=== PATIENT | female | born 1950 | race Caucasian/White ===

== ENCOUNTER 2016-11-29 15:56 | Inpatient (IN) | payer OTHER, MEDICARE ==
--- NOTE | 2016-11-29 16:08 | PDOC ---
History of Present Illness - General History Source: Patient Exam Limitations: No Limitations - History of Present Illness Initial Comments: 11/29/16 17:23 The patient is a 66 year old female, with a significant past medical history of Waldenstrom's macroglobulinemia, asthma, COPD, non hodgkin's lymphoma, AFib(on coumadin), irritable bowel syndrome, diabetes, hypertension,hyperlipidemia, hypothyroidism,arthritis, fibromyalgia, who presents to the emergency department complaining of shortness of breath for 1 day. The patient reports associated chest pain with her shortness of breath. She reports a cough productive of yellow sputum, fever, chills, and headache, but denies dizziness. The patient describes her headache as sharp and constant. The patient reports her friend is ill, but she has not seen her for 4 days. The patient denies any nausea, vomiting, diarrhea, constipation, or changes in urination patterns. She states she started not feeling well 1 day ago, so she called her PCP to make an appointment for today. However, today she was unable to go to her PCP because she could not get up. The patient denies any recent travel. Allergies: Midazolam HCl, [fresh fruit] Past Surgical History: Spinal fusion of L5/S1, Myxoma resection Social History: Current everyday smoker(20 cigarettes a day). Denies alcohol or drug use. PCP: Dr. Andrade <Serena Maya - Last Filed: 11/29/16 17:26> - General History Source: Patient Exam Limitations: No Limitations <Belle Araiza - Last Filed: 12/01/16 08:01> - General Chief Complaint: Shortness of Breath Stated Complaint: SOB Time Seen by Provider: 11/29/16 15:57 Past History <Serena Maya - Last Filed: 11/29/16 17:26> - Past Medical History Anemia: No Asthma: Yes Cancer: (NON HODGKINS LYMP) Cardiac Disorders: Yes CVA: No COPD: Yes CHF: No Dementia: No Diabetes: No GI Disorders: Yes (IBS) Disorders: No HTN: No Hypercholesterolemia: Yes Liver Disease: No Seizures: No Thyroid Disease: Yes (HYPO) - Surgical History Abdominal Surgery: No Appendectomy: No Cardiac Surgery: Yes (MYXOMA RESECTION) Cholecystectomy: No Lung Surgery: No Neurologic Surgery: No Orthopedic Surgery: Yes (SPINAL FUSION OF L5, S1) - Psycho/Social/Smoking Cessation Hx Anxiety: No Suicidal Ideation: No Smoking Status: Yes Smoking History: Current some day smoker Years of Tobacco Use: 12 Have you smoked in the past 12 months: Yes Number of Cigarettes Smoked Daily: 20 Hx Alcohol Use: No Drug/Substance Use Hx: No Substance Use Type: None Hx Substance Use Treatment: No <Belle Araiza - Last Filed: 12/01/16 08:01> - Past Medical History Allergies/Adverse Reactions: Allergies Allergy/AdvReac Type Severity Reaction Status Date / Time midazolam HCl [From Versed] Allergy Verified 11/28/13 14:45 fresh fruit Allergy Severe anaphlaxis Uncoded 11/28/13 14:45 Home Medications: Ambulatory Orders Atorvastatin Ca [Lipitor] 20 mg PO HS 11/29/16 Azelastine HCl 137 mcg NS DAILY 11/29/16 Biotin/Calcium Carbonate [Biotin 800 Mcg Tablet] 1 each PO DAILY 11/29/16 Cholecalciferol (Vitamin D3) [Vitamin D3 -] 2,000 unit PO DAILY 11/29/16 Cyanocobalamin [Vitamin B12 -] 1,000 mcg PO DAILY 11/29/16 Cyclobenzaprine HCl [Flexeril 10 mg] 5 mg PO DAILY 11/29/16 Digoxin [Lanoxin -] 0.25 mg PO DAILY 11/29/16 Diltiazem HCl [Cartia Xt] 180 mg PO DAILY 11/29/16 Fluticasone Prop 0.05% Nasal [Flonase -] 1 - 2 spray NS DAILY 11/29/16 Furosemide [Lasix] 80 mg PO BID 11/29/16 Gabapentin 200 mg PO BID 11/29/16 Guaifenesin [Mucinex] 1,200 mg PO DAILY 11/29/16 Levothyroxine [Synthroid -] 25 mcg PO DAILY 11/29/16 Metformin HCl [Metformin HCl ER] 1,000 mg PO BID 11/29/16 Multivitamin [Poly-Vitamin] 1 each PO DAILY 11/29/16 Potassium 200 mg PO ASDIR 11/29/16 Quetiapine Fumarate [Seroquel -] 50 mg PO HS 11/29/16 Venlafaxine HCl ER [Effexor Xr -] 225 mg PO DAILY 11/29/16 Warfarin Sodium [Coumadin] 5 mg PO ASDIR 11/29/16 Review of Systems - Review of Systems Able to Perform ROS?: Yes Comments:: 11/29/16 17:23 GENERAL/CONSTITUTIONAL: Yes: +fever, +chills, +weakness. No: loss of appetite. HEAD, EYES, EARS, NOSE AND THROAT: No: change in vision, ear pain, discharge, sore throat, throat swelling. CARDIOVASCULAR: Yes: +Chest pain. No: lightheadedness, palpitations, syncope RESPIRATORY: Yes: +shortness of breath, +cough. No: wheezing, hemoptysis, stridor. GASTROINTESTINAL: No: nausea, vomiting, abdominal cramping, diarrhea, rectal bleeding, constipation. GENITOURINARY: No: dysuria, hematuria, frequency, urgency, flank pain. MUSCULOSKELETAL: No: back pain, neck pain, muscle swelling or pain SKIN AND BREASTS: No: lesions, pallor, rash or easy bruising. NEUROLOGIC: Yes: +headache. No: vertigo, paresthesias ENDOCRINE: No: unexplained weight gain or loss HEMATOLOGIC/LYMPHATIC: No: anemia, easy bleeding, swelling nodes <Maya,Giomilsy - Last Filed: 11/29/16 17:26> *Physical Exam - Vital Signs Last Vital Signs Temp Pulse Resp BP Pulse Ox 98.7 F 73 20 149/76 97 11/29/16 15:56 11/29/16 15:56 11/29/16 15:56 11/29/16 15:56 11/29/16 15:56 - Physical Exam Comments: 11/29/16 17:23 GENERAL: The patient is in no acute distress. HEAD: Normal with no signs of trauma. EYES: PERRLA, EOMI, sclera anicteric, conjunctiva clear. ENT: Ears normal, nares patent, oropharynx clear without exudates. Moist mucous membranes. NECK: Normal range of motion, supple without lymphadenopathy, JVD, or masses. LUNGS: Breath sounds equal, clear to auscultation bilaterally. No wheezes, and no crackles. HEART: Irregularly irregular. No murmurs, rubs or gallops. ABDOMEN: Soft, nontender, normoactive bowel sounds. No guarding, no rebound. EXTREMITIES: Normal range of motion, no edema. No clubbing or cyanosis. No erythema, or tenderness. NEUROLOGICAL: Cranial nerves II through XII grossly intact. Normal speech. No focal neurological deficits. MUSCULOSKELETAL: Back non-tender to palpation, no CVA tenderness SKIN: Warm, Dry, normal turgor, no rashes or lesions noted. <Serena Maya - Last Filed: 11/29/16 17:26> Heart Score/ECG Review #1 ECG reviewed & interpreted by me at: 16:56 11/29/16 16:56 Afib rate of 91 bpm, right axis deviation no ST elevations or depression Diffuse T wave inversions noted <Belle Araiza - Last Filed: 12/01/16 08:01> ED Treatment Course - RADIOLOGY Radiograph Interpretation: 11/29/16 17:26 EXAM: CXR INTERPRETED BY: Dr. Carter REVIEWED BY: Dr. Nettles IMPRESSION: No evidence of acute lung disease. <Serena Maya - Last Filed: 11/29/16 17:26> - LABORATORY CBC & Chemistry Diagram: 12/01/16 05:35 11/30/16 06:00 <Belle Araiza - Last Filed: 12/01/16 08:01> Medical Decision Making - Medical Decision Making 11/29/16 16:07 A portion of this note was documented by scribe services under my direction. I have reviewed the details of the note, within reason, and agree with the documentation with the following case summary and management plan written by me. Nursing documentation reviewed and incorporated into medical decision making 11/29/16 17:46 This is a 66 yo F h/o Waldenstrom's macroglobulinemia, asthma, COPD, non hodgkin 's lymphoma, AFib(on coumadin), irritable bowel syndrome, diabetes, hypertension ,hyperlipidemia, hypothyroidism,arthritis, fibromyalgia, who presents w/ shortness of breath and cough since yesterday She called to make an appointment with her PMD which she had for today She was too weak to make it to that appointment Pt presents to the ER The patient reports associated chest pain with her shortness of breath. She reports a cough productive of yellow sputum, fever, chills, and headache, but denies dizziness. The patient describes her headache as sharp and constant. The patient reports her friend is ill, but she has not seen her for 4 days. Will do labs Will do CXR Will do EKG Will re assess 11/29/16 17:49 CXR: no acute lung disease 11/29/16 17:49 11/29/16 18:32 Laboratory Tests 11/29/16 11/29/16 17:35 17:35 WBC 10.9 H Hgb 15.8 H D Hct 47.1 H D Plt Count 257 D Sodium 134 L Potassium 3.5 D Chloride 96 L Carbon Dioxide 31 H BUN 10 D Creatinine 0.5 L Random Glucose 116 H 11/29/16 18:32 ? retaining (CO2 = 31) Will review VBG when resulted Case reviewed with Hospitalist Will obs for COPD exacerbation Selected Entries 11/29/16 11/29/16 16:20 18:07 Temperature 100.1 F H Pulse Rate [ 76 Left] Respiratory 20 Rate Blood Pressure 122/64 [Right Arm] O2 Sat by Pulse 96 Oximetry (%) <Belle Araiza - Last Filed: 12/01/16 08:01> *DC/Admit/Observation/Transfer - Attestations Scribe Attestion: 11/29/16 17:24 Documentation prepared by Serena Maya, acting as medical technologist prn for Belle Araiza MD. <Serena Maya - Last Filed: 11/29/16 17:26> - Discharge Dispostion Admit: Yes <Belle Araiza - Last Filed: 12/01/16 08:01> Diagnosis at time of Disposition: COPD exacerbation - Discharge Dispostion Condition at time of disposition: Stable
[2016-11-29] MEDS ORDERED: ALBUTEROL SO4 2.5/IPRATROPIUM 0.5 INH SOL 3 ML VIAL.NEB. NEB ONE ×4 (17:09→20:15)
[2016-11-29 17:45] LABS: BASOPHIL 1.5 % (0-2.0); EOSINOPHIL 0.6 % (0-4.5); MCH 30.5 pg (25.7-33.7); MCHC 33.5 g/dl (32.0-36.0); MEAN CELL VOLUME 91.1 fl (80-96); MEAN PLT VOLUME 8.9 fl (7.5-11.1); NEUTROPHILS 79.2 % (42.8-82.8); PLATELET COUNT 257 K/MM3 (134-434); RDW 14.5 % (11.6-15.6); WHITE BLOOD COUNT 10.9 K/mm3 (4.0-10.0)
[2016-11-29 17:54] LABS: INR 1.95 (0.82-1.09); PROTHROMBIN TIME (PATIENT) 21.5 SEC (10.2-13.0)
[2016-11-29 18:01] LABS: ALBUMIN 3.9 g/dl (3.5-5.0); ALK PHOS 119 U/L (32-92); ANION GAP 7 (8-16); BILIRUBIN,TOTAL 0.6 mg/dl (0.2-1.0); CALCIUM 8.6 mg/dl (8.4-10.2); CO2 31 mmol/L (22-28); CREATININE 0.5 mg/dl (0.6-1.3); GLUCOSE,RANDOM 116 mg/dl (74-106); SGOT/AST 21 U/L (10-42); SGPT/ALT 19 U/L (10-40); TOT PROT 6.7 g/dl (6.4-8.3)
[2016-11-29] MEDS ORDERED: methylPREDNISolone NA SUCC 125 MG/2 ML VIAL IVPB ONE (18:04)
[2016-11-29 18:27] LABS: CPK(DFH) 28 IU/L (26-140)
[2016-11-29] MEDS ORDERED: ALBUTEROL SO4 0.083% IH SOL 2.5 MG/3 ML VIAL.NEB. NEB PRN (18:30)
[2016-11-29 18:33] LABS: TROPONIN I (DFP) < 0.03 ng/ml (0.03-0.50)
[2016-11-29] MEDS ORDERED: methylPREDNISolone NA SUCC 125 MG/2 ML VIAL ONE (18:38)
[2016-11-29 19:48] LABS: VENOUS BLOOD GAS HCO3 30.7 meq/L (22-26); VENOUS PH 7.38 (7.35-7.45)
--- NOTE | 2016-11-29 21:44 | PDOC ---
ED Treatment Course - LABORATORY CBC & Chemistry Diagram: 11/29/16 17:35 11/29/16 17:35 - ADDITIONAL ORDERS Additional order review: Laboratory Results 11/29/16 11/29/16 11/29/16 17:37 17:37 17:35 INR PTT (Actin FS) VBG pH 7.38 POC VBG pCO2 53.5 H POC VBG pO2 29.6 L* Mixed VBG HCO3 30.7 H Sodium Potassium Chloride Carbon Dioxide Anion Gap BUN Creatinine Creat Clearance w eGFR Random Glucose Lactic Acid Calcium Total Bilirubin AST ALT Alkaline Phosphatase Creatine Kinase 28 Troponin I < 0.03 L Total Protein Albumin Digoxin Blood Type O POSITIVE Antibody Screen Negative 11/29/16 11/29/16 11/29/16 17:35 17:35 17:35 INR 1.95 H D PTT (Actin FS) 41.0 H VBG pH POC VBG pCO2 POC VBG pO2 Mixed VBG HCO3 Sodium 134 L Potassium 3.5 D Chloride 96 L Carbon Dioxide 31 H Anion Gap 7 L BUN 10 D Creatinine 0.5 L Creat Clearance w eGFR > 60 Random Glucose 116 H Lactic Acid 1.083 Calcium 8.6 Total Bilirubin 0.6 D AST 21 ALT 19 D Alkaline Phosphatase 119 H D Creatine Kinase Cancelled Troponin I Cancelled Total Protein 6.7 Albumin 3.9 D Digoxin 1.0986 Blood Type Antibody Screen 11/29/16 17:20 INR PTT (Actin FS) VBG pH POC VBG pCO2 POC VBG pO2 Mixed VBG HCO3 Sodium Potassium Chloride Carbon Dioxide Anion Gap BUN Creatinine Creat Clearance w eGFR Random Glucose Lactic Acid Calcium Total Bilirubin AST ALT Alkaline Phosphatase Creatine Kinase Troponin I Total Protein Albumin Digoxin Blood Type O POSITIVE Antibody Screen 11/29/16 17:35 RBC 5.17 MCV 91.1 MCHC 33.5 RDW 14.5 MPV 8.9 Neutrophils % 79.2 D Lymphocytes % 15.0 D Monocytes % 3.7 L Eosinophils % 0.6 Basophils % 1.5 - Medications Given in the ED: ED Medications Discontinued Medications Generic Name Dose Route Start Last Admin Trade Name Freq PRN Reason Stop Dose Admin Albuterol/Ipratropium 1 amp 11/29/16 18:04 11/29/16 17:10 Duoneb - NEB 11/29/16 18:05 1 amp NOW ONE Administration Albuterol/Ipratropium 1 amp 11/29/16 20:10 11/29/16 20:14 Duoneb - NEB 11/29/16 20:11 1 amp ONCE ONE Administration Methylprednisolone Sodium Succinate 125 mg 11/29/16 18:04 11/29/16 18:37 Solu-Medrol - IVPB 11/29/16 18:05 125 mg ONCE ONE Administration Medical Decision Making - Medical Decision Making 11/29/16 21:55 patient noted to have O2 sat in low 80's prior to transport upstairs. On exam, patient states that she is not short of breath and in fact feels better than when she arrived. However, the patient has bilateral rhonchi on auscultatory exam. DuoNeb treatment given. Oxygenation continues to be marginal with saturations between 8284 percent Patient started on BiPAP and arterial blood gas sent Patient complained of chest pain after initiation of BiPAP assistance. Previous EKG and first set of cardiac enzymes showed no evidence of myocardial ischemia/infarct. Repeat electrocardiogram performed. Repeat cardiac enzymes sent. Although patient may have mucus plugging, occult pneumonia, pulmonary emboli cannot be ruled out. Patient will have CT angiogram to evaluate for her apparent sudden hypoxia. CT angiogram shows no evidence of pulmonary embolus in the main pulmonary artery , segmental or subsegmental bifurcations, bilaterally. There are atelectatic changes with probable infiltrates in the dependent portion of the left lower lobe. Thereare also minimal infiltrates versus atelectatic changes in the left upper and right middle lobe Patient seen and evaluated by Shira Villafana,,[facility] . Intravenous antibiotic therapy will be initiated. Patient will be transferred to [facility] by [facility] ambulance as per MAYTE Villafana *DC/Admit/Observation/Transfer Diagnosis at time of Disposition: COPD exacerbation - Discharge Dispostion Condition at time of disposition: Stable
[2016-11-29 21:56] LABS: CPK(DFH) 26 IU/L (26-140)
[2016-11-29 22:00] LABS: ARTERIAL BLD GAS O2 SATURATION 88.5 % (90-98.9); ARTERIAL BLOOD GAS PO2 54.3 mmHg (80-100)
[2016-11-29 22:01] LABS: ARTERIAL BLOOD GAS BASE EXCESS 4.2 meq/l (-2-2); ARTERIAL BLOOD GAS HCO3 29.6 meq/L (22-26); LPM/O2% 45%; MECH. VENT. BIPAP; PT. ON O2? YES; TYPE OF O2 OT; VENT RATE 12
[2016-11-29 22:09] LABS: TROPONIN I (DFP) < 0.03 ng/ml (0.03-0.50)
[2016-11-29] MEDS ORDERED: AZITHROMYCIN IVPB 250 ML IVPB ONE (23:43)
[2016-11-29] MEDS ORDERED: cefTRIAXone SODIUM 1 GM VIAL ONE (23:48)
[2016-11-29] MEDS ORDERED: AZITHROMYCIN 500 MG VIAL IVPB ONE (23:48)
--- NOTE | 2016-11-30 00:23 | HP ---
CHIEF COMPLAINT: SOB, cough PCP: Raymond HISTORY OF PRESENT ILLNESS: This is a 66 year old female with a past medical history of Waldenstrom's macroglobulinemia, asthma, COPD, nonHodkin's lymphoma, atrial fibrillation on coumadin, IBS, DM, HTN, HLD, hypothyroid, arthritis, fibromyalgia who presented to the ED with SOB, chest pain, cough with yellow sputum, subjective fever and chills since 11/28. Initially on presentation to the ED pt vitals were stable and oxygen sat >90, but pt with desat into 70s between 8 and 9 pm. pt states that at the time she didn't feel any increase in SOB. Despite duoneb and supplemental oxygen, her sats remained low 80s and she was placed on BiPAP. Shortly after being placed on BiPAP, pt c/o increased chest pain. Repeat ECG was done and repeat cardiac enzymes sent. Upon exam, pt appears comfortable, no tachypnea or accessory muscle use noted. However, pt states that the biPAP is making it harder for breathe and causing her chest to hurt more. Pt taken off BiPAP briefly for a drink of water and sats again dropped back into low 80s; immediately placed back on BiPAP. Pt denies any abdominal discomfort. 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, sober x 20 years Drugs: pt denies Family History: mother age 79, MD, PMH CVA, CHF, enlarged heart father age 54, lung CA brother age 54, interstitial lung disease Allergies midazolam HCl [From Versed] Allergy (Verified 11/28/13 14:45) fresh fruit Allergy (Severe, Uncoded 11/28/13 14:45) anaphlaxis HOME MEDICATIONS: 3 Medication Instructions Recorded Atorvastatin Ca [Lipitor] 20 mg PO HS 11/29/16 Azelastine HCl 137 mcg NS DAILY 11/29/16 Biotin/Calcium Carbonate [Biotin 1 each PO DAILY 11/29/16 800 Mcg Tablet] Cholecalciferol (Vitamin D3) 2,000 unit PO DAILY 11/29/16 [Vitamin D3 -] Cyanocobalamin [Vitamin B12 -] 1,000 mcg PO DAILY 11/29/16 Cyclobenzaprine HCl [Flexeril 10 5 mg PO DAILY 11/29/16 mg] Digoxin [Lanoxin -] 0.25 mg PO DAILY 11/29/16 Diltiazem HCl [Cartia Xt] 180 mg PO DAILY 11/29/16 Fluticasone Prop 0.05% Nasal 1 - 2 spray NS DAILY 11/29/16 [Flonase -] Furosemide [Lasix] 80 mg PO BID 11/29/16 Gabapentin 200 mg PO BID 11/29/16 Guaifenesin [Mucinex] 1,200 mg PO DAILY 11/29/16 Levothyroxine [Synthroid -] 25 mcg PO DAILY 11/29/16 Metformin HCl [Metformin HCl ER] 1,000 mg PO BID 11/29/16 Multivitamin [Poly-Vitamin] 1 each PO DAILY 11/29/16 Potassium 200 mg PO ASDIR 11/29/16 Quetiapine Fumarate [Seroquel -] 50 mg PO HS 11/29/16 Venlafaxine HCl ER [Effexor Xr -] 225 mg PO DAILY 11/29/16 Warfarin Sodium [Coumadin] 5 mg PO ASDIR 11/29/16 REVIEW OF SYSTEMS CONSTITUTIONAL: Present: fever, chills, generalized weakness, malaise Absent: diaphoresis, loss of appetite, weight change HEENT: Absent: rhinorrhea, nasal congestion, throat pain, throat swelling, difficulty swallowing, mouth swelling, ear pain, eye pain, visual changes CARDIOVASCULAR: Present: chest pain Absent: syncope, palpitations, irregular heart rate, lightheadedness, peripheral edema RESPIRATORY: Present: cough, shortness of breath, dyspnea with exertion Absent: orthopnea, wheezing, stridor, hemoptysis GASTROINTESTINAL: Absent: abdominal pain, abdominal distension, nausea, vomiting, diarrhea, constipation, melena, hematochezia GENITOURINARY: Absent: dysuria, frequency, urgency, hesitancy, hematuria, flank pain, genital pain MUSCULOSKELETAL: Absent: myalgia, arthralgia, joint swelling, back pain, neck pain SKIN: Absent: rash, itching, pallor HEMATOLOGIC/IMMUNOLOGIC: Absent: easy bleeding, easy bruising, lymphadenopathy, frequent infections ENDOCRINE: Absent: unexplained weight gain, unexplained weight loss, heat intolerance, cold intolerance NEUROLOGIC: Absent: headache, focal weakness or paresthesias, dizziness, unsteady gait, seizure, mental status changes, bladder or bowel incontinence PSYCHIATRIC: Absent: anxiety, depression, suicidal or homicidal ideation, hallucinations. PHYSICAL EXAMINATION Vital Signs - 24 hr 3 11/29/16 11/29/16 11/29/16 11/29/16 11/29/16 11/29/16 11/29/16 15:56 16:20 18:07 18:48 19:51 20:55 22:15 Temperature 98.7 F 100.1 F H Pulse Rate 73 Pulse Rate [ 76 85 86 Left] Respiratory 20 20 19 15 Rate Blood Pressure 149/76 Blood Pressure 122/64 127/60 131/80 [Right Arm] O2 Sat by Pulse 97 96 96 89 L 89 L Oximetry (%) GENERAL: Awake, alert, and fully oriented, in no acute distress. HEAD: Normal with no signs of trauma. EYES: Pupils equal, round and reactive to light, extraocular movements intact, sclera anicteric, conjunctiva clear. No lid lag. EARS, NOSE, THROAT: Ears normal, nares patent, oropharynx clear without exudates. Moist mucous membranes. NECK: Normal range of motion, supple without lymphadenopathy, JVD, or masses. LUNGS: rhonchi all lung loyd HEART: Regular rate and rhythm, normal S1 and S2 without murmur, rub or gallop. ABDOMEN: Soft, nontender, not distended, normoactive bowel sounds, no guarding, no rebound, no masses. No hepatomegaly or splenomegaly. MUSCULOSKELETAL: Normal range of motion at all joints. No bony deformities or tenderness. No CVA tenderness. UPPER EXTREMITIES: 2+ pulses, warm, well-perfused. No cyanosis. No clubbing. No peripheral edema. LOWER EXTREMITIES: 2+ pulses, warm, well-perfused. No calf tenderness. No peripheral edema. NEUROLOGICAL: Cranial nerves II-XII intact. Normal speech. Normal gait. PSYCHIATRIC: Cooperative. Good eye contact. Appropriate mood and affect. SKIN: Warm, dry, normal turgor, no rashes or lesions noted, normal capillary refill. Laboratory Results - last 24 hr 3 11/29/16 11/29/16 11/29/16 17:20 17:35 17:35 WBC 10.9 H RBC 5.17 Hgb 15.8 H D Hct 47.1 H D MCV 91.1 MCHC 33.5 RDW 14.5 Plt Count 257 D MPV 8.9 Neutrophils % 79.2 D Lymphocytes % 15.0 D Monocytes % 3.7 L Eosinophils % 0.6 Basophils % 1.5 INR 1.95 H D PTT (Actin FS) 41.0 H Anticoagulation Therapy Puncture Site ABG pH ABG pCO2 at Pt Temp ABG pO2 at Pt Temp ABG HCO3 ABG O2 Sat (Measured) ABG O2 Content ABG Base Excess Gian Test VBG pH POC VBG pCO2 POC VBG pO2 Mixed VBG HCO3 O2 Delivery Device Oxygen Flow Rate Vent Mode Vent Rate Mechanical Rate PEEP Pressure Support Vent Sodium Potassium Chloride Carbon Dioxide Anion Gap BUN Creatinine Creat Clearance w eGFR Random Glucose Lactic Acid Calcium Total Bilirubin AST ALT Alkaline Phosphatase Creatine Kinase Troponin I Total Protein Albumin Digoxin Blood Type O POSITIVE Antibody Screen 3 11/29/16 11/29/16 11/29/16 11/29/16 11/29/16 17:35 17:35 17:35 17:37 21:30 WBC RBC Hgb Hct MCV MCHC RDW Plt Count MPV Neutrophils % Lymphocytes % Monocytes % Eosinophils % Basophils % INR PTT (Actin FS) Anticoagulation Therapy Puncture Site ABG pH ABG pCO2 at Pt Temp ABG pO2 at Pt Temp ABG HCO3 ABG O2 Sat (Measured) ABG O2 Content ABG Base Excess Gian Test VBG pH 7.38 POC VBG pCO2 53.5 H POC VBG pO2 29.6 L* Mixed VBG HCO3 30.7 H O2 Delivery Device Oxygen Flow Rate Vent Mode Vent Rate Mechanical Rate PEEP Pressure Support Vent Sodium 134 L Potassium 3.5 D Chloride 96 L Carbon Dioxide 31 H Anion Gap 7 L BUN 10 D Creatinine 0.5 L Creat Clearance w eGFR > 60 Random Glucose 116 H Lactic Acid 1.083 Calcium 8.6 Total Bilirubin 0.6 D AST 21 ALT 19 D Alkaline Phosphatase 119 H D Creatine Kinase Cancelled 28 26 Troponin I Cancelled < 0.03 L < 0.03 L Total Protein 6.7 Albumin 3.9 D Digoxin 1.0986 Blood Type O POSITIVE Antibody Screen Negative 3 11/29/16 21:55 WBC RBC Hgb Hct MCV MCHC RDW Plt Count MPV Neutrophils % Lymphocytes % Monocytes % Eosinophils % Basophils % INR PTT (Actin FS) Anticoagulation Therapy Y Puncture Site Md puncture ABG pH 7.40 ABG pCO2 at Pt Temp 48.6 H ABG pO2 at Pt Temp 54.3 L ABG HCO3 29.6 H ABG O2 Sat (Measured) 88.5 L ABG O2 Content 18.5 ABG Base Excess 4.2 H Gian Test Not applicable VBG pH POC VBG pCO2 POC VBG pO2 Mixed VBG HCO3 O2 Delivery Device Ot Oxygen Flow Rate 45% Vent Mode St Vent Rate 12 Mechanical Rate Bipap PEEP 0.0 Pressure Support Vent 12/5 Sodium Potassium Chloride Carbon Dioxide Anion Gap BUN Creatinine Creat Clearance w eGFR Random Glucose Lactic Acid Calcium Total Bilirubin AST ALT Alkaline Phosphatase Creatine Kinase Troponin I Total Protein Albumin Digoxin Blood Type Antibody Screen ECG: atrial fibrillation, rate 91, QTC 405, T wave inversion, 2,3,aVF, V2-V6 CTA: Impression There is no evidence of a pulmonary embolus in the main pulmonary artery, segmental and subsegmental bifurcations, bilaterally. Atelectatic changes with probable infiltrates in the dependent portion of the left lower lobe as well as minimal infiltrates versus atelectatic changes in the left upper lobe and right middle lobe. CXR: Impression: No acute lung disease is present. ASSESSMENT/PLAN: 66yF with PMH Waldenstrom's macroglobulinemia, asthma, COPD, nonHodkin's lymphoma, atrial fibrillation on coumadin, IBS, DM, HTN, HLD, hypothyroid, arthritis, fibromyalgia presented to ED for SOB, cough. She is being admitted for COPD exac and pneumonia. Pneumonia, community acquired - pt denies any hospitalizaiton or ER visit or health care associated facility contact in the past 3 months. - ceftriaxone 1g, azithromycin 500mg IVPB given, cont daily - trend WBC - if not improving, obtain pulm and ID consults - transfer to [facility] for closer monitoring. COPD exacerbation - duoneb QID standing - solumedrol 40mg Q6H, taper as tolerated - BiPAP overnight, trial off if improved in am. - cont home singulair chest pain - likely related to pulmonary disease - trend troponin - consider cardiolgoy consult, jose a if no improvement with improvement in resp status DM - hold metformin, pt received IV contrast - novolog sliding scale, BGM TIDAC and HS Atrial fibrillation / ?CHF - rate controlled on current regimen, dig level therapeutic, cont home regimen - cont coumadin 5mg daily, INR 1.95 - on lasix 80mg BID, but does not report any CHF history. will order echo Hyperlipidemia - cont home lipitor hypothyroid - cont home synthroid Waldenstrom's macroblobulinemia/NHL - pt states she is in remission, f/u as outpatient. arthritis/fibromyalgia - cont home meds: flexeril/gabapentin Depression - cont effexor, seroquel DVT PPX - on coumadin, therapeutic, cont same. FEN - pt appears euvolemic, defer IVF at this time - repeat labs in am - Diabetic/low sodium diet Dispo: Pt currently requires inpatient management for management of her emergent condition. Visit type - Emergency Visit Emergency Visit: Yes ED Registration Date: 11/29/16 Care time: The patient presented to the Emergency Department on the above date and was hospitalized for further evaluation of their emergent condition. - New Patient This patient is new to me today: Yes Date on this admission: 11/29/16 - Critical Care Critical Care patient: No
[2016-11-30] MEDS: methylPREDNISolone NA SUCC 40 MG/1 ML VIAL IVPB SCH ×4 (03:38→21:25)
[2016-11-30 04:02] VITALS: BMI 30.2
[2016-11-30] MEDS ORDERED: HEPARIN NA (PORCINE) 5,000 UNITS/ML 1ML VIAL SQ SCH (06:00)
[2016-11-30] MEDS: ALBUTEROL SO4 2.5/IPRATROPIUM 0.5 INH SOL 3 ML VIAL.NEB. NEB SCH ×4 (06:20→23:05)
[2016-11-30] MEDS: LEVOTHYROXINE NA 25 MCG TABLET (FP) PO SCH (06:20)
[2016-11-30] MEDS: FUROSEMIDE 40 MG TABLET (FP) PO SCH ×2 (06:20→14:31)
[2016-11-30] MEDS: INSULIN SLIDING SCALE (NOVOLOG) 1 VIAL SQ SCH ×4 (06:21→21:28)
[2016-11-30 07:08] LABS: BASOPHIL 0.1 % (0-2.0); MCH 30.6 pg (25.7-33.7); MCHC 33.3 g/dl (32.0-36.0); MEAN CELL VOLUME 91.8 fl (80-96); PLATELET COUNT 217 K/MM3 (134-434); WHITE BLOOD COUNT 7.7 K/mm3 (4.0-10.0)
[2016-11-30 07:23] LABS: ALBUMIN 3.2 g/dl (3.4-5.0); ANION GAP 10 (8-16); BILIRUBIN,TOTAL 0.4 mg/dL (0.2-1.0); CALCIUM 8.2 mg/dL (8.5-10.1); CO2 31 mmol/L (21-32); CREATININE 0.5 mg/dL (0.55-1.02); GLUCOSE,RANDOM 147 mg/dL (74-106); SGOT/AST 12 U/L (15-37); SGPT/ALT 20 U/L (12-78)
[2016-11-30 07:26] LABS: ALK PHOS 139 U/L (45-117); TOT PROT 6.1 g/dl (6.4-8.2)
[2016-11-30 07:31] LABS: INR 1.97 (0.82-1.09); TROPONIN I < 0.02 ng/ml (0.00-0.05)
[2016-11-30] MEDS ORDERED: VANCOMYCIN 1,000 MG in DEXTROSE 5%-WATER - 250 ML IVPB ONE (07:50)
--- NOTE | 2016-11-30 09:53 | PN ---
Progress Note (short form) - Note Progress Note: ID Full note dictated 66 yearold female multiple history of comorbities includes atrial fibrillation and COPD smoker brought with worsening SOB couph and low grade fevers. Selected Entries 11/30/16 06:00 Temperature 97.8 F Pulse Rate 88 Respiratory 18 Rate Blood Pressure 106/75 Laboratory Tests 11/29/16 11/29/16 11/30/16 17:35 21:55 06:00 WBC 10.9 H Hct 47.1 H D Plt Count 257 D INR 1.97 H ABG pH 7.40 ABG pCO2 at Pt Temp 48.6 H ABG pO2 at Pt Temp 54.3 L ABG HCO3 29.6 H Oxygen Flow Rate 45% Mechanical Rate Bipap Total Bilirubin ALT 11/30/16 06:00 WBC Hct Plt Count INR ABG pH ABG pCO2 at Pt Temp ABG pO2 at Pt Temp ABG HCO3 Oxygen Flow Rate Mechanical Rate Total Bilirubin 0.4 ALT 20 D Lung Rhonchi bilaterally Cor S1 S2 Irrg Abd Soft nontender Ext tr edema Plan Pneumonia COPD exacerbation Cultures LGA Sputum c/s HIV Ceftriaxone kenzie Ruiz MD Problem List - Problems (1) COPD exacerbation Code(s): J44.1 - CHRONIC OBSTRUCTIVE PULMONARY DISEASE W (ACUTE) EXACERBATION (2) Pneumonia Code(s): J18.9 - PNEUMONIA, UNSPECIFIED ORGANISM
[2016-11-30] MEDS: guaiFENesin 600 MG TABLET.ER (FP) PO SCH ×2 (09:55→21:27)
[2016-11-30] MEDS: DIGOXIN 0.25 MG TABLET (FP) PO SCH (09:55)
[2016-11-30] MEDS: GABAPENTIN 100 MG CAPSULE (FP) PO SCH ×2 (09:56→21:27)
[2016-11-30] MEDS: MULTIVITAMINS (DAILY MVI) TABLET (FP) PO SCH (09:57)
[2016-11-30] MEDS: CHOLECALCIFEROL (VITAMIN D3) 1,000 UNIT TABLET (FP) PO SCH (09:57)
[2016-11-30] MEDS: CYANOCOBALAMIN 1,000 MCG TABLET (FP) PO SCH (09:57)
[2016-11-30] MEDS ORDERED: CALCIUM CARBONATE PO SCH (10:00)
[2016-11-30] MEDS ORDERED: [UNRECOGNIZED DRUG - OTHER] PO SCH (10:00)
[2016-11-30] MEDS ORDERED: CEFTRIAXONE 50 ML IVPB SCH (10:00)
[2016-11-30] MEDS ORDERED: BIOTIN PO SCH (10:00)
[2016-11-30] MEDS ORDERED: POTASSIUM CHLORIDE TABS 10 MEQ TABLET.ER (FP) PO SCH (10:00)
[2016-11-30] MEDS ORDERED: AZELASTINE HCL NS SCH (10:00)
[2016-11-30] MEDS: VENLAFAXINE HCL 75 MG E.R. CAPSULES (FP) PO SCH (10:05)
[2016-11-30] MEDS: CYCLOBENZAPRINE HCL 10 MG TABLET (FP) PO SCH ×3 (10:07→21:28)
--- NOTE | 2016-11-30 10:13 | CON.CARD ---
Cardiology Consult (text) - Consultation Consultation Note: cc: sob, cough hpi: 66 f hx copd, NHL, afib, dm, htn, hld, hypothyroid, fibromyalgia, cardiac myxoma s/p resection, venous insuff/le edema here with sob, cough, cp. Pt had been feeling well until yesterday when she began to have sob, cough with yellow sputum, and pleuritic sharp left chest pain. No palps, dizzy, loc, pnd, orthopnea. LE edema stable on lasix. Came to ER and found to have copd/pna, put on bipap, feeling better today. Sees private cardio in [place], saw last a few months ago. pmh: per hpi psh: per hpi, spine surgery social: +tob fam: no premature cad, scd ros: per hpi; no n/v/d, +fever, no WILHELM, vision changes, rash, wt loss, gib, hematuria, muscle pain meds: Ambulatory Orders Atorvastatin Ca [Lipitor] 20 mg PO HS 11/29/16 Azelastine HCl 137 mcg NS DAILY 11/29/16 Biotin/Calcium Carbonate [Biotin 800 Mcg Tablet] 1 each PO DAILY 11/29/16 Cholecalciferol (Vitamin D3) [Vitamin D3 -] 2,000 unit PO DAILY 11/29/16 Cyanocobalamin [Vitamin B12 -] 1,000 mcg PO DAILY 11/29/16 Cyclobenzaprine HCl [Flexeril 10 mg] 5 mg PO DAILY 11/29/16 Digoxin [Lanoxin -] 0.25 mg PO DAILY 11/29/16 Diltiazem HCl [Cartia Xt] 180 mg PO DAILY 11/29/16 Fluticasone Prop 0.05% Nasal [Flonase -] 1 - 2 spray NS DAILY 11/29/16 Furosemide [Lasix] 80 mg PO BID 11/29/16 Gabapentin 200 mg PO BID 11/29/16 Guaifenesin [Mucinex] 1,200 mg PO DAILY 11/29/16 Levothyroxine [Synthroid -] 25 mcg PO DAILY 11/29/16 Metformin HCl [Metformin HCl ER] 1,000 mg PO BID 11/29/16 Multivitamin [Poly-Vitamin] 1 each PO DAILY 11/29/16 Potassium 200 mg PO ASDIR 11/29/16 Quetiapine Fumarate [Seroquel -] 50 mg PO HS 11/29/16 Venlafaxine HCl ER [Effexor Xr -] 225 mg PO DAILY 11/29/16 Warfarin Sodium [Coumadin] 5 mg PO ASDIR 11/29/16 pe: Vital Signs Period Temp Pulse Resp BP Sys/Card Pulse Ox Last 24 Hr 97.8 F-100.1 F 73-99 14-20 106-149/60-80 89-97 nad no jvd irreg, s1s2 no mrg b/l exp wheeze, nl eff no le e/c/c abd nt nd pos bs aaox3 +dp pt, no carotid bruits no jaundice diaphoresis Laboratory Last Values WBC 7.7 K/mm3 (4.0-10.0) 11/30/16 06:00 Corrected WBC (auto) Cancelled 11/30/16 06:00 RBC 4.94 M/mm3 (3.60-5.2) 11/30/16 06:00 Hgb 15.1 GM/dL (10.7-15.3) 11/30/16 06:00 Hct 45.4 % (32.4-45.2) H 11/30/16 06:00 MCV 91.8 fl (80-96) 11/30/16 06:00 MCHC 33.3 g/dl (32.0-36.0) 11/30/16 06:00 RDW 15.0 % (11.6-15.6) 11/30/16 06:00 Plt Count 217 K/MM3 (134-434) 11/30/16 06:00 MPV 9.0 fl (7.5-11.1) 11/30/16 06:00 Add Manual Diff Cancelled 11/30/16 06:00 Neutrophils % 93.0 % (42.8-82.8) H 11/30/16 06:00 Lymphocytes % 6.2 % (8-40) L 11/30/16 06:00 Monocytes % 0.7 % (3.8-10.2) L 11/30/16 06:00 Eosinophils % 0.0 % (0-4.5) 11/30/16 06:00 Basophils % 0.1 % (0-2.0) 11/30/16 06:00 Differential Comment Cancelled 11/30/16 06:00 Platelet Estimate Cancelled 11/30/16 06:00 Platelet Comment Cancelled 11/30/16 06:00 Platelet Comment Cancelled 11/30/16 06:00 Normal RBC Morphology Cancelled 11/30/16 06:00 RBC Morphology Cancelled 11/30/16 06:00 INR 1.97 (0.82-1.09) H 11/30/16 06:00 PTT (Actin FS) 41.0 SECONDS (24.0-38.9) H 11/29/16 17:35 Anticoagulation Therapy Y 11/29/16 21:55 Puncture Site Md puncture 11/29/16 21:55 ABG pH 7.40 (7.35-7.45) 11/29/16 21:55 ABG pCO2 at Pt Temp 48.6 mmHg (35-45) H 11/29/16 21:55 ABG pO2 at Pt Temp 54.3 mmHg (80-100) L 11/29/16 21:55 ABG HCO3 29.6 meq/L (22-26) H 11/29/16 21:55 ABG O2 Sat (Measured) 88.5 % (90-98.9) L 11/29/16 21:55 ABG O2 Content 18.5 % vol (15-22) 11/29/16 21:55 ABG Base Excess 4.2 meq/l (-2-2) H 11/29/16 21:55 Gian Test Not applicable 11/29/16 21:55 VBG pH 7.38 (7.35-7.45) 11/29/16 17:35 POC VBG pCO2 53.5 mmHg (35-45) H 11/29/16 17:35 POC VBG pO2 29.6 mmHg (80-100) L* 11/29/16 17:35 Mixed VBG HCO3 30.7 meq/L (22-26) H 11/29/16 17:35 O2 Delivery Device Ot 11/29/16 21:55 Oxygen Flow Rate 45% 11/29/16 21:[address] 11/29/16 21:55 Vent Rate 12 11/29/16 21:55 Mechanical Rate Bipap 11/29/16 21:55 PEEP 0.0 cmH2O 11/29/16 21:55 Pressure Support Vent 12/5 11/29/16 21:55 Sodium 142 mmol/L (136-145) 11/30/16 06:00 Potassium 3.7 mmol/L (3.5-5.1) D 11/30/16 06:00 Chloride 101 mmol/L (98-107) 11/30/16 06:00 Carbon Dioxide 31 mmol/L (21-32) 11/30/16 06:00 Anion Gap 10 (8-16) 11/30/16 06:00 BUN 11 mg/dL (7-18) D 11/30/16 06:00 Creatinine 0.5 mg/dL (0.55-1.02) L 11/30/16 06:00 Creat Clearance w eGFR > 60 (>60) 11/30/16 06:00 POC Glucometer 151 UNITS (()) 11/30/16 05:50 Random Glucose 147 mg/dL (74-106) H D 11/30/16 06:00 Lactic Acid 1.083 mmol/L (0.4-2.0) 11/29/16 17:35 Calcium 8.2 mg/dL (8.5-10.1) L 11/30/16 06:00 Total Bilirubin 0.4 mg/dL (0.2-1.0) 11/30/16 06:00 AST 12 U/L (15-37) L D 11/30/16 06:00 ALT 20 U/L (12-78) D 11/30/16 06:00 Alkaline Phosphatase 139 U/L (45-117) H 11/30/16 06:00 Creatine Kinase 28 IU/L (26-192) 11/30/16 06:00 Troponin I < 0.02 ng/ml (0.00-0.05) 11/30/16 06:00 Total Protein 6.1 g/dl (6.4-8.2) L 11/30/16 06:00 Albumin 3.2 g/dl (3.4-5.0) L 11/30/16 06:00 Digoxin 1.0986 ng/ml (0.8-2.0) 11/29/16 17:35 Blood Type O POSITIVE 11/29/16 17:37 Antibody Screen Negative 11/29/16 17:37 ecgs 11/29/16: afib, rate in 90s, rad, twi v2-v6, inf twis, no st changes, no sig change from 2011 and 2013 ecgs echo 09/2011: tds, grossly nl lvef, mild tr cta chest: no pe, no chf, +infiltrates a/p: 66 f hx copd, NHL, afib, dm, htn, hld, hypothyroid, fibromyalgia, cardiac myxoma s/p resection, venous insuff/le edema here with sob, cough, cp. cp: -no signs acs, ce's neg x3 -ecg with twi's that have been present in prior ecgs from 2011 and 2013 as well -pleuritic cp likely from copd/pna, monitor as resp issues improve copd, pna, sob: -no signs pulm edema -sxs likely from copd/pna -cont abx/steroids/o2 per pmd -check echo afib: -rate controlled on dilt, dig (level nl here) -cont coumadin per inr htn: -cont home dilt hld: -cont statin cardiac myxoma s/p resection: -check echo venous insuff/le edema: -stable, cont home lasix dose
[2016-11-30] MEDS ORDERED: CEFTRIAXONE 1 GM in DEXTROSE 5%-WATER - 50 ML IVPB SCH (10:30)
[2016-11-30] MEDS: AZITHROMYCIN IVPB 250 ML IVPB SCH (11:33)
[2016-11-30] MEDS ORDERED: INSULIN (NOVOLOG) ASPART 100 UNITS/ML 10ML VIAL ONE ×2 (12:44→21:21)
[2016-11-30] MEDS: FLUTICASONE PROP 0.05% 16 GM NASAL SPRAY NS SCH (12:48)
--- NOTE | 2016-11-30 13:04 | CONS ---
DATE OF CONSULTATION: DATE OF DICTATION: 11/30/2016 This is a 66-year-old female with a history of multiple co-morbidities, brought with a chief complaint of worsening shortness of breath, fever, chills, and productive cough over the last 24 to 48 hours. The patient is a daily smoker. Her history includes COPD, Waldenstrom's macroglobulinemia, non-Hodgkin's lymphoma, atrial fibrillation, on Coumadin, diabetes, hypertension, hypothyroidism, hyperlipidemia. She has no history of travel, notes that she got a flu shot this year, has not been exposed to anybody with known illness, lives alone, and says she was HIV tested in the past negative. There was no travel history or unusual hobbies. She is currently on a BiPAP mask. PAST MEDICAL HISTORY: As noted above. HOME MEDICATIONS: Atorvastatin, diltiazem, fluticasone, Lasix, gabapentin, levothyroxine, Coumadin, metformin, Seroquel, Effexor. ALLERGIES: VERSED. SOCIAL HISTORY: A smoker, 1 pack per day. Lives alone. No substance abuse history. HIV tested negative in the past. FAMILY HISTORY: Positive for CVA, congestive heart failure, lung cancer. REVIEW OF SYSTEMS: Respiratory: Productive cough with yellow sputum and shortness of breath. Cardiac: History of atrial fibrillation. No palpitations, chest pain, syncope. Gastrointestinal: No nausea, vomiting, diarrhea, abdominal pain. Genitourinary: No dysuria, hematuria, urinary frequency. Neuromuscular: No history of seizures, headaches, visual complaints. PHYSICAL EXAMINATION: General: She was an alert woman in obvious respiratory distress. Vital Signs: Her temperature on admission 98.7, T-max 100.1. Pulse 73. Blood pressure 150/76. Respirations 20. O2 saturation 97%. Neck: Supple without adenopathy. Lungs: Coarse rhonchi bilaterally. Heart: S1, S2. Irregularly irregular rhythm without audible murmur. Abdomen: Soft, positive bowel sounds, nontender, without organomegaly. Extremities: Without clubbing, cyanosis or edema. Skin: Revealed a small depression in the lower sacral area, representing nonhealing wound, according to the patient from prior spinal surgery. The white count is 10.9, hemoglobin 15.8, platelets of 257, INR 1.95. BUN 11, creatinine 0.5, AST 12, ALT 20, alkaline phosphatase 139. Blood cultures pending, thus far no growth. Chest x-ray was reviewed, shows no acute lung disease. A CT with PE protocol with possible infiltrate noted in the left lower lobe. ASSESSMENT: A 66-year-old female with multiple co-morbidities including chronic obstructive pulmonary disease, history of lymphoma and Waldenstrom's macroglobulinemia and prior spinal surgery, diabetes, atrial fibrillation, admitted with shortness of breath, cough, low-grade fever. CT findings suggest early pneumonia. She is a 1-pack per day smoker. PLAN: Blood cultures, sputum culture, Legionella urinary antigen, HIV testing, empiric therapy with ceftriaxone and azithromycin, influenza screening. ALEXANDRA FIGUEROA M.D. REGINE/[id number]
[2016-11-30 13:33] LABS: HIV 1 & 2 AB NEGATIVE; HIV 1 AGp24 NEGATIVE
--- NOTE | 2016-11-30 14:04 | CON.PULM ---
Consult Consult Specialty:: PULMONARY Referred by:: Dr. Grover Reason for Consultation:: shortness of breath - History of Present Illness Chief Complaint: shortness of breath History of Present Illness: 66yo female with h/o HTN, DM, COPD, chronic hypoxic respiratory failure on home O2, atrial fibrillation, hyperlipidemia, Waldenstrom's macroglobulinemia, hypothyroidism, smoker who presents with worsening shortness of breath, cough and chest pain. She reports subjective fevers and chills. +cough productive of dark sputum and significant wheezing. Found to be hypoxic in the ER, placed on O2 but remained hypoxic so was subsequently placed on BiPAP which she did not tolerate. CTA done which did not show any evidence of PE but with Left basilar infiltrate. She is a long time smoker, started at age 14, smoked on average 1 PPD. Does not use maintenance inhalers because she states they give her palpitations. - History Source History Provided By: Patient, Medical Record Limitations to Obtaining History: No Limitations - Past Medical History Cardio/Vascular: Yes: AFIB, HTN Pulmonary: Yes: COPD, Pneumonia, Other (emphysema) ...: No - Alcohol/Substance Use Hx Alcohol Use: No - Smoking History Smoking history: Current some day smoker Have you smoked in the past 12 months: Yes Aproximately how many cigarettes per day: 20 Home Medications - Allergies Allergies/Adverse Reactions: Allergies Allergy/AdvReac Type Severity Reaction Status Date / Time midazolam HCl [From Versed] Allergy Verified 11/28/13 14:45 fresh fruit Allergy Severe anaphlaxis Uncoded 11/28/13 14:45 - Home Medications Home Medications: Ambulatory Orders Atorvastatin Ca [Lipitor] 20 mg PO HS 11/29/16 Azelastine HCl 137 mcg NS DAILY 11/29/16 Biotin/Calcium Carbonate [Biotin 800 Mcg Tablet] 1 each PO DAILY 11/29/16 Cholecalciferol (Vitamin D3) [Vitamin D3 -] 2,000 unit PO DAILY 11/29/16 Cyanocobalamin [Vitamin B12 -] 1,000 mcg PO DAILY 11/29/16 Cyclobenzaprine HCl [Flexeril 10 mg] 5 mg PO DAILY 11/29/16 Digoxin [Lanoxin -] 0.25 mg PO DAILY 11/29/16 Diltiazem HCl [Cartia Xt] 180 mg PO DAILY 11/29/16 Fluticasone Prop 0.05% Nasal [Flonase -] 1 - 2 spray NS DAILY 11/29/16 Furosemide [Lasix] 80 mg PO BID 11/29/16 Gabapentin 200 mg PO BID 11/29/16 Guaifenesin [Mucinex] 1,200 mg PO DAILY 11/29/16 Levothyroxine [Synthroid -] 25 mcg PO DAILY 11/29/16 Metformin HCl [Metformin HCl ER] 1,000 mg PO BID 11/29/16 Multivitamin [Poly-Vitamin] 1 each PO DAILY 11/29/16 Potassium 200 mg PO ASDIR 11/29/16 Quetiapine Fumarate [Seroquel -] 50 mg PO HS 11/29/16 Venlafaxine HCl ER [Effexor Xr -] 225 mg PO DAILY 11/29/16 Warfarin Sodium [Coumadin] 5 mg PO ASDIR 11/29/16 Review of Systems - Review of Systems Constitutional: reports: Chills, Fever Eyes: denies: Recent Change in Vision HENT: denies: Nasal Congestion, Throat Pain Neck: denies: Stiffness, Tenderness Cardiovascular: reports: Chest Pain, Shortness of Breath. denies: Edema, Palpitations Respiratory: reports: Cough, SOB, SOB on Exertion, Wheezing. denies: Hemoptysis Gastrointestinal: denies: Abdominal Pain, Nausea, Vomiting Genitourinary: denies: Dysuria, Hematuria Neurological: denies: Dizziness, Headache Physical Exam Vital Sings: Vital Signs Temperature 99.1 F 11/30/16 10:00 Pulse Rate 90 11/30/16 10:00 Respiratory Rate 18 11/30/16 10:00 Blood Pressure 119/57 11/30/16 10:00 O2 Sat by Pulse Oximetry (%) 93 L 11/30/16 09:45 Constitutional: Yes: Mild Distress Eyes: Yes: Conjunctiva Clear, EOM Intact HENT: Yes: Atraumatic, Normocephalic Neck: Yes: Supple, Trachea Midline Cardiovascular: Yes: Regular Rate and Rhythm Respiratory: Yes: Rhonchi, Wheezes ...Clubbing: No Gastrointestinal: Yes: Normal Bowel Sounds, Soft. No: Tenderness Edema: No Neurological: Yes: Alert, Oriented Labs: CBC, BMP 11/30/16 06:00 11/30/16 06:00 ABG Results ABG pH 7.40 (7.35-7.45) 11/29/16 21:55 ABG pCO2 at Pt Temp 48.6 mmHg (35-45) H 11/29/16 21:55 ABG pO2 at Pt Temp 54.3 mmHg (80-100) L 11/29/16 21:55 ABG HCO3 29.6 meq/L (22-26) H 11/29/16 21:55 ABG O2 Sat (Measured) 88.5 % (90-98.9) L 11/29/16 21:55 ABG O2 Content 18.5 % vol (15-22) 11/29/16 21:55 ABG Base Excess 4.2 meq/l (-2-2) H 11/29/16 21:55 Imaging - Results Cat Scan: Report Reviewed, Image Reviewed (LLL infiltrate) Problem List - Problems (1) Acute and chronic respiratory failure with hypoxia Code(s): J96.21 - ACUTE AND CHRONIC RESPIRATORY FAILURE WITH HYPOXIA (2) COPD exacerbation Code(s): J44.1 - CHRONIC OBSTRUCTIVE PULMONARY DISEASE W (ACUTE) EXACERBATION (3) Pneumonia Code(s): J18.9 - PNEUMONIA, UNSPECIFIED ORGANISM (4) Atrial fibrillation Code(s): I48.91 - UNSPECIFIED ATRIAL FIBRILLATION Assessment/Plan Acute on Chronic Hypoxic Respiratory Failure Pneumonia Acute COPD Exacerbation Atrial Fibrillation HTN Smoker - antibiotics to cover community acquired organisms - f/u cultures - medrol - inhaled bronchodilators - O2 to keep SpO2 >88% - BiPAP as needed to assist in work of breathing - rate control - continue anticoagulation Thank you for this consult Simone Gar MD
--- NOTE | 2016-11-30 16:01 | PN ---
Physical Exam: SUBJECTIVE: Patient seen and examined Resting in bed, NAD. afebrile and hemodynamically stable. On BIPAP 93% O2. was briefly on ventimask earlier desatting to low 80's. States she feels ok on bipap. Coughing up yellow sputum. Denies chest pain, palpitations, f/c, abd pain , n/v, diarrhea or dysuria. OBJECTIVE: Vital Signs Period Temp Pulse Resp BP Sys/Card Pulse Ox Last 24 Hr 97.8 F-99.1 F 80-99 14-18 106-131/57-80 89-93 GENERAL: The patient is awake, alert, and fully oriented, in no acute distress. HEAD: Normal with no signs of trauma. EYES: PERRL, extraocular movements intact, sclera anicteric, conjunctiva clear. No ptosis. ENT: moist mucous membranes. NECK: supple. LUNGS: diffuse wheezes and ronchi HEART: irregular, rate controlled, S1, S2 ABDOMEN: Soft, nontender, nondistended, normoactive bowel sounds EXTREMITIES: 2+ pulses, warm, well-perfused, no edema. NEUROLOGICAL: Cranial nerves II through XII grossly intact. Normal speech, gait not observed. PSYCH: Normal mood, normal affect. SKIN: Warm, dry Laboratory Results - last 24 hr 11/29/16 11/29/16 11/30/16 21:30 21:55 05:50 WBC Corrected WBC (auto) RBC Hgb Hct MCV MCHC RDW Plt Count MPV Add Manual Diff Neutrophils % Lymphocytes % Monocytes % Eosinophils % Basophils % Differential Comment Platelet Estimate Platelet Comment Normal RBC Morphology RBC Morphology INR Anticoagulation Therapy Y Puncture Site Md puncture ABG pH 7.40 ABG pCO2 at Pt Temp 48.6 H ABG pO2 at Pt Temp 54.3 L ABG HCO3 29.6 H ABG O2 Sat (Measured) 88.5 L ABG O2 Content 18.5 ABG Base Excess 4.2 H Gian Test Not applicable O2 Delivery Device Ot Oxygen Flow Rate 45% Vent Mode St Vent Rate 12 Mechanical Rate Bipap PEEP 0.0 Pressure Support Vent 12/5 Sodium Potassium Chloride Carbon Dioxide Anion Gap BUN Creatinine Creat Clearance w eGFR POC Glucometer 151 Random Glucose Calcium Total Bilirubin AST ALT Alkaline Phosphatase Creatine Kinase 26 Troponin I < 0.03 L Total Protein Albumin HIV 1&2 Antibody Screen HIV P24 Antigen 11/30/16 11/30/1617 06:00 06:00 06:00 WBC 7.7 Corrected WBC (auto) RBC 4.94 Hgb 15.1 Hct 45.4 H MCV 91.8 MCHC 33.3 RDW 15.0 Plt Count 217 MPV 9.0 Add Manual Diff Neutrophils % 93.0 H Lymphocytes % 6.2 L Monocytes % 0.7 L Eosinophils % 0.0 Basophils % 0.1 Differential Comment Platelet Estimate Platelet Comment Normal RBC Morphology RBC Morphology INR 1.97 H Anticoagulation Therapy Puncture Site ABG pH ABG pCO2 at Pt Temp ABG pO2 at Pt Temp ABG HCO3 ABG O2 Sat (Measured) ABG O2 Content ABG Base Excess Gian Test O2 Delivery Device Oxygen Flow Rate Vent Mode Vent Rate Mechanical Rate PEEP Pressure Support Vent Sodium 142 Potassium 3.7 D Chloride 101 Carbon Dioxide 31 Anion Gap 10 BUN 11 D Creatinine 0.5 L Creat Clearance w eGFR > 60 POC Glucometer Random Glucose 147 H D Calcium 8.2 L Total Bilirubin 0.4 AST 12 L D ALT 20 D Alkaline Phosphatase 139 H Creatine Kinase Troponin I Total Protein 6.1 L Albumin 3.2 L HIV 1&2 Antibody Screen HIV P24 Antigen 11/30/16 11/30/16 11/30/16 06:00 06:00 10:55 WBC Cancelled Corrected WBC (auto) Cancelled RBC Cancelled Hgb Cancelled Hct Cancelled MCV Cancelled MCHC Cancelled RDW Cancelled Plt Count Cancelled MPV Cancelled Add Manual Diff Cancelled Neutrophils % Lymphocytes % Monocytes % Eosinophils % Basophils % Differential Comment Cancelled Platelet Estimate Cancelled Platelet Comment Cancelled Normal RBC Morphology Cancelled RBC Morphology Cancelled INR Anticoagulation Therapy Puncture Site ABG pH ABG pCO2 at Pt Temp ABG pO2 at Pt Temp ABG HCO3 ABG O2 Sat (Measured) ABG O2 Content ABG Base Excess Gian Test O2 Delivery Device Oxygen Flow Rate Vent Mode Vent Rate Mechanical Rate PEEP Pressure Support Vent Sodium Potassium Chloride Carbon Dioxide Anion Gap BUN Creatinine Creat Clearance w eGFR POC Glucometer Random Glucose Calcium Total Bilirubin AST ALT Alkaline Phosphatase Creatine Kinase 28 Troponin I < 0.02 Total Protein Albumin HIV 1&2 Antibody Screen Negative HIV P24 Antigen Negative 11/30/16 12:25 WBC Corrected WBC (auto) RBC Hgb Hct MCV MCHC RDW Plt Count MPV Add Manual Diff Neutrophils % Lymphocytes % Monocytes % Eosinophils % Basophils % Differential Comment Platelet Estimate Platelet Comment Normal RBC Morphology RBC Morphology INR Anticoagulation Therapy Puncture Site ABG pH ABG pCO2 at Pt Temp ABG pO2 at Pt Temp ABG HCO3 ABG O2 Sat (Measured) ABG O2 Content ABG Base Excess Gian Test O2 Delivery Device Oxygen Flow Rate Vent Mode Vent Rate Mechanical Rate PEEP Pressure Support Vent Sodium Potassium Chloride Carbon Dioxide Anion Gap BUN Creatinine Creat Clearance w eGFR POC Glucometer 201 Random Glucose Calcium Total Bilirubin AST ALT Alkaline Phosphatase Creatine Kinase Troponin I Total Protein Albumin HIV 1&2 Antibody Screen HIV P24 Antigen Active Medications Generic Name Dose Route Start Last Admin Trade Name Freq PRN Reason Stop Dose Admin Albuterol Sulfate 1 amp 11/29/16 18:30 11/30/16 09:50 Ventolin 0.083% Nebulizer Soln - NEB 1 amp Q4H PRN Administration SHORT OF BREATH/WHEEZING Albuterol/Ipratropium 1 amp 11/30/16 00:00 11/30/16 12:16 Duoneb - NEB 1 amp Q6HPO [facility] Administration Atorvastatin Calcium 20 mg 11/30/16 22:00 Lipitor - PO HS [facility] Cholecalciferol 2,000 unit 11/30/16 10:00 11/30/16 09:57 Vitamin D3 - PO 2,000 unit DAILY [facility] Administration Cyanocobalamin 1,000 mcg 11/30/16 10:00 11/30/16 09:57 Vitamin B12 - PO 1,000 mcg DAILY [facility] Administration Cyclobenzaprine HCl 5 mg 11/30/16 10:00 11/30/16 10:15 Flexeril - PO Not Given DAILY [facility] Digoxin 0.25 mg 11/30/16 10:00 11/30/16 09:55 Lanoxin - PO 0.25 mg DAILY [facility] Administration Diltiazem HCl 180 mg 11/30/16 10:00 11/30/16 09:54 Cardizem Cd - PO 180 mg DAILY [facility] Administration Fluticasone Propionate 2 spray 11/30/16 10:00 11/30/16 12:48 Flonase - NS 2 spray DAILY [facility] Administration Furosemide 80 mg 11/30/16 06:00 11/30/16 14:31 Lasix - PO 80 mg BIDLASIX [facility] Administration Gabapentin 200 mg 11/30/16 10:00 11/30/16 09:56 Neurontin - PO 200 mg BID [facility] Administration Guaifenesin 1,200 mg 11/30/16 10:00 11/30/16 09:55 Mucinex - PO 1,200 mg BID [facility] Administration Azithromycin 250 mls @ 250 mls/hr 11/30/16 10:30 11/30/16 11:33 Zithromax 500mg Ivpb (Pre-Docked) IVPB 250 mls/hr DAILY [facility] Administration Ceftriaxone Sodium 50 mls @ 100 mls/hr 11/30/16 10:34 Rocephin 1gm Ivpb (Pre-Docked) IVPB DAILY [facility] Insulin Aspart 1 vial 11/30/16 07:00 11/30/16 12:47 Novolog Vial Sliding Scale - SQ 2 unit ACHS [facility] Administration Protocol Levothyroxine Sodium 25 mcg 11/30/16 07:00 11/30/16 06:20 Synthroid - PO 25 mcg AM [facility] Administration Methylprednisolone Sodium Succinate 40 mg 11/30/16 03:00 11/30/16 14:36 Solu-Medrol - IVPB 40 mg Q6H-IV [facility] Administration Montelukast Sodium 10 mg 11/30/16 22:00 Singulair - PO [facility] Multivitamins/Minerals/Vitamin C 1 tab 11/30/16 10:00 11/30/16 09:57 Tab-A-Vit - PO 1 tab DAILY [facility] Administration Non-Formulary Medication 2 spray 11/30/16 10:00 Azelastine Hcl [Azelastine Hcl] NS DAILY [facility] Quetiapine Fumarate 50 mg 11/30/16 22:00 Seroquel - PO HS [facility] Venlafaxine HCl 225 mg 11/30/16 10:00 11/30/16 10:05 Effexor Xr - PO 225 mg DAILY [facility] Administration Warfarin Sodium 5 mg 11/30/16 18:00 Coumadin - PO DAILY@1800 [facility] ASSESSMENT/PLAN: ECG: atrial fibrillation, rate 91, QTC 405, T wave inversion, 2,3,aVF, V2-V6 CTA: Impression There is no evidence of a pulmonary embolus in the main pulmonary artery, segmental and subsegmental bifurcations, bilaterally. Atelectatic changes with probable infiltrates in the dependent portion of the left lower lobe as well as minimal infiltrates versus atelectatic changes in the left upper lobe and right middle lobe. CXR: Impression: No acute lung disease is present. ASSESSMENT/PLAN: This is a 66 yo F with PMH of asthma, COPD, Waldenstrom's macroglobulinemia, nonHodkin's lymphoma, atrial fibrillation (coumadin), IBS, DM, HTN, HLD, hypothyroid, arthritis, fibromyalgia presented to ED for SOB, cough. She is being admitted for COPD exac and pneumonia. Acute on Chronic COPD exacerbation due to CAP -ceftriaxone, azithromycin -pulm consult -ID consult -duoneb Q6H standing -albuterol Q4H PRN -cont home singulair -solumedrol 40mg Q6H -BiPAP PRN atypical chest pain -pleuritic -troponin was 0.03 now resolved, likely demand due to hypoxia -EKD nonspecific diffuse st inversions, similar to prior EKGs -cardiology consult appreciated, unlikley ACS Atrial fibrillation -rate controlled -coumadin 5mg daily -INR 1.95 -lasix 80mg BID -TTE Hyperlipidemia -lipitor DM -hold metformin -novolog sliding scale -BGM TIDAC hypothyroidism -synthroid Waldenstrom's macroblobulinemia/NHL -stable per patient -f/u outpatient arthritis/fibromyalgia -flexeril/gabapentin Depression -effexor, seroquel FEN No IVF stable lytes Diabetic/low sodium diet PPX: COUM Dispo:4S Visit type - Emergency Visit Emergency Visit: Yes ED Registration Date: 11/29/16 Care time: The patient presented to the Emergency Department on the above date and was hospitalized for further evaluation of their emergent condition. - New Patient This patient is new to me today: Yes Date on this admission: 11/30/16 - Critical Care Critical Care patient: No - Discharge Referral Referred to [facility] No
--- NOTE | 2016-11-30 16:34 | EKG ---
Test Reason : Blood Pressure : / mmHG Vent. Rate : 092 BPM Atrial Rate : 098 BPM P-R Int : 000 ms QRS Dur : 106 ms QT Int : 360 ms P-R-T Axes : 000 118 -37 degrees QTc Int : 445 ms Poor baseline ATRIAL FIBRILLATION RIGHT AXIS DEVIATION WHEN COMPARED WITH ECG OF 29-NOV-2016 16:40, NONSPECIFIC T WAVE ABNORMALITY, IMPROVED IN LATERAL LEADS Confirmed by MD BARKSDALE MARJORY ([id number] on 11/30/2016 4:34:13 PM Referred By: Confirmed By:DM BARKSDALE MD
--- NOTE | 2016-11-30 16:35 | EKG ---
Test Reason : Blood Pressure : / mmHG Vent. Rate : 091 BPM Atrial Rate : 093 BPM P-R Int : 000 ms QRS Dur : 106 ms QT Int : 330 ms P-R-T Axes : 000 122 -79 degrees QTc Int : 405 ms ATRIAL FIBRILLATION RIGHT AXIS DEVIATION WHEN COMPARED WITH ECG OF 12-JUL-1998 19:57, ATRIAL FIBRILLATION HAS REPLACED SINUS RHYTHM QUESTIONABLE CHANGE IN QRS DURATION Confirmed by MD APOLONIA, DM ([id number] on 11/30/2016 4:35:00 PM Referred By: DR RODRIGUEZ Confirmed By:DM BARKSDALE MD
--- NOTE | 2016-11-30 16:56 | PN ---
Teaching Attending Note Name of Resident: Savannah Cuellar ATTENDING PHYSICIAN STATEMENT I saw and evaluated the patient. I reviewed the resident's note and discussed the case with the resident. I agree with the resident's findings and plan as documented. Patient is short of breath on Bipap, desating off Bipap. Vital Signs Temperature 97.4 F L 11/30/16 14:00 Pulse Rate 80 11/30/16 14:00 Respiratory Rate 18 11/30/16 14:00 Blood Pressure 112/60 11/30/16 14:00 O2 Sat by Pulse Oximetry (%) 90 L 11/30/16 14:53 CBCD WBC 7.7 K/mm3 (4.0-10.0) 11/30/16 06:00 RBC 4.94 M/mm3 (3.60-5.2) 11/30/16 06:00 Hgb 15.1 GM/dL (10.7-15.3) 11/30/16 06:00 Hct 45.4 % (32.4-45.2) H 11/30/16 06:00 MCV 91.8 fl (80-96) 11/30/16 06:00 MCHC 33.3 g/dl (32.0-36.0) 11/30/16 06:00 RDW 15.0 % (11.6-15.6) 11/30/16 06:00 Plt Count 217 K/MM3 (134-434) 11/30/16 06:00 MPV 9.0 fl (7.5-11.1) 11/30/16 06:00 CMP Sodium 142 mmol/L (136-145) 11/30/16 06:00 Potassium 3.7 mmol/L (3.5-5.1) D 11/30/16 06:00 Chloride 101 mmol/L (98-107) 11/30/16 06:00 Carbon Dioxide 31 mmol/L (21-32) 11/30/16 06:00 Anion Gap 10 (8-16) 11/30/16 06:00 BUN 11 mg/dL (7-18) D 11/30/16 06:00 Creatinine 0.5 mg/dL (0.55-1.02) L 11/30/16 06:00 Creat Clearance w eGFR > 60 (>60) 11/30/16 06:00 Random Glucose 147 mg/dL (74-106) H D 11/30/16 06:00 Calcium 8.2 mg/dL (8.5-10.1) L 11/30/16 06:00 Total Bilirubin 0.4 mg/dL (0.2-1.0) 11/30/16 06:00 AST 12 U/L (15-37) L D 11/30/16 06:00 ALT 20 U/L (12-78) D 11/30/16 06:00 Alkaline Phosphatase 139 U/L (45-117) H 11/30/16 06:00 Total Protein 6.1 g/dl (6.4-8.2) L 11/30/16 06:00 Albumin 3.2 g/dl (3.4-5.0) L 11/30/16 06:00 CARDIAC ENZYMES Creatine Kinase 28 IU/L (26-192) 11/30/16 06:00 Troponin I < 0.02 ng/ml (0.00-0.05) 11/30/16 06:00 Current Medications Generic Name Dose Route Start Last Admin Trade Name Freq PRN Reason Stop Dose Admin Albuterol Sulfate 1 amp 11/29/16 18:30 11/30/16 09:50 Ventolin 0.083% Nebulizer Soln - NEB 1 amp Q4H PRN Administration SHORT OF BREATH/WHEEZING Albuterol/Ipratropium 1 amp 11/30/16 00:00 11/30/16 12:16 Duoneb - NEB 1 amp Q6HPO [facility] Administration Atorvastatin Calcium 20 mg 11/30/16 22:00 Lipitor - PO HS [facility] Cholecalciferol 2,000 unit 11/30/16 10:00 11/30/16 09:57 Vitamin D3 - PO 2,000 unit DAILY [facility] Administration Cyanocobalamin 1,000 mcg 11/30/16 10:00 11/30/16 09:57 Vitamin B12 - PO 1,000 mcg DAILY [facility] Administration Cyclobenzaprine HCl 5 mg 11/30/16 10:00 11/30/16 10:15 Flexeril - PO Not Given DAILY [facility] Digoxin 0.25 mg 11/30/16 10:00 11/30/16 09:55 Lanoxin - PO 0.25 mg DAILY [facility] Administration Diltiazem HCl 180 mg 11/30/16 10:00 11/30/16 09:54 Cardizem Cd - PO 180 mg DAILY [facility] Administration Fluticasone Propionate 2 spray 11/30/16 10:00 11/30/16 12:48 Flonase - NS 2 spray DAILY [facility] Administration Furosemide 80 mg 11/30/16 06:00 11/30/16 14:31 Lasix - PO 80 mg BIDLASIX [facility] Administration Gabapentin 200 mg 11/30/16 10:00 11/30/16 09:56 Neurontin - PO 200 mg BID [facility] Administration Guaifenesin 1,200 mg 11/30/16 10:00 11/30/16 09:55 Mucinex - PO 1,200 mg BID [facility] Administration Azithromycin 250 mls @ 250 mls/hr 11/30/16 10:30 11/30/16 11:33 Zithromax 500mg Ivpb (Pre-Docked) IVPB 250 mls/hr DAILY [facility] Administration Ceftriaxone Sodium 50 mls @ 100 mls/hr 11/30/16 10:34 Rocephin 1gm Ivpb (Pre-Docked) IVPB DAILY [facility] Insulin Aspart 1 vial 11/30/16 07:00 11/30/16 16:45 Novolog Vial Sliding Scale - SQ Not Given ACHS [facility] Protocol Levothyroxine Sodium 25 mcg 11/30/16 07:00 11/30/16 06:20 Synthroid - PO 25 mcg AM [facility] Administration Methylprednisolone Sodium Succinate 40 mg 11/30/16 03:00 11/30/16 14:36 Solu-Medrol - IVPB 40 mg Q6H-IV [facility] Administration Montelukast Sodium 10 mg 11/30/16 22:00 Singulair - PO [facility] Multivitamins/Minerals/Vitamin C 1 tab 11/30/16 10:00 11/30/16 09:57 Tab-A-Vit - PO 1 tab DAILY [facility] Administration Non-Formulary Medication 2 spray 11/30/16 10:00 Azelastine Hcl [Azelastine Hcl] NS DAILY [facility] Quetiapine Fumarate 50 mg 11/30/16 22:00 Seroquel - PO HS [facility] Venlafaxine HCl 225 mg 11/30/16 10:00 11/30/16 10:05 Effexor Xr - PO 225 mg DAILY [facility] Administration Warfarin Sodium 5 mg 11/30/16 18:00 Coumadin - PO DAILY@1800 [facility] Home Medications Medication Instructions Recorded Atorvastatin Ca [Lipitor] 20 mg PO HS 11/29/16 Azelastine HCl 137 mcg NS DAILY 11/29/16 Biotin/Calcium Carbonate [Biotin 1 each PO DAILY 11/29/16 800 Mcg Tablet] Cholecalciferol (Vitamin D3) 2,000 unit PO DAILY 11/29/16 [Vitamin D3 -] Cyanocobalamin [Vitamin B12 -] 1,000 mcg PO DAILY 11/29/16 Cyclobenzaprine HCl [Flexeril 10 5 mg PO DAILY 11/29/16 mg] Digoxin [Lanoxin -] 0.25 mg PO DAILY 11/29/16 Diltiazem HCl [Cartia Xt] 180 mg PO DAILY 11/29/16 Fluticasone Prop 0.05% Nasal 1 - 2 spray NS DAILY 11/29/16 [Flonase -] Furosemide [Lasix] 80 mg PO BID 11/29/16 Gabapentin 200 mg PO BID 11/29/16 Guaifenesin [Mucinex] 1,200 mg PO DAILY 11/29/16 Levothyroxine [Synthroid -] 25 mcg PO DAILY 11/29/16 Metformin HCl [Metformin HCl ER] 1,000 mg PO BID 11/29/16 Multivitamin [Poly-Vitamin] 1 each PO DAILY 11/29/16 Potassium 200 mg PO ASDIR 11/29/16 Quetiapine Fumarate [Seroquel -] 50 mg PO HS 11/29/16 Venlafaxine HCl ER [Effexor Xr -] 225 mg PO DAILY 11/29/16 Warfarin Sodium [Coumadin] 5 mg PO ASDIR 11/29/16 CHEST: Decreased Air Entery BL, Heart: S1S2 positive, irregularly irregular ECG: atrial fibrillation, rate 91, QTC 405, T wave inversion, 2,3,aVF, V2-V6 CTA: Impression There is no evidence of a pulmonary embolus in the main pulmonary artery, segmental and subsegmental bifurcations, bilaterally. Atelectatic changes with probable infiltrates in the dependent portion of the left lower lobe as well as minimal infiltrates versus atelectatic changes in the left upper lobe and right middle lobe. CXR: Impression: No acute lung disease is present. ASSESSMENT AND PLAN: This is a 66 yo F with PMHx of asthma, COPD, Waldenstrom's macroglobulinemia, nonHodkin's lymphoma, atrial fibrillation (coumadin), IBS, DM, HTN, HLD, hypothyroid, arthritis, fibromyalgia presented to ED for SOB, cough. She is being admitted for COPD exac and pneumonia. # Acute hypoxemic , hypercapneic COPD exacerbation due to Pneumonia: On ceftriaxone, azithromycin continue, pulm consult ID consult discussed with ; nebulizer txs continue ,continue singulair, On IV solumedrol 40mg Q6H, ,BiPAP PRN # Acute Pneumonia on IV antibiotic ; Rocephin/Zithromax # atypical pleuritic chest pain due to he Pneumonia continue IV antibiotic #EKG nonspecific diffuse ST inversions , will get cardiology to evaluate the patient ;TTE #Atrial fibrillation rate controlled , on Digoxin and Cardizem continue for rate control, on coumadin 5mg daily, INR 1.95, will repeat level in am #HTN On lasix 80mg BID continue #Hyperlipidemia on lipitor continue # DM hold metformin, SS with coverage continue # hypothyroidism on synthroid continue # Waldenstrom's macroblobulinemia/NHL ;stable per patient ;f/u outpatient # arthritis/fibromyalgia on flexeril/gabapentin continue # Depression on effexor, seroquel continue DVT Px: Coumadin
[2016-11-30 17:08] LABS: MAGNESIUM 2.1 mg/dL (1.8-2.4)
[2016-11-30 17:10] LABS: PHOSPHOROUS 3.6 mg/dL (2.5-4.9)
[2016-11-30] MEDS: WARFARIN NA 5 MG TABLET (UD) PO SCH (18:14)
[2016-11-30] MEDS ORDERED: ACETAMINOPHEN 325 MG TABLET (FP) PO ONE (20:32)
[2016-11-30] MEDS ORDERED: QUEtiapine FUMARATE 25 MG TABLET (FP) ONE (21:21)
[2016-11-30] MEDS ORDERED: PT OWN MED DRAWER 7, Y5N ONE (21:21)
[2016-11-30] MEDS: ATORVASTATIN CA 20 MG TABLET (FP) PO SCH (21:26)
[2016-11-30] MEDS: QUEtiapine FUMARATE 50 MG TABLET PO SCH (21:27)
[2016-11-30] MEDS: MONTELUKAST NA 5 MG TAB.CHEW PO SCH (21:27)
[2016-12-01] MEDS: methylPREDNISolone NA SUCC 40 MG/1 ML VIAL IVPB SCH ×3 (02:10→17:35)
[2016-12-01] MEDS: INSULIN SLIDING SCALE (NOVOLOG) 1 VIAL SQ SCH ×4 (06:09→22:22)
[2016-12-01] MEDS: LEVOTHYROXINE NA 25 MCG TABLET (FP) PO SCH (06:13)
[2016-12-01] MEDS: FUROSEMIDE 40 MG TABLET (FP) PO SCH ×2 (06:13→14:19)
[2016-12-01] MEDS: ALBUTEROL SO4 2.5/IPRATROPIUM 0.5 INH SOL 3 ML VIAL.NEB. NEB SCH ×4 (06:45→23:05)
[2016-12-01 06:56] LABS: MCH 30.4 pg (25.7-33.7); MCHC 33.2 g/dl (32.0-36.0); MEAN CELL VOLUME 91.6 fl (80-96); MEAN PLT VOLUME 8.9 fl (7.5-11.1); PLATELET COUNT 213 K/MM3 (134-434); RDW 14.6 % (11.6-15.6); WHITE BLOOD COUNT 18.6 K/mm3 (4.0-10.0)
[2016-12-01 07:06] LABS: INR 1.94 (0.82-1.09); PROTHROMBIN TIME (PATIENT) 21.6 SEC (9.98-11.88)
[2016-12-01 07:28] LABS: CALCIUM 8.3 mg/dL (8.5-10.1); CREATININE 0.6 mg/dL (0.55-1.02); MAGNESIUM 2.3 mg/dL (1.8-2.4); PHOSPHOROUS 4.1 mg/dL (2.5-4.9)
[2016-12-01 07:36] LABS: FREE T4 1.12 ng/dl (0.76-1.46); THYROID STIMULATING HORMONE 0.09 uIU/ml (0.358-3.74)
--- NOTE | 2016-12-01 08:14 | PN ---
Progress Note, Physician Chief Complaint: ID Day 2 in the hospital Looked markedly better Steroids Ceftriaxone Azithromycin - Current Medication List Current Medications: Active Medications Albuterol Sulfate (Ventolin 0.083% Nebulizer Soln -) 1 amp NEB Q4H PRN PRN Reason: SHORT OF BREATH/WHEEZING Last Admin: 11/30/16 09:50 Dose: 1 amp Albuterol/Ipratropium (Duoneb -) 1 amp NEB Q6HPO [facility] Last Admin: 12/01/16 06:45 Dose: 1 amp Atorvastatin Calcium (Lipitor -) 20 mg PO HS [facility] Last Admin: 11/30/16 21:26 Dose: 20 mg Cholecalciferol (Vitamin D3 -) 2,000 unit PO DAILY [facility] Last Admin: 11/30/16 09:57 Dose: 2,000 unit Cyanocobalamin (Vitamin B12 -) 1,000 mcg PO DAILY [facility] Last Admin: 11/30/16 09:57 Dose: 1,000 mcg Cyclobenzaprine HCl (Flexeril -) 5 mg PO HS [facility] Last Admin: 11/30/16 21:28 Dose: 5 mg Digoxin (Lanoxin -) 0.25 mg PO DAILY [facility] Last Admin: 11/30/16 09:55 Dose: 0.25 mg Diltiazem HCl (Cardizem Cd -) 180 mg PO DAILY [facility] Last Admin: 11/30/16 09:54 Dose: 180 mg Fluticasone Propionate (Flonase -) 2 spray NS DAILY [facility] Last Admin: 11/30/16 12:48 Dose: 2 spray Furosemide (Lasix -) 80 mg PO BIDLASIX [facility] Last Admin: 12/01/16 06:13 Dose: 80 mg Gabapentin (Neurontin -) 200 mg PO BID [facility] Last Admin: 11/30/16 21:27 Dose: 200 mg Guaifenesin (Mucinex -) 1,200 mg PO BID [facility] Last Admin: 11/30/16 21:27 Dose: 1,200 mg Azithromycin (Zithromax 500mg Ivpb (Pre-Docked)) 250 mls @ 250 mls/hr IVPB DAILY [facility] Last Admin: 11/30/16 11:33 Dose: 250 mls/hr Ceftriaxone Sodium (Rocephin 1gm Ivpb (Pre-Docked)) 50 mls @ 100 mls/hr IVPB DAILY [facility] Insulin Aspart (Novolog Vial Sliding Scale -) 1 vial SQ ACHS [facility] PRN Reason: Protocol Last Admin: 12/01/16 06:09 Dose: Not Given Levothyroxine Sodium (Synthroid -) 25 mcg PO AM [facility] Last Admin: 12/01/16 06:13 Dose: 25 mcg Methylprednisolone Sodium Succinate (Solu-Medrol -) 40 mg IVPB Q6H-IV [facility] Last Admin: 12/01/16 02:10 Dose: 40 mg Montelukast Sodium (Singulair -) 10 mg PO HS [facility] Last Admin: 11/30/16 21:27 Dose: 10 mg Multivitamins/Minerals/Vitamin C (Tab-A-Vit -) 1 tab PO DAILY [facility] Last Admin: 11/30/16 09:57 Dose: 1 tab Non-Formulary Medication (Azelastine Hcl [Azelastine Hcl]) 2 spray NS DAILY [facility] Quetiapine Fumarate (Seroquel -) 50 mg PO HS [facility] Last Admin: 11/30/16 21:27 Dose: 50 mg Venlafaxine HCl (Effexor Xr -) 225 mg PO DAILY [facility] Last Admin: 11/30/16 10:05 Dose: 225 mg Warfarin Sodium (Coumadin -) 5 mg PO DAILY@1800 [facility] Last Admin: 11/30/16 18:14 Dose: 5 mg - Objective Vital Signs: Vital Signs Temperature 97.9 F 12/01/16 06:00 Pulse Rate 74 12/01/16 06:00 Respiratory Rate 20 12/01/16 06:00 Blood Pressure 107/72 12/01/16 06:00 O2 Sat by Pulse Oximetry (%) 95 11/30/16 21:00 Constitutional: Yes: Well Nourished, No Distress HENT: Yes: WNL, Atraumatic Neck: Yes: WNL, Supple Cardiovascular: Yes: Regular Rate and Rhythm, S1, S2. No: Murmur Respiratory: Yes: WNL, Regular, CTA Bilaterally, Other (Fw rales) Gastrointestinal: Yes: WNL, Normal Bowel Sounds, Soft. No: Tenderness, Tenderness, Rebound Edema: No Integumentary: Yes: Other (Small area of irritation lower surgical old wound) Labs: CBC, BMP 12/01/16 05:35 12/01/16 05:35 INR, PTT INR 1.94 (0.82-1.09) H 12/01/16 05:35 Problem List - Problems (1) COPD exacerbation Code(s): J44.1 - CHRONIC OBSTRUCTIVE PULMONARY DISEASE W (ACUTE) EXACERBATION (2) Pneumonia Code(s): J18.9 - PNEUMONIA, UNSPECIFIED ORGANISM Assessment/Plan Microbiology 11/30/16 12:30 Urine For Antigen Detection Legionella Antigen - Final 11/30/16 12:30 Urine For Antigen Detection Streptococcus pneumoniae Antigen (M - Final 11/29/16 17:35 Blood - Peripheral Venous Blood Culture - Preliminary NO GROWTH OBTAINED AFTER 24 HOURS, INCUBATION TO CONTINUE FOR 4 DAYS. 11/29/16 17:35 Blood - Peripheral Venous Blood Culture - Preliminary NO GROWTH OBTAINED AFTER 24 HOURS, INCUBATION TO CONTINUE FOR 4 DAYS. Laboratory Tests 11/30/16 12/01/16 10:55 05:35 WBC 18.6 H D Hgb 13.9 Plt Count 213 HIV 1&2 Antibody Screen Negative HIV P24 Antigen Negative Assessment Pneumonia unspecified from the community IMproving Plan Same IV antibiotic today Tomorrow consider switch oral quinolone 750 levofloxacin Topical Lotrisone back
[2016-12-01] MEDS ORDERED: PT OWN MED DRAWER 7, Y5N ONE ×2 (09:21→23:03)
[2016-12-01] MEDS: VENLAFAXINE HCL 75 MG E.R. CAPSULES (FP) PO SCH (09:46)
[2016-12-01] MEDS: DIGOXIN 0.25 MG TABLET (FP) PO SCH (09:47)
[2016-12-01] MEDS: FLUTICASONE PROP 0.05% 16 GM NASAL SPRAY NS SCH (09:47)
[2016-12-01] MEDS: guaiFENesin 600 MG TABLET.ER (FP) PO SCH ×2 (09:49→22:22)
[2016-12-01] MEDS: GABAPENTIN 100 MG CAPSULE (FP) PO SCH ×2 (09:49→22:22)
[2016-12-01] MEDS: AZITHROMYCIN IVPB 250 ML IVPB SCH (09:50)
[2016-12-01] MEDS: CHOLECALCIFEROL (VITAMIN D3) 1,000 UNIT TABLET (FP) PO SCH (09:50)
[2016-12-01] MEDS: MULTIVITAMINS (DAILY MVI) TABLET (FP) PO SCH (09:50)
[2016-12-01] MEDS: CYANOCOBALAMIN 1,000 MCG TABLET (FP) PO SCH (09:51)
[2016-12-01] MEDS: CEFTRIAXONE 50 ML IVPB SCH (09:51)
--- NOTE | 2016-12-01 10:37 | PN ---
Progress Note (short form) - Note Progress Note: s: less sob, not needing bipap; no palps dizzy cp o: Vital Signs Period Temp Pulse Resp BP Sys/Card Pulse Ox Last 24 Hr 97.4 F-98.3 F 74-92 18-20 107-112/60-82 89-95 nad no jvd irreg, s1s2 no mrg b/l mild exp wheeze, nl eff no le e/c/c aaox3 no jaundice diaphoresis Current Medications Generic Name Dose Route Start Last Admin Trade Name Freq PRN Reason Stop Dose Admin Albuterol Sulfate 1 amp 11/29/16 18:30 11/30/16 09:50 Ventolin 0.083% Nebulizer Soln - NEB 1 amp Q4H PRN Administration SHORT OF BREATH/WHEEZING Albuterol/Ipratropium 1 amp 11/30/16 00:00 12/01/16 06:45 Duoneb - NEB 1 amp Q6HPO [facility] Administration Atorvastatin Calcium 20 mg 11/30/16 22:00 11/30/16 21:26 Lipitor - PO 20 mg HS [facility] Administration Cholecalciferol 2,000 unit 11/30/16 10:00 12/01/16 09:50 Vitamin D3 - PO 2,000 unit DAILY [facility] Administration Clotrimazole 1 applic 12/01/16 10:00 Lotrisone Cream (Small Tube) TP BID [facility] Cyanocobalamin 1,000 mcg 11/30/16 10:00 12/01/16 09:51 Vitamin B12 - PO 1,000 mcg DAILY [facility] Administration Cyclobenzaprine HCl 5 mg 11/30/16 22:00 11/30/16 21:28 Flexeril - PO 5 mg HS [facility] Administration Digoxin 0.25 mg 11/30/16 10:00 12/01/16 09:47 Lanoxin - PO 0.25 mg DAILY [facility] Administration Diltiazem HCl 180 mg 11/30/16 10:00 12/01/16 09:46 Cardizem Cd - PO 180 mg DAILY [facility] Administration Fluticasone Propionate 2 spray 11/30/16 10:00 12/01/16 09:47 Flonase - NS 2 spray DAILY [facility] Administration Furosemide 80 mg 11/30/16 06:00 12/01/16 06:13 Lasix - PO 80 mg BIDLASIX [facility] Administration Gabapentin 200 mg 11/30/16 10:00 12/01/16 09:49 Neurontin - PO 200 mg BID [facility] Administration Guaifenesin 1,200 mg 11/30/16 10:00 12/01/16 09:49 Mucinex - PO 1,200 mg BID [facility] Administration Azithromycin 250 mls @ 250 mls/hr 11/30/16 10:30 12/01/16 09:50 Zithromax 500mg Ivpb (Pre-Docked) IVPB 250 mls/hr DAILY [facility] Administration Ceftriaxone Sodium 50 mls @ 100 mls/hr 11/30/16 10:34 12/01/16 09:51 Rocephin 1gm Ivpb (Pre-Docked) IVPB 100 mls/hr DAILY [facility] Administration Insulin Aspart 1 vial 11/30/16 07:00 12/01/16 06:09 Novolog Vial Sliding Scale - SQ Not Given ACHS [facility] Protocol Levothyroxine Sodium 25 mcg 11/30/16 07:00 12/01/16 06:13 Synthroid - PO 25 mcg AM [facility] Administration Methylprednisolone Sodium Succinate 40 mg 12/01/16 18:00 Solu-Medrol - IVPB Q8H-IV [facility] Montelukast Sodium 10 mg 11/30/16 22:00 11/30/16 21:27 Singulair - PO 10 mg HS [facility] Administration Multivitamins/Minerals/Vitamin C 1 tab 11/30/16 10:00 12/01/16 09:50 Tab-A-Vit - PO 1 tab DAILY [facility] Administration Non-Formulary Medication 2 spray 11/30/16 10:00 Azelastine Hcl [Azelastine Hcl] NS DAILY [facility] Quetiapine Fumarate 50 mg 11/30/16 22:00 11/30/16 21:27 Seroquel - PO 50 mg HS [facility] Administration Venlafaxine HCl 225 mg 11/30/16 10:00 12/01/16 09:46 Effexor Xr - PO 225 mg DAILY [facility] Administration Warfarin Sodium 5 mg 11/30/16 18:00 11/30/16 18:14 Coumadin - PO 5 mg DAILY@1800 [facility] Administration CBC, BMP 12/01/16 05:35 12/01/16 05:35 ecgs 11/29/16: afib, rate in 90s, rad, twi v2-v6, inf twis, no st changes, no sig change from 2011 and 2013 ecgs echo 09/2011: tds, grossly nl lvef, mild tr echo 11/2016: nl lv/rv, nl rvsp, mild lae, mild mr, mild-mod tr cta chest: no pe, no chf, +infiltrates a/p: 66 f hx copd, NHL, afib, dm, htn, hld, hypothyroid, fibromyalgia, cardiac myxoma s/p resection, venous insuff/le edema here with sob, cough, cp. cp: -no signs acs, ce's neg x3 -ecg with twi's that have been present in prior ecgs from 2011 and 2013 as well -pleuritic cp likely from copd/pna, monitor as resp issues improve, cp has improved so far copd, pna, sob: -no signs pulm edema -echo unremarkable here -sxs likely from copd/pna, improving with tx so far -cont abx/steroids/o2 per pmd afib: -rate controlled on dilt, dig (level nl here) -cont coumadin per inr htn: -cont home dilt hld: -cont statin cardiac myxoma s/p resection: -echo unremarkable here venous insuff/le edema: -stable, cont home lasix dose
--- NOTE | 2016-12-01 12:22 | PN ---
Teaching Attending Note Name of Resident: Savannah Cuellar ATTENDING PHYSICIAN STATEMENT I saw and evaluated the patient. I reviewed the resident's note and discussed the case with the resident. I agree with the resident's findings and plan as documented. Patient is feeling better, no fever or chills, no headache. Breathing better, less short of breath. On oxygen. Vital Signs Temperature 97.9 F 12/01/16 06:00 Pulse Rate 92 H 12/01/16 11:47 Respiratory Rate 20 12/01/16 06:00 Blood Pressure 107/72 12/01/16 06:00 O2 Sat by Pulse Oximetry (%) 95 12/01/16 11:47 CBCD WBC 18.6 K/mm3 (4.0-10.0) H D 12/01/16 05:35 RBC 4.58 M/mm3 (3.60-5.2) 12/01/16 05:35 Hgb 13.9 GM/dL (10.7-15.3) 12/01/16 05:35 Hct 42.0 % (32.4-45.2) 12/01/16 05:35 MCV 91.6 fl (80-96) 12/01/16 05:35 MCHC 33.2 g/dl (32.0-36.0) 12/01/16 05:35 RDW 14.6 % (11.6-15.6) 12/01/16 05:35 Plt Count 213 K/MM3 (134-434) 12/01/16 05:35 MPV 8.9 fl (7.5-11.1) 12/01/16 05:35 CMP Sodium 141 mmol/L (136-145) 12/01/16 05:35 Potassium 3.8 mmol/L (3.5-5.1) 12/01/16 05:35 Chloride 101 mmol/L (98-107) 12/01/16 05:35 Carbon Dioxide 31 mmol/L (21-32) 12/01/16 05:35 Anion Gap 9 (8-16) 12/01/16 05:35 BUN 18 mg/dL (7-18) D 12/01/16 05:35 Creatinine 0.6 mg/dL (0.55-1.02) 12/01/16 05:35 Creat Clearance w eGFR > 60 (>60) 11/30/16 06:00 Random Glucose 171 mg/dL (74-106) H 12/01/16 05:35 Calcium 8.3 mg/dL (8.5-10.1) L 12/01/16 05:35 Total Bilirubin 0.4 mg/dL (0.2-1.0) 11/30/16 06:00 AST 12 U/L (15-37) L D 11/30/16 06:00 ALT 20 U/L (12-78) D 11/30/16 06:00 Alkaline Phosphatase 139 U/L (45-117) H 11/30/16 06:00 Total Protein 6.1 g/dl (6.4-8.2) L 11/30/16 06:00 Albumin 3.2 g/dl (3.4-5.0) L 11/30/16 06:00 CARDIAC ENZYMES Creatine Kinase 28 IU/L (26-192) 11/30/16 06:00 Troponin I < 0.02 ng/ml (0.00-0.05) 11/30/16 06:00 Current Medications Generic Name Dose Route Start Last Admin Trade Name Freq PRN Reason Stop Dose Admin Albuterol Sulfate 1 amp 11/29/16 18:30 11/30/16 09:50 Ventolin 0.083% Nebulizer Soln - NEB 1 amp Q4H PRN Administration SHORT OF BREATH/WHEEZING Albuterol/Ipratropium 1 amp 11/30/16 00:00 12/01/16 11:15 Duoneb - NEB 1 amp Q6HPO [facility] Administration Atorvastatin Calcium 20 mg 11/30/16 22:00 11/30/16 21:26 Lipitor - PO 20 mg HS [facility] Administration Cholecalciferol 2,000 unit 11/30/16 10:00 12/01/16 09:50 Vitamin D3 - PO 2,000 unit DAILY [facility] Administration Clotrimazole 1 applic 12/01/16 10:00 Lotrisone Cream (Small Tube) TP BID [facility] Cyanocobalamin 1,000 mcg 11/30/16 10:00 12/01/16 09:51 Vitamin B12 - PO 1,000 mcg DAILY [facility] Administration Cyclobenzaprine HCl 5 mg 11/30/16 22:00 11/30/16 21:28 Flexeril - PO 5 mg HS [facility] Administration Digoxin 0.25 mg 11/30/16 10:00 12/01/16 09:47 Lanoxin - PO 0.25 mg DAILY [facility] Administration Diltiazem HCl 180 mg 11/30/16 10:00 12/01/16 09:46 Cardizem Cd - PO 180 mg DAILY [facility] Administration Fluticasone Propionate 2 spray 11/30/16 10:00 12/01/16 09:47 Flonase - NS 2 spray DAILY [facility] Administration Furosemide 80 mg 11/30/16 06:00 12/01/16 06:13 Lasix - PO 80 mg BIDLASIX [facility] Administration Gabapentin 200 mg 11/30/16 10:00 12/01/16 09:49 Neurontin - PO 200 mg BID [facility] Administration Guaifenesin 1,200 mg 11/30/16 10:00 12/01/16 09:49 Mucinex - PO 1,200 mg BID [facility] Administration Azithromycin 250 mls @ 250 mls/hr 11/30/16 10:30 12/01/16 09:50 Zithromax 500mg Ivpb (Pre-Docked) IVPB 250 mls/hr DAILY [facility] Administration Ceftriaxone Sodium 50 mls @ 100 mls/hr 11/30/16 10:34 12/01/16 09:51 Rocephin 1gm Ivpb (Pre-Docked) IVPB 100 mls/hr DAILY [facility] Administration Insulin Aspart 1 vial 11/30/16 07:00 12/01/16 06:09 Novolog Vial Sliding Scale - SQ Not Given ACHS [facility] Protocol Levothyroxine Sodium 25 mcg 11/30/16 07:00 12/01/16 06:13 Synthroid - PO 25 mcg AM [facility] Administration Methylprednisolone Sodium Succinate 40 mg 12/01/16 18:00 Solu-Medrol - IVPB Q8H-IV [facility] Montelukast Sodium 10 mg 11/30/16 22:00 11/30/16 21:27 Singulair - PO 10 mg HS [facility] Administration Multivitamins/Minerals/Vitamin C 1 tab 11/30/16 10:00 12/01/16 09:50 Tab-A-Vit - PO 1 tab DAILY [facility] Administration Non-Formulary Medication 2 spray 11/30/16 10:00 Azelastine Hcl [Azelastine Hcl] NS DAILY [facility] Quetiapine Fumarate 50 mg 11/30/16 22:00 11/30/16 21:27 Seroquel - PO 50 mg HS [facility] Administration Venlafaxine HCl 225 mg 11/30/16 10:00 12/01/16 09:46 Effexor Xr - PO 225 mg DAILY [facility] Administration Warfarin Sodium 5 mg 11/30/16 18:00 11/30/16 18:14 Coumadin - PO 5 mg DAILY@1800 [facility] Administration Home Medications Medication Instructions Recorded Atorvastatin Ca [Lipitor] 20 mg PO HS 11/29/16 Azelastine HCl 137 mcg NS DAILY 11/29/16 Biotin/Calcium Carbonate [Biotin 1 each PO DAILY 11/29/16 800 Mcg Tablet] Cholecalciferol (Vitamin D3) 2,000 unit PO DAILY 11/29/16 [Vitamin D3 -] Cyanocobalamin [Vitamin B12 -] 1,000 mcg PO DAILY 11/29/16 Cyclobenzaprine HCl [Flexeril 10 5 mg PO DAILY 11/29/16 mg] Digoxin [Lanoxin -] 0.25 mg PO DAILY 11/29/16 Diltiazem HCl [Cartia Xt] 180 mg PO DAILY 11/29/16 Fluticasone Prop 0.05% Nasal 1 - 2 spray NS DAILY 11/29/16 [Flonase -] Furosemide [Lasix] 80 mg PO BID 11/29/16 Gabapentin 200 mg PO BID 11/29/16 Guaifenesin [Mucinex] 1,200 mg PO DAILY 11/29/16 Levothyroxine [Synthroid -] 25 mcg PO DAILY 11/29/16 Metformin HCl [Metformin HCl ER] 1,000 mg PO BID 11/29/16 Multivitamin [Poly-Vitamin] 1 each PO DAILY 11/29/16 Potassium 200 mg PO ASDIR 11/29/16 Quetiapine Fumarate [Seroquel -] 50 mg PO HS 11/29/16 Venlafaxine HCl ER [Effexor Xr -] 225 mg PO DAILY 11/29/16 Warfarin Sodium [Coumadin] 5 mg PO ASDIR 11/29/16 CHEST: Better air entry today BL Heart: S1S2 positive, irregularly irregular ECG: atrial fibrillation, rate 91, QTC 405, T wave inversion, 2,3,aVF, V2-V6 CTA: Impression There is no evidence of a pulmonary embolus in the main pulmonary artery, segmental and subsegmental bifurcations, bilaterally. Atelectatic changes with probable infiltrates in the dependent portion of the left lower lobe as well as minimal infiltrates versus atelectatic changes in the left upper lobe and right middle lobe. CXR: Impression: No acute lung disease is present. ASSESSMENT AND PLAN: This is a 66 yo F with PMHx of asthma, COPD, Waldenstrom's macroglobulinemia, nonHodkin's lymphoma, atrial fibrillation (coumadin), IBS, DM, HTN, HLD, hypothyroid, arthritis, fibromyalgia presented to ED for SOB, cough. She is being admitted for COPD exac and pneumonia. # Acute hypoxemic hypercapneic COPD exacerbation improving ,patient is better today, continue ceftriaxone, azithromycin continue, pulm consult . ID consult discussed with appreciated will continue the same antibiotic for now ; nebulizer txs, singulair continue , IV solumedrol 40mg Q8H, reduced the dose from q6 to q8 ,on BiPAP PRN. # Acute Pneumonia on IV antibiotic Rocephin/Zithromax continue #EKG nonspecific diffuse ST inversions , patient is being seen by . #Atrial fibrillation rate controlled , on Digoxin and Cardizem continue for rate control, on coumadin 5mg daily, INR 1.94 today will continue the same dose. #HTN On lasix 80mg BID continue #Hyperlipidemia on lipitor continue # DM hold metformin, SS with coverage continue # hypothyroidism on synthroid continue # Waldenstrom's macroblobulinemia/NHL ;stable per patient ;f/u outpatient # arthritis/fibromyalgia on flexeril/gabapentin continue # Depression on effexor, seroquel continue DVT Px: Coumadin
[2016-12-01] MEDS ORDERED: INSULIN (NOVOLOG) ASPART 100 UNITS/ML 10ML VIAL ONE (14:16)
--- NOTE | 2016-12-01 14:53 | PN ---
Physical Exam: SUBJECTIVE: Patient seen and examined Resting in bed, NAD. afebrile and hemodynamically stable. Comfortable on 5L NC. States she feels better, breathing improved, cough decreased and dry. Denies chest pain, palpitations, f/c, abd pain, n/v, diarrhea or dysuria. OBJECTIVE: Vital Signs Period Temp Pulse Resp BP Sys/Card Pulse Ox Last 24 Hr 97.9 F-98.3 F 74-92 18-20 104-112/62-82 89-95 GENERAL: The patient is awake, alert, and fully oriented, in no acute distress. HEAD: Normal with no signs of trauma. EYES: PERRL, extraocular movements intact, sclera anicteric, conjunctiva clear. No ptosis. ENT: moist mucous membranes. NECK: supple. LUNGS: no wheezes, better air movement HEART: irregular, rate controlled, S1, S2 ABDOMEN: Soft, nontender, nondistended, normoactive bowel sounds EXTREMITIES: 2+ pulses, warm, well-perfused, no edema. NEUROLOGICAL: Cranial nerves II through XII grossly intact. Normal speech, gait not observed. PSYCH: Normal mood, normal affect. SKIN: Warm, dry Laboratory Results - last 24 hr 11/30/16 11/30/16 11/30/16 06:00 08:00 16:43 WBC RBC Hgb Hct MCV MCHC RDW Plt Count MPV INR Sodium Potassium Chloride Carbon Dioxide Anion Gap BUN Creatinine POC Glucometer 178 Random Glucose Calcium Phosphorus Cancelled 3.6 Magnesium Cancelled 2.1 Triglycerides Cholesterol Total LDL Cholesterol HDL Cholesterol TSH Free T4 11/30/16 12/01/16 12/01/16 20:37 05:35 05:35 WBC 18.6 H D RBC 4.58 Hgb 13.9 Hct 42.0 MCV 91.6 MCHC 33.2 RDW 14.6 Plt Count 213 MPV 8.9 INR Sodium 141 Potassium 3.8 Chloride 101 Carbon Dioxide 31 Anion Gap 9 BUN 18 D Creatinine 0.6 POC Glucometer 224 Random Glucose 171 H Calcium 8.3 L Phosphorus 4.1 Magnesium 2.3 Triglycerides 65 Cholesterol 138 Total LDL Cholesterol 69 HDL Cholesterol 56 TSH 0.09 L Free T4 1.12 12/01/16 12/01/16 12/01/16 05:35 05:39 12:13 WBC RBC Hgb Hct MCV MCHC RDW Plt Count MPV INR 1.94 H Sodium Potassium Chloride Carbon Dioxide Anion Gap BUN Creatinine POC Glucometer 181 203 Random Glucose Calcium Phosphorus Magnesium Triglycerides Cholesterol Total LDL Cholesterol HDL Cholesterol TSH Free T4 Active Medications Generic Name Dose Route Start Last Admin Trade Name Lashanda PRN Reason Stop Dose Admin Albuterol Sulfate 1 amp 11/29/16 18:30 11/30/16 09:50 Ventolin 0.083% Nebulizer Soln - NEB 1 amp Q4H PRN Administration SHORT OF BREATH/WHEEZING Albuterol/Ipratropium 1 amp 11/30/16 00:00 12/01/16 11:15 Duoneb - NEB 1 amp Q6HPO [facility] Administration Atorvastatin Calcium 20 mg 11/30/16 22:00 11/30/16 21:26 Lipitor - PO 20 mg HS [facility] Administration Cholecalciferol 2,000 unit 11/30/16 10:00 12/01/16 09:50 Vitamin D3 - PO 2,000 unit DAILY [facility] Administration Clotrimazole 1 applic 12/01/16 10:00 Lotrisone Cream (Small Tube) TP BID [facility] Cyanocobalamin 1,000 mcg 11/30/16 10:00 12/01/16 09:51 Vitamin B12 - PO 1,000 mcg DAILY [facility] Administration Cyclobenzaprine HCl 5 mg 11/30/16 22:00 11/30/16 21:28 Flexeril - PO 5 mg HS [facility]IO Administration Digoxin 0.25 mg 11/30/16 10:00 12/01/16 09:47 Lanoxin - PO 0.25 mg DAILY [facility] Administration Diltiazem HCl 180 mg 11/30/16 10:00 12/01/16 09:46 Cardizem Cd - PO 180 mg DAILY [facility] Administration Fluticasone Propionate 2 spray 11/30/16 10:00 12/01/16 09:47 Flonase - NS 2 spray DAILY [facility] Administration Furosemide 80 mg 11/30/16 06:00 12/01/16 14:19 Lasix - PO 80 mg BIDLASIX [facility] Administration Gabapentin 200 mg 11/30/16 10:00 12/01/16 09:49 Neurontin - PO 200 mg BID [facility] Administration Guaifenesin 1,200 mg 11/30/16 10:00 12/01/16 09:49 Mucinex - PO 1,200 mg BID [facility] Administration Azithromycin 250 mls @ 250 mls/hr 11/30/16 10:30 12/01/16 09:50 Zithromax 500mg Ivpb (Pre-Docked) IVPB 250 mls/hr DAILY [facility] Administration Ceftriaxone Sodium 50 mls @ 100 mls/hr 11/30/16 10:34 12/01/16 09:51 Rocephin 1gm Ivpb (Pre-Docked) IVPB 100 mls/hr DAILY [facility] Administration Insulin Aspart 1 vial 11/30/16 07:00 12/01/16 14:17 Novolog Vial Sliding Scale - SQ 2 units ACHS [facility] Administration Protocol Levothyroxine Sodium 25 mcg 11/30/16 07:00 12/01/16 06:13 Synthroid - PO 25 mcg AM [facility] Administration Methylprednisolone Sodium Succinate 40 mg 12/01/16 18:00 Solu-Medrol - IVPB Q8H-IV [facility] Montelukast Sodium 10 mg 11/30/16 22:00 11/30/16 21:27 Singulair - PO 10 mg HS [facility] Administration Multivitamins/Minerals/Vitamin C 1 tab 11/30/16 10:00 12/01/16 09:50 Tab-A-Vit - PO 1 tab DAILY [facility] Administration Non-Formulary Medication 2 spray 11/30/16 10:00 Azelastine Hcl [Azelastine Hcl] NS DAILY [facility] Quetiapine Fumarate 50 mg 11/30/16 22:00 11/30/16 21:27 Seroquel - PO 50 mg HS [facility] Administration Venlafaxine HCl 225 mg 11/30/16 10:00 12/01/16 09:46 Effexor Xr - PO 225 mg DAILY [facility] Administration Warfarin Sodium 5 mg 11/30/16 18:00 11/30/16 18:14 Coumadin - PO 5 mg DAILY@1800 [facility] Administration ASSESSMENT/PLAN: ECG: atrial fibrillation, rate 91, QTC 405, T wave inversion, 2,3,aVF, V2-V6 CTA: Impression There is no evidence of a pulmonary embolus in the main pulmonary artery, segmental and subsegmental bifurcations, bilaterally. Atelectatic changes with probable infiltrates in the dependent portion of the left lower lobe as well as minimal infiltrates versus atelectatic changes in the left upper lobe and right middle lobe. CXR: Impression: No acute lung disease is present. ASSESSMENT/PLAN: This is a 66 yo F with PMH of asthma, COPD, Waldenstrom's macroglobulinemia, nonHodkin's lymphoma, atrial fibrillation (coumadin), IBS, DM, HTN, HLD, hypothyroid, arthritis, fibromyalgia presented to ED for SOB, cough. She is being admitted for COPD exac and pneumonia. Acute on Chronic COPD exacerbation due to CAP -ceftriaxone, azithromycin day 2 -pulm consult -ID consult will switch to PO levaquin 750 tomorrow -duoneb Q6H standing -albuterol Q4H PRN -cont home singulair -solumedrol 40mg Q8H day 1 -BiPAP PRN -flu, legionella negative -blood culture negative -sputum culture p/d atypical chest pain -pleuritic -troponin was 0.03 now resolved, likely demand due to hypoxia -EKD nonspecific diffuse st inversions, similar to prior EKGs -cardiology consult appreciated, unlikley ACS Atrial fibrillation -rate controlled -coumadin 5mg daily -INR 1.95 -lasix 80mg BID -TTE unremarkable Hyperlipidemia -lipitor DM -hold metformin -novolog sliding scale -BGM TIDAC hypothyroidism -synthroid Waldenstrom's macroblobulinemia/NHL -stable per patient -f/u outpatient arthritis/fibromyalgia -flexeril/gabapentin Depression -effexor, seroquel FEN No IVF stable lytes Diabetic/low sodium diet PPX: COUM Dispo:4S Problem List - Problems (1) Acute and chronic respiratory failure with hypoxia Code(s): J96.21 - ACUTE AND CHRONIC RESPIRATORY FAILURE WITH HYPOXIA (2) Atrial fibrillation Code(s): I48.91 - UNSPECIFIED ATRIAL FIBRILLATION (3) COPD exacerbation Code(s): J44.1 - CHRONIC OBSTRUCTIVE PULMONARY DISEASE W (ACUTE) EXACERBATION (4) Pneumonia Code(s): J18.9 - PNEUMONIA, UNSPECIFIED ORGANISM (5) Cough Code(s): R05 - COUGH (6) Hypoxia Code(s): R09.02 - HYPOXEMIA (7) Non Hodgkin's lymphoma Code(s): C85.90 - NON-HODGKIN LYMPHOMA, UNSPECIFIED, UNSPECIFIED SITE Visit type - Emergency Visit Emergency Visit: Yes ED Registration Date: 11/29/16 Care time: The patient presented to the Emergency Department on the above date and was hospitalized for further evaluation of their emergent condition. - New Patient This patient is new to me today: No - Critical Care Critical Care patient: No - Discharge Referral Referred to [facility] No
--- NOTE | 2016-12-01 15:52 | PN ---
Progress Note, Physician History of Present Illness: PULMONARY ALERT,OOB-CHAIR,LESS DYSPNEIC - Current Medication List Current Medications: Active Medications Albuterol Sulfate (Ventolin 0.083% Nebulizer Soln -) 1 amp NEB Q4H PRN PRN Reason: SHORT OF BREATH/WHEEZING Last Admin: 11/30/16 09:50 Dose: 1 amp Albuterol/Ipratropium (Duoneb -) 1 amp NEB Q6HPO [facility] Last Admin: 12/01/16 11:15 Dose: 1 amp Atorvastatin Calcium (Lipitor -) 20 mg PO HS [facility] Last Admin: 11/30/16 21:26 Dose: 20 mg Cholecalciferol (Vitamin D3 -) 2,000 unit PO DAILY [facility] Last Admin: 12/01/16 09:50 Dose: 2,000 unit Clotrimazole (Lotrisone Cream (Small Tube)) 1 applic TP BID [facility] Cyanocobalamin (Vitamin B12 -) 1,000 mcg PO DAILY [facility] Last Admin: 12/01/16 09:51 Dose: 1,000 mcg Cyclobenzaprine HCl (Flexeril -) 5 mg PO HS [facility] Last Admin: 11/30/16 21:28 Dose: 5 mg Digoxin (Lanoxin -) 0.25 mg PO DAILY [facility] Last Admin: 12/01/16 09:47 Dose: 0.25 mg Diltiazem HCl (Cardizem Cd -) 180 mg PO DAILY [facility] Last Admin: 12/01/16 09:46 Dose: 180 mg Fluticasone Propionate (Flonase -) 2 spray NS DAILY [facility] Last Admin: 12/01/16 09:47 Dose: 2 spray Furosemide (Lasix -) 80 mg PO BIDLASIX [facility] Last Admin: 12/01/16 14:19 Dose: 80 mg Gabapentin (Neurontin -) 200 mg PO BID [facility] Last Admin: 12/01/16 09:49 Dose: 200 mg Guaifenesin (Mucinex -) 1,200 mg PO BID [facility] Last Admin: 12/01/16 09:49 Dose: 1,200 mg Azithromycin (Zithromax 500mg Ivpb (Pre-Docked)) 250 mls @ 250 mls/hr IVPB DAILY [facility] Last Admin: 12/01/16 09:50 Dose: 250 mls/hr Ceftriaxone Sodium (Rocephin 1gm Ivpb (Pre-Docked)) 50 mls @ 100 mls/hr IVPB DAILY [facility] Last Admin: 12/01/16 09:51 Dose: 100 mls/hr Insulin Aspart (Novolog Vial Sliding Scale -) 1 vial SQ ACHS [facility] PRN Reason: Protocol Last Admin: 12/01/16 14:17 Dose: 2 units Levothyroxine Sodium (Synthroid -) 25 mcg PO AM [facility] Last Admin: 12/01/16 06:13 Dose: 25 mcg Methylprednisolone Sodium Succinate (Solu-Medrol -) 40 mg IVPB Q8H-IV [facility] Montelukast Sodium (Singulair -) 10 mg PO HS [facility] Last Admin: 11/30/16 21:27 Dose: 10 mg Multivitamins/Minerals/Vitamin C (Tab-A-Vit -) 1 tab PO DAILY [facility] Last Admin: 12/01/16 09:50 Dose: 1 tab Non-Formulary Medication (Azelastine Hcl [Azelastine Hcl]) 2 spray NS DAILY [facility] Quetiapine Fumarate (Seroquel -) 50 mg PO HS [facility] Last Admin: 11/30/16 21:27 Dose: 50 mg Venlafaxine HCl (Effexor Xr -) 225 mg PO DAILY [facility] Last Admin: 12/01/16 09:46 Dose: 225 mg Warfarin Sodium (Coumadin -) 5 mg PO DAILY@1800 [facility] Last Admin: 11/30/16 18:14 Dose: 5 mg - Objective Vital Signs: Vital Signs Temperature 98.4 F 12/01/16 14:01 Pulse Rate 94 H 12/01/16 14:01 Respiratory Rate 20 12/01/16 14:01 Blood Pressure 118/74 12/01/16 14:01 O2 Sat by Pulse Oximetry (%) 95 12/01/16 11:47 Constitutional: Yes: Well Nourished, Calm Eyes: Yes: WNL HENT: Yes: WNL Neck: Yes: WNL Cardiovascular: Yes: Pulse Irregular, S1, S2 Respiratory: Yes: Diminished, Wheezes (SCATTERED LILY WHEEZES) Gastrointestinal: Yes: Normal Bowel Sounds, Soft Extremities: Yes: WNL Edema: Yes Labs: CBC, BMP 12/01/16 05:35 12/01/16 05:35 INR, PTT INR 1.94 (0.82-1.09) H 12/01/16 05:35 - ....Imaging Cat Scan: Report Reviewed, Image Reviewed Assessment/Plan Problem List - Problems (1) Acute and chronic respiratory failure with hypoxia Code(s): J96.21 - ACUTE AND CHRONIC RESPIRATORY FAILURE WITH HYPOXIA (2) COPD exacerbation Code(s): J44.1 - CHRONIC OBSTRUCTIVE PULMONARY DISEASE W (ACUTE) EXACERBATION (3) Pneumonia Code(s): J18.9 - PNEUMONIA, UNSPECIFIED ORGANISM (4) Atrial fibrillation Code(s): I48.91 - UNSPECIFIED ATRIAL FIBRILLATION Assessment/Plan Acute on Chronic Hypoxic Respiratory Failure Pneumonia Acute COPD Exacerbation Atrial Fibrillation HTN Smoker - continue current antibiotics - medrol - inhaled bronchodilators - O2 to keep SpO2 >88% - BiPAP as needed to assist in work of breathing - rate control - anticoagulation DR MENDOZA
[2016-12-01] MEDS: CLOTRIMAZOLE/BETAMET DIPROP 15 GM TUBE TP SCH ×2 (15:59→22:24)
[2016-12-01] MEDS: WARFARIN NA 5 MG TABLET (UD) PO SCH (17:35)
[2016-12-01] MEDS: ATORVASTATIN CA 20 MG TABLET (FP) PO SCH (22:22)
[2016-12-01] MEDS: MONTELUKAST NA 5 MG TAB.CHEW PO SCH (22:22)
[2016-12-01] MEDS: QUEtiapine FUMARATE 50 MG TABLET PO SCH (22:22)
[2016-12-01] MEDS: CYCLOBENZAPRINE HCL 10 MG TABLET (FP) PO SCH (22:23)
[2016-12-02] MEDS: methylPREDNISolone NA SUCC 40 MG/1 ML VIAL IVPB SCH ×3 (01:19→17:56)
[2016-12-02] MEDS: INSULIN SLIDING SCALE (NOVOLOG) 1 VIAL SQ SCH ×4 (05:59→22:26)
[2016-12-02] MEDS: FUROSEMIDE 40 MG TABLET (FP) PO SCH ×2 (06:14→13:48)
[2016-12-02] MEDS: LEVOTHYROXINE NA 25 MCG TABLET (FP) PO SCH (06:14)
[2016-12-02] MEDS: ALBUTEROL SO4 2.5/IPRATROPIUM 0.5 INH SOL 3 ML VIAL.NEB. NEB SCH ×4 (06:16→23:26)
[2016-12-02 07:35] LABS: MCH 30.2 pg (25.7-33.7); MCHC 32.6 g/dl (32.0-36.0); MEAN CELL VOLUME 92.9 fl (80-96); MEAN PLT VOLUME 9.3 fl (7.5-11.1); PLATELET COUNT 208 K/MM3 (134-434); RDW 15.1 % (11.6-15.6); WHITE BLOOD COUNT 18.1 K/mm3 (4.0-10.0)
[2016-12-02 08:01] LABS: CALCIUM 8.8 mg/dL (8.5-10.1)
[2016-12-02 08:04] LABS: CREATININE 0.6 mg/dL (0.55-1.02); MAGNESIUM 2.5 mg/dL (1.8-2.4); PHOSPHOROUS 3.6 mg/dL (2.5-4.9)
[2016-12-02] MEDS ORDERED: PT OWN MED DRAWER 7, Y5N ONE ×3 (09:55→22:34)
[2016-12-02] MEDS: FLUTICASONE PROP 0.05% 16 GM NASAL SPRAY NS SCH (10:00)
[2016-12-02] MEDS: VENLAFAXINE HCL 75 MG E.R. CAPSULES (FP) PO SCH (10:00)
--- NOTE | 2016-12-02 10:00 | PN ---
Progress Note (short form) - Note Progress Note: s: less sob; no palps dizzy cp o: Vital Signs Period Temp Pulse Resp BP Sys/Card Pulse Ox Last 24 Hr 98.0 F-98.5 F 76-94 18-20 104-120/59-74 95-98 nad no jvd irreg, s1s2 no mrg b/l mild exp wheeze, nl eff no le e/c/c aaox3 no jaundice diaphoresis Current Medications Generic Name Dose Route Start Last Admin Trade Name Freq PRN Reason Stop Dose Admin Albuterol Sulfate 1 amp 11/29/16 18:30 11/30/16 09:50 Ventolin 0.083% Nebulizer Soln - NEB 1 amp Q4H PRN Administration SHORT OF BREATH/WHEEZING Albuterol/Ipratropium 1 amp 11/30/16 00:00 12/02/16 06:16 Duoneb - NEB 1 amp Q6HPO [facility] Administration Atorvastatin Calcium 20 mg 11/30/16 22:00 12/01/16 22:22 Lipitor - PO 20 mg HS [facility] Administration Cholecalciferol 2,000 unit 11/30/16 10:00 12/01/16 09:50 Vitamin D3 - PO 2,000 unit DAILY [facility] Administration Clotrimazole 1 applic 12/01/16 10:00 12/01/16 22:24 Lotrisone Cream (Small Tube) TP 1 applic BID [facility] Administration Cyanocobalamin 1,000 mcg 11/30/16 10:00 12/01/16 09:51 Vitamin B12 - PO 1,000 mcg DAILY [facility] Administration Cyclobenzaprine HCl 5 mg 11/30/16 22:00 12/01/16 22:23 Flexeril - PO 5 mg HS [facility] Administration Digoxin 0.25 mg 11/30/16 10:00 12/01/16 09:47 Lanoxin - PO 0.25 mg DAILY [facility] Administration Diltiazem HCl 180 mg 11/30/16 10:00 12/01/16 09:46 Cardizem Cd - PO 180 mg DAILY [facility] Administration Fluticasone Propionate 2 spray 11/30/16 10:00 12/01/16 09:47 Flonase - NS 2 spray DAILY [facility] Administration Furosemide 80 mg 11/30/16 06:00 12/02/16 06:14 Lasix - PO 80 mg BIDLASIX [facility] Administration Gabapentin 200 mg 11/30/16 10:00 12/01/16 22:22 Neurontin - PO 200 mg BID [facility] Administration Guaifenesin 1,200 mg 11/30/16 10:00 12/01/16 22:22 Mucinex - PO 1,200 mg BID [facility] Administration Azithromycin 250 mls @ 250 mls/hr 11/30/16 10:30 12/01/16 09:50 Zithromax 500mg Ivpb (Pre-Docked) IVPB 250 mls/hr DAILY [facility] Administration Ceftriaxone Sodium 50 mls @ 100 mls/hr 11/30/16 10:34 12/01/16 09:51 Rocephin 1gm Ivpb (Pre-Docked) IVPB 100 mls/hr DAILY [facility] Administration Insulin Aspart 1 vial 11/30/16 07:00 12/02/16 05:59 Novolog Vial Sliding Scale - SQ Not Given ACHS [facility] Protocol Levothyroxine Sodium 25 mcg 11/30/16 07:00 12/02/16 06:14 Synthroid - PO 25 mcg AM [facility] Administration Methylprednisolone Sodium Succinate 40 mg 12/01/16 18:00 12/02/16 01:19 Solu-Medrol - IVPB 40 mg Q8H-IV [facility] Administration Montelukast Sodium 10 mg 11/30/16 22:00 12/01/16 22:22 Singulair - PO 10 mg HS [facility] Administration Multivitamins/Minerals/Vitamin C 1 tab 11/30/16 10:00 12/01/16 09:50 Tab-A-Vit - PO 1 tab DAILY [facility] Administration Non-Formulary Medication 2 spray 11/30/16 10:00 Azelastine Hcl [Azelastine Hcl] NS DAILY [facility] Quetiapine Fumarate 50 mg 11/30/16 22:00 12/01/16 22:22 Seroquel - PO 50 mg HS [facility] Administration Venlafaxine HCl 225 mg 11/30/16 10:00 12/01/16 09:46 Effexor Xr - PO 225 mg DAILY [facility] Administration Warfarin Sodium 5 mg 11/30/16 18:00 12/01/16 17:35 Coumadin - PO 5 mg DAILY@1800 [facility] Administration CBC, BMP 12/02/16 06:20 12/02/16 06:20 ecgs 11/29/16: afib, rate in 90s, rad, twi v2-v6, inf twis, no st changes, no sig change from 2011 and 2013 ecgs echo 09/2011: tds, grossly nl lvef, mild tr echo 11/2016: nl lv/rv, nl rvsp, mild lae, mild mr, mild-mod tr cta chest: no pe, no chf, +infiltrates a/p: 66 f hx copd, NHL, afib, dm, htn, hld, hypothyroid, fibromyalgia, cardiac myxoma s/p resection, venous insuff/le edema here with sob, cough, cp. cp: -no signs acs, ce's neg x3 -ecg with twi's that have been present in prior ecgs from 2011 and 2013 as well -pleuritic cp likely from copd/pna, has resolved with resp treatment copd, pna, sob: -no signs pulm edema -echo unremarkable here -sxs likely from copd/pna, improving with tx so far -cont abx/steroids/o2 per pmd afib: -rate controlled on dilt, dig (level nl here) -cont coumadin per inr htn: -cont home dilt hld: -cont statin cardiac myxoma s/p resection: -echo unremarkable here venous insuff/le edema: -stable, cont home lasix dose cardiac garrett remains stable
[2016-12-02] MEDS: CLOTRIMAZOLE/BETAMET DIPROP 15 GM TUBE TP SCH ×2 (10:01→22:27)
[2016-12-02] MEDS: DIGOXIN 0.25 MG TABLET (FP) PO SCH (10:01)
[2016-12-02] MEDS: GABAPENTIN 100 MG CAPSULE (FP) PO SCH ×2 (10:02→22:25)
[2016-12-02] MEDS: guaiFENesin 600 MG TABLET.ER (FP) PO SCH ×2 (10:02→22:26)
[2016-12-02] MEDS: CEFTRIAXONE 50 ML IVPB SCH (10:02)
[2016-12-02] MEDS: CHOLECALCIFEROL (VITAMIN D3) 1,000 UNIT TABLET (FP) PO SCH (10:03)
[2016-12-02] MEDS: AZITHROMYCIN IVPB 250 ML IVPB SCH (10:03)
[2016-12-02] MEDS: MULTIVITAMINS (DAILY MVI) TABLET (FP) PO SCH (10:03)
[2016-12-02] MEDS: CYANOCOBALAMIN 1,000 MCG TABLET (FP) PO SCH (10:03)
--- NOTE | 2016-12-02 10:59 | PN ---
Progress Note (short form) - Note Progress Note: Feeling better, continues to wheeze, no cough Temperature 98.5 F 12/02/16 06:00 Pulse Rate 96 H 12/02/16 10:01 Respiratory Rate 18 12/02/16 06:00 Blood Pressure 117/59 12/02/16 06:00 O2 Sat by Pulse Oximetry (%) 98 12/01/16 20:45 GENERAL: The patient is awake, alert, and fully oriented, in no acute distress. HEAD: Normal with no signs of trauma. EYES: PERRL, EOMI, sclera anicteric, conjunctiva clear. . ENT: moist mucous membranes. NECK: supple. No JVD LUNGS: positive for wheezes, GAE BL HEART: irregular irregular rate controlled, S1, S2 positive ABDOMEN: Soft, nontender, nondistended, normoactive bowel sounds EXTREMITIES: 2+ pulses, warm, well-perfused, no edema. NEUROLOGICAL: Cranial nerves II through XII grossly intact. PSYCH: Normal mood, normal affect. SKIN: Warm, dry, good turgor CBCD WBC 18.1 K/mm3 (4.0-10.0) H 12/02/16 06:20 RBC 4.57 M/mm3 (3.60-5.2) 12/02/16 06:20 Hgb 13.8 GM/dL (10.7-15.3) 12/02/16 06:20 Hct 42.4 % (32.4-45.2) 12/02/16 06:20 MCV 92.9 fl (80-96) 12/02/16 06:20 MCHC 32.6 g/dl (32.0-36.0) 12/02/16 06:20 RDW 15.1 % (11.6-15.6) 12/02/16 06:20 Plt Count 208 K/MM3 (134-434) 12/02/16 06:20 MPV 9.3 fl (7.5-11.1) 12/02/16 06:20 CMP Sodium 140 mmol/L (136-145) 12/02/16 06:20 Potassium 3.8 mmol/L (3.5-5.1) 12/02/16 06:20 Chloride 99 mmol/L (98-107) 12/02/16 06:20 Carbon Dioxide 33 mmol/L (21-32) H 12/02/16 06:20 Anion Gap 8 (8-16) 12/02/16 06:20 BUN 20 mg/dL (7-18) H 12/02/16 06:20 Creatinine 0.6 mg/dL (0.55-1.02) 12/02/16 06:20 Creat Clearance w eGFR > 60 (>60) 11/30/16 06:00 Random Glucose 185 mg/dL (74-106) H 12/02/16 06:20 Calcium 8.8 mg/dL (8.5-10.1) 12/02/16 06:20 Total Bilirubin 0.4 mg/dL (0.2-1.0) 11/30/16 06:00 AST 12 U/L (15-37) L D 11/30/16 06:00 ALT 20 U/L (12-78) D 11/30/16 06:00 Alkaline Phosphatase 139 U/L (45-117) H 11/30/16 06:00 Total Protein 6.1 g/dl (6.4-8.2) L 11/30/16 06:00 Albumin 3.2 g/dl (3.4-5.0) L 11/30/16 06:00 CARDIAC ENZYMES Creatine Kinase 28 IU/L (26-192) 11/30/16 06:00 Troponin I < 0.02 ng/ml (0.00-0.05) 11/30/16 06:00 Current Medications Generic Name Dose Route Start Last Admin Trade Name Freq PRN Reason Stop Dose Admin Albuterol Sulfate 1 amp 11/29/16 18:30 11/30/16 09:50 Ventolin 0.083% Nebulizer Soln - NEB 1 amp Q4H PRN Administration SHORT OF BREATH/WHEEZING Albuterol/Ipratropium 1 amp 11/30/16 00:00 12/02/16 06:16 Duoneb - NEB 1 amp Q6HPO [facility]ARIO Administration Atorvastatin Calcium 20 mg 11/30/16 22:00 12/01/16 22:22 Lipitor - PO 20 mg HS [facility]ARIO Administration Cholecalciferol 2,000 unit 11/30/16 10:00 12/02/16 10:03 Vitamin D3 - PO 2,000 unit DAILY [facility] Administration Clotrimazole 1 applic 12/01/16 10:00 12/02/16 10:01 Lotrisone Cream (Small Tube) TP 1 applic BID [facility]IO Administration Cyanocobalamin 1,000 mcg 11/30/16 10:00 12/02/16 10:03 Vitamin B12 - PO 1,000 mcg DAILY [facility] Administration Cyclobenzaprine HCl 5 mg 11/30/16 22:00 12/01/16 22:23 Flexeril - PO 5 mg HS ROSARIO Administration Digoxin 0.25 mg 11/30/16 10:00 12/02/16 10:01 Lanoxin - PO 0.25 mg DAILY [facility] Administration Diltiazem HCl 180 mg 11/30/16 10:00 12/02/16 10:00 Cardizem Cd - PO 180 mg DAILY [facility] Administration Fluticasone Propionate 2 spray 11/30/16 10:00 12/02/16 10:00 Flonase - NS 2 spray DAILY [facility] Administration Furosemide 80 mg 11/30/16 06:00 12/02/16 06:14 Lasix - PO 80 mg BIDLASIX [facility]ARIO Administration Gabapentin 200 mg 11/30/16 10:00 12/02/16 10:02 Neurontin - PO 200 mg BID [facility]IO Administration Guaifenesin 1,200 mg 11/30/16 10:00 12/02/16 10:02 Mucinex - PO 1,200 mg BID [facility]IO Administration Azithromycin 250 mls @ 250 mls/hr 11/30/16 10:30 12/02/16 10:03 Zithromax 500mg Ivpb (Pre-Docked) IVPB 250 mls/hr DAILY [facility] Administration Ceftriaxone Sodium 50 mls @ 100 mls/hr 11/30/16 10:34 12/02/16 10:02 Rocephin 1gm Ivpb (Pre-Docked) IVPB 100 mls/hr DAILY [facility] Administration Insulin Aspart 1 vial 11/30/16 07:00 12/02/16 05:59 Novolog Vial Sliding Scale - SQ Not Given ACHS [facility] Protocol Levothyroxine Sodium 25 mcg 11/30/16 07:00 12/02/16 06:14 Synthroid - PO 25 mcg AM [facility]IO Administration Methylprednisolone Sodium Succinate 40 mg 12/01/16 18:00 12/02/16 10:02 Solu-Medrol - IVPB 40 mg Q8H-IV [facility] Administration Montelukast Sodium 10 mg 11/30/16 22:00 12/01/16 22:22 Singulair - PO 10 mg HS [facility] Administration Multivitamins/Minerals/Vitamin C 1 tab 11/30/16 10:00 12/02/16 10:03 Tab-A-Vit - PO 1 tab DAILY [facility] Administration Non-Formulary Medication 2 spray 11/30/16 10:00 Azelastine Hcl [Azelastine Hcl] NS DAILY [facility] Quetiapine Fumarate 50 mg 11/30/16 22:00 12/01/16 22:22 Seroquel - PO 50 mg HS [facility] Administration Venlafaxine HCl 225 mg 11/30/16 10:00 12/02/16 10:00 Effexor Xr - PO 225 mg DAILY [facility] Administration Warfarin Sodium 5 mg 11/30/16 18:00 12/01/16 17:35 Coumadin - PO 5 mg DAILY@1800 [facility] Administration Home Medications Medication Instructions Recorded Atorvastatin Ca [Lipitor] 20 mg PO HS 11/29/16 Azelastine HCl 137 mcg NS DAILY 11/29/16 Biotin/Calcium Carbonate [Biotin 1 each PO DAILY 11/29/16 800 Mcg Tablet] Cholecalciferol (Vitamin D3) 2,000 unit PO DAILY 11/29/16 [Vitamin D3 -] Cyanocobalamin [Vitamin B12 -] 1,000 mcg PO DAILY 11/29/16 Cyclobenzaprine HCl [Flexeril 10 5 mg PO DAILY 11/29/16 mg] Digoxin [Lanoxin -] 0.25 mg PO DAILY 11/29/16 Diltiazem HCl [Cartia Xt] 180 mg PO DAILY 11/29/16 Fluticasone Prop 0.05% Nasal 1 - 2 spray NS DAILY 11/29/16 [Flonase -] Furosemide [Lasix] 80 mg PO BID 11/29/16 Gabapentin 200 mg PO BID 11/29/16 Guaifenesin [Mucinex] 1,200 mg PO DAILY 11/29/16 Levothyroxine [Synthroid -] 25 mcg PO DAILY 11/29/16 Metformin HCl [Metformin HCl ER] 1,000 mg PO BID 11/29/16 Multivitamin [Poly-Vitamin] 1 each PO DAILY 11/29/16 Potassium 200 mg PO ASDIR 11/29/16 Quetiapine Fumarate [Seroquel -] 50 mg PO HS 11/29/16 Venlafaxine HCl ER [Effexor Xr -] 225 mg PO DAILY 11/29/16 Warfarin Sodium [Coumadin] 5 mg PO ASDIR 11/29/16 INR, PTT INR 1.94 (0.82-1.09) H 12/01/16 05:35 ECG: atrial fibrillation, rate 91, QTC 405, T wave inversion, 2,3,aVF, V2-V6 CTA: Impression There is no evidence of a pulmonary embolus in the main pulmonary artery, segmental and subsegmental bifurcations, bilaterally. Atelectatic changes with probable infiltrates in the dependent portion of the left lower lobe as well as minimal infiltrates versus atelectatic changes in the left upper lobe and right middle lobe. CXR: Impression: No acute lung disease is present. ASSESSMENT AND PLAN: This is a 66 yo F with PMHx of asthma, COPD, Waldenstrom's macroglobulinemia, nonHodkin's lymphoma, atrial fibrillation (coumadin), IBS, DM, HTN, HLD, hypothyroid, arthritis, fibromyalgia presented to ED for SOB, cough. She is being admitted for COPD exac and pneumonia. # Acute hypoxemic hypercapneic COPD exacerbation , patient is better today , still wheezing, patient is better today, continue ceftriaxone, azithromycin continue, pulm consult appreciated. Discussed with will continue the same antibiotic for now ; nebulizer txs, singulair continue, IV solumedrol 40mg Q8H, reduced the dose from q6 to q8, on BiPAP PRN. Upon discharge will discharge the patient on Levaquin. # Acute Pneumonia on IV antibiotic Rocephin/Zithromax continue #EKG nonspecific diffuse ST inversions ,patient is being seen by . #Atrial fibrillation rate controlled , on Digoxin and Cardizem continue for rate control, will give on coumadin 6mg today, INR 1.91 today will continue with 5mg #HTN On lasix 80mg BID continue #Hyperlipidemia on lipitor continue # DM hold metformin, SS with coverage continue # hypothyroidism on synthroid continue # Waldenstrom's macroblobulinemia/NHL ;stable per patient ;f/u outpatient # arthritis/fibromyalgia on flexeril/gabapentin continue # Depression on effexor, seroquel continue DVT Px: Coumadin possible discharge in am Visit type - Emergency Visit Emergency Visit: Yes ED Registration Date: 11/29/16 Care time: The patient presented to the Emergency Department on the above date and was hospitalized for further evaluation of their emergent condition. - New Patient This patient is new to me today: No - Critical Care Critical Care patient: No
[2016-12-02] MEDS ORDERED: ACETAMINOPHEN 325 MG TABLET (FP) PO PRN (14:49)
--- NOTE | 2016-12-02 15:13 | PN ---
Progress Note (short form) - Note Progress Note: Breathing feels better. WILHELM today. Has not used NIPPV since admission. Intake & Output 11/29/16 11/30/16 12/01/16 12/02/16 23:59 23:59 23:59 23:59 Intake Total 960 400 Balance 960 400 Weight 180 lb 186 lb 0.8 oz 188 lb 2 oz Last Vital Signs Temp Pulse Resp BP Pulse Ox 98.0 F 96 H 20 125/74 96 12/02/16 14:00 12/02/16 14:00 12/02/16 14:00 12/02/16 14:00 12/02/16 09:00 Active Medications Acetaminophen (Tylenol -) 650 mg PO ONCE ONE Stop: 12/02/16 14:51 Albuterol Sulfate (Ventolin 0.083% Nebulizer Soln -) 1 amp NEB Q4H PRN PRN Reason: SHORT OF BREATH/WHEEZING Last Admin: 11/30/16 09:50 Dose: 1 amp Albuterol/Ipratropium (Duoneb -) 1 amp NEB Q6HPO [facility] Last Admin: 12/02/16 11:31 Dose: 1 amp Atorvastatin Calcium (Lipitor -) 20 mg PO HS [facility] Last Admin: 12/01/16 22:22 Dose: 20 mg Cholecalciferol (Vitamin D3 -) 2,000 unit PO DAILY [facility] Last Admin: 12/02/16 10:03 Dose: 2,000 unit Clotrimazole (Lotrisone Cream (Small Tube)) 1 applic TP BID [facility] Last Admin: 12/02/16 10:01 Dose: 1 applic Cyanocobalamin (Vitamin B12 -) 1,000 mcg PO DAILY [facility] Last Admin: 12/02/16 10:03 Dose: 1,000 mcg Cyclobenzaprine HCl (Flexeril -) 5 mg PO HS [facility] Last Admin: 12/01/16 22:23 Dose: 5 mg Digoxin (Lanoxin -) 0.25 mg PO DAILY [facility] Last Admin: 12/02/16 10:01 Dose: 0.25 mg Diltiazem HCl (Cardizem Cd -) 180 mg PO DAILY [facility] Last Admin: 12/02/16 10:00 Dose: 180 mg Fluticasone Propionate (Flonase -) 2 spray NS DAILY [facility] Last Admin: 12/02/16 10:00 Dose: 2 spray Furosemide (Lasix -) 80 mg PO BIDLASIX [facility] Last Admin: 12/02/16 13:48 Dose: 80 mg Gabapentin (Neurontin -) 200 mg PO BID [facility] Last Admin: 12/02/16 10:02 Dose: 200 mg Guaifenesin (Mucinex -) 1,200 mg PO BID [facility] Last Admin: 12/02/16 10:02 Dose: 1,200 mg Azithromycin (Zithromax 500mg Ivpb (Pre-Docked)) 250 mls @ 250 mls/hr IVPB DAILY [facility] Last Admin: 12/02/16 10:03 Dose: 250 mls/hr Ceftriaxone Sodium (Rocephin 1gm Ivpb (Pre-Docked)) 50 mls @ 100 mls/hr IVPB DAILY [facility] Last Admin: 12/02/16 10:02 Dose: 100 mls/hr Insulin Aspart (Novolog Vial Sliding Scale -) 1 vial SQ ACHS [facility] PRN Reason: Protocol Last Admin: 12/02/16 13:48 Dose: 2 units Levothyroxine Sodium (Synthroid -) 25 mcg PO AM [facility] Last Admin: 12/02/16 06:14 Dose: 25 mcg Methylprednisolone Sodium Succinate (Solu-Medrol -) 40 mg IVPB Q8H-IV [facility] Last Admin: 12/02/16 10:02 Dose: 40 mg Montelukast Sodium (Singulair -) 10 mg PO HS [facility] Last Admin: 12/01/16 22:22 Dose: 10 mg Multivitamins/Minerals/Vitamin C (Tab-A-Vit -) 1 tab PO DAILY [facility] Last Admin: 12/02/16 10:03 Dose: 1 tab Non-Formulary Medication (Azelastine Hcl [Azelastine Hcl]) 2 spray NS DAILY [facility] Quetiapine Fumarate (Seroquel -) 50 mg PO HS [facility] Last Admin: 12/01/16 22:22 Dose: 50 mg Venlafaxine HCl (Effexor Xr -) 225 mg PO DAILY [facility] Last Admin: 12/02/16 10:00 Dose: 225 mg Warfarin Sodium (Coumadin -) 5 mg PO DAILY@1800 [facility] Last Admin: 12/01/16 17:35 Dose: 5 mg Warfarin Sodium (Coumadin -) 1 mg PO ONCE@1800 ONE Stop: 12/02/16 18:01 Constitutional: Yes: NAD Eyes: Yes: WNL HENT: Yes: WNL Neck: Yes: WNL Cardiovascular: Yes: Pulse Irregular, S1, S2 Respiratory: Yes: Bilateral expiratory wheezing Gastrointestinal: Yes: Normal Bowel Sounds, Soft Extremities: Yes: WNL Edema: Yes Labs: Laboratory Results - last 24 hr 12/01/16 12/01/16 12/02/16 17:38 21:24 05:20 WBC RBC Hgb Hct MCV MCHC RDW Plt Count MPV Sodium Potassium Chloride Carbon Dioxide Anion Gap BUN Creatinine POC Glucometer 132 243 187 Random Glucose Calcium Phosphorus Magnesium 12/02/16 12/02/16 12/02/16 06:20 06:20 12:16 WBC 18.1 H RBC 4.57 Hgb 13.8 Hct 42.4 MCV 92.9 MCHC 32.6 RDW 15.1 Plt Count 208 MPV 9.3 Sodium 140 Potassium 3.8 Chloride 99 Carbon Dioxide 33 H Anion Gap 8 BUN 20 H Creatinine 0.6 POC Glucometer 240 Random Glucose 185 H Calcium 8.8 Phosphorus 3.6 Magnesium 2.5 H Assessment/Plan Problem List - Problems (1) Acute and chronic respiratory failure with hypoxia Code(s): J96.21 - ACUTE AND CHRONIC RESPIRATORY FAILURE WITH HYPOXIA (2) COPD exacerbation Code(s): J44.1 - CHRONIC OBSTRUCTIVE PULMONARY DISEASE W (ACUTE) EXACERBATION (3) Pneumonia Code(s): J18.9 - PNEUMONIA, UNSPECIFIED ORGANISM (4) Atrial fibrillation Code(s): I48.91 - UNSPECIFIED ATRIAL FIBRILLATION Assessment/Plan Acute on Chronic Hypoxic Respiratory Failure Pneumonia Acute COPD Exacerbation Atrial Fibrillation HTN Smoker - ABX - medrol at current dose - inhaled bronchodilators - O2 to keep SpO2 >88% - D/C BiPAP - rate control - anticoagulation DR SARABIA
[2016-12-02] MEDS ORDERED: ACETAMINOPHEN 325 MG TABLET (FP) PO ONE (15:15)
[2016-12-02] MEDS: WARFARIN NA 5 MG TABLET (UD) PO SCH (17:56)
[2016-12-02] MEDS ORDERED: WARFARIN NA 1 MG TABLET (FP) PO ONE (18:00)
[2016-12-02] MEDS ORDERED: QUEtiapine FUMARATE 25 MG TABLET (FP) ONE (22:16)
[2016-12-02] MEDS: ATORVASTATIN CA 20 MG TABLET (FP) PO SCH (22:25)
[2016-12-02] MEDS: CYCLOBENZAPRINE HCL 10 MG TABLET (FP) PO SCH (22:25)
[2016-12-02] MEDS: QUEtiapine FUMARATE 50 MG TABLET PO SCH (22:26)
[2016-12-02] MEDS: MONTELUKAST NA 5 MG TAB.CHEW PO SCH (22:34)
[2016-12-03] MEDS: methylPREDNISolone NA SUCC 40 MG/1 ML VIAL IVPB SCH ×2 (01:22→09:31)
[2016-12-03 05:58] VITALS: TEMP 98.2
[2016-12-03] MEDS: FUROSEMIDE 40 MG TABLET (FP) PO SCH (06:04)
[2016-12-03] MEDS: LEVOTHYROXINE NA 25 MCG TABLET (FP) PO SCH (06:04)
[2016-12-03] MEDS: INSULIN SLIDING SCALE (NOVOLOG) 1 VIAL SQ SCH ×2 (06:05→11:47)
[2016-12-03] MEDS: ALBUTEROL SO4 2.5/IPRATROPIUM 0.5 INH SOL 3 ML VIAL.NEB. NEB SCH ×2 (06:20→11:42)
[2016-12-03] MEDS ORDERED: INSULIN (NOVOLOG) ASPART 100 UNITS/ML 10ML VIAL ONE ×2 (06:46→11:27)
[2016-12-03 07:33] LABS: MCH 30.4 pg (25.7-33.7); MCHC 32.5 g/dl (32.0-36.0); MEAN CELL VOLUME 93.4 fl (80-96); MEAN PLT VOLUME 8.6 fl (7.5-11.1); PLATELET COUNT 210 K/MM3 (134-434); RDW 15.4 % (11.6-15.6); WHITE BLOOD COUNT 13.5 K/mm3 (4.0-10.0)
[2016-12-03 07:39] LABS: INR 1.99 (0.82-1.09); PROTHROMBIN TIME (PATIENT) 22.2 SEC (9.98-11.88)
[2016-12-03 08:05] LABS: ALBUMIN 3.6 g/dl (3.4-5.0); ALK PHOS 150 U/L (45-117); ANION GAP 9 (8-16); BILIRUBIN,TOTAL 0.4 mg/dL (0.2-1.0); CALCIUM 8.6 mg/dL (8.5-10.1); CO2 34 mmol/L (21-32); CREATININE 0.7 mg/dL (0.55-1.02); GLUCOSE,RANDOM 202 mg/dL (74-106); SGOT/AST 49 U/L (15-37); SGPT/ALT 111 U/L (12-78); TOT PROT 6.8 g/dl (6.4-8.2)
[2016-12-03] MEDS ORDERED: PT OWN MED DRAWER 7, Y5N ONE (09:15)
[2016-12-03] MEDS: VENLAFAXINE HCL 75 MG E.R. CAPSULES (FP) PO SCH (09:28)
[2016-12-03] MEDS: FLUTICASONE PROP 0.05% 16 GM NASAL SPRAY NS SCH (09:29)
[2016-12-03] MEDS: DIGOXIN 0.25 MG TABLET (FP) PO SCH (09:29)
[2016-12-03] MEDS: CEFTRIAXONE 50 ML IVPB SCH (09:30)
[2016-12-03] MEDS: GABAPENTIN 100 MG CAPSULE (FP) PO SCH (09:30)
[2016-12-03] MEDS: guaiFENesin 600 MG TABLET.ER (FP) PO SCH (09:30)
[2016-12-03] MEDS: CLOTRIMAZOLE/BETAMET DIPROP 15 GM TUBE TP SCH (09:30)
[2016-12-03] MEDS: AZITHROMYCIN IVPB 250 ML IVPB SCH (09:31)
[2016-12-03] MEDS: MULTIVITAMINS (DAILY MVI) TABLET (FP) PO SCH (09:31)
[2016-12-03] MEDS: CHOLECALCIFEROL (VITAMIN D3) 1,000 UNIT TABLET (FP) PO SCH (09:31)
[2016-12-03] MEDS: CYANOCOBALAMIN 1,000 MCG TABLET (FP) PO SCH (09:31)
--- NOTE | 2016-12-03 10:57 | PN ---
Teaching Attending Note Name of Resident: Savannah Cuellar ATTENDING PHYSICIAN STATEMENT I saw and evaluated the patient. I reviewed the resident's note and discussed the case with the resident. I agree with the resident's findings and plan as documented. Patient feels better today, wants to go home. CBCD WBC 13.5 K/mm3 (4.0-10.0) H 12/03/16 06:30 RBC 4.75 M/mm3 (3.60-5.2) 12/03/16 06:30 Hgb 14.4 GM/dL (10.7-15.3) 12/03/16 06:30 Hct 44.4 % (32.4-45.2) 12/03/16 06:30 MCV 93.4 fl (80-96) 12/03/16 06:30 MCHC 32.5 g/dl (32.0-36.0) 12/03/16 06:30 RDW 15.4 % (11.6-15.6) 12/03/16 06:30 Plt Count 210 K/MM3 (134-434) 12/03/16 06:30 MPV 8.6 fl (7.5-11.1) 12/03/16 06:30 CMP Sodium 140 mmol/L (136-145) 12/03/16 06:30 Potassium 4.0 mmol/L (3.5-5.1) 12/03/16 06:30 Chloride 97 mmol/L (98-107) L 12/03/16 06:30 Carbon Dioxide 34 mmol/L (21-32) H 12/03/16 06:30 Anion Gap 9 (8-16) 12/03/16 06:30 BUN 18 mg/dL (7-18) 12/03/16 06:30 Creatinine 0.7 mg/dL (0.55-1.02) 12/03/16 06:30 Creat Clearance w eGFR > 60 (>60) 12/03/16 06:30 Random Glucose 202 mg/dL (74-106) H 12/03/16 06:30 Calcium 8.6 mg/dL (8.5-10.1) 12/03/16 06:30 Total Bilirubin 0.4 mg/dL (0.2-1.0) 12/03/16 06:30 AST 49 U/L (15-37) H D 12/03/16 06:30 ALT 111 U/L (12-78) H D 12/03/16 06:30 Alkaline Phosphatase 150 U/L (45-117) H 12/03/16 06:30 Total Protein 6.8 g/dl (6.4-8.2) 12/03/16 06:30 Albumin 3.6 g/dl (3.4-5.0) 12/03/16 06:30 CARDIAC ENZYMES Creatine Kinase 28 IU/L (26-192) 11/30/16 06:00 Troponin I < 0.02 ng/ml (0.00-0.05) 11/30/16 06:00 Laboratory Tests 11/29/16 11/30/16 12/01/16 17:35 06:00 05:35 INR 1.95 H D 1.97 H 1.94 H 12/03/16 06:30 INR 1.99 H Current Medications Generic Name Dose Route Start Last Admin Trade Name Freq PRN Reason Stop Dose Admin Albuterol Sulfate 1 amp 11/29/16 18:30 11/30/16 09:50 Ventolin 0.083% Nebulizer Soln - NEB 1 amp Q4H PRN Administration SHORT OF BREATH/WHEEZING Albuterol/Ipratropium 1 amp 11/30/16 00:00 12/03/16 06:20 Duoneb - NEB 1 amp Q6HPO [facility]IO Administration Atorvastatin Calcium 20 mg 11/30/16 22:00 12/02/16 22:25 Lipitor - PO 20 mg HS ROSARIO Administration Cholecalciferol 2,000 unit 11/30/16 10:00 12/03/16 09:31 Vitamin D3 - PO 2,000 unit DAILY [facility] Administration Clotrimazole 1 applic 12/01/16 10:00 12/03/16 09:30 Lotrisone Cream (Small Tube) TP 1 applic BID [facility] Administration Cyanocobalamin 1,000 mcg 11/30/16 10:00 12/03/16 09:31 Vitamin B12 - PO 1,000 mcg DAILY [facility] Administration Cyclobenzaprine HCl 5 mg 11/30/16 22:00 12/02/16 22:25 Flexeril - PO 5 mg HS [facility]ARIO Administration Digoxin 0.25 mg 11/30/16 10:00 12/03/16 09:29 Lanoxin - PO 0.25 mg DAILY [facility] Administration Diltiazem HCl 180 mg 11/30/16 10:00 12/03/16 09:28 Cardizem Cd - PO 180 mg DAILY [facility] Administration Fluticasone Propionate 2 spray 11/30/16 10:00 12/03/16 09:29 Flonase - NS 2 sprays DAILY [facility] Administration Furosemide 80 mg 11/30/16 06:00 12/03/16 06:04 Lasix - PO 80 mg BIDLASIX [facility]IO Administration Gabapentin 200 mg 11/30/16 10:00 12/03/16 09:30 Neurontin - PO 200 mg BID [facility] Administration Guaifenesin 1,200 mg 11/30/16 10:00 12/03/16 09:30 Mucinex - PO 1,200 mg BID [facility] Administration Insulin Aspart 1 vial 11/30/16 07:00 12/03/16 06:05 Novolog Vial Sliding Scale - SQ 2 units ACHS [facility]ARIO Administration Protocol Levofloxacin 500 mg 12/03/16 11:30 Levaquin - PO DAILY@0600 REPLACED BY [facility] Levothyroxine Sodium 25 mcg 11/30/16 07:00 12/03/16 06:04 Synthroid - PO 25 mcg AM [facility] Administration Montelukast Sodium 10 mg 11/30/16 22:00 12/02/16 22:34 Singulair - PO 10 mg HS REPLACED BY [facility] Administration Multivitamins/Minerals/Vitamin C 1 tab 11/30/16 10:00 12/03/16 09:31 Tab-A-Vit - PO 1 tab DAILY [facility]ARIO Administration Non-Formulary Medication 2 spray 11/30/16 10:00 Azelastine Hcl [Azelastine Hcl] NS DAILY REPLACED BY [facility] Prednisone 10 mg 12/04/16 10:00 Deltasone - PO DAILY REPLACED BY [facility] Quetiapine Fumarate 50 mg 11/30/16 22:00 12/02/16 22:26 Seroquel - PO 50 mg HS REPLACED BY [facility] Administration Venlafaxine HCl 225 mg 11/30/16 10:00 12/03/16 09:28 Effexor Xr - PO 225 mg DAILY [facility] Administration Warfarin Sodium 5 mg 11/30/16 18:00 12/02/16 17:56 Coumadin - PO 5 mg DAILY@1800 [facility] Administration Home Medications Medication Instructions Recorded Azelastine HCl 137 mcg NS DAILY 11/29/16 Biotin/Calcium Carbonate [Biotin 1 each PO DAILY 11/29/16 800 Mcg Tablet] Cholecalciferol (Vitamin D3) 2,000 unit PO DAILY 11/29/16 [Vitamin D -] Cyanocobalamin [Vitamin B12 -] 1,000 mcg PO DAILY 11/29/16 Cyclobenzaprine HCl [Flexeril 10 5 mg PO DAILY 11/29/16 mg] Digoxin [Lanoxin -] 0.25 mg PO DAILY 11/29/16 Diltiazem HCl [Cartia Xt] 180 mg PO DAILY 11/29/16 Fluticasone Prop 0.05% Nasal 1 - 2 spray NS DAILY 11/29/16 [Flonase -] Furosemide [Lasix] 80 mg PO BID 11/29/16 Gabapentin 200 mg PO BID 11/29/16 Guaifenesin [Mucinex] 1,200 mg PO DAILY 11/29/16 Levothyroxine [Synthroid -] 25 mcg PO DAILY 11/29/16 Metformin HCl [Metformin HCl ER] 1,000 mg PO BID 11/29/16 Multivitamin [Poly-Vitamin] 1 each PO DAILY 11/29/16 Potassium 200 mg PO ASDIR 11/29/16 Quetiapine Fumarate [Seroquel -] 50 mg PO HS 11/29/16 Venlafaxine HCl ER [Effexor Xr -] 225 mg PO DAILY 11/29/16 Warfarin Sodium [Coumadin] 5 mg PO ASDIR 11/29/16 Levofloxacin [Levaquin -] 500 mg PO DAILY@0600 #5 tablet 12/03/16 Prednisone [Deltasone -] 10 mg PO DAILY #34 tablet 12/03/16 ECG: atrial fibrillation, rate 91, QTC 405, T wave inversion, 2,3,aVF, V2-V6 CTA: Impression There is no evidence of a pulmonary embolus in the main pulmonary artery, segmental and subsegmental bifurcations, bilaterally. Atelectatic changes with probable infiltrates in the dependent portion of the left lower lobe as well as minimal infiltrates versus atelectatic changes in the left upper lobe and right middle lobe. CXR: Impression: No acute lung disease is present. ASSESSMENT AND PLAN: This is a 66 yo F with PMHx of asthma, COPD, Waldenstrom's macroglobulinemia, nonHodkin's lymphoma, atrial fibrillation (coumadin), IBS, DM, HTN, HLD, hypothyroid, arthritis, fibromyalgia presented to ED for SOB, cough. She is being admitted for COPD exac and pneumonia. # Acute hypoxemic hypercapneic COPD exacerbation patient is ready to go home today , will do Pre and post O2 sat. Patient has oxygen at home, uses it only if she needs it. still wheezing, will continue 5 more day of oral antibiotic at home as per ID recommendation Levaquin 500mg x 5 days .Also will continue on Prednisone 40mg with 12 day tapered dose. # Acute Pneumonia on IV antibiotic Rocephin/Zithromax will give todays IV dose and will send her home on po antibiotic. #EKG nonspecific diffuse ST inversions ,seen by camera control operator inpatient. Patient can follow up with her own camera control operator for further work up. #Atrial fibrillation rate controlled , on Digoxin and Cardizem continue for rate control, can continue with coumadin 5mg daily . INR 1.99 today #HTN On lasix 80mg BID continue #Hyperlipidemia on lipitor will hold Lipitor for now since LFTs are elevated , can follow up with her pMD as an outpatient to recheck her LFTs in 2 weeks # DM continue metformin as prescribed by PMD # hypothyroidism on synthroid continue # Waldenstrom's macroblobulinemia/NHL ;stable per patient ;f/u outpatient # arthritis/fibromyalgia on flexeril/gabapentin continue # Depression on effexor, seroquel continue DVT Px: Coumadin discharge patient home after Pre, post O2 sats.
[2016-12-03] MEDS ORDERED: LEVOFLOXACIN 500 MG TABLET (FP) PO SCH (11:30)
--- NOTE | 2016-12-03 11:57 | PN ---
Progress Note (short form) - Note Progress Note: cc: sob s: New lft abnormalities. no palps dizzy cp o: Current Medications Albuterol Sulfate (Ventolin 0.083% Nebulizer Soln -) 1 amp NEB Q4H PRN PRN Reason: SHORT OF BREATH/WHEEZING Last Admin: 11/30/16 09:50 Dose: 1 amp Albuterol/Ipratropium (Duoneb -) 1 amp NEB Q6HPO [facility] Last Admin: 12/03/16 11:42 Dose: 1 amp Atorvastatin Calcium (Lipitor -) 20 mg PO HS [facility] Last Admin: 12/02/16 22:25 Dose: 20 mg Cholecalciferol (Vitamin D3 -) 2,000 unit PO DAILY [facility] Last Admin: 12/03/16 09:31 Dose: 2,000 unit Clotrimazole (Lotrisone Cream (Small Tube)) 1 applic TP BID [facility] Last Admin: 12/03/16 09:30 Dose: 1 applic Cyanocobalamin (Vitamin B12 -) 1,000 mcg PO DAILY [facility] Last Admin: 12/03/16 09:31 Dose: 1,000 mcg Cyclobenzaprine HCl (Flexeril -) 5 mg PO HS [facility] Last Admin: 12/02/16 22:25 Dose: 5 mg Digoxin (Lanoxin -) 0.25 mg PO DAILY [facility] Last Admin: 12/03/16 09:29 Dose: 0.25 mg Diltiazem HCl (Cardizem Cd -) 180 mg PO DAILY [facility] Last Admin: 12/03/16 09:28 Dose: 180 mg Fluticasone Propionate (Flonase -) 2 spray NS DAILY [facility] Last Admin: 12/03/16 09:29 Dose: 2 sprays Furosemide (Lasix -) 80 mg PO BIDLASIX [facility] Last Admin: 12/03/16 06:04 Dose: 80 mg Gabapentin (Neurontin -) 200 mg PO BID [facility] Last Admin: 12/03/16 09:30 Dose: 200 mg Guaifenesin (Mucinex -) 1,200 mg PO BID [facility] Last Admin: 12/03/16 09:30 Dose: 1,200 mg Insulin Aspart (Novolog Vial Sliding Scale -) 1 vial SQ ACHS [facility] PRN Reason: Protocol Last Admin: 12/03/16 11:47 Dose: 4 units Levofloxacin (Levaquin -) 500 mg PO DAILY@0600 [facility] Last Admin: 12/03/16 11:52 Dose: 500 mg Levothyroxine Sodium (Synthroid -) 25 mcg PO AM [facility] Last Admin: 12/03/16 06:04 Dose: 25 mcg Montelukast Sodium (Singulair -) 10 mg PO HS [facility] Last Admin: 12/02/16 22:34 Dose: 10 mg Multivitamins/Minerals/Vitamin C (Tab-A-Vit -) 1 tab PO DAILY [facility] Last Admin: 12/03/16 09:31 Dose: 1 tab Non-Formulary Medication (Azelastine Hcl [Azelastine Hcl]) 2 spray NS DAILY [facility] Prednisone (Deltasone -) 10 mg PO DAILY [facility] Quetiapine Fumarate (Seroquel -) 50 mg PO [facility] Last Admin: 12/02/16 22:26 Dose: 50 mg Venlafaxine HCl (Effexor Xr -) 225 mg PO DAILY [facility] Last Admin: 12/03/16 09:28 Dose: 225 mg Warfarin Sodium (Coumadin -) 5 mg PO DAILY@1800 [facility] Last Admin: 12/02/16 17:56 Dose: 5 mg Vital Signs - 24 hr 12/02/16 12/02/16 12/02/16 14:00 16:43 18:02 Temperature 98.0 F 99 F Pulse Rate 96 H 79 Respiratory 20 18 Rate Blood Pressure 125/74 109/66 O2 Sat by Pulse 96 Oximetry (%) 12/02/16 12/02/16 12/03/16 21:00 22:00 02:00 Temperature 98.8 F 98.1 F Pulse Rate 79 68 Respiratory 16 16 16 Rate Blood Pressure 119/77 120/71 O2 Sat by Pulse 96 Oximetry (%) 12/03/16 12/03/16 05:57 09:29 Temperature 98.2 F Pulse Rate 70 82 Respiratory 16 Rate Blood Pressure 116/70 O2 Sat by Pulse Oximetry (%) Intake & Output 12/01/16 12/02/16 12/03/16 12/04/16 07:59 07:59 07:59 07:59 Intake Total 760 400 450 Balance 760 400 450 Weight 188 lb 2 oz 188 lb 3.2 oz nad no jvd irreg, s1s2 no mrg b/l mild exp wheeze, nl eff no le e/c/c aaox3 no jaundice diaphoresis CBC, BMP 04/02/17 06:30 12/03/16 06:30 Laboratory Tests 12/03/16 06:30 Total Bilirubin 0.4 AST 49 H D ALT 111 H D Alkaline Phosphatase 150 H Albumin 3.6 ecgs 11/29/16: afib, rate in 90s, rad, twi v2-v6, inf twis, no st changes, no sig change from 2011 and 2013 ecgs echo 09/2011: tds, grossly nl lvef, mild tr echo 11/2016: nl lv/rv, nl rvsp, mild lae, mild mr, mild-mod tr cta chest: no pe, no chf, +infiltrates a/p: 66 f hx copd, NHL, afib, dm, htn, hld, hypothyroid, fibromyalgia, cardiac myxoma s/p resection, venous insuff/le edema here with sob, cough, cp. cp: -no signs acs, ce's neg x3 -ecg with twi's that have been present in prior ecgs from 2011 and 2013 as well -pleuritic cp likely from copd/pna, has resolved with resp treatment copd, pna, sob: -no signs pulm edema -echo unremarkable here -sxs likely from copd/pna, improving with tx so far -cont abx/steroids/o2 per pmd afib: -rate controlled on dilt, dig (level nl here) -cont coumadin per inr htn: -cont home dilt hld: -cont statin cardiac myxoma s/p resection: -echo unremarkable here venous insuff/le edema: -stable, cont home lasix dose - pt with new lft abnormalities. Weight stable does not appear to be 2/2 volume. PMD aware. cardiac garrett remains stable
[2016-12-03 12:13] VITALS: PULSE 112
[2016-12-03 12:36] VITALS: BP 112/70
--- NOTE | 2016-12-03 12:39 | PN ---
Progress Note (short form) - Note Progress Note: Breathing feels overall better. Close to baseline. No WILHELM Intake & Output 11/30/16 12/01/16 12/02/16 12/03/16 23:59 23:59 23:59 23:59 Intake Total 960 400 250 200 Balance 960 400 250 200 Weight 186 lb 0.8 oz 188 lb 2 oz 188 lb 3.2 oz Last Vital Signs Temp Pulse Resp BP Pulse Ox 98.2 F 112 H 18 112/70 93 L 12/03/16 10:00 12/03/16 12:06 12/03/16 10:00 12/03/16 10:00 12/03/16 12:06 Active Medications Albuterol Sulfate (Ventolin 0.083% Nebulizer Soln -) 1 amp NEB Q4H PRN PRN Reason: SHORT OF BREATH/WHEEZING Last Admin: 11/30/16 09:50 Dose: 1 amp Albuterol/Ipratropium (Duoneb -) 1 amp NEB Q6HPO [facility] Last Admin: 12/03/16 11:42 Dose: 1 amp Atorvastatin Calcium (Lipitor -) 20 mg PO HS [facility] Last Admin: 12/02/16 22:25 Dose: 20 mg Cholecalciferol (Vitamin D3 -) 2,000 unit PO DAILY [facility] Last Admin: 12/03/16 09:31 Dose: 2,000 unit Clotrimazole (Lotrisone Cream (Small Tube)) 1 applic TP BID [facility] Last Admin: 12/03/16 09:30 Dose: 1 applic Cyanocobalamin (Vitamin B12 -) 1,000 mcg PO DAILY [facility] Last Admin: 12/03/16 09:31 Dose: 1,000 mcg Cyclobenzaprine HCl (Flexeril -) 5 mg PO HS [facility] Last Admin: 12/02/16 22:25 Dose: 5 mg Digoxin (Lanoxin -) 0.25 mg PO DAILY [facility] Last Admin: 12/03/16 09:29 Dose: 0.25 mg Diltiazem HCl (Cardizem Cd -) 180 mg PO DAILY [facility] Last Admin: 12/03/16 09:28 Dose: 180 mg Fluticasone Propionate (Flonase -) 2 spray NS DAILY [facility] Last Admin: 12/03/16 09:29 Dose: 2 sprays Furosemide (Lasix -) 80 mg PO BIDLASIX [facility] Last Admin: 12/03/16 06:04 Dose: 80 mg Gabapentin (Neurontin -) 200 mg PO BID [facility] Last Admin: 12/03/16 09:30 Dose: 200 mg Guaifenesin (Mucinex -) 1,200 mg PO BID [facility] Last Admin: 12/03/16 09:30 Dose: 1,200 mg Insulin Aspart (Novolog Vial Sliding Scale -) 1 vial SQ ACHS [facility] PRN Reason: Protocol Last Admin: 12/03/16 11:47 Dose: 4 units Levofloxacin (Levaquin -) 500 mg PO DAILY@0600 [facility] Last Admin: 12/03/16 11:52 Dose: 500 mg Levothyroxine Sodium (Synthroid -) 25 mcg PO AM [facility] Last Admin: 12/03/16 06:04 Dose: 25 mcg Montelukast Sodium (Singulair -) 10 mg PO HS [facility] Last Admin: 12/02/16 22:34 Dose: 10 mg Multivitamins/Minerals/Vitamin C (Tab-A-Vit -) 1 tab PO DAILY [facility] Last Admin: 12/03/16 09:31 Dose: 1 tab Non-Formulary Medication (Azelastine Hcl [Azelastine Hcl]) 2 spray NS DAILY [facility] Prednisone (Deltasone -) 10 mg PO DAILY [facility] Quetiapine Fumarate (Seroquel -) 50 mg PO HS [facility] Last Admin: 12/02/16 22:26 Dose: 50 mg Venlafaxine HCl (Effexor Xr -) 225 mg PO DAILY [facility] Last Admin: 12/03/16 09:28 Dose: 225 mg Warfarin Sodium (Coumadin -) 5 mg PO DAILY@1800 [facility] Last Admin: 12/02/16 17:56 Dose: 5 mg Constitutional: Yes: NAD Eyes: Yes: WNL HENT: Yes: WNL Neck: Yes: WNL Cardiovascular: Yes: Pulse Irregular, S1, S2 Respiratory: Yes: No wheezing, few rhonchi Gastrointestinal: Yes: Normal Bowel Sounds, Soft Extremities: Yes: WNL Edema: Yes Labs: Laboratory Results - last 24 hr 12/02/16 12/02/16 12/02/16 12:16 18:01 22:09 WBC RBC Hgb Hct MCV MCHC RDW Plt Count MPV INR Sodium Potassium Chloride Carbon Dioxide Anion Gap BUN Creatinine Creat Clearance w eGFR POC Glucometer 240 146 229 Random Glucose Calcium Total Bilirubin AST ALT Alkaline Phosphatase Total Protein Albumin 12/03/16 12/03/16 12/03/16 05:46 06:30 06:30 WBC 13.5 H RBC 4.75 Hgb 14.4 Hct 44.4 MCV 93.4 MCHC 32.5 RDW 15.4 Plt Count 210 MPV 8.6 INR 1.99 H Sodium Potassium Chloride Carbon Dioxide Anion Gap BUN Creatinine Creat Clearance w eGFR POC Glucometer 201 Random Glucose Calcium Total Bilirubin AST ALT Alkaline Phosphatase Total Protein Albumin 12/03/16 12/03/16 06:30 11:46 WBC RBC Hgb Hct MCV MCHC RDW Plt Count MPV INR Sodium 140 Potassium 4.0 Chloride 97 L Carbon Dioxide 34 H Anion Gap 9 BUN 18 Creatinine 0.7 Creat Clearance w eGFR > 60 POC Glucometer 290 Random Glucose 202 H Calcium 8.6 Total Bilirubin 0.4 AST 49 H D ALT 111 H D Alkaline Phosphatase 150 H Total Protein 6.8 Albumin 3.6 Assessment/Plan Problem List - Problems (1) Acute and chronic respiratory failure with hypoxia Code(s): J96.21 - ACUTE AND CHRONIC RESPIRATORY FAILURE WITH HYPOXIA (2) COPD exacerbation Code(s): J44.1 - CHRONIC OBSTRUCTIVE PULMONARY DISEASE W (ACUTE) EXACERBATION (3) Pneumonia Code(s): J18.9 - PNEUMONIA, UNSPECIFIED ORGANISM (4) Atrial fibrillation Code(s): I48.91 - UNSPECIFIED ATRIAL FIBRILLATION Assessment/Plan Acute on Chronic Hypoxic Respiratory Failure Pneumonia Acute COPD Exacerbation Atrial Fibrillation HTN Smoker Increased LFTs - Prednisone taper - inhaled bronchodilators - O2 to keep SpO2 >88% - Patient has home O2 - anticoagulation - Advised to follow on mildly increased LFTs - For D/C DR SARABIA
--- NOTE | 2016-12-03 12:44 | DS ---
Physical Exam: SUBJECTIVE: Patient seen and examined Resting in bed, NAD. afebrile and hemodynamically stable. Comfortable on 5L NC. States she feels better, breathing improved, cough decreased and dry. Denies chest pain, palpitations, f/c, abd pain, n/v, diarrhea or dysuria. OBJECTIVE: Vital Signs Period Temp Pulse Resp BP Sys/Card Pulse Ox Last 24 Hr 98.0 F-99 F 68-112 16-20 109-125/66-77 93-96 PHYSICAL EXAM GENERAL: The patient is awake, alert, and fully oriented, in no acute distress. HEAD: Normal with no signs of trauma. EYES: PERRL, extraocular movements intact, sclera anicteric, conjunctiva clear. No ptosis. ENT: moist mucous membranes. NECK: supple. LUNGS: no wheezes, better air movement HEART: irregular, rate controlled, S1, S2 ABDOMEN: Soft, nontender, nondistended, normoactive bowel sounds EXTREMITIES: 2+ pulses, warm, well-perfused, no edema. NEUROLOGICAL: Cranial nerves II through XII grossly intact. Normal speech, gait not observed. PSYCH: Normal mood, normal affect. SKIN: Warm, dry LABS Laboratory Results - last 24 hr 12/02/16 12/02/16 12/03/16 18:01 22:09 05:46 WBC RBC Hgb Hct MCV MCHC RDW Plt Count MPV INR Sodium Potassium Chloride Carbon Dioxide Anion Gap BUN Creatinine Creat Clearance w eGFR POC Glucometer 146 229 201 Random Glucose Calcium Total Bilirubin AST ALT Alkaline Phosphatase Total Protein Albumin 12/03/16 12/03/16 12/03/16 06:30 06:30 06:30 WBC 13.5 H RBC 4.75 Hgb 14.4 Hct 44.4 MCV 93.4 MCHC 32.5 RDW 15.4 Plt Count 210 MPV 8.6 INR 1.99 H Sodium 140 Potassium 4.0 Chloride 97 L Carbon Dioxide 34 H Anion Gap 9 BUN 18 Creatinine 0.7 Creat Clearance w eGFR > 60 POC Glucometer Random Glucose 202 H Calcium 8.6 Total Bilirubin 0.4 AST 49 H D ALT 111 H D Alkaline Phosphatase 150 H Total Protein 6.8 Albumin 3.6 12/03/16 11:46 WBC RBC Hgb Hct MCV MCHC RDW Plt Count MPV INR Sodium Potassium Chloride Carbon Dioxide Anion Gap BUN Creatinine Creat Clearance w eGFR POC Glucometer 290 Random Glucose Calcium Total Bilirubin AST ALT Alkaline Phosphatase Total Protein Albumin HOSPITAL COURSE: Date of Admission:11/29/16 This is a 66 year old female with a past medical history of Waldenstrom's macroglobulinemia, asthma, COPD, nonHodkin's lymphoma, atrial fibrillation on coumadin, IBS, DM, HTN, HLD, hypothyroid, arthritis, fibromyalgia who presented to the ED with SOB, chest pain, cough with yellow sputum, subjective fever and chills since 11/28. She was admitted for COPD exacerbation likely due to CAP. Studies: ECG: atrial fibrillation, rate 91, QTC 405, T wave inversion, 2,3,aVF, V2-V6 CXR: Impression: No acute lung disease is present. CTA: Impression There is no evidence of a pulmonary embolus in the main pulmonary artery, segmental and subsegmental bifurcations, bilaterally. Atelectatic changes with probable infiltrates in the dependent portion of the left lower lobe as well as minimal infiltrates versus atelectatic changes in the left upper lobe and right middle lobe. She was assessed by Cardiology, Pulmonology and ID. She was treated with IV abx , steroids and breathing treatments. She was initially on bipap but was downgraded to 3 L NC. She requires this O2 therapy during rest and exercise continuously. On dc her liver enzymes were elevated, probably due to steroids and she was told not to take lipitor until she checks blood with her PCP. She was discharged home on steroid taper (40 mg x4d, 30 mg x 3d, 20 mg x 3d, 10 mg x 3d) and on PO Levaquin x 4 d Date of Discharge: 12/03/16 Minutes to complete discharge: 48 (na) Discharge Summary Reason For Visit: COPD EXACERBATION/ CHF Current Active Problems Acute and chronic respiratory failure with hypoxia (Acute) Atrial fibrillation (Acute) COPD exacerbation (Acute) Pneumonia (Acute) Condition: Good - Instructions Diet, Activity, Other Instructions: You were in the hospital with COPD exacerbation due to pneumonia. You were treated with IV antibiotics, steroids and respiratory treatments, as well as Oxygen therapy. You were seen by the following specialists: Infections disease, Pulmonology, cardiology. At home you will need to take oral antibiotic levaquin for 5 days (one pill daily) You will need to take prednisone 40 mg for 4 days (4 pills per day), 30 mg for 3 days (3 pills per day), 20 mg for 3 days (2 pills per day). 10 mg for 3 days ( 1 pill per day). We determined that you need to use oxygen continuously (3L), at rest and especially when you walk. Follow up with pulmonology and cardiology within 2 weeks. Do not take lipitor at home because your liver enzymes were a little high ( probably due to steroids). Please see your primary doctor to check liver blood work before restarting lipitor Return to the hospital if symptoms worsen. Referrals: Dusty Andrade [Non Staff, Medical] - 1 Week Arturo Mary MD [Staff Physician] - 2 Weeks Disposition: HOME - Home Medications Comprehensive Discharge Medication List: Ambulatory Orders Azelastine HCl 137 mcg NS DAILY 11/29/16 Biotin/Calcium Carbonate [Biotin 800 Mcg Tablet] 1 each PO DAILY 11/29/16 Cholecalciferol (Vitamin D3) [Vitamin D -] 2,000 unit PO DAILY 11/29/16 Cyanocobalamin [Vitamin B12 -] 1,000 mcg PO DAILY 11/29/16 Cyclobenzaprine HCl [Flexeril 10 mg] 5 mg PO DAILY 11/29/16 Digoxin [Lanoxin -] 0.25 mg PO DAILY 11/29/16 Diltiazem HCl [Cartia Xt] 180 mg PO DAILY 11/29/16 Fluticasone Prop 0.05% Nasal [Flonase -] 1 - 2 spray NS DAILY 11/29/16 Furosemide [Lasix] 80 mg PO BID 11/29/16 Gabapentin 200 mg PO BID 11/29/16 Guaifenesin [Mucinex] 1,200 mg PO DAILY 11/29/16 Levothyroxine [Synthroid -] 25 mcg PO DAILY 11/29/16 Metformin HCl [Metformin HCl ER] 1,000 mg PO BID 11/29/16 Multivitamin [Poly-Vitamin] 1 each PO DAILY 11/29/16 Potassium 200 mg PO ASDIR 11/29/16 Quetiapine Fumarate [Seroquel -] 50 mg PO HS 11/29/16 Venlafaxine HCl ER [Effexor Xr -] 225 mg PO DAILY 11/29/16 Warfarin Sodium [Coumadin] 5 mg PO ASDIR 11/29/16 Levofloxacin [Levaquin -] 500 mg PO DAILY@0600 #5 tablet 12/03/16 Prednisone [Deltasone -] 10 mg PO DAILY #34 tablet 12/03/16 Problem List - Problems (1) Acute and chronic respiratory failure with hypoxia Code(s): J96.21 - ACUTE AND CHRONIC RESPIRATORY FAILURE WITH HYPOXIA (2) Atrial fibrillation Code(s): I48.91 - UNSPECIFIED ATRIAL FIBRILLATION (3) COPD exacerbation Code(s): J44.1 - CHRONIC OBSTRUCTIVE PULMONARY DISEASE W (ACUTE) EXACERBATION (4) Pneumonia Code(s): J18.9 - PNEUMONIA, UNSPECIFIED ORGANISM (5) Cough Code(s): R05 - COUGH (6) Hypoxia Code(s): R09.02 - HYPOXEMIA (7) Non Hodgkin's lymphoma Code(s): C85.90 - NON-HODGKIN LYMPHOMA, UNSPECIFIED, UNSPECIFIED SITE This patient is new to me today: No Emergency Visit: Yes ED Registration Date: 11/29/16 Care time: The patient presented to the Emergency Department on the above date and was hospitalized for further evaluation of their emergent condition. Critical Care patient: No - Discharge Referral Referred to [facility] Med P.C.: No
[2016-12-03] MEDS ORDERED: ALBUTEROL SO4 0.083% IH SOL 2.5 MG/3 ML VIAL.NEB. NEB PRN (13:53)
[2016-12-04] MEDS ORDERED: predniSONE 20 MG TABLET (UD) PO SCH ×2 (10:00)
== END 2016-12-03 14:48 | disposition home or self-care (01) | DRG 189 ==
LOC: FER 15:56 → FM/S 20:23 → OBSVTOIN 20:23 → INTOOBSV 20:23 → J4S 11-30 02:55
PROVIDERS: ADMIT Internal Medicine; ATTEND Internal Medicine
PROC: 5A09457 Assistance with Respiratory Ventilation, 24-96 Consecutive Hours, Continuous Positive Airway Pressure (ICD-10-PCS; principal; 2016-11-29)
PROC: 3E0F7GC Introduction of Other Therapeutic Substance into Respiratory Tract, Via Natural or Artificial Opening (ICD-10-PCS; 2016-11-29)
DX: J96.21 Acute and chronic respiratory failure with hypoxia (principal); J16.8 Pneumonia due to other specified infectious organisms; J44.0 Chronic obstructive pulmonary disease with (acute) lower respiratory infection; J44.1 Chronic obstructive pulmonary disease with (acute) exacerbation; J96.22 Acute and chronic respiratory failure with hypercapnia; K58.8 Other irritable bowel syndrome; F17.210 Nicotine dependence, cigarettes, uncomplicated; E11.9 Type 2 diabetes mellitus without complications; R07.89 Other chest pain; E03.9 Hypothyroidism, unspecified; M79.7 Fibromyalgia; F32.9 Major depressive disorder, single episode, unspecified; I87.2 Venous insufficiency (chronic) (peripheral); M13.88 Other specified arthritis, other site; Z85.79 Personal history of other malignant neoplasms of lymphoid, hematopoietic and related tissues; Z85.72 Personal history of non-Hodgkin lymphomas; Z99.81 Dependence on supplemental oxygen
CPT/HCPCS: 36415; 36600; 71010-TC; 71275-TC; 80048; 80053; 80061; 80162; 82550; 82803; 83605; 83735; 84100; 84439; 84443; 84484; 85025; 85027; 85610; 85730; 86850; 86900; 86901; 87040; 87070; 87086; 87205; 87254; 87389; 87804; 87899; 93005; 93306-TC; 94640; 94660; 94761; 99285-25

== ENCOUNTER 2017-01-11 18:12 | Inpatient (IN) | payer OTHER, MEDICARE ==
--- NOTE | 2017-01-11 18:35 | PDOC ---
History of Present Illness - History of Present Illness Initial Comments: 01/11/17 18:42 The patient is a 66 year old female, with a significant past medical history of Waldenstroms macroglobulinemia, asthma, COPD, non-hodgkin's lymphoma, AFib (on coumadin) IBS, diabetes, hypertension, hyperlipidemia, hypothyroidism, arthritis , and fibromyalgia, who presents to the emergency department with shortness of breath, diaphoresis, and productive cough for 2 hours today. She reports using her O2 concentrator last night and "falling asleep with it on." She states her allergies have been bothering her and making her sinuses congested. She reports a cough productive of sputum. She reports her O2 saturation is usually around 95, however, reports her O2 was 75% saturation on room air upon arrival. The patient reports being seen in the ED about 6 weeks for similar complaints. She denies chest pain, headache and dizziness. She denies fever, chills, nausea , vomit, diarrhea and constipation. She denies dysuria, frequency, urgency and hematuria. Allergies: midazolam HCl Past surgical history: spinal fusion PCP - Dr. Andrade <Yesenia Rosales - Last Filed: 01/11/17 18:42> <Shira Billings - Last Filed: 01/25/17 12:30> - General Chief Complaint: Shortness of Breath Stated Complaint: SHORTNESS OF BREATH Time Seen by Provider: 01/11/17 18:23 Past History <Yesenia Rosales - Last Filed: 01/11/17 18:42> - Past Medical History Anemia: No Asthma: Yes Cancer: (NON HODGKINS LYMP) Cardiac Disorders: Yes CVA: No COPD: Yes CHF: No Dementia: No Diabetes: No GI Disorders: Yes (IBS) Disorders: No HTN: No Hypercholesterolemia: Yes Liver Disease: No Seizures: No Thyroid Disease: Yes (HYPO) - Surgical History Abdominal Surgery: No Appendectomy: No Cardiac Surgery: Yes (MYXOMA RESECTION) Cholecystectomy: No Lung Surgery: No Neurologic Surgery: No Orthopedic Surgery: Yes (SPINAL FUSION OF L5, S1) - Psycho/Social/Smoking Cessation Hx Anxiety: No Suicidal Ideation: No Smoking Status: Yes Smoking History: Current some day smoker Years of Tobacco Use: 12 Have you smoked in the past 12 months: Yes Number of Cigarettes Smoked Daily: 20 Information on smoking cessation initiated: No 'Breaking Loose' booklet given: 11/30/16 Hx Alcohol Use: No Drug/Substance Use Hx: No Substance Use Type: None Hx Substance Use Treatment: No <Shira Billings - Last Filed: 01/25/17 12:30> - Past Medical History Allergies/Adverse Reactions: Allergies Allergy/AdvReac Type Severity Reaction Status Date / Time midazolam HCl [From Versed] Allergy Verified 01/11/17 18:19 fresh fruit Allergy Severe anaphlaxis Uncoded 01/11/17 18:19 Home Medications: Ambulatory Orders Biotin/Calcium Carbonate [Biotin 800 Mcg Tablet] 1 each PO DAILY 11/29/16 Cholecalciferol (Vitamin D3) [Vitamin D -] 2,000 unit PO DAILY 11/29/16 Cyanocobalamin [Vitamin B12 -] 1,000 mcg PO DAILY 11/29/16 Cyclobenzaprine HCl [Flexeril 10 mg] 5 mg PO DAILY 11/29/16 Digoxin [Lanoxin -] 0.25 mg PO DAILY 11/29/16 Diltiazem HCl [Cartia Xt] 180 mg PO BID 11/29/16 Furosemide [Lasix] 80 mg PO BID 11/29/16 Gabapentin 200 mg PO BID 11/29/16 Guaifenesin [Mucinex] 1,200 mg PO DAILY 11/29/16 Levothyroxine [Synthroid -] 25 mcg PO DAILY 11/29/16 Metformin HCl [Metformin HCl ER] 1,000 mg PO BID 11/29/16 Multivitamin [Poly-Vitamin] 1 each PO DAILY 11/29/16 Potassium 20 mg PO ASDIR 11/29/16 Quetiapine Fumarate [Seroquel -] 50 mg PO HS 11/29/16 Venlafaxine HCl ER [Effexor Xr -] 225 mg PO DAILY 11/29/16 Warfarin Sodium [Coumadin] 5 mg PO ASDIR 11/29/16 Atorvastatin Calcium 20 mg PO HS 01/11/17 Fluticasone Prop 0.05% Nasal [Flonase -] 1 - 2 spray NS DAILY 01/11/17 Montelukast Na [Singulair -] 10 mg PO HS 01/11/17 Salmeterol/Fluticasone [Advair 500Mcg/50Mcg -] 1 inh PO DAILY 01/11/17 Aclidinium Jerome [Tudorza -] 1 puff PO BID #1 inhaler 01/14/17 Albuterol Sulfate Inhaler - [Ventolin HFA Inhaler -] 1 - 2 inh PO Q4H PRN #1 inhaler 01/14/17 Azithromycin 250 mg PO DAILY #1 tablet 01/14/17 Prednisone 10 mg PO ASDIR #32 tablet 01/14/17 Review of Systems - Review of Systems Able to Perform ROS?: Yes Comments:: 01/11/17 18:43 GENERAL/CONSTITUTIONAL: No fever or chills. No weakness. HEAD, EYES, EARS, NOSE AND THROAT: No change in vision. No ear pain or discharge. No sore throat. CARDIOVASCULAR: No chest pain or shortness of breath. RESPIRATORY: (+) SOB at rest with productive cough, No wheezing, or hemoptysis. GASTROINTESTINAL: No nausea, vomiting, diarrhea or constipation. GENITOURINARY: No dysuria, frequency, or change in urination. MUSCULOSKELETAL: No joint or muscle swelling or pain. No neck or back pain. SKIN: (+) diaphoresis. No rash NEUROLOGIC: No headache, vertigo, loss of consciousness, or change in strength/ sensation. ENDOCRINE: No increased thirst. No abnormal weight change. HEMATOLOGIC/LYMPHATIC: No anemia, easy bleeding, or history of blood clots. ALLERGIC/IMMUNOLOGIC: No hives or skin allergy. <Yesenia Rosales - Last Filed: 01/11/17 18:42> *Physical Exam - Vital Signs Last Vital Signs Temp Pulse Resp BP Pulse Ox 98.4 F 106 H 18 134/78 75 L 01/11/17 18:15 01/11/17 18:15 01/11/17 18:15 01/11/17 18:15 01/11/17 18:15 - Physical Exam Comments: 01/11/17 18:45 GENERAL: (+) mild respiratory distress. Awake, alert, and fully oriented, HEAD: No signs of trauma EYES: PERRLA, EOMI, sclera anicteric, conjunctiva clear ENT: Auricles normal inspection, hearing grossly normal, nares patent, oropharynx clear without exudates. Moist mucosa NECK: Normal ROM, supple, no lymphadenopathy, JVD, or masses LUNGS: (+) decreased airway sounds bilaterally with intermittent loose hacking cough. Breath sounds equal, No wheezes, HEART: Regular rate and rhythm, normal S1 and S2, no murmurs, rubs or gallops ABDOMEN: Soft, nontender, normoactive bowel sounds. No guarding, no rebound. No masses EXTREMITIES: Normal range of motion, no edema. No clubbing or cyanosis. No cords, erythema, or tenderness NEUROLOGICAL: Cranial nerves II through XII grossly intact. Normal speech, normal gait SKIN: (+) diaphoretic. Warm, normal turgor, no rashes or lesions noted. <Yesenia Rosales - Last Filed: 01/11/17 18:42> - Vital Signs Last Vital Signs Temp Pulse Resp BP Pulse Ox 98.4 F 106 H 18 134/78 75 L 01/11/17 18:15 01/11/17 18:15 01/11/17 18:15 01/11/17 18:15 01/11/17 18:15 <Shira Billings - Last Filed: 01/25/17 12:30> ED Treatment Course - LABORATORY CBC & Chemistry Diagram: 01/14/17 07:15 01/14/17 07:15 <Shira Billings - Last Filed: 01/25/17 12:30> *DC/Admit/Observation/Transfer - Attestations Scribe Attestion: 01/11/17 18:45 Documentation prepared by Yesenia Rosales, acting as biomedical instrument technician for Shira Billings MD, <Yesenia Rosales - Last Filed: 01/11/17 18:42> <Shira Billings - Last Filed: 01/25/17 12:30> Diagnosis at time of Disposition: COPD exacerbation - Discharge Dispostion Disposition: HOME Condition at time of disposition: Stable - Prescriptions
[2017-01-11] MEDS ORDERED: methylPREDNISolone NA SUCC 125 MG/2 ML VIAL IVPB ONE (18:36)
[2017-01-11] MEDS ORDERED: AZITHROMYCIN IVPB 500 MG in DEXTROSE 5%-WATER - 250 ML IVPB ONE (18:36)
[2017-01-11] MEDS: ALBUTEROL SO4 2.5/IPRATROPIUM 0.5 INH SOL 3 ML VIAL.NEB. NEB SCH ×5 (19:00→23:29)
[2017-01-11] MEDS ORDERED: ALBUTEROL SO4 2.5/IPRATROPIUM 0.5 INH SOL 3 ML VIAL.NEB. NEB ONE (19:12)
[2017-01-11] MEDS ORDERED: AZITHROMYCIN IVPB 250 ML IVPB ONE (19:13)
[2017-01-11] MEDS ORDERED: methylPREDNISolone NA SUCC 125 MG/2 ML VIAL ONE (19:13)
[2017-01-11 19:18] LABS: EOSINOPHIL 0.1 % (0-4.5)
[2017-01-11 19:23] LABS: BASOPHIL 0.5 % (0-2.0); MCHC 32.9 g/dl (32.0-36.0); MEAN CELL VOLUME 91.1 fl (80-96); MEAN PLT VOLUME 8.6 fl (7.5-11.1); NEUTROPHILS 73.1 % (42.8-82.8); PLATELET COUNT 208 K/MM3 (134-434); RDW 15.7 % (11.6-15.6); WHITE BLOOD COUNT 8.8 K/mm3 (4.0-10.0)
[2017-01-11 19:32] LABS: INR 2.44 (0.82-1.09); PROTHROMBIN TIME (PATIENT) 27.3 SEC (9.98-11.88)
[2017-01-11] MEDS ORDERED: MAGNESIUM SULF 50% (8.12 MEQ/2 ML-1 GM VIAL) IVPB ONE (20:02)
--- NOTE | 2017-01-11 20:02 | PDOC ---
*Physical Exam - Vital Signs Last Vital Signs Temp Pulse Resp BP Pulse Ox 98.1 F 95 H 20 129/76 95 01/11/17 19:38 01/11/17 19:29 01/11/17 19:29 01/11/17 19:29 01/11/17 19:29 ED Treatment Course - LABORATORY CBC & Chemistry Diagram: 01/11/17 19:00 01/11/17 19:00 - ADDITIONAL ORDERS Additional order review: Laboratory Results 01/11/17 01/11/17 19:00 19:00 INR 2.44 H Sodium Cancelled Potassium Cancelled Chloride Cancelled Carbon Dioxide Cancelled Anion Gap Cancelled BUN Cancelled Creatinine Cancelled Creat Clearance w eGFR Cancelled Random Glucose Cancelled Calcium Cancelled Total Bilirubin Cancelled AST Cancelled ALT Cancelled Alkaline Phosphatase Cancelled Total Protein Cancelled Albumin Cancelled 01/11/17 19:00 RBC 5.47 H MCV 91.1 MCHC 32.9 RDW 15.7 H MPV 8.6 Neutrophils % 73.1 D Lymphocytes % 16.1 D Monocytes % 10.2 D Eosinophils % 0.1 D Basophils % 0.5 D - Medications Given in the ED: ED Medications Discontinued Medications Generic Name Dose Route Start Last Admin Trade Name Freq PRN Reason Stop Dose Admin Albuterol/Ipratropium 1 amp 01/11/17 18:45 01/11/17 19:35 Duoneb - NEB 01/11/17 19:31 1 amp Q15M ROSARIO Administration Azithromycin 500 mg/ Dextrose 250 mls @ 250 mls/hr 01/11/17 18:36 01/11/17 19: 30 IVPB 01/11/17 19:35 250 mls/hr ONCE ONE Administration Methylprednisolone Sodium Succinate 125 mg 01/11/17 18:36 01/11/17 19:28 Solu-Medrol - IVPB 01/11/17 18:37 125 mg ONCE ONE Administration Medical Decision Making - Medical Decision Making 01/11/17 20:04 Pt still doesn't feel well despite several nebs in the department. Will give Magnesium. Admit to Medsurg on hospitalist service *DC/Admit/Observation/Transfer Diagnosis at time of Disposition: COPD exacerbation - Discharge Dispostion Admit: Yes - Referrals Referrals: Kory Prado MD [Primary Care Provider] - - Patient Instructions - Post Discharge Activity
[2017-01-11] MEDS ORDERED: MAGNESIUM SULF 50% (8.12 MEQ/2 ML-1 GM VIAL) ONE (20:06)
[2017-01-11 20:31] LABS: METHEMOGLOBIN 0.7 % (0.4-1.5)
[2017-01-11 20:32] LABS: ARTERIAL BLOOD GAS pH 7.39 (7.35-7.45)
[2017-01-11 20:33] LABS: ALLENS TEST POSITIVE; ART PUNCT SITE RIGHT RADIAL; ARTERIAL BLOOD GAS BASE EXCESS 5.6 meq/l (-2-2); ARTERIAL BLOOD GAS HCO3 31.9 meq/L (22-26); LPM/O2% 4L; PT. ON O2? YES
[2017-01-11 20:34] LABS: TYPE OF O2 NASAL
[2017-01-11 20:58] LABS: ALBUMIN 3.4 g/dl (3.4-5.0); ALK PHOS 128 U/L (45-117); ANION GAP 8 (8-16); BILIRUBIN,TOTAL 0.6 mg/dL (0.2-1.0); CALCIUM 8.6 mg/dL (8.5-10.1); CO2 35 mmol/L (21-32); CREATININE 0.8 mg/dL (0.55-1.02); GLUCOSE,RANDOM 195 mg/dL (74-106); SGOT/AST 25 U/L (15-37); SGPT/ALT 25 U/L (12-78); TOT PROT 6.5 g/dl (6.4-8.2)
--- NOTE | 2017-01-11 22:14 | HP ---
CHIEF COMPLAINT: SOB, cough PCP: Raymond HISTORY OF PRESENT ILLNESS: This is a 66 year old female with a past medical history of Waldenstrom's macroglobulinemia, asthma, COPD, nonHodkin's lymphoma, atrial fibrillation on coumadin, IBS, DM, HTN, HLD, hypothyroid, arthritis, fibromyalgia who presented to the ED with SOB, LEMON, cough with increased sputum production that started yesterday and progressively worsened. She found that she required oxygen at home which is unusual for her and still wasn't feeling better. Her oxygen saturation upon arrival to the ED was 75% on RA. Upon exam, pt mildly dyspneic but able to speak in full sentences. 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, sober x 20 years Drugs: pt denies Family History: mother age 79, MD, PMH CVA, CHF, enlarged heart father age 54, lung CA brother age 54, interstitial lung disease Allergies midazolam HCl [From Versed] Allergy (Verified 01/11/17 18:19) fresh fruit Allergy (Severe, Uncoded 01/11/17 18:19) anaphlaxis HOME MEDICATIONS: 3 Medication Instructions Recorded Biotin/Calcium Carbonate [Biotin 1 each PO DAILY 11/29/16 800 Mcg Tablet] Cholecalciferol (Vitamin D3) 2,000 unit PO DAILY 11/29/16 [Vitamin D -] Cyanocobalamin [Vitamin B12 -] 1,000 mcg PO DAILY 11/29/16 Cyclobenzaprine HCl [Flexeril 10 5 mg PO DAILY 11/29/16 mg] Digoxin [Lanoxin -] 0.25 mg PO DAILY 11/29/16 Diltiazem HCl [Cartia Xt] 180 mg PO BID 11/29/16 Furosemide [Lasix] 80 mg PO BID 11/29/16 Gabapentin 200 mg PO BID 11/29/16 Guaifenesin [Mucinex] 1,200 mg PO DAILY 11/29/16 Levothyroxine [Synthroid -] 25 mcg PO DAILY 11/29/16 Metformin HCl [Metformin HCl ER] 1,000 mg PO BID 11/29/16 Multivitamin [Poly-Vitamin] 1 each PO DAILY 11/29/16 Potassium 20mEq PO DAILY 11/29/16 Quetiapine Fumarate [Seroquel -] 50 mg PO HS 11/29/16 Venlafaxine HCl ER [Effexor Xr -] 225 mg PO DAILY 11/29/16 Warfarin Sodium [Coumadin] 5 mg PO ASDIR 11/29/16 Atorvastatin Calcium 20 mg PO HS 01/11/17 Fluticasone Prop 0.05% Nasal 1 - 2 spray NS DAILY 01/11/17 [Flonase -] Ipratropium Cr[place]all [Atrovent Hfa] 12.9 gm IH DAILY 01/11/17 Montelukast Na [Singulair -] 10 mg PO HS 01/11/17 Salmeterol/Fluticasone [Advair 1 inh PO DAILY 01/11/17 500Mcg/50Mcg] REVIEW OF SYSTEMS CONSTITUTIONAL: Absent: fever, chills, diaphoresis, generalized weakness, malaise, loss of appetite, weight change HEENT: Absent: rhinorrhea, nasal congestion, throat pain, throat swelling, difficulty swallowing, mouth swelling, ear pain, eye pain, visual changes CARDIOVASCULAR: Absent: chest pain, syncope, palpitations, irregular heart rate, lightheadedness , peripheral edema RESPIRATORY: Present: cough, shortness of breath, dyspnea with exertion Absent: orthopnea, wheezing, stridor, hemoptysis GASTROINTESTINAL: Absent: abdominal pain, abdominal distension, nausea, vomiting, diarrhea, constipation, melena, hematochezia GENITOURINARY: Absent: dysuria, frequency, urgency, hesitancy, hematuria, flank pain, genital pain MUSCULOSKELETAL: Absent: myalgia, arthralgia, joint swelling, back pain, neck pain SKIN: Absent: rash, itching, pallor HEMATOLOGIC/IMMUNOLOGIC: Absent: easy bleeding, easy bruising, lymphadenopathy, frequent infections ENDOCRINE: Absent: unexplained weight gain, unexplained weight loss, heat intolerance, cold intolerance NEUROLOGIC: Absent: headache, focal weakness or paresthesias, dizziness, unsteady gait, seizure, mental status changes, bladder or bowel incontinence PSYCHIATRIC: Absent: anxiety, depression, suicidal or homicidal ideation, hallucinations. PHYSICAL EXAMINATION Vital Signs - 24 hr 3 01/11/17 01/11/17 01/11/17 01/11/17 18:15 19:29 19:38 22:08 Temperature 98.4 F 98.1 F Pulse Rate 106 H Pulse Rate [ 95 H 99 Radial] Respiratory 18 20 Rate Blood Pressure 134/78 Blood Pressure 129/76 [Right Arm] O2 Sat by Pulse 75 L 95 93L Oximetry (%) GENERAL: Awake, alert, and fully oriented, in no acute distress. HEAD: Normal with no signs of trauma. EYES: Pupils equal, round and reactive to light, extraocular movements intact, sclera anicteric, conjunctiva clear. No lid lag. EARS, NOSE, THROAT: Ears normal, nares patent, oropharynx clear without exudates. Moist mucous membranes. NECK: Normal range of motion, supple without lymphadenopathy, JVD, or masses. LUNGS: Breath sounds equal, clear to auscultation bilaterally, diminished. No wheezes, and no crackles. No accessory muscle use. HEART: Regular rate and rhythm, normal S1 and S2 without murmur, rub or gallop. ABDOMEN: Soft, nontender, not distended, normoactive bowel sounds, no guarding, no rebound, no masses. No hepatomegaly or splenomegaly. MUSCULOSKELETAL: Normal range of motion at all joints. No bony deformities or tenderness. No CVA tenderness. UPPER EXTREMITIES: 2+ pulses, warm, well-perfused. No cyanosis. No clubbing. No peripheral edema. LOWER EXTREMITIES: 2+ pulses, warm, well-perfused. No calf tenderness. No peripheral edema. NEUROLOGICAL: Cranial nerves II-XII intact. Normal speech. Normal gait. PSYCHIATRIC: Cooperative. Good eye contact. Appropriate mood and affect. SKIN: Warm, dry, normal turgor, no rashes or lesions noted, normal capillary refill. Laboratory Results - last 24 hr 3 01/11/17 01/11/17 01/11/17 19:00 19:00 19:00 WBC 8.8 D RBC 5.47 H Hgb 16.4 H D Hct 49.8 H MCV 91.1 MCHC 32.9 RDW 15.7 H Plt Count 208 MPV 8.6 Neutrophils % 73.1 D Lymphocytes % 16.1 D Monocytes % 10.2 D Eosinophils % 0.1 D Basophils % 0.5 D INR Anticoagulation Therapy Puncture Site ABG pH ABG pCO2 at Pt Temp ABG pO2 at Pt Temp ABG HCO3 ABG O2 Sat (Measured) ABG O2 Content ABG Base Excess Gian Test Carboxyhemoglobin Methemoglobin O2 Delivery Device Oxygen Flow Rate Vent Mode Vent Rate Mechanical Rate Pressure Support Vent Sodium Cancelled Potassium Cancelled Chloride Cancelled Carbon Dioxide Cancelled Anion Gap Cancelled BUN Cancelled Creatinine Cancelled Creat Clearance w eGFR Cancelled Random Glucose Cancelled Calcium Cancelled Total Bilirubin Cancelled AST Cancelled ALT Cancelled Alkaline Phosphatase Cancelled Total Protein Cancelled Albumin Cancelled Digoxin 0.8881 3 01/11/17 01/11/17 01/11/17 19:00 19:50 20:25 WBC RBC Hgb Hct MCV MCHC RDW Plt Count MPV Neutrophils % Lymphocytes % Monocytes % Eosinophils % Basophils % INR 2.44 H Anticoagulation Therapy Y Puncture Site Right radial ABG pH 7.39 ABG pCO2 at Pt Temp 53.8 H ABG pO2 at Pt Temp 60.0 L ABG HCO3 31.9 H ABG O2 Sat (Measured) 90.0 ABG O2 Content 19.4 ABG Base Excess 5.6 H Gian Test Positive Carboxyhemoglobin 3.3 H Methemoglobin 0.7 O2 Delivery Device Nasal Oxygen Flow Rate 4l Vent Mode Y Vent Rate Y Mechanical Rate Y Pressure Support Vent Y Sodium 136 Potassium 4.1 Chloride 93 L Carbon Dioxide 35 H Anion Gap 8 BUN 12 D Creatinine 0.8 Creat Clearance w eGFR > 60 Random Glucose 195 H Calcium 8.6 Total Bilirubin 0.6 D AST 25 D ALT 25 D Alkaline Phosphatase 128 H Total Protein 6.5 Albumin 3.4 Digoxin CHEST X-RAY PORTABLE* Rule out pneumonia Portable chest x-ray AP sitting Since , the cardiac silhouette remains within normal limits in size. Bilateral increased interstitial lung markings are again seen. The mediastinum and visualized osseous structures appear intact Impression: No significant interval change or focal infiltrates are identified. ECG: Atrial fibrillation, rate 87, QTC 421, septal infarct age undetermined, ST and T wave abnormalities, poor baseline ASSESSMENT/PLAN: 66yF with PMH Waldenstrom's macroglobulinemia, asthma, COPD, nonHodkin's lymphoma, atrial fibrillation on coumadin, IBS, DM, HTN, HLD, hypothyroid, arthritis, fibromyalgia who presented to the ED with SOB, LEMON, cough with increased sputum production. She has been admitted for COPD exacerbation. COPD exacerbation with hypoxia and hypercapnea - Given solumedrol and magnesium in ED, feeling a little better - cont solumedrol 40mg Q8H - azithromycin 500mg IVPB daily - duoneb QID - start BiPAP, 08/07 60% FIO2, titrate to sat 90-96% - cont home singulair, home advair changed to formulary symbicort, cont same. - cont mucinex, po fluid intake encouraged Atrial fibrillation - rate controlled, cont home digoxin and cardizem - monitor dig levels while on azithromycin - INR 2.44, cont coumadin, INR daily while on azithromycin HTN/CHF - BP stable, cont home cardizem - no s/s acute fluid overload, cont home lasix and potassium HLD - cont home lipitor DM - hold metformin, novolog SS hypothyroid - TSH 0.09 on last admission 11/2016, will repeat. Cont home dose synthroid for now. arthritis/fibromyalgia - cont home gabapentin, flexeril depression - cont home venlafaxine and seroquel DVT PPX - heparin 5000u Q8H SC FEN - tolerating po fluids, IVF deferred - repeat BMP in am with mag and phos - diabetic/low sodium diet as tolerated Dispo: Pt currently requires inpatient managment of her emergent condition and is expected to require same >2 MN. Visit type - Emergency Visit Emergency Visit: Yes ED Registration Date: 01/11/17 Care time: The patient presented to the Emergency Department on the above date and was hospitalized for further evaluation of their emergent condition. - New Patient This patient is new to me today: Yes Date on this admission: 01/11/17 - Critical Care Critical Care patient: No
[2017-01-11] MEDS ORDERED: AZITHROMYCIN IVPB 250 ML IVPB SCH (22:30)
[2017-01-11] MEDS ORDERED: WARFARIN NA 5 MG TABLET (UD) PO SCH (22:30)
[2017-01-11] MEDS ORDERED: QUEtiapine FUMARATE 50 MG TABLET PO ONE (23:50)
[2017-01-12 00:38] VITALS: BMI 28.8
[2017-01-12] MEDS: methylPREDNISolone NA SUCC 40 MG/1 ML VIAL IVPB SCH ×3 (02:27→17:19)
[2017-01-12] MEDS: HEPARIN NA (PORCINE) 5,000 UNITS/ML 1ML VIAL SQ SCH ×2 (06:18→15:07)
[2017-01-12] MEDS: LEVOTHYROXINE NA 25 MCG TABLET (FP) PO SCH (06:18)
[2017-01-12] MEDS: INSULIN SLIDING SCALE (NOVOLOG) 1 VIAL SQ SCH ×4 (06:18→22:58)
[2017-01-12] MEDS: FUROSEMIDE 40 MG TABLET (FP) PO SCH ×2 (06:18→15:06)
[2017-01-12] MEDS: ALBUTEROL SO4 2.5/IPRATROPIUM 0.5 INH SOL 3 ML VIAL.NEB. NEB SCH ×2 (06:58→11:57)
[2017-01-12 08:51] LABS: BASOPHIL 0.2 % (0-2.0); MCH 30.3 pg (25.7-33.7); MCHC 33.4 g/dl (32.0-36.0); MEAN CELL VOLUME 90.9 fl (80-96); MEAN PLT VOLUME 8.5 fl (7.5-11.1); NEUTROPHILS 87.1 % (42.8-82.8); PLATELET COUNT 179 K/MM3 (134-434); RDW 15.3 % (11.6-15.6); WHITE BLOOD COUNT 5.3 K/mm3 (4.0-10.0)
[2017-01-12 09:04] LABS: INR 3.01 (0.82-1.09); PROTHROMBIN TIME (PATIENT) 33.9 SEC (9.98-11.88)
[2017-01-12 09:19] LABS: ALBUMIN 3.1 g/dl (3.4-5.0); ANION GAP 7 (8-16); CALCIUM 8.5 mg/dL (8.5-10.1); CO2 36 mmol/L (21-32); GLUCOSE,RANDOM 198 mg/dL (74-106); MAGNESIUM 2.2 mg/dL (1.8-2.4)
[2017-01-12 09:33] LABS: ALK PHOS 118 U/L (45-117); BILIRUBIN,TOTAL 0.4 mg/dL (0.2-1.0); COCKROFT - GAULT 117.3425; CREATININE 0.6 mg/dL (0.55-1.02); PHOSPHOROUS 3.5 mg/dL (2.5-4.9); SGOT/AST 18 U/L (15-37); SGPT/ALT 24 U/L (12-78); THYROID STIMULATING HORMONE 0.14 uIU/ml (0.358-3.74); TOT PROT 6.2 g/dl (6.4-8.2)
[2017-01-12] MEDS ORDERED: CALCIUM CARBONATE PO SCH (10:00)
[2017-01-12] MEDS ORDERED: [UNRECOGNIZED DRUG - OTHER] PO SCH (10:00)
[2017-01-12] MEDS ORDERED: BIOTIN PO SCH (10:00)
[2017-01-12] MEDS: AZITHROMYCIN IVPB 250 ML IVPB SCH (10:48)
[2017-01-12] MEDS: CHOLECALCIFEROL (VITAMIN D3) 1,000 UNIT TABLET (FP) PO SCH (10:49)
[2017-01-12] MEDS: CYCLOBENZAPRINE HCL 10 MG TABLET (FP) PO SCH (10:49)
[2017-01-12] MEDS: BUDESONIDE/FORMETEROL FUMARATE 160/4.5 mcg INHALER IH SCH (10:51)
[2017-01-12] MEDS: CYANOCOBALAMIN 1,000 MCG TABLET (FP) PO SCH (10:51)
[2017-01-12] MEDS: guaiFENesin 600 MG TABLET.ER (FP) PO SCH (10:51)
[2017-01-12] MEDS: GABAPENTIN 100 MG CAPSULE (FP) PO SCH ×3 (10:51→22:57)
[2017-01-12] MEDS: MULTIVITAMINS (DAILY MVI) TABLET (FP) PO SCH (10:51)
[2017-01-12] MEDS: FLUTICASONE PROP 0.05% 16 GM NASAL SPRAY NS SCH (10:52)
[2017-01-12] MEDS: POTASSIUM CHLORIDE TABS 20 MEQ TABLET.ER (FP) PO SCH (10:54)
[2017-01-12] MEDS: DIGOXIN 0.25 MG TABLET (FP) PO SCH (10:55)
[2017-01-12] MEDS: VENLAFAXINE HCL 75 MG E.R. CAPSULES (FP) PO SCH (10:55)
--- NOTE | 2017-01-12 11:04 | EKG ---
Test Reason : Blood Pressure : / mmHG Vent. Rate : 085 BPM Atrial Rate : 156 BPM P-R Int : 000 ms QRS Dur : 098 ms QT Int : 348 ms P-R-T Axes : 000 125 010 degrees QTc Int : 414 ms POOR DATA QUALITY, INTERPRETATION MAY BE ADVERSELY AFFECTED ATRIAL FIBRILLATION RIGHT AXIS DEVIATION NONSPECIFIC T WAVE ABNORMALITY ABNORMAL ECG Confirmed by RICHIE NIX MD ([id number]) on 01/12/2017 11:04:37 AM Referred By: Confirmed By:RICHIE NIX MD
[2017-01-12] MEDS ORDERED: PT OWN MED DRAWER 7, Y5N ONE ×2 (11:19→22:32)
--- NOTE | 2017-01-12 15:09 | CONSULT ---
Consultation: REQUESTING PROVIDER: CONSULT REQUEST: We have been asked to medically evaluate this patient for ( pulmonology). HISTORY OF PRESENT ILLNESS: 66 y/o F with significant past medical history of asthma, copd, afib,chf. came to hospital with a complaint of sob and cough since morning of . Patient states that she woke up with difficulty in breathing, she used her home oxygen which didn't help, she denies orthopnea, denies fever, chills. Denies wheezing. States that she has chromic cough and produces yellow sputum but since tomorrow morning cough is non productive. Patient states that she has allergies and has runny nose and posterior nasal drip fro which is using flonase. Denies trauma to chest, long travel. denies nausea, vomiting, cheat pain, lightheadedness. She is non complaint with her home oxygen she is current smoker smokes 1 pack every day. 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, sober x 20 years Drugs: pt denies REVIEW OF SYSTEMS: CONSTITUTIONAL: Absent: fever, chills, diaphoresis, HEENT: Absent: rhinorrhea, nasal congestion, throat pain, throat swelling, CARDIOVASCULAR: Absent: chest pain, syncope, palpitations, irregular heart rate, lightheadedness , peripheral edema RESPIRATORY: Absent: cough, shortness of breath, orthopnea, wheezing, stridor, hemoptysis GASTROINTESTINAL: Absent: abdominal pain, abdominal distension, nausea, vomiting, diarrhea, constipation, GENITOURINARY: Absent: dysuria, frequency, urgency, PHYSICAL EXAMINATION Vital Signs - 24 hr 01/11/17 01/11/17 01/11/17 22:08 23:00 23:29 Temperature 98.3 F Pulse Rate 99 H 102 H Respiratory 20 Rate Blood Pressure 129/66 O2 Sat by Pulse 93 L 90 L 98 Oximetry (%) 01/12/17 01/12/17 01/12/17 02:50 06:00 06:50 Temperature 98.0 F Pulse Rate 83 Respiratory 20 Rate Blood Pressure 119/57 O2 Sat by Pulse 98 98 Oximetry (%) 01/12/17 01/12/17 01/12/17 09:41 10:00 10:55 Temperature 987.9 F H Pulse Rate 89 89 Respiratory 20 Rate Blood Pressure 110/56 O2 Sat by Pulse 95 92 L Oximetry (%) GENERAL: Awake, alert, and fully oriented, in no acute distress. sitting comfortably with 3 L nC HEAD: Normal with no signs of trauma. EARS, NOSE, THROAT: , nares patent, oropharynx clear without exudates. NECK: no lymphadenopathy, no JVD, LUNGS: Breath sounds equal, clear to auscultation bilaterally. mild wheez in expiration and crepts present in b/l basal area HEART: Regular rate and rhythm, normal S1 and S2 without murmur, rub or gallop. ABDOMEN: Soft, nontender, not distended, normoactive bowel sounds, no guarding, no rebound, no masses. UPPER EXTREMITIES:, well-perfused. No cyanosis.No peripheral edema. LOWER EXTREMITIES: warm, No calf tenderness. No peripheral edema. . Laboratory Results - last 24 hr 01/11/17 01/11/17 01/11/17 20:25 20:25 23:58 WBC RBC Hgb Hct MCV MCHC RDW Plt Count MPV Neutrophils % Lymphocytes % Monocytes % Eosinophils % Basophils % INR Anticoagulation Therapy Y Puncture Site Right radial ABG pH 7.39 ABG pCO2 at Pt Temp 53.8 H ABG pO2 at Pt Temp 60.0 L ABG HCO3 31.9 H ABG O2 Sat (Measured) 90.0 ABG O2 Content 19.4 ABG Base Excess 5.6 H Gian Test Positive Carboxyhemoglobin 3.3 H Methemoglobin 0.7 O2 Delivery Device Nasal Oxygen Flow Rate 4l Vent Mode Y Vent Rate Y Mechanical Rate Y Pressure Support Vent Y Sodium Potassium Chloride Carbon Dioxide Anion Gap BUN Creatinine Creat Clearance w eGFR POC Glucometer 184 Random Glucose Calcium Phosphorus Magnesium Total Bilirubin AST ALT Alkaline Phosphatase Total Protein Albumin TSH 01/12/17 01/12/17 01/12/17 06:00 06:09 07:30 WBC 5.3 D RBC 5.04 Hgb 15.3 Hct 45.8 H MCV 90.9 MCHC 33.4 RDW 15.3 Plt Count 179 MPV 8.5 Neutrophils % 87.1 H Lymphocytes % 9.7 D Monocytes % 3.0 L Eosinophils % 0.0 D Basophils % 0.2 INR Anticoagulation Therapy Puncture Site ABG pH ABG pCO2 at Pt Temp ABG pO2 at Pt Temp ABG HCO3 ABG O2 Sat (Measured) ABG O2 Content ABG Base Excess Gian Test Carboxyhemoglobin Methemoglobin O2 Delivery Device Oxygen Flow Rate Vent Mode Vent Rate Mechanical Rate Pressure Support Vent Sodium Potassium Chloride Carbon Dioxide Anion Gap BUN Creatinine Creat Clearance w eGFR POC Glucometer 252 Random Glucose Calcium Phosphorus Magnesium Total Bilirubin AST ALT Alkaline Phosphatase Total Protein Albumin TSH Cancelled 01/12/17 01/12/17 01/12/17 07:30 07:30 12:26 WBC RBC Hgb Hct MCV MCHC RDW Plt Count MPV Neutrophils % Lymphocytes % Monocytes % Eosinophils % Basophils % INR 3.01 H Anticoagulation Therapy Puncture Site ABG pH ABG pCO2 at Pt Temp ABG pO2 at Pt Temp ABG HCO3 ABG O2 Sat (Measured) ABG O2 Content ABG Base Excess Gian Test Carboxyhemoglobin Methemoglobin O2 Delivery Device Oxygen Flow Rate Vent Mode Vent Rate Mechanical Rate Pressure Support Vent Sodium 138 Potassium 3.4 L Chloride 95 L Carbon Dioxide 36 H Anion Gap 7 L BUN 15 D Creatinine 0.6 D Creat Clearance w eGFR > 60 POC Glucometer 220 Random Glucose 198 H Calcium 8.5 Phosphorus 3.5 Magnesium 2.2 Total Bilirubin 0.4 D AST 18 D ALT 24 Alkaline Phosphatase 118 H Total Protein 6.2 L Albumin 3.1 L TSH 0.14 L D Active Medications Generic Name Dose Route Start Last Admin Trade Name Freq PRN Reason Stop Dose Admin Albuterol/Ipratropium 1 amp 01/12/17 00:00 01/12/17 11:57 Duoneb - NEB 1 amp QIDR [facility] Administration Atorvastatin Calcium 20 mg 01/12/17 22:00 Lipitor - PO [facility] Budesonide/Formoterol Fumarate 2 puff 01/12/17 10:00 01/12/17 10:51 Symbicort 160/4.5mcg - IH 2 puff DAILY [facility] Administration Cholecalciferol 2,000 unit 01/12/17 10:00 01/12/17 10:49 Vitamin D3 - PO 2,000 unit DAILY [facility] Administration Cyanocobalamin 1,000 mcg 01/12/17 10:00 01/12/17 10:51 Vitamin B12 - PO 1,000 mcg DAILY [facility] Administration Cyclobenzaprine HCl 5 mg 01/12/17 10:00 01/12/17 10:49 Flexeril - PO 5 mg DAILY [facility] Administration Digoxin 0.25 mg 01/12/17 10:00 01/12/17 10:55 Lanoxin - PO 0.25 mg DAILY [facility] Administration Diltiazem HCl 180 mg 01/12/17 10:00 01/12/17 10:49 Cardizem Cd - PO 180 mg BID [facility] Administration Fluticasone Propionate 2 spray 01/12/17 10:00 01/12/17 10:52 Flonase - NS 2 spray DAILY [facility] Administration Furosemide 80 mg 01/12/17 06:00 01/12/17 06:18 Lasix - PO 80 mg BIDLASIX [facility] Administration Gabapentin 200 mg 01/11/17 22:30 01/12/17 10:51 Neurontin - PO 200 mg BID [facility] Administration Guaifenesin 1,200 mg 01/12/17 10:00 01/12/17 10:51 Mucinex - PO 1,200 mg DAILY [facility] Administration Heparin Sodium (Porcine) 5,000 unit 01/12/17 06:00 01/12/17 06:18 Heparin - SQ 5,000 unit TID [facility] Administration Azithromycin 250 mls @ 250 mls/hr 01/12/17 10:00 01/12/17 10:48 Zithromax 500mg Ivpb (Pre-Docked) IVPB 250 mls/hr DAILY [facility] Administration Insulin Aspart 1 vial 01/12/17 07:00 01/12/17 12:32 Novolog Vial Sliding Scale - SQ 3 units ACHS [facility] Administration Protocol Levothyroxine Sodium 25 mcg 01/12/17 07:00 01/12/17 06:18 Synthroid - PO 25 mcg AM [facility] Administration Methylprednisolone Sodium Succinate 40 mg 01/12/17 02:00 01/12/17 10:49 Solu-Medrol - IVPB 40 mg Q8H-IV [facility] Administration Montelukast Sodium 10 mg 01/12/17 22:00 Singulair - PO HS [facility] Multivitamins/Minerals/Vitamin C 1 tab 01/12/17 10:00 01/12/17 10:51 Tab-A-Vit - PO 1 tab DAILY [facility] Administration Non-Formulary Medication 1 each 01/12/17 10:00 Biotin/Calcium Carbonate [Biotin 800 Mcg Tablet] PO DAILY [facility] Potassium Chloride 20 meq 01/12/17 10:00 01/12/17 10:54 K-Dur - PO 20 meq DAILY [facility] Administration Quetiapine Fumarate 50 mg 01/12/17 22:00 Seroquel - PO HS [facility] Venlafaxine HCl 225 mg 01/12/17 10:00 01/12/17 10:55 Effexor Xr - PO 225 mg DAILY [facility] Administration Warfarin Sodium 5 mg 01/11/17 22:30 Coumadin - PO ASDIR [facility] ASSESSMENT/PLAN: 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 Thank you for this consultative opportunity. Visit type - Emergency Visit Emergency Visit: Yes ED Registration Date: 01/11/17 Care time: The patient presented to the Emergency Department on the above date and was hospitalized for further evaluation of their emergent condition. - New Patient This patient is new to me today: Yes Date on this admission: 01/12/17 - Critical Care Critical Care patient: No
--- NOTE | 2017-01-12 15:11 | PN ---
Teaching Attending Note Name of Resident: Bienvenido Leonard ATTENDING PHYSICIAN STATEMENT I saw and evaluated the patient. I reviewed the resident's note and discussed the case with the resident. I agree with the resident's findings and plan as documented. PULMONARY IMP ACUTE ON CHRONIC HYPOXEMIC/HYPERCAPNEIC RESPIRATORY FAILURE SECONDARY TO COPD EXACERBATION ADVANCED COPD ON O2 NON-COMPLIANT AFIB H/O NON-HODGKINS LYMPHOMA H/O WALDENSTROMS MACROGLOBULINEMIA SMOKER PLAN INHALED BRONCHODILATORS NASAL O2 SHORT COURSE OF STEROIDS MONITOR O2 SATS ANTICOUGULATION MONITOR INR SMOKING CESSATION COUNSELED DR MENDOZA
[2017-01-12] MEDS ORDERED: POTASSIUM CHLORIDE ORAL LIQUID 20 MEQ/15 ML PO ONE (15:21)
[2017-01-12] MEDS: NICOTINE 7 MG/24 HOURS TOPICAL PATCH TD SCH (16:15)
--- NOTE | 2017-01-12 16:26 | PN ---
Physical Exam: SUBJECTIVE: Patient seen and examined. She is not coughing anymore, she feels better on the 3L of oxygen, before felt sob. OBJECTIVE: Vital Signs Period Temp Pulse Resp BP Sys/Card Pulse Ox Last 24 Hr 97.9 F-987.9 F 83-102 20-20 110-129/56-66 90-98 PE Neuro: alert, awake, cn 2-12intact Pulm: L base crackles, + nc, no wheezing, no coughing CV: s1 s2 irregular rhythm Abd: s nt nd +bs Ext: warm, no le edema CBCD WBC 5.3 K/mm3 (4.0-10.0) D 01/12/17 07:30 RBC 5.04 M/mm3 (3.60-5.2) 01/12/17 07:30 Hgb 15.3 GM/dL (10.7-15.3) 01/12/17 07:30 Hct 45.8 % (32.4-45.2) H 01/12/17 07:30 MCV 90.9 fl (80-96) 01/12/17 07:30 MCHC 33.4 g/dl (32.0-36.0) 01/12/17 07:30 RDW 15.3 % (11.6-15.6) 01/12/17 07:30 Plt Count 179 K/MM3 (134-434) 01/12/17 07:30 MPV 8.5 fl (7.5-11.1) 01/12/17 07:30 CMP Sodium 138 mmol/L (136-145) 01/12/17 07:30 Potassium 3.4 mmol/L (3.5-5.1) L 01/12/17 07:30 Chloride 95 mmol/L (98-107) L 01/12/17 07:30 Carbon Dioxide 36 mmol/L (21-32) H 01/12/17 07:30 Anion Gap 7 (8-16) L 01/12/17 07:30 BUN 15 mg/dL (7-18) D 01/12/17 07:30 Creatinine 0.6 mg/dL (0.55-1.02) D 01/12/17 07:30 Creat Clearance w eGFR > 60 (>60) 01/12/17 07:30 Calcium 8.5 mg/dL (8.5-10.1) 01/12/17 07:30 Total Bilirubin 0.4 mg/dL (0.2-1.0) D 01/12/17 07:30 AST 18 U/L (15-37) D 01/12/17 07:30 ALT 24 U/L (12-78) 01/12/17 07:30 Alkaline Phosphatase 118 U/L (45-117) H 01/12/17 07:30 Total Protein 6.2 g/dl (6.4-8.2) L 01/12/17 07:30 Albumin 3.1 g/dl (3.4-5.0) L 01/12/17 07:30 01/11/17 01/12/17 01/12/17 19:00 07:30 07:30 INR 3.01 H Phosphorus 3.5 Magnesium 2.2 TSH 0.14 L D Digoxin 0.8881 Active Medications Generic Name Dose Route Start Last Admin Trade Name Freq PRN Reason Stop Dose Admin Aclidinium [place] 1 puff 01/12/17 22:00 Tudorza - IH BID [facility] Albuterol Sulfate 1 amp 01/12/17 15:20 Ventolin 0.083% Nebulizer Soln - NEB Q6H PRN SHORT OF BREATH/WHEEZING Atorvastatin Calcium 20 mg 01/12/17 22:00 Lipitor - PO HS [facility]IO Budesonide/Formoterol Fumarate 2 puff 01/12/17 10:00 01/12/17 10:51 Symbicort 160/4.5mcg - IH 2 puff DAILY [facility] Administration Cholecalciferol 2,000 unit 01/12/17 10:00 01/12/17 10:49 Vitamin D3 - PO 2,000 unit DAILY [facility] Administration Cyanocobalamin 1,000 mcg 01/12/17 10:00 01/12/17 10:51 Vitamin B12 - PO 1,000 mcg DAILY [facility] Administration Cyclobenzaprine HCl 5 mg 01/12/17 10:00 01/12/17 10:49 Flexeril - PO 5 mg DAILY [facility] Administration Digoxin 0.25 mg 01/12/17 10:00 01/12/17 10:55 Lanoxin - PO 0.25 mg DAILY [facility] Administration Diltiazem HCl 180 mg 01/12/17 10:00 01/12/17 10:49 Cardizem Cd - PO 180 mg BID [facility] Administration Fluticasone Propionate 2 spray 01/12/17 10:00 01/12/17 10:52 Flonase - NS 2 spray DAILY [facility] Administration Furosemide 80 mg 01/12/17 06:00 01/12/17 15:06 Lasix - PO 80 mg BIDLASIX [facility] Administration Gabapentin 200 mg 01/11/17 22:30 01/12/17 10:51 Neurontin - PO 200 mg BID [facility] Administration Guaifenesin 1,200 mg 01/12/17 10:00 01/12/17 10:51 Mucinex - PO 1,200 mg DAILY [facility] Administration Azithromycin 250 mls @ 250 mls/hr 01/12/17 10:00 01/12/17 10:48 Zithromax 500mg Ivpb (Pre-Docked) IVPB 250 mls/hr DAILY [facility] Administration Insulin Aspart 1 vial 01/12/17 15:24 Novolog Vial Sliding Scale - SQ ACHS [facility] Protocol Levothyroxine Sodium 25 mcg 01/12/17 07:00 01/12/17 06:18 Synthroid - PO 25 mcg AM [facility] Administration Methylprednisolone Sodium Succinate 40 mg 01/12/17 02:00 01/12/17 10:49 Solu-Medrol - IVPB 40 mg Q8H-IV [facility] Administration Montelukast Sodium 10 mg 01/12/17 22:00 Singulair - PO HS [facility] Multivitamins/Minerals/Vitamin C 1 tab 01/12/17 10:00 01/12/17 10:51 Tab-A-Vit - PO 1 tab DAILY [facility] Administration Nicotine 7 mg 01/12/17 15:45 01/12/17 16:15 Nicoderm Patch - TD Not Given DAILY [facility] Non-Formulary Medication 1 each 01/12/17 10:00 Biotin/Calcium Carbonate [Biotin 800 Mcg Tablet] PO DAILY [facility] Potassium Chloride 20 meq 01/12/17 10:00 01/12/17 10:54 K-Dur - PO 20 meq DAILY [facility] Administration Quetiapine Fumarate 50 mg 01/12/17 22:00 Seroquel - PO HS [facility] Venlafaxine HCl 225 mg 01/12/17 10:00 01/12/17 10:55 Effexor Xr - PO 225 mg DAILY [facility] Administration Warfarin Sodium 5 mg 01/13/17 18:00 Coumadin - PO DAILY@1800 [facility] Assessment: 66 year old female with PMH Waldenstrom's macroglobulinemia, asthma , COPD, nonHodkin's lymphoma, atrial fibrillation on coumadin, IBS, DM, HTN, HLD , hypothyroid, arthritis, fibromyalgia who presented to the ED with SOB, LEMON, cough with increased sputum production admitted for COPD exacerbation. Plan: 1. Acute COPD exacerbation with hypoxia and acute on chronic hypercapnea - short course IV 40mg q8 - Continue azithromycin 250mg x4 days - Sputum cx - Cont home singulair, symbicort - Tudorza added - Stop atrovent on home list, add albuterol and spiriva for dc home - Cont mucinex 2. Atrial fibrillation - Cont digoxin and cardizem - Dig level stable, monitor while on azithro - Hold coumadin tonight, supra therapeutic - INR daily 3. Hypothyroid - TSH low, however increased since 11/17 - Will obtain T3/T4 - Continue synthroid 25mcg 4. Venous insufficiency/le edema - Cont lasix 80mg BID - Cont k dur 5. HLD - Cont lipitor 6. DM II - Hold metformin - ISS, BGM ACHS - Obtain hga1c 7. Arthritis/fibromyalgia - Cont gabapentin, flexeril 8. Depression - Cont venlafaxine and seroquel 9. DVT PPX - On AC, will stop heparin, elevated INR 10. Hypokalemia - Replete additional 40meq potassium 11. Cardiac myxoma - Recent echo 11/17 stable 12. Smoking - Nicotine patch Visit type - Emergency Visit Emergency Visit: Yes ED Registration Date: 01/11/17 Care time: The patient presented to the Emergency Department on the above date and was hospitalized for further evaluation of their emergent condition. - New Patient This patient is new to me today: Yes Date on this admission: 01/13/17 - Critical Care Critical Care patient: No
[2017-01-12] MEDS: ALBUTEROL SO4 0.083% IH SOL 2.5 MG/3 ML VIAL.NEB. NEB PRN (18:27)
[2017-01-12] MEDS ORDERED: TIOTROPIUM BROMIDE 18 MCG/INH (DEVICE W/ 5 CAPSULES) IH SCH (22:00)
[2017-01-12] MEDS ORDERED: WARFARIN NA 5 MG TABLET (UD) PO SCH (22:00)
[2017-01-12] MEDS: MONTELUKAST NA 10 MG TABLET PO SCH (22:57)
[2017-01-12] MEDS: QUEtiapine FUMARATE 50 MG TABLET PO SCH (22:57)
[2017-01-12] MEDS: ATORVASTATIN CA 20 MG TABLET (FP) PO SCH (22:57)
[2017-01-12] MEDS: ACLIDINIUM BROMIDE 400 MCG/INH AERO.POWD IH SCH (22:58)
[2017-01-13] MEDS: methylPREDNISolone NA SUCC 40 MG/1 ML VIAL IVPB SCH ×3 (03:00→17:28)
[2017-01-13] MEDS: LEVOTHYROXINE NA 25 MCG TABLET (FP) PO SCH (06:55)
[2017-01-13] MEDS: FUROSEMIDE 40 MG TABLET (FP) PO SCH ×2 (06:55→14:28)
[2017-01-13] MEDS: INSULIN SLIDING SCALE (NOVOLOG) 1 VIAL SQ SCH ×4 (06:58→22:34)
[2017-01-13 08:16] LABS: MCH 30.1 pg (25.7-33.7); MCHC 33.2 g/dl (32.0-36.0); MEAN CELL VOLUME 90.7 fl (80-96); MEAN PLT VOLUME 8.8 fl (7.5-11.1); NEUTROPHILS 88.5 % (42.8-82.8); PLATELET COUNT 201 K/MM3 (134-434); RDW 15.1 % (11.6-15.6); WHITE BLOOD COUNT 10.4 K/mm3 (4.0-10.0)
[2017-01-13 08:49] LABS: INR 1.86 (0.82-1.09); PROTHROMBIN TIME (PATIENT) 20.7 SEC (9.98-11.88)
[2017-01-13 09:08] LABS: COCKROFT - GAULT 140.811; CREATININE 0.5 mg/dL (0.55-1.02); FREE T4 1.26 ng/dl (0.76-1.46)
[2017-01-13] MEDS: NICOTINE 7 MG/24 HOURS TOPICAL PATCH TD SCH (10:45)
[2017-01-13] MEDS: CYANOCOBALAMIN 1,000 MCG TABLET (FP) PO SCH (10:46)
[2017-01-13] MEDS: GABAPENTIN 100 MG CAPSULE (FP) PO SCH ×2 (10:46→22:27)
[2017-01-13] MEDS: POTASSIUM CHLORIDE TABS 20 MEQ TABLET.ER (FP) PO SCH (10:46)
[2017-01-13] MEDS: CHOLECALCIFEROL (VITAMIN D3) 1,000 UNIT TABLET (FP) PO SCH (10:46)
[2017-01-13] MEDS: CYCLOBENZAPRINE HCL 10 MG TABLET (FP) PO SCH (10:49)
[2017-01-13] MEDS: MULTIVITAMINS (DAILY MVI) TABLET (FP) PO SCH (10:49)
[2017-01-13] MEDS: guaiFENesin 600 MG TABLET.ER (FP) PO SCH (10:50)
[2017-01-13] MEDS: FLUTICASONE PROP 0.05% 16 GM NASAL SPRAY NS SCH (10:51)
[2017-01-13] MEDS: VENLAFAXINE HCL 75 MG E.R. CAPSULES (FP) PO SCH (10:51)
[2017-01-13] MEDS: DIGOXIN 0.25 MG TABLET (FP) PO SCH (10:53)
[2017-01-13] MEDS: AZITHROMYCIN IVPB 250 ML IVPB SCH (10:54)
[2017-01-13] MEDS: BUDESONIDE/FORMETEROL FUMARATE 160/4.5 mcg INHALER IH SCH (10:54)
[2017-01-13] MEDS: ACLIDINIUM BROMIDE 400 MCG/INH AERO.POWD IH SCH ×2 (10:54→22:27)
--- NOTE | 2017-01-13 12:59 | PN ---
Progress Note (short form) - Note Progress Note: PULMONARY States breathing is better today. No cough or wheezing. No fevers or chills. Last Vital Signs Temp Pulse Resp BP Pulse Ox 97.4 F L 79 20 110/67 95 01/13/17 06:00 01/13/17 10:53 01/13/17 06:00 01/13/17 06:00 01/12/17 21:00 Gen: NAD at rest Heart: RRR Lung: basilar rhonchi Abd: soft, nontender Ext: no edema CBC, BMP 01/13/17 07:00 01/13/17 07:00 Active Medications Aclidinium [place] (Tudorza -) 1 puff IH BID [facility] Last Admin: 01/13/17 10:54 Dose: 1 puff Albuterol Sulfate (Ventolin 0.083% Nebulizer Soln -) 1 amp NEB Q6H PRN PRN Reason: SHORT OF BREATH/WHEEZING Last Admin: 01/12/17 18:27 Dose: 1 amp Atorvastatin Calcium (Lipitor -) 20 mg PO HS [facility] Last Admin: 01/12/17 22:57 Dose: 20 mg Budesonide/Formoterol Fumarate (Symbicort 160/4.5mcg -) 2 puff IH DAILY [facility] Last Admin: 01/13/17 10:54 Dose: 2 puff Cholecalciferol (Vitamin D3 -) 2,000 unit PO DAILY [facility] Last Admin: 01/13/17 10:46 Dose: 2,000 unit Cyanocobalamin (Vitamin B12 -) 1,000 mcg PO DAILY [facility] Last Admin: 01/13/17 10:46 Dose: 1,000 mcg Cyclobenzaprine HCl (Flexeril -) 5 mg PO DAILY [facility] Last Admin: 01/13/17 10:49 Dose: 5 mg Digoxin (Lanoxin -) 0.25 mg PO DAILY [facility] Last Admin: 01/13/17 10:53 Dose: 0.25 mg Diltiazem HCl (Cardizem Cd -) 180 mg PO BID [facility] Last Admin: 01/13/17 10:50 Dose: 180 mg Fluticasone Propionate (Flonase -) 2 spray NS DAILY [facility] Last Admin: 01/13/17 10:51 Dose: 2 spray Furosemide (Lasix -) 80 mg PO BIDLASIX [facility] Last Admin: 05/13/17 06:55 Dose: 80 mg Gabapentin (Neurontin -) 200 mg PO BID [facility] Last Admin: 01/13/17 10:46 Dose: 200 mg Guaifenesin (Mucinex -) 1,200 mg PO DAILY [facility] Last Admin: 01/13/17 10:50 Dose: 1,200 mg Azithromycin (Zithromax 500mg Ivpb (Pre-Docked)) 250 mls @ 250 mls/hr IVPB DAILY [facility] Last Admin: 01/13/17 10:54 Dose: 250 mls/hr Insulin Aspart (Novolog Vial Sliding Scale -) 1 vial SQ ACHS [facility] PRN Reason: Protocol Last Admin: 01/13/17 12:02 Dose: 2 units Levothyroxine Sodium (Synthroid -) 25 mcg PO AM [facility] Last Admin: 01/13/17 06:55 Dose: 25 mcg Methylprednisolone Sodium Succinate (Solu-Medrol -) 40 mg IVPB Q8H-IV [facility] Last Admin: 01/13/17 10:53 Dose: 40 mg Montelukast Sodium (Singulair -) 10 mg PO HS [facility] Last Admin: 01/12/17 22:57 Dose: 10 mg Multivitamins/Minerals/Vitamin C (Tab-A-Vit -) 1 tab PO DAILY [facility] Last Admin: 01/13/17 10:49 Dose: 1 tab Nicotine (Nicoderm Patch -) 7 mg TD DAILY [facility] Last Admin: 01/13/17 10:45 Dose: Not Given Potassium Chloride (K-Dur -) 20 meq PO DAILY [facility] Last Admin: 01/13/17 10:46 Dose: 20 meq Quetiapine Fumarate (Seroquel -) 50 mg PO HS [facility] Last Admin: 01/12/17 22:57 Dose: 50 mg Venlafaxine HCl (Effexor Xr -) 225 mg PO DAILY [facility] Last Admin: 01/13/17 10:51 Dose: 225 mg Warfarin Sodium (Coumadin -) 5 mg PO DAILY@1800 [facility] A/P Acute on Chronic Hypoxic and Hypercapneic Respiratory Failure Acute COPD Exacerbation Atrial Fibrillation h/o NHL h/o Waldenstroms Macroglobulinemia Smoker - continue medrol at current dose - can start to taper in AM if continues to improve - inhaled bronchodilators - O2 to keep SpO2 >90% - rate controlled - continue anticoagulation - smoking cessation
--- NOTE | 2017-01-13 17:12 | PN ---
Physical Exam: SUBJECTIVE: Patient seen and examined. She reports feeling better, appears less anxious, tolerating NC and po diet. OBJECTIVE: Vital Signs Period Temp Pulse Resp BP Sys/Card Pulse Ox Last 24 Hr 97.4 F-98.5 F 74-82 18-20 103-126/62-73 93-95 PE Neuro: alert, awake, cn 2-12intact Pulm: b/l basilar rhonchi, no wheezing, +air movement CV: s1 s2 irregular rhythm Abd: s nt nd +bs Ext: warm, no le edema CBCD WBC 10.4 K/mm3 (4.0-10.0) H D 01/13/17 07:00 RBC 4.88 M/mm3 (3.60-5.2) 01/13/17 07:00 Hgb 14.7 GM/dL (10.7-15.3) 01/13/17 07:00 Hct 44.3 % (32.4-45.2) 01/13/17 07:00 MCV 90.7 fl (80-96) 01/13/17 07:00 MCHC 33.2 g/dl (32.0-36.0) 01/13/17 07:00 RDW 15.1 % (11.6-15.6) 01/13/17 07:00 Plt Count 201 K/MM3 (134-434) 01/13/17 07:00 MPV 8.8 fl (7.5-11.1) 01/13/17 07:00 CMP Sodium 133 mmol/L (136-145) L 01/13/17 07:00 Potassium 4.3 mmol/L (3.5-5.1) D 01/13/17 07:00 Chloride 93 mmol/L (98-107) L 01/13/17 07:00 Carbon Dioxide 33 mmol/L (21-32) H 01/13/17 07:00 Anion Gap 7 (8-16) L 01/13/17 07:00 BUN 16 mg/dL (7-18) 01/13/17 07:00 Creatinine 0.5 mg/dL (0.55-1.02) L 01/13/17 07:00 Creat Clearance w eGFR > 60 (>60) 01/12/17 07:30 Calcium 9.0 mg/dL (8.5-10.1) 01/13/17 07:00 Total Bilirubin 0.4 mg/dL (0.2-1.0) D 01/12/17 07:30 AST 18 U/L (15-37) D 01/12/17 07:30 ALT 24 U/L (12-78) 01/12/17 07:30 Alkaline Phosphatase 118 U/L (45-117) H 01/12/17 07:30 Total Protein 6.2 g/dl (6.4-8.2) L 01/12/17 07:30 Albumin 3.1 g/dl (3.4-5.0) L 01/12/17 07:30 01/13/17 01/13/17 01/13/17 07:00 07:00 07:00 INR Hemoglobin A1c % Free T4 1.26 D Free T3 Pending Digoxin 1.202201/13/17 01/13/17 07:00 07:30 INR 1.86 H D Hemoglobin A1c % 6.5 H Free T4 Free T3 Digoxin Active Medications Generic Name Dose Route Start Last Admin Trade Name Freq PRN Reason Stop Dose Admin Aclidinium [place] 1 puff 01/12/17 22:00 01/13/17 10:54 Tudorza - IH 1 puff BID [facility] Administration Albuterol Sulfate 1 amp 01/12/17 15:20 01/12/17 18:27 Ventolin 0.083% Nebulizer Soln - NEB 1 amp Q6H PRN Administration SHORT OF BREATH/WHEEZING Atorvastatin Calcium 20 mg 01/12/17 22:00 01/12/17 22:57 Lipitor - PO 20 mg HS [facility] Administration Budesonide/Formoterol Fumarate 2 puff 01/12/17 10:00 01/13/17 10:54 Symbicort 160/4.5mcg - IH 2 puff DAILY [facility] Administration Cholecalciferol 2,000 unit 01/12/17 10:00 01/13/17 10:46 Vitamin D3 - PO 2,000 unit DAILY [facility] Administration Cyanocobalamin 1,000 mcg 01/12/17 10:00 01/13/17 10:46 Vitamin B12 - PO 1,000 mcg DAILY [facility] Administration Cyclobenzaprine HCl 5 mg 01/12/17 10:00 01/13/17 10:49 Flexeril - PO 5 mg DAILY [facility] Administration Digoxin 0.25 mg 01/12/17 10:00 01/13/17 10:53 Lanoxin - PO 0.25 mg DAILY [facility] Administration Diltiazem HCl 180 mg 01/12/17 10:00 01/13/17 10:50 Cardizem Cd - PO 180 mg BID [facility] Administration Fluticasone Propionate 2 spray 01/12/17 10:00 01/13/17 10:51 Flonase - NS 2 spray DAILY [facility] Administration Furosemide 80 mg 01/12/17 06:00 01/13/17 14:28 Lasix - PO 80 mg BIDLASIX [facility] Administration Gabapentin 200 mg 01/11/17 22:30 01/13/17 10:46 Neurontin - PO 200 mg BID [facility] Administration Guaifenesin 1,200 mg 01/12/17 10:00 01/13/17 10:50 Mucinex - PO 1,200 mg DAILY [facility] Administration Azithromycin 250 mls @ 250 mls/hr 01/12/17 10:00 01/13/17 10:54 Zithromax 500mg Ivpb (Pre-Docked) IVPB 250 mls/hr DAILY [facility] Administration Insulin Aspart 1 vial 01/12/17 15:24 01/13/17 12:02 Novolog Vial Sliding Scale - SQ 2 units ACHS [facility] Administration Protocol Levothyroxine Sodium 25 mcg 01/12/17 07:00 01/13/17 06:55 Synthroid - PO 25 mcg AM [facility] Administration Methylprednisolone Sodium Succinate 40 mg 01/12/17 02:00 01/13/17 10:53 Solu-Medrol - IVPB 40 mg Q8H-IV [facility] Administration Montelukast Sodium 10 mg 01/12/17 22:00 01/12/17 22:57 Singulair - PO 10 mg HS [facility] Administration Multivitamins/Minerals/Vitamin C 1 tab 01/12/17 10:00 01/13/17 10:49 Tab-A-Vit - PO 1 tab DAILY [facility] Administration Nicotine 7 mg 01/12/17 15:45 01/13/17 10:45 Nicoderm Patch - TD Not Given DAILY [facility] Potassium Chloride 20 meq 01/12/17 10:00 01/13/17 10:46 K-Dur - PO 20 meq DAILY [facility] Administration Quetiapine Fumarate 50 mg 01/12/17 22:00 01/12/17 22:57 Seroquel - PO 50 mg HS [facility] Administration Venlafaxine HCl 225 mg 01/12/17 10:00 01/13/17 10:51 Effexor Xr - PO 225 mg DAILY [facility] Administration Warfarin Sodium 5 mg 01/13/17 18:00 Coumadin - PO DAILY@1800 [facility] Assessment: 66 year old female with PMH Waldenstrom's macroglobulinemia, asthma , COPD, nonHodkin's lymphoma, atrial fibrillation on coumadin, IBS, DM, HTN, HLD , hypothyroid, arthritis, fibromyalgia who presented to the ED with SOB, LEMON, cough with increased sputum production admitted for COPD exacerbation. Plan: 1. Acute COPD exacerbation with hypoxia and acute on chronic hypercapnea - Solumedrol IV 40mg q8, taper in AM if improved - Azithromycin 250mg x 3days more - Sputum cx - Cont home singulair, symbicort, tudorza - Stop Atrovent on home list, add albuterol and spiriva for dc home - Cont Mucinex 2. Atrial fibrillation - Cont digoxin and cardizem - Give increased dose coumadin 7.5mg HS x1, resume 5mg teodora - INR daily 3. Hypothyroid - T4 wnl, will keep current dose of synthroid as is uptrending, recheck in 6 weeks - Continue Synthroid 25mcg 4. Venous insufficiency/le edema - Cont Lasix 80mg BID - Cont K dur 5. HLD - Cont Lipitor 6. DM II, controlled - Hold metformin - ISS, BGM ACHS - Hga1c 6.5 7. Arthritis/fibromyalgia - Cont Gabapentin, Flexeril 8. Depression - Cont venlafaxine and seroquel 9. DVT PPX - On AC, will stop heparin, elevated INR 10. 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 Smoking - Nicotine patch Visit type - Emergency Visit Emergency Visit: Yes ED Registration Date: 01/11/17 Care time: The patient presented to the Emergency Department on the above date and was hospitalized for further evaluation of their emergent condition. - New Patient This patient is new to me today: No - Critical Care Critical Care patient: No
[2017-01-13] MEDS ORDERED: WARFARIN NA 5 MG TABLET (UD) PO SCH ×2 (18:00)
[2017-01-13] MEDS: MONTELUKAST NA 10 MG TABLET PO SCH (22:27)
[2017-01-13] MEDS: ATORVASTATIN CA 20 MG TABLET (FP) PO SCH (22:27)
[2017-01-13] MEDS: QUEtiapine FUMARATE 50 MG TABLET PO SCH (22:27)
[2017-01-14] MEDS: ALBUTEROL SO4 0.083% IH SOL 2.5 MG/3 ML VIAL.NEB. NEB PRN (00:07)
[2017-01-14] MEDS: methylPREDNISolone NA SUCC 40 MG/1 ML VIAL IVPB SCH (02:19)
[2017-01-14] MEDS: FUROSEMIDE 40 MG TABLET (FP) PO SCH (06:51)
[2017-01-14] MEDS: LEVOTHYROXINE NA 25 MCG TABLET (FP) PO SCH (06:51)
[2017-01-14] MEDS: INSULIN SLIDING SCALE (NOVOLOG) 1 VIAL SQ SCH (06:51)
[2017-01-14] MEDS ORDERED: INSULIN (NOVOLOG) ASPART 100 UNITS/ML 10ML VIAL ONE (06:58)
[2017-01-14 08:58] LABS: BASOPHIL 0.2 % (0-2.0); MCH 30.1 pg (25.7-33.7); MCHC 32.8 g/dl (32.0-36.0); MEAN CELL VOLUME 91.7 fl (80-96); MEAN PLT VOLUME 8.3 fl (7.5-11.1); NEUTROPHILS 87.8 % (42.8-82.8); PLATELET COUNT 224 K/MM3 (134-434); RDW 15.2 % (11.6-15.6); WHITE BLOOD COUNT 14.1 K/mm3 (4.0-10.0)
[2017-01-14 09:10] LABS: INR 1.92 (0.82-1.09); PROTHROMBIN TIME (PATIENT) 21.4 SEC (9.98-11.88)
[2017-01-14 09:24] LABS: CALCIUM 8.8 mg/dL (8.5-10.1); COCKROFT - GAULT 117.3425; CREATININE 0.6 mg/dL (0.55-1.02)
--- NOTE | 2017-01-14 09:45 | DS ---
Physical Exam: SUBJECTIVE: Patient seen and examined. She feels well, she does not require out , she is moving about the bed and laying flat without distress. OBJECTIVE: Vital Signs Period Temp Pulse Resp BP Sys/Card Pulse Ox Last 24 Hr 97.7 F-98.5 F 68-100 18-20 111-130/56-73 94-95 PE Neuro: alert, awake, cn 2-12intact Pulm: b/l basilar rhonchi, +air movement, no tachypnea, dyspnea CV: s1 s2 irregular rhythm Abd: s nt nd +bs Ext: warm, no le edema Laboratory Results - last 24 hr 01/13/17 01/13/17 01/13/17 07:00 11:42 16:58 WBC RBC Hgb Hct MCV MCHC RDW Plt Count MPV Neutrophils % Lymphocytes % Monocytes % Eosinophils % Basophils % INR Sodium Potassium Chloride Carbon Dioxide Anion Gap BUN Creatinine POC Glucometer 191 222 Random Glucose Calcium Free T3 1.7 L 01/13/17 01/14/17 01/14/17 22:32 05:36 07:15 WBC RBC Hgb Hct MCV MCHC RDW Plt Count MPV Neutrophils % Lymphocytes % Monocytes % Eosinophils % Basophils % INR 1.92 H Sodium Potassium Chloride Carbon Dioxide Anion Gap BUN Creatinine POC Glucometer 256 220 Random Glucose Calcium Free T3 01/14/17 01/14/17 07:15 07:15 WBC 14.1 H D RBC 4.80 Hgb 14.5 Hct 44.1 MCV 91.7 MCHC 32.8 RDW 15.2 Plt Count 224 MPV 8.3 Neutrophils % 87.8 H Lymphocytes % 8.7 Monocytes % 3.3 L Eosinophils % 0.0 Basophils % 0.2 D INR Sodium 137 Potassium 4.2 Chloride 96 L Carbon Dioxide 34 H Anion Gap 7 L BUN 18 Creatinine 0.6 POC Glucometer Random Glucose 193 H Calcium 8.8 Free T3 HOSPITAL COURSE: Date of Admission:01/11/17 Date of Discharge: 01/14/17 Minutes to complete discharge: 35 Discharge Summary Reason For Visit: OBSTRUCTIVE CHRONIC BRONCHITIS WITH EXACERBATION Current Active Problems COPD exacerbation (Acute) Hospital Course: Initial Hospital Course: Briefly, this 66 year old female with a past medical history of Waldenstrom's macroglobulinemia, asthma, COPD, nonHodkin's lymphoma, atrial fibrillation on coumadin, IBS, DM, HTN, HLD, hypothyroid, arthritis, fibromyalgia presented to the ED with SOB, LEMON, cough with increased sputum production which worsened upon admission. She found that she required oxygen at home which is unusual for her and still wasn't feeling better. Her oxygen saturation upon arrival to the ED was 75% on RA. Upon exam, pt mildly dyspneic but able to speak in full sentences in ED. Subsequent Hospital Course/Progress Note/Discharge Summary by a/p: Assessment: 66 year old female with PMH Waldenstrom's macroglobulinemia, asthma , COPD, nonHodkin's lymphoma, atrial fibrillation on coumadin, IBS, DM, HTN, HLD , hypothyroid, arthritis, fibromyalgia who presented to the ED with SOB, LEMON, cough with increased sputum production admitted for COPD exacerbation. Plan: 1. Acute COPD exacerbation with hypoxia and acute on chronic hypercapnea - s/p IV solumedrol 40mg q8 - Home with prednisone 40mg BID x2, then daily for 2mg, 30mg x2days, 20mg x2 days, 10mg x2 days - Azithromycin 500mg x3 days - Sputum cx pending - Cont home singulair, symbicort, tudorza, albuterol prn inhaler - Cont Mucinex 2. Atrial fibrillation - Cont digoxin and cardizem - Home with coumadin 5mg hs 3. Hypothyroid - 11/17 TSH low, however on synthroid at that time - T4 wnl here, and TSH rising, will keep current dose of synthroid as is uptrending, recheck in 6 weeks - Continue Synthroid 25mcg 4. Venous insufficiency/le edema - Cont Lasix 80mg BID - Cont K dur 5. HLD - Cont Lipitor 6. DM II, controlled - Resume home metformin - Hga1c 6.5 7. Arthritis/fibromyalgia - Cont Gabapentin, Flexeril 8. Depression - Cont venlafaxine and seroquel 9. 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 Smoking - Nicotine patch - Counselled on smoking cessation Dispo: - home w above meds Condition: Stable - Instructions Diet, Activity, Other Instructions: Please return to the ED for any new, persistent, or worsening symptoms. Follow up with your PCP in 1 week Complete steroid taper as directed, take 40mg tonight, 40mg BID tomorrow, then 40mg daily x2 days, 30mg daily x2 days, 20mg daily x2days, 10mg daily x2days then follow up with Dr. Prado in office Complete antibiotics for 1 more day Resume home medications as directed, remember to get your INR checked early next week Referrals: Kory Prado MD [Primary Care Provider] - Dusty Andrade [Non Staff, Medical] - Disposition: HOME - Home Medications Comprehensive Discharge Medication List: Ambulatory Orders Biotin/Calcium Carbonate [Biotin 800 Mcg Tablet] 1 each PO DAILY 11/29/16 Cholecalciferol (Vitamin D3) [Vitamin D -] 2,000 unit PO DAILY 11/29/16 Cyanocobalamin [Vitamin B12 -] 1,000 mcg PO DAILY 11/29/16 Cyclobenzaprine HCl [Flexeril 10 mg] 5 mg PO DAILY 11/29/16 Digoxin [Lanoxin -] 0.25 mg PO DAILY 11/29/16 Diltiazem HCl [Cartia Xt] 180 mg PO BID 11/29/16 Furosemide [Lasix] 80 mg PO BID 11/29/16 Gabapentin 200 mg PO BID 11/29/16 Guaifenesin [Mucinex] 1,200 mg PO DAILY 11/29/16 Levothyroxine [Synthroid -] 25 mcg PO DAILY 11/29/16 Metformin HCl [Metformin HCl ER] 1,000 mg PO BID 11/29/16 Multivitamin [Poly-Vitamin] 1 each PO DAILY 11/29/16 Potassium 20 mg PO ASDIR 11/29/16 Quetiapine Fumarate [Seroquel -] 50 mg PO HS 11/29/16 Venlafaxine HCl ER [Effexor Xr -] 225 mg PO DAILY 11/29/16 Warfarin Sodium [Coumadin] 5 mg PO ASDIR 11/29/16 Atorvastatin Calcium 20 mg PO HS 01/11/17 Fluticasone Prop 0.05% Nasal [Flonase -] 1 - 2 spray NS DAILY 01/11/17 Montelukast Na [Singulair -] 10 mg PO HS 01/11/17 Salmeterol/Fluticasone [Advair 500Mcg/50Mcg -] 1 inh PO DAILY 01/11/17 Aclidinium [place] [Tudorza -] 1 puff PO BID #1 inhaler 01/14/17 Albuterol Sulfate Inhaler - [Ventolin HFA Inhaler -] 1 - 2 inh PO Q4H PRN #1 inhaler 01/14/17 Azithromycin 250 mg PO DAILY #1 tablet 01/14/17 Prednisone 10 mg PO ASDIR #32 tablet 01/14/17 This patient is new to me today: No Emergency Visit: Yes ED Registration Date: 01/11/17 Care time: The patient presented to the Emergency Department on the above date and was hospitalized for further evaluation of their emergent condition. Critical Care patient: No - Discharge Referral Referred to [facility] No
[2017-01-14] MEDS: CYCLOBENZAPRINE HCL 10 MG TABLET (FP) PO SCH (09:51)
[2017-01-14] MEDS: guaiFENesin 600 MG TABLET.ER (FP) PO SCH (09:51)
[2017-01-14] MEDS: CHOLECALCIFEROL (VITAMIN D3) 1,000 UNIT TABLET (FP) PO SCH (09:56)
[2017-01-14] MEDS: MULTIVITAMINS (DAILY MVI) TABLET (FP) PO SCH (09:56)
[2017-01-14] MEDS: CYANOCOBALAMIN 1,000 MCG TABLET (FP) PO SCH (09:56)
[2017-01-14] MEDS: GABAPENTIN 100 MG CAPSULE (FP) PO SCH (09:56)
[2017-01-14] MEDS: POTASSIUM CHLORIDE TABS 20 MEQ TABLET.ER (FP) PO SCH (09:56)
[2017-01-14] MEDS: NICOTINE 7 MG/24 HOURS TOPICAL PATCH TD SCH (09:56)
[2017-01-14] MEDS: ACLIDINIUM BROMIDE 400 MCG/INH AERO.POWD IH SCH (09:57)
[2017-01-14] MEDS: FLUTICASONE PROP 0.05% 16 GM NASAL SPRAY NS SCH (09:57)
[2017-01-14] MEDS: VENLAFAXINE HCL 75 MG E.R. CAPSULES (FP) PO SCH (09:57)
[2017-01-14] MEDS: BUDESONIDE/FORMETEROL FUMARATE 160/4.5 mcg INHALER IH SCH (09:57)
[2017-01-14] MEDS: DIGOXIN 0.25 MG TABLET (FP) PO SCH (09:58)
[2017-01-14 09:59] VITALS: PULSE 80
[2017-01-14] MEDS ORDERED: methylPREDNISolone NA SUCC 40 MG/1 ML VIAL IVPB SCH (10:00)
[2017-01-14] MEDS ORDERED: AZITHROMYCIN 250 MG TABLET (FP) PO ONE (10:30)
[2017-01-14 17:04] VITALS: BP 118/70; TEMP 98
[2017-01-14] MEDS ORDERED: WARFARIN NA 5 MG TABLET (UD) PO SCH (18:00)
== END 2017-01-14 10:32 | disposition home or self-care (01) | DRG 189 ==
LOC: JER 18:12 → JERBED 20:02 → J5S 22:25
PROVIDERS: ADMIT Internal Medicine; ATTEND Nurse Practitioner Acute Care
PROC: 5A09357 Assistance with Respiratory Ventilation, Less than 24 Consecutive Hours, Continuous Positive Airway Pressure (ICD-10-PCS; principal; 2017-01-11)
PROC: 3E0F7GC Introduction of Other Therapeutic Substance into Respiratory Tract, Via Natural or Artificial Opening (ICD-10-PCS; 2017-01-12)
DX: J96.22 Acute and chronic respiratory failure with hypercapnia (principal); J44.1 Chronic obstructive pulmonary disease with (acute) exacerbation; F17.210 Nicotine dependence, cigarettes, uncomplicated; E03.9 Hypothyroidism, unspecified; I48.91 Unspecified atrial fibrillation; Z79.01 Long term (current) use of anticoagulants; I87.2 Venous insufficiency (chronic) (peripheral); R60.0 Localized edema; E78.5 Hyperlipidemia, unspecified; E11.9 Type 2 diabetes mellitus without complications; Z79.84 Long term (current) use of oral hypoglycemic drugs; M79.7 Fibromyalgia; D15.1 Benign neoplasm of heart; Z85.72 Personal history of non-Hodgkin lymphomas; Z85.79 Personal history of other malignant neoplasms of lymphoid, hematopoietic and related tissues; Z98.1 Arthrodesis status; K58.9 Irritable bowel syndrome, unspecified; I11.0 Hypertensive heart disease with heart failure; I50.9 Heart failure, unspecified; F32.9 Major depressive disorder, single episode, unspecified; J96.21 Acute and chronic respiratory failure with hypoxia; Z91.19 Patient's noncompliance with other medical treatment and regimen; E87.6 Hypokalemia
CPT/HCPCS: 36415; 36600; 71010-TC; 80048; 80053; 80162; 82375; 82803; 83036; 83050; 83735; 84100; 84439; 84443; 84481; 85025; 85610; 87070; 87205; 93005; 93010; 94640; 94660; 99284-25; J1644

== ENCOUNTER 2017-06-28 22:59 | Inpatient (IN) | payer OTHER, MEDICARE ==
--- NOTE | 2017-06-28 23:13 | PDOC ---
History of Present Illness - General History Source: Patient, Family Exam Limitations: No Limitations - History of Present Illness Initial Comments: 06/28/17 23:39 The patient is a 67 year old female with a significant PMH of Waldenstroms macroglobulinemia, asthma, COPD (on home O2), AFIB (on Coumadin), IBS, diabetes , hypertension, hyperlipidemia, hypothyroidism, arthritis, and fibromyalgia who presents to the emergency department with flu-like symptoms beginning approximately 4 days ago. The patient reports onset of shortness of breath, headache, productive cough (green sputum), congestion, nausea, vomiting, and diarrhea beginning 4 days ago. Her daughter reports that the cough has significantly progressed in this time and the patient is demonstrably coughing upon presentation. The patients daughter reports that the patient was also slightly altered at about 8pm, asking for the date and location, which has resolved upon presentation. The patient has been admitted for COPD exacerbation and pneumonia within the past year. The patient denies chest pain headache and dizziness. Denies fever, chills, and constipation. Denies dysuria, frequency, urgency and hematuria. Allergies: Midazolam HCl Past surgical history: Myxoma resection. Spinal fusion (L5+S1) Social history: Moderate cigarette use. No reported alcohol or drug use. PCP: Dr. Andrade <Ariel Cid - Last Filed: 06/29/17 01:50> - General History Source: Patient <Edison Almazan - Last Filed: 07/03/17 19:48> - General Stated Complaint: S.O.B Time Seen by Provider: 06/28/17 23:10 Past History <Ariel Cid - Last Filed: 06/29/17 01:50> - Past Medical History Anemia: No Asthma: Yes Cancer: (NON HODGKINS LYMP) Cardiac Disorders: Yes CVA: No COPD: Yes CHF: No Dementia: No Diabetes: No GI Disorders: Yes (IBS) Disorders: No HTN: No Hypercholesterolemia: Yes Liver Disease: No Seizures: No Thyroid Disease: Yes (HYPO) - Surgical History Abdominal Surgery: No Appendectomy: No Cardiac Surgery: Yes (MYXOMA RESECTION) Cholecystectomy: No Lung Surgery: No Neurologic Surgery: No Orthopedic Surgery: Yes (SPINAL FUSION OF L5, S1) - Suicide/Smoking/Psychosocial Hx Smoking Status: Yes Smoking History: Current some day smoker Years of Tobacco Use: 12 Have you smoked in the past 12 months: Yes Number of Cigarettes Smoked Daily: 20 'Breaking Loose' booklet given: 11/30/16 Hx Alcohol Use: No Drug/Substance Use Hx: No Substance Use Type: None Hx Substance Use Treatment: No <Edison Almazan - Last Filed: 07/03/17 19:48> - Past Medical History Allergies/Adverse Reactions: Allergies Allergy/AdvReac Type Severity Reaction Status Date / Time midazolam HCl [From Versed] Allergy Verified 06/29/17 00:01 fresh fruit Allergy Severe anaphlaxis Uncoded 06/29/17 00:01 Home Medications: Ambulatory Orders Biotin/Calcium Carbonate [Biotin 800 Mcg Tablet] 1 each PO DAILY 11/29/16 Cholecalciferol (Vitamin D3) [Vitamin D -] 2,000 unit PO DAILY 11/29/16 Cyanocobalamin [Vitamin B12 -] 1,000 mcg PO DAILY 11/29/16 Cyclobenzaprine HCl [Flexeril 10 mg] 5 mg PO DAILY 11/29/16 Digoxin [Lanoxin -] 0.25 mg PO DAILY 11/29/16 Diltiazem HCl [Cartia Xt] 180 mg PO BID 11/29/16 Furosemide [Lasix] 80 mg PO BID 11/29/16 Gabapentin 200 mg PO BID 11/29/16 Levothyroxine [Synthroid -] 25 mcg PO DAILY 11/29/16 Metformin HCl [Metformin HCl ER] 1,000 mg PO BID 11/29/16 Multivitamin [Poly-Vitamin] 1 each PO DAILY 11/29/16 Quetiapine Fumarate [Seroquel -] 50 mg PO HS 11/29/16 Venlafaxine HCl ER [Effexor Xr -] 225 mg PO DAILY 11/29/16 Warfarin Sodium [Coumadin] 5 mg PO ASDIR 11/29/16 Atorvastatin Calcium 20 mg PO HS 01/11/17 Fluticasone Prop 0.05% Nasal [Flonase -] 1 - 2 spray NS DAILY 01/11/17 Montelukast Na [Singulair -] 10 mg PO HS 01/11/17 Salmeterol/Fluticasone [Advair 500Mcg/50Mcg -] 1 inh PO DAILY 01/11/17 Albuterol Sulfate Inhaler - [Ventolin HFA Inhaler -] 1 - 2 inh PO Q4H PRN #1 inhaler 01/14/17 Budesonide/Formeterol Fumarate [SYMBICORT 160/4.5mcg -] 2 puff IH BID inhaler 07/03/17 Glimepiride [Glimepiride -] 1 mg PO DAILY@0700 tablet 07/03/17 Guaifenesin [Mucinex -] 1,200 mg PO DAILY tab 07/03/17 Miscellaneous Medical Supply [Glucometer Device] 1 each PO ASDIR #1 kit Miscellaneous Medical Supply [Glucometer Test Strips #50] 1 each PO ASDIR #1 box 07/03/17 Potassium Chloride [Potassium Chloride Oral Liquid] 20 meq PO DAILY pack Prednisone See Taper PO DAILY #20 tablet 07/03/17 Tiotropium [place] [Spiriva] 1 puff IH DAILY inh 07/03/17 Review of Systems - Review of Systems Able to Perform ROS?: Yes Comments:: 06/28/17 23:39 CONSTITUTIONAL: Absent: fever, chills, diaphoresis, generalized weakness, malaise, loss of appetite HEENT: (+) Nasal congestion. Absent: rhinorrhea, throat pain, throat swelling, difficulty swallowing, mouth swelling, ear pain, eye pain, visual Changes CARDIOVASCULAR: Absent: chest pain, syncope, palpitations, irregular heart rate, lightheadedness , peripheral edema RESPIRATORY: (+) Shortness of breath. (+) Productive cough (green sputum). Absent: dyspnea with exertion, orthopnea, wheezing, stridor, hemoptysis GASTROINTESTINAL: (+) Nausea. (+) Vomiting. (+) Diarrhea. Absent: abdominal distension, constipation, melena, hematochezia GENITOURINARY: Absent: dysuria, frequency, urgency, hesitancy, hematuria, flank pain, genital pain MUSCULOSKELETAL: Absent: myalgia, arthralgia, joint swelling SKIN: Absent: rash, itching, pallor HEMATOLOGIC/IMMUNOLOGIC: Absent: easy bleeding, easy bruising, lymphadenopathy, frequent infections ENDOCRINE: Absent: unexplained weight gain, unexplained weight loss, heat intolerance, cold intolerance NEUROLOGIC: (+) Headache Absent: focal weakness or paresthesias, dizziness, unsteady gait, seizure, mental status changes, bladder or bowel incontinence PSYCHIATRIC: Absent: anxiety, depression, suicidal or homicidal ideation, hallucinations. <Ariel Cid - Last Filed: 06/29/17 01:50> *Physical Exam - Physical Exam Comments: 06/28/17 23:39 GENERAL: Well developed, well nourished. Awake and alert. No acute distress. HEENT: Normocephalic, atraumatic. PERRLA, EOMI. No conjunctival pallor. Sclera are non- icteric. Moist mucous membranes. Oropharynx is clear. NECK: Supple. Full ROM. No JVD. Carotid pulses 2+ and symmetric, without bruits. No thyromegaly. No lymphadenopathy. CARDIOVASCULAR: Regular rate and rhythm. No murmurs, rubs, or gallops. Distal pulses are 2+ and symmetric. PULMONARY: (+) Coarse rhonchi bilaterally. No wheezes or rales. ABDOMINAL: Soft. Non-tender. Non-distended. No rebound or guarding. No organomegaly. Normoactive bowel sounds. MUSCULOSKELETAL Normal range of motion at all joints. No bony deformities or tenderness. No CVA tenderness. EXTREMITIES: No cyanosis. No clubbing. No edema. No calf tenderness. SKIN: Warm and dry. Normal capillary refill. No rashes. No jaundice. NEUROLOGICAL: Alert, awake, appropriate. Cranial nerves 2-12 intact. No deficits to light touch and temperature in face, upper extremities and lower extremities. No motor deficits in the in face, upper extremities and lower extremities. Normoreflexic in the upper and lower extremities. Normal speech. Toes are downgoing bilaterally. PSYCHIATRIC: Cooperative. Good eye contact. Appropriate mood and affect. <Ariel Cid - Last Filed: 06/29/17 01:50> Heart Score/ECG Review #1 06/29/17 01:51 Vent rate 90 bpm Atrial fibrillation Right axis deviation Septal infarct, age undetermined ST & T wave abnormality, consider inferior ischemia ST & T wave abnormality, consider anterior ischemia Abnormal ECG. <Ariel Cid - Last Filed: 06/29/17 01:50> ED Treatment Course - LABORATORY CBC & Chemistry Diagram: 06/29/17 00:17 06/29/17 00:17 <Ariel Cid - Last Filed: 06/29/17 01:50> - LABORATORY CBC & Chemistry Diagram: 07/03/17 07:45 07/03/17 07:45 <Edison Almazan Last Filed: 07/03/17 19:48> Medical Decision Making - Medical Decision Making 07/03/17 19:44 Dr. Almazan: The scribe's documentation has been prepared under my direction and personally reviewed by me in its entirery. I confirm that the note above accurately reflects all work, treatment, procedures, and medical decision making performed by me. Patient was admitted due to minimal improvement with treatment and low sats. [facility] <Edison Almazan - Last Filed: 07/03/17 19:48> *DC/Admit/Observation/Transfer - Attestations Scribe Attestion: 06/28/17 23:40 Documentation prepared by Ariel Cid, acting as medical nurse for Edison Almazan DO. <Ariel Cid - Last Filed: 06/29/17 01:50> - Discharge Dispostion Admit: Yes <Edison Almazan - Last Filed: 07/03/17 19:48> Diagnosis at time of Disposition: COPD exacerbation - Discharge Dispostion Disposition: HOME Condition at time of disposition: Stable - Prescriptions - Referrals
[2017-06-28] MEDS ORDERED: methylPREDNISolone NA SUCC 125 MG/2 ML VIAL IVPB ONE (23:14)
[2017-06-28] MEDS ORDERED: ALBUTEROL SO4 2.5/IPRATROPIUM 0.5 INH SOL 3 ML VIAL.NEB. NEB STA (23:14)
[2017-06-28] MEDS ORDERED: ALBUTEROL SO4 2.5/IPRATROPIUM 0.5 INH SOL 3 ML VIAL.NEB. NEB ONE (23:32)
[2017-06-28] MEDS ORDERED: methylPREDNISolone NA SUCC 125 MG/2 ML VIAL ONE (23:33)
[2017-06-29 00:39] LABS: BASOPHIL 0.6 % (0-2.0); EOSINOPHIL 0.2 % (0-4.5); MCH 29.7 pg (25.7-33.7); MCHC 33.9 g/dl (32.0-36.0); MEAN CELL VOLUME 87.7 fl (80-96); MEAN PLT VOLUME 8.5 fl (7.5-11.1); NEUTROPHILS 73.5 % (42.8-82.8); PLATELET COUNT 194 K/MM3 (134-434); RDW 16.9 % (11.6-15.6); WHITE BLOOD COUNT 8.9 K/mm3 (4.0-10.0)
[2017-06-29 01:06] LABS: ALBUMIN 3.4 g/dl (3.4-5.0); ANION GAP 10 (8-16); BILIRUBIN,TOTAL 0.6 mg/dL (0.2-1.0); CALCIUM 7.8 mg/dL (8.5-10.1); CO2 32 mmol/L (21-32); CREATININE 0.6 mg/dL (0.55-1.02); GLUCOSE,RANDOM 122 mg/dL (74-106); SGOT/AST 16 U/L (15-37); SGPT/ALT 20 U/L (12-78); TOT PROT 6.6 g/dl (6.4-8.2)
[2017-06-29 01:09] LABS: ALK PHOS 128 U/L (45-117); CPK 31 IU/L (26-192); TROPONIN I < 0.02 ng/ml (0.00-0.05)
[2017-06-29] MEDS ORDERED: ALBUTEROL SO4 0.083% IH SOL 2.5 MG/3 ML VIAL.NEB. NEB PRN (02:30)
--- NOTE | 2017-06-29 02:37 | HP ---
CHIEF COMPLAINT: "Tara been short of breath" PCP: Johan HISTORY OF PRESENT ILLNESS: Dr Prado -Clinical Staff Rn-saw him a year ago HISTORY OF PRESENT ILLNESS: This is a a 67 yo F current smoker 1 pack/day with PMH of Waldenstrom's syndrome (nonHodkin's lymphoblastic lymphoma), asthma, COPD (on home 2L), chronic sinus problems, vertigo, afib on coum, IBS, DM, HTN, HLD, hypothyroid, osteoarthritis, fibromyalgia, who presented due to worsening sob, increased green sputum production, rhinorrhea, ams and fever ( Tmax 101.1 at home)x4 days. She reports increased need for O2 and nebs. Patient states that at her best, she sats 96% on room air at rest but was satting 76% on RA in ED. She reports associated h/a, 2 episodes of watery diarrhea and 1 ep of NBNB vomiting. She was last admitted for copd exacerbation January 2017. She denies CP, palpitations, calf pain or edema, abd pain, dysuria, melena, hematochezia. She denies sick contacts. ER course was notable for: (1)labs (2)ekg, cxr (3) medrol 125, nebs Recent Travel: denies PAST MEDICAL HISTORY: as above PAST SURGICAL HISTORY: as above Social History: lives at home Smoking: current 1pack/d Alcohol:denies Drugs: denies Family History: unknown Allergies midazolam HCl [From Versed] Allergy (Verified 06/29/17 00:01) fresh fruit Allergy (Severe, Uncoded 06/29/17 00:01) anaphlaxis HOME MEDICATIONS: Home Medications Medication Instructions Recorded Biotin/Calcium Carbonate [Biotin 1 each PO DAILY 11/29/16 800 Mcg Tablet] Cholecalciferol (Vitamin D3) 2,000 unit PO DAILY 11/29/16 [Vitamin D -] Cyanocobalamin [Vitamin B12 -] 1,000 mcg PO DAILY 11/29/16 Cyclobenzaprine HCl [Flexeril 10 5 mg PO DAILY 11/29/16 mg] Digoxin [Lanoxin -] 0.25 mg PO DAILY 11/29/16 Diltiazem HCl [Cartia Xt] 180 mg PO BID 11/29/16 Furosemide [Lasix] 80 mg PO BID 11/29/16 Gabapentin 200 mg PO BID 11/29/16 Guaifenesin [Mucinex] 1,200 mg PO DAILY 11/29/16 Levothyroxine [Synthroid -] 25 mcg PO DAILY 11/29/16 Metformin HCl [Metformin HCl ER] 1,000 mg PO BID 11/29/16 Multivitamin [Poly-Vitamin] 1 each PO DAILY 11/29/16 Potassium 20 mg PO ASDIR 11/29/16 Quetiapine Fumarate [Seroquel -] 50 mg PO HS 11/29/16 Venlafaxine HCl ER [Effexor Xr -] 225 mg PO DAILY 11/29/16 Warfarin Sodium [Coumadin] 5 mg PO ASDIR 11/29/16 Atorvastatin Calcium 20 mg PO HS 01/11/17 Fluticasone Prop 0.05% Nasal 1 - 2 spray NS DAILY 01/11/17 [Flonase -] Montelukast Na [Singulair -] 10 mg PO HS 01/11/17 Salmeterol/Fluticasone [Advair 1 inh PO DAILY 01/11/17 500Mcg/50Mcg -] Aclidinium [place] [Tudorza -] 1 puff PO BID #1 inhaler 01/14/17 Albuterol Sulfate Inhaler - 1 - 2 inh PO Q4H PRN #1 inhaler 01/14/17 [Ventolin HFA Inhaler -] Azithromycin 250 mg PO DAILY #1 tablet 01/14/17 Prednisone 10 mg PO ASDIR #32 tablet 01/14/17 REVIEW OF SYSTEMS CONSTITUTIONAL: Absent: chills, diaphoresis,weight change HEENT: Absent: throat pain, throat swelling, difficulty swallowing CARDIOVASCULAR: Absent: chest pain, syncope, palpitations RESPIRATORY: Absent: stridor, hemoptysis GASTROINTESTINAL: Absent: abdominal pain, abdominal distension, constipation, melena, hematochezia GENITOURINARY: Absent: dysuria MUSCULOSKELETAL: Absent: back pain, neck pain SKIN: Absent: rash HEMATOLOGIC/IMMUNOLOGIC: Absent: easy bleeding, easy bruising, frequent infections ENDOCRINE: Absent: unexplained weight gain, unexplained weight loss, heat intolerance, cold intolerance NEUROLOGIC: Absent: focal weakness or paresthesias PSYCHIATRIC: Absent: anxiety, depression PHYSICAL EXAMINATION Vital Signs - 24 hr 06/28/17 23:27 Temperature 99.1 F Pulse Rate 93 H Respiratory 22 Rate Blood Pressure 130/62 O2 Sat by Pulse 96 Oximetry (%) GENERAL: Awake, alert, and fully oriented, in mild distress. HEAD: Normal with no signs of trauma. EYES: Pupils equal, round and reactive to light, extraocular movements intact, sclera anicteric, conjunctiva clear. No lid lag. EARS, NOSE, THROAT: Moist mucous membranes. NECK: supple LUNGS: diffusely restricted with diffuse ronchi and wheezes HEART: reg rate and irreg rhythm, normal S1 and S2 ABDOMEN: Soft, nontender, not distended, normoactive bowel sounds MUSCULOSKELETAL: No CVA tenderness. UPPER EXTREMITIES: 2+ pulses, warm, well-perfused. No cyanosis. + clubbing. No peripheral edema. LOWER EXTREMITIES: 1+ pulses, warm, well-perfused. No calf tenderness. No peripheral edema. NEUROLOGICAL: Cranial nerves II-XII grossly intact. dyspneic speech. PSYCHIATRIC: Cooperative. Good eye contact. Appropriate mood and affect. SKIN: Warm, dry Laboratory Results - last 24 hr 06/29/17 06/29/17 06/29/17 00:17 00:17 00:20 WBC 8.9 D RBC 5.39 H Hgb 16.0 H D Hct 47.3 H MCV 87.7 MCH 29.7 MCHC 33.9 RDW 16.9 H D Plt Count 194 MPV 8.5 Neutrophils % 73.5 Lymphocytes % 13.2 D Monocytes % 12.5 H D Eosinophils % 0.2 D Basophils % 0.6 Sodium 138 Potassium 3.7 Chloride 96 L Carbon Dioxide 32 Anion Gap 10 BUN 13 D Creatinine 0.6 Creat Clearance w eGFR > 60 Random Glucose 122 H D Lactic Acid 1.3 Calcium 7.8 L Magnesium 2.0 Total Bilirubin 0.6 D AST 16 ALT 20 Alkaline Phosphatase 128 H Creatine Kinase 31 Troponin I < 0.02 Total Protein 6.6 Albumin 3.4 ASSESSMENT/PLAN: This is a a 67 yo F current smoker 1 pack/day with PMH of Waldenstrom's syndrome (nonHodkin's lymphoblastic lymphoma), asthma, COPD (on home 2L), chronic sinus problems, vertigo, afib on coum, IBS, DM, HTN, HLD, hypothyroid, osteoarthritis, fibromyalgia, who presented due to worsening sob, increased green sputum production, rhinorrhea, ams and fever ( Tmax 101.1 at home)x4 days. Acute on chronic hypercarbic hypoxic resp failure; COPD exacerbation in setting of URI -influenza swab negative -f/u blood and sputum cultures, urine legionella -CXR no infiltrate, prominent pulm vasculature consistent with pulm htn -abg hypoxicbelow baeline, hypercarbic 50's at baseline; resp acidosis with partial metabolic compensation -supplemental O2 NC and ventimask -medrol 40 bid iv -duonebs standing, albuterol prn -symbicort -rocephin, aszithromycin -Pulm consult -daily cxr DM -hold po meds -ISS, BGM asthma a fib ibs OA fibromyalgia hypothyroidism -resume home meds Dispo: adm med anjana Problem List - Problem (1) COPD exacerbation Code(s): J44.1 - CHRONIC OBSTRUCTIVE PULMONARY DISEASE W (ACUTE) EXACERBATION (2) Acute and chronic respiratory failure with hypoxia Code(s): J96.21 - ACUTE AND CHRONIC RESPIRATORY FAILURE WITH HYPOXIA (3) Atrial fibrillation Code(s): I48.91 - UNSPECIFIED ATRIAL FIBRILLATION (4) Non Hodgkin's lymphoma Code(s): C85.90 - NON-HODGKIN LYMPHOMA, UNSPECIFIED, UNSPECIFIED SITE Visit type - Emergency Visit Emergency Visit: Yes ED Registration Date: 06/29/17 Care time: The patient presented to the Emergency Department on the above date and was hospitalized for further evaluation of their emergent condition. - New Patient This patient is new to me today: Yes Date on this admission: 06/29/17 - Critical Care Critical Care patient: No
--- NOTE | 2017-06-29 02:41 | HP ---
CHIEF COMPLAINT: Worsening SOB, dizziness, confusion and AMS x 4 days PCP: Dr Prado -[employer]-saw him a year ago HISTORY OF PRESENT ILLNESS: 67 year old female current smoker with a past medical history of Waldenstrom's syndrome (nonHodkin's lymphoblastic lymphoma), asthma, COPD, atrial fibrillation on coumadin, IBS, DM, HTN, HLD, hypothyroid, osteoarthritis, fibromyalgia presented to the ED with hx of fever ( Tmax 101.1 at home) SOB, AMS, cough with increased sputum production which has been worsening since Sunday. She usually has productive cough of greenish sputum, which has worsened over the past days. She has been having increased dyspnea not relieved by her home meds that she uses several times a day. She thought she had flu-like symptoms, with a background history of chronic sinus problems and a history of vertigo, and dizziness. Patient is a current smoker, at 1 pack/day. Patient was encouraged to came in today by a friend because of increased confusion and disorientation that has improved per ED while here. Last admission for copd exacerbation was January 2017. ER course was notable for: (1) CBCs, CMPs-wnl (2) Lactic a, trops-negative (3) iv azithromycin, spiriva, symbicort, solumedrol, ventolin, duoneb, ceftriaxone 4) EKG- afib, RAD Recent Travel: PAST MEDICAL HISTORY: Waldenstrom's syndrome (nonHodkin's lymphoblastic lymphoma), asthma, COPD, atrial fibrillation on coumadin, IBS, DM, HTN, HLD, hypothyroid, osteoarthritis, fibromyalgia Myxoma s/p surgery PAST SURGICAL HISTORY: Myxoma surgery Spinal fusion of L5-S1 Social History: Smoking: Current smoker-1pack/day Alcohol:Recovered alcohol- 20years sober Drugs: Never Family History: Father at 54yrs of lung cancer Brother at 54 yrs-interstitial lung dx Mother at 79yrs-breast Cancer Allergies midazolam HCl [From Versed] Allergy (Verified 06/29/17 00:01) fresh fruit Allergy (Severe, Uncoded 06/29/17 00:01) anaphlaxis HOME MEDICATIONS: Home Medications Medication Instructions Recorded Biotin/Calcium Carbonate [Biotin 1 each PO DAILY 11/29/16 800 Mcg Tablet] Cholecalciferol (Vitamin D3) 2,000 unit PO DAILY 11/29/16 [Vitamin D -] Cyanocobalamin [Vitamin B12 -] 1,000 mcg PO DAILY 11/29/16 Cyclobenzaprine HCl [Flexeril 10 5 mg PO DAILY 11/29/16 mg] Digoxin [Lanoxin -] 0.25 mg PO DAILY 11/29/16 Diltiazem HCl [Cartia Xt] 180 mg PO BID 11/29/16 Furosemide [Lasix] 80 mg PO BID 11/29/16 Gabapentin 200 mg PO BID 11/29/16 Guaifenesin [Mucinex] 1,200 mg PO DAILY 11/29/16 Levothyroxine [Synthroid -] 25 mcg PO DAILY 11/29/16 Metformin HCl [Metformin HCl ER] 1,000 mg PO BID 11/29/16 Multivitamin [Poly-Vitamin] 1 each PO DAILY 11/29/16 Potassium 20 mg PO ASDIR 11/29/16 Quetiapine Fumarate [Seroquel -] 50 mg PO HS 11/29/16 Venlafaxine HCl ER [Effexor Xr -] 225 mg PO DAILY 11/29/16 Warfarin Sodium [Coumadin] 5 mg PO ASDIR 11/29/16 Atorvastatin Calcium 20 mg PO HS 01/11/17 Fluticasone Prop 0.05% Nasal 1 - 2 spray NS DAILY 01/11/17 [Flonase -] Montelukast Na [Singulair -] 10 mg PO HS 01/11/17 Salmeterol/Fluticasone [Advair 1 inh PO DAILY 01/11/17 500Mcg/50Mcg -] Aclidinium [place] [Tudorza -] 1 puff PO BID #1 inhaler 01/14/17 Albuterol Sulfate Inhaler - 1 - 2 inh PO Q4H PRN #1 inhaler 01/14/17 [Ventolin HFA Inhaler -] Azithromycin 250 mg PO DAILY #1 tablet 01/14/17 Prednisone 10 mg PO ASDIR #32 tablet 01/14/17 REVIEW OF SYSTEMS CONSTITUTIONAL: Absent: fever+, chills, diaphoresis, generalized weakness, malaise, loss of appetite, weight change HEENT: Absent: rhinorrhea, nasal congestion+, throat pain, throat swelling, difficulty swallowing, mouth swelling, ear pain, eye pain, visual changes CARDIOVASCULAR: Absent: chest pain, syncope, palpitations, irregular heart rate, lightheadedness , peripheral edema RESPIRATORY: Absent: cough+, shortness of breath+, dyspnea with exertion, orthopnea, wheezing , stridor, hemoptysis GASTROINTESTINAL: Absent: abdominal pain, abdominal distension, nausea, vomiting, diarrhea, constipation, melena, hematochezia GENITOURINARY: Absent: dysuria, frequency, urgency, hesitancy, hematuria, flank pain, genital pain MUSCULOSKELETAL: Absent: myalgia, arthralgia, joint swelling, back pain, neck pain SKIN: Absent: rash, itching, pallor HEMATOLOGIC/IMMUNOLOGIC: Absent: easy bleeding, easy bruising, lymphadenopathy, frequent infections ENDOCRINE: Absent: unexplained weight gain, unexplained weight loss, heat intolerance, cold intolerance NEUROLOGIC: Absent: headache+, focal weakness or paresthesias, dizziness+, unsteady gait, seizure, mental status changes, bladder or bowel incontinence PSYCHIATRIC: Absent: anxiety, depression, suicidal or homicidal ideation, hallucinations. PHYSICAL EXAMINATION GENERAL: Awake, alert, and oriented, in no acute distress. HEAD: Normal with no signs of trauma. EYES: sclera anicteric, conjunctiva clear. EARS, NOSE, THROAT: Nasal cannular. Dry mucous membranes. NECK: supple LUNGS: Scattered creps more at lung bases, few wheezes, and rhonchi scattered bilaterally. HEART: Regular rate and rhythm, normal S1 and S2 without murmur, rub or gallop. ABDOMEN: Soft, nontender, not distended, normoactive bowel sounds,no palpable organs MUSCULOSKELETAL: Normal range of motion at all joints. No bony deformities or tenderness. No CVA tenderness. UPPER EXTREMITIES: 2+ pulses, warm, well-perfused. No cyanosis. No clubbing. No peripheral edema. LOWER EXTREMITIES: 2+ pulses, warm, well-perfused. No calf tenderness. No peripheral edema. NEUROLOGICAL: Symmetric face. Normal strength, tone and reflexes globally. Normal speech. PSYCHIATRIC: Cooperative. Good eye contact. SKIN: No peripheral cyanosis ASSESSMENT/PLAN: 67 year old female current smoker with a PMHx of Waldenstrom's syndrome ( nonHodkin's lymphoblastic lymphoma), asthma/COPD, atrial fibrillation on coumadin, IBS, DM, HTN, HLD, hypothyroid, osteoarthritis, fibromyalgia presented to the ED with hx of fever (Tmax 101.1 at home) SOB, AMS, cough with increased sputum production #Acute on chronic hypoxic hypercapnic respiratory failure 2/2 COPD exacerbation iv azithromycin-500mg daily spiriva- inh 1puff daily symbicort inh 1puff bid solumedrol- 125mg iv once ventolin-neb Q4H PRN duoneb- neb 1amp ceftriaxone -iv 2g daily Supplemental oxygen-2L nasal cannular CBC, CMP, lactic acid, trops ABGs- Hypercapnia and resp acidosis CXR- pulm edema- not officially read EKG Respiratory-Dr Horton #Current smoker Smoking cessation counseling Patient is unable to use patches or nicotine gum at this time Monitor #Afib Continue coumadin 5mg daily Digoxin .025mg K 200meq daily #DM Hold Metformin BGMs ISS #HLD Atorvastatin 20mg HS #Waldenstrom's syndrome (nonHodkin's lymphoblastic lymphoma) Stable for now, monitor #asthma Supplemental oxygen Vasodilators as needed #IBS Monitor #HTN Diltiazem 180mg daily #hypothyroid Synthroid 25mcg daily #Bipolar disorder Quetiapine 50mg PO HS Venlafaxine 22mg PO daily #osteoarthritis Monitor #fibromyalgia Gabapentin 200mg daily #Myxoma s/p surgery Monitor #PX SCDs both legs Early ambulation On coumadin #FEN Oral fluids Monitor electrolytes and replete as needed Sodium controlled diet #Dispo Med Surg Visit type - Emergency Visit Emergency Visit: Yes ED Registration Date: 06/29/17 Care time: The patient presented to the Emergency Department on the above date and was hospitalized for further evaluation of their emergent condition. - New Patient This patient is new to me today: Yes Date on this admission: 06/29/17 - Critical Care Critical Care patient: No
[2017-06-29] MEDS ORDERED: cefTRIAXone 2 GM/100 ML BAG (PRE-DOCKED) IVPB ONE (02:45)
[2017-06-29] MEDS ORDERED: WARFARIN NA 5 MG TABLET (UD) PO SCH ×2 (03:00→18:00)
[2017-06-29] MEDS: AZITHROMYCIN IVPB 250 ML IVPB SCH ×2 (03:23→11:17)
[2017-06-29] MEDS ORDERED: POTASSIUM 20 MG PO SCH (04:45)
[2017-06-29 05:04] LABS: ARTERIAL BLD GAS O2 SATURATION 85.7 % (90-98.9); ARTERIAL BLOOD GAS BASE EXCESS 1.2 meq/l (-2-2)
[2017-06-29 05:08] LABS: ALLENS TEST POSITIVE; ART PUNCT SITE RIGHT BRACHIAL; LPM/O2% 2 LPM; METHEMOGLOBIN 0.5 % (0.4-1.5); PT. ON O2? YES; TYPE OF O2 NASAL O2
[2017-06-29 05:09] LABS: ARTERIAL BLOOD GAS pH 7.33 (7.35-7.45)
[2017-06-29] MEDS ORDERED: FUROSEMIDE 40 MG TABLET (FP) ONE (06:16)
[2017-06-29] MEDS ORDERED: ALBUTEROL SO4 2.5/IPRATROPIUM 0.5 INH SOL 3 ML VIAL.NEB. NEB ONE (06:17)
[2017-06-29] MEDS: ALBUTEROL SO4 2.5/IPRATROPIUM 0.5 INH SOL 3 ML VIAL.NEB. NEB SCH (06:19)
[2017-06-29] MEDS: FUROSEMIDE 40 MG TABLET (FP) PO SCH ×2 (06:19→13:42)
--- NOTE | 2017-06-29 06:55 | PN ---
Teaching Attending Note Name of Resident: Blanca Obando ATTENDING PHYSICIAN STATEMENT I saw and evaluated the patient. I reviewed the resident's note and discussed the case with the resident. I agree with the resident's findings and plan as documented. SUBJECTIVE: 67 y/p F presenting with cough and fever. PMH significant for smoking, Asthma OBJECTIVE: Gen: A&Ox3 in NAD HEENT: NC, AT, nasal mucosa erythematous CVS: irregular rhythm, regular rate no murmur Lung: b/l Rhonchi and wheezing, intermittent cough Abd: Soft, NT, BS+, no organomegaly Ext: no cyanosis, no clubbing, no edema, nl gait Neuro: Cn2-12 intact CBCD WBC 8.9 K/mm3 (4.0-10.0) D 06/29/17 00:17 RBC 5.39 M/mm3 (3.60-5.2) H 06/29/17 00:17 Hgb 16.0 GM/dL (10.7-15.3) H D 06/29/17 00:17 Hct 47.3 % (32.4-45.2) H 06/29/17 00:17 MCV 87.7 fl (80-96) 06/29/17 00:17 MCHC 33.9 g/dl (32.0-36.0) 06/29/17 00:17 RDW 16.9 % (11.6-15.6) H D 06/29/17 00:17 Plt Count 194 K/MM3 (134-434) 06/29/17 00:17 MPV 8.5 fl (7.5-11.1) 06/29/17 00:17 CMP Sodium 138 mmol/L (136-145) 06/29/17 00:17 Potassium 3.7 mmol/L (3.5-5.1) 06/29/17 00:17 Chloride 96 mmol/L (98-107) L 06/29/17 00:17 Carbon Dioxide 32 mmol/L (21-32) 06/29/17 00:17 Anion Gap 10 (8-16) 06/29/17 00:17 BUN 13 mg/dL (7-18) D 06/29/17 00:17 Creatinine 0.6 mg/dL (0.55-1.02) 06/29/17 00:17 Creat Clearance w eGFR > 60 (>60) 06/29/17 00:17 Random Glucose 122 mg/dL (74-106) H D 06/29/17 00:17 Calcium 7.8 mg/dL (8.5-10.1) L 06/29/17 00:17 Total Bilirubin 0.6 mg/dL (0.2-1.0) D 06/29/17 00:17 AST 16 U/L (15-37) 06/29/17 00:17 ALT 20 U/L (12-78) 06/29/17 00:17 Alkaline Phosphatase 128 U/L (45-117) H 06/29/17 00:17 Total Protein 6.6 g/dl (6.4-8.2) 06/29/17 00:17 Albumin 3.4 g/dl (3.4-5.0) 06/29/17 00:17 CARDIAC ENZYMES Creatine Kinase 31 IU/L (26-192) 06/29/17 00:17 Troponin I < 0.02 ng/ml (0.00-0.05) 06/29/17 00:17 ASSESSMENT AND PLAN: Ac Hypoxic and hypercapneic respiratory failure secondary to COPD exacerbation O2 via NC Nebulizations Azithromycin and Ceftriaxone Continue home medications Smoking cessation counselling given. Hypocalcemia- Get Vit D and PTH , Mg and Phos levels Supplement Calcium Gluconate
[2017-06-29] MEDS ORDERED: LEVOTHYROXINE NA 25 MCG TABLET (FP) ONE (07:27)
[2017-06-29] MEDS: LEVOTHYROXINE NA 25 MCG TABLET (FP) PO SCH (07:30)
[2017-06-29] MEDS: INSULIN SLIDING SCALE (NOVOLOG) 1 VIAL SQ SCH ×4 (07:30→22:07)
[2017-06-29 08:18] LABS: BASOPHIL 0.5 % (0-2.0); MCH 29.6 pg (25.7-33.7); MCHC 33.5 g/dl (32.0-36.0); MEAN CELL VOLUME 88.3 fl (80-96); MEAN PLT VOLUME 8.9 fl (7.5-11.1); NEUTROPHILS 87.7 % (42.8-82.8); PLATELET COUNT 209 K/MM3 (134-434); RDW 16.9 % (11.6-15.6); WHITE BLOOD COUNT 7.9 K/mm3 (4.0-10.0)
[2017-06-29 08:50] LABS: ALBUMIN 3.2 g/dl (3.4-5.0); ALK PHOS 133 U/L (45-117); ANION GAP 7 (8-16); BILIRUBIN,TOTAL 0.9 mg/dL (0.2-1.0); CALCIUM 7.8 mg/dL (8.5-10.1); CO2 32 mmol/L (21-32); CREATININE 0.6 mg/dL (0.55-1.02); GLUCOSE,RANDOM 177 mg/dL (74-106); MAGNESIUM 2.2 mg/dL (1.8-2.4); PHOSPHOROUS 3.4 mg/dL (2.5-4.9); SGOT/AST 19 U/L (15-37); SGPT/ALT 22 U/L (12-78); TOT PROT 6.6 g/dl (6.4-8.2)
[2017-06-29 09:44] LABS: INR 2.14 (0.82-1.09); PROTHROMBIN TIME (PATIENT) 24.2 SEC (9.98-11.88)
[2017-06-29] MEDS ORDERED: methylPREDNISolone NA SUCC 40 MG/1 ML VIAL IVPUSH SCH ×3 (10:00→15:30)
[2017-06-29] MEDS ORDERED: BUDESONIDE/FORMETEROL FUMARATE 160/4.5 mcg INHALER IH SCH (10:00)
--- NOTE | 2017-06-29 10:04 | EKG ---
Test Reason : Blood Pressure : / mmHG Vent. Rate : 090 BPM Atrial Rate : 357 BPM P-R Int : 000 ms QRS Dur : 108 ms QT Int : 368 ms P-R-T Axes : 000 125 -55 degrees QTc Int : 450 ms ATRIAL FIBRILLATION RIGHT AXIS DEVIATION SEPTAL INFARCT , AGE UNDETERMINED ABNORMAL ECG WHEN COMPARED WITH ECG OF 11-JAN-2017 20:49, NO SIGNIFICANT CHANGE WAS FOUND Confirmed by RICHIE NIX MD ([id number]) on 06/29/2017 10:04:24 AM Referred By: Confirmed By:RICHIE NIX MD
[2017-06-29] MEDS ORDERED: DIGOXIN 0.25 MG TABLET (FP) ONE (11:03)
[2017-06-29] MEDS ORDERED: dilTIAZem HCL 60 MG TABLET (FP) ONE (11:03)
[2017-06-29] MEDS ORDERED: VENLAFAXINE HCL 75 MG TABLET ONE (11:04)
[2017-06-29] MEDS ORDERED: AZITHROMYCIN IVPB 250 ML IVPB ONE (11:05)
[2017-06-29] MEDS: CYANOCOBALAMIN 1,000 MCG TABLET (FP) PO SCH (11:14)
[2017-06-29] MEDS: GABAPENTIN 100 MG CAPSULE (FP) PO SCH ×2 (11:15→22:06)
[2017-06-29] MEDS: guaiFENesin 600 MG TABLET.ER (FP) PO SCH (11:15)
[2017-06-29] MEDS: DIGOXIN 0.25 MG TABLET (FP) PO SCH (11:16)
[2017-06-29] MEDS: CYCLOBENZAPRINE HCL 10 MG TABLET (FP) PO SCH (11:16)
[2017-06-29] MEDS: VENLAFAXINE HCL 75 MG E.R. CAPSULES (FP) PO SCH (11:17)
--- NOTE | 2017-06-29 12:21 | PN ---
Physical Exam: SUBJECTIVE: Patient seen and examined. Feels less dehydrated and her breathing her breathing is improved OBJECTIVE: Vital Signs Period Temp Pulse Resp BP Sys/Card Pulse Ox Last 24 Hr 97.9 F-98.1 F 75-78 18-18 103-111/64-68 94-94 on 4L GENERAL: sitting in bed, nad, speaking in full sentences w/o dyspnea EYES:sclera anicteric, conjunctiva clear ENT: moist mucous membranes LUNGS: distant breathe sounds, no wheezes, rales or rhonchi appreciated. no accessory muscle use. HEART: irreg reg, normal S1/S2, no murmur, rub or gallop appreciated ABDOMEN: Soft, ntnd LOWER EXTREMITIES: 2+ pulses, wwp, no edema CBC, BMP 06/29/17 08:00 06/29/17 08:00 INR, PTT INR 2.14 (0.82-1.09) H 06/29/17 09:20 MICROBIOLOGY: Influenza neg Blood and urine cultures pending IMAGING: CXR 06/26/17: mild b/l interstitial markings, mild b/l pulm vascular congestion , no pleural effusions, focal consolidations or pneumothorax Active Medications Albuterol Sulfate (Ventolin 0.083% Nebulizer Soln -) 1 amp NEB Q4H PRN PRN Reason: SHORT OF BREATH/WHEEZING Atorvastatin Calcium (Lipitor -) 20 mg PO HS [facility] Budesonide/Formoterol Fumarate (Symbicort 160/4.5mcg -) 1 puff IH BID [facility] Cholecalciferol (Vitamin D3 -) 2,000 unit PO DAILY [facility] Last Admin: 06/29/17 16:45 Dose: 2,000 unit Cyanocobalamin (Vitamin B12 -) 1,000 mcg PO DAILY [facility] Last Admin: 06/29/17 11:14 Dose: 1,000 mcg Cyclobenzaprine HCl (Flexeril -) 5 mg PO DAILY [facility] Last Admin: 06/29/17 11:16 Dose: 5 mg Digoxin (Lanoxin -) 0.25 mg PO DAILY [facility] Last Admin: 06/29/17 11:16 Dose: 0.25 mg Diltiazem HCl (Cardizem Cd -) 180 mg PO BID [facility] Last Admin: 06/29/17 11:17 Dose: 180 mg Furosemide (Lasix -) 80 mg PO BIDLASIX [facility] Last Admin: 06/29/17 13:42 Dose: 80 mg Gabapentin (Neurontin -) 200 mg PO BID [facility] Last Admin: 06/29/17 11:15 Dose: 200 mg Guaifenesin (Mucinex -) 1,200 mg PO DAILY [facility] Last Admin: 06/29/17 11:15 Dose: 1,200 mg Azithromycin (Zithromax 500mg Ivpb (Pre-Docked)) 250 mls @ 250 mls/hr IVPB DAILY [facility] Last Admin: 06/29/17 11:17 Dose: 250 mls/hr CEFTRIAXONE 1 G/50 ML PREMIX (Ceftriaxone 1 Gm-D5w Bag) 50 mls @ 100 mls/hr IVPB DAILY [facility] Influenza Virus Vaccine Quadrival (Flulaval Quad [id number]) 60 mcg IM .ONCE ONE Stop: 06/29/17 18:01 Insulin Aspart (Novolog Vial Sliding Scale -) 1 vial SQ ACHS [facility] PRN Reason: Protocol Last Admin: 06/29/17 16:47 Dose: 6 units Levothyroxine Sodium (Synthroid -) 25 mcg PO AM [facility] Last Admin: 06/29/17 07:30 Dose: 25 mcg Methylprednisolone Sodium Succinate (Solu-Medrol -) 40 mg IVPUSH Q6H-IV [facility] Montelukast Sodium (Singulair -) 10 mg PO HS [facility] Multivitamins/Minerals/Vitamin C (Tab-A-Vit -) 1 tab PO DAILY [facility] Potassium Chloride (Potassium Chloride Oral Liquid) 20 meq PO DAILY [facility] Last Admin: 06/29/17 15:42 Dose: 20 meq Quetiapine Fumarate (Seroquel -) 50 mg PO HS [facility] Tiotropium [place] (Spiriva -) 1 puff IH DAILY [facility] Venlafaxine HCl (Effexor Xr -) 225 mg PO DAILY [facility] Last Admin: 06/29/17 11:17 Dose: 225 mg Warfarin Sodium (Coumadin -) 5 mg PO DAILY@1800 [facility] ASSESSMENT/PLAN: 67yo woman, active smoker, with PMH of COPD (on 2L home O2, non-compliant), afib (on Coumadin), NHL (Waldrenstrom's), HTN, HLD, and fibromyalgia presents presents with acute hypoxic hypercapneic respiratory failure likely from COPD exacerbation in setting of URI. Infectious etiology thus far is negative for influenza. #acute hypoxic/hypercapneic respiratory failure -Pulm consulted (Dr. Prado) -O2 therapy as needed to maintain pSaO2 >90% -solumedrol 40mg IV q6h -spiriva 1 puff daily -symbicort 1 puff BID -Albuterol neds q4h prn -Ceftriaxone 1gm IV daily -Azithromycin 500mg IV daily -f/u Sputum culture -f/u Urine Ag -f/u Chest CT #Afib -Continue Coumadin -continue dilt -Daily INR checks #HTN/CHF -continue lasix 80mg PO BID #DM -hold home PO meds -ISS and BGM ACHS #HLD -Cont home lipitor #hypothyroid -cont synthroid 25mcg daily #depression -cont seroquel and venlafaxine #fibromyalgia -cont gabapentin #FEN -no IVFs/lytes wnl/Diabetic/Na controlled diet #PPX -DVT - on coumadin #dispo: continue monitoring on floors FULL code d/w Dr. Kimi Johnson MD PGY-1 Visit type - Emergency Visit Emergency Visit: No - New Patient This patient is new to me today: Yes Date on this admission: 06/29/17 - Critical Care Critical Care patient: No
--- NOTE | 2017-06-29 14:15 | PN ---
Progress Note (short form) - Note Progress Note: PULMONARY CONSULTATION DICTATED 06/29/17 IMP ACUTE ON CHRONIC HYPOXEMIC/HYPERCAPNEIC RESPIRATORY FAILURE COPD EXACERBATION LIKELY URI AFIB H/O NON-HODGKINS LYMPHOBLASTIC LYMPHOMA H/O WALDENSTROMS HTN HLD FIBROMYALGIA TOBACCO ABUSE PLAN IV STEROIDS INHALED BRONCHODILATORS SUPPLEMENTAL O2 ANTIBIOTICS CHEST CT SPUTUM C+S DR MENDOZA Problem List - Problems (1) COPD exacerbation Code(s): J44.1 - CHRONIC OBSTRUCTIVE PULMONARY DISEASE W (ACUTE) EXACERBATION (2) Acute and chronic respiratory failure with hypoxia Code(s): J96.21 - ACUTE AND CHRONIC RESPIRATORY FAILURE WITH HYPOXIA (3) Atrial fibrillation Code(s): I48.91 - UNSPECIFIED ATRIAL FIBRILLATION (4) Hypoxia Code(s): R09.02 - HYPOXEMIA (5) Non Hodgkin's lymphoma Code(s): C85.90 - NON-HODGKIN LYMPHOMA, UNSPECIFIED, UNSPECIFIED SITE (6) Acute on chronic respiratory failure with hypoxia and hypercapnia Code(s): J96.21 - ACUTE AND CHRONIC RESPIRATORY FAILURE WITH HYPOXIA J96.22 - ACUTE AND CHRONIC RESPIRATORY FAILURE WITH HYPERCAPNIA
--- NOTE | 2017-06-29 14:51 | PN ---
Teaching Attending Note Name of Resident: Michelle Johnson ATTENDING PHYSICIAN STATEMENT I saw and evaluated the patient. I reviewed the resident's note and discussed the case with the resident. I agree with the resident's findings and plan as documented. SUBJECTIVE: Patient seen and examined. breathing much improved. Denies any chest pain, prior fevers/chills or new complaints. OBJECTIVE: Vital Signs Period Temp Pulse Resp BP Sys/Card Pulse Ox Last 24 Hr 97.9 F-99.1 F 75-93 18-22 103-130/62-68 94-96 Intake & Output 06/26/17 06/27/17 06/28/17 06/29/17 23:59 23:59 23:59 23:59 Weight 170 lb General : sitting in bed on 4L oxygen in no acute distress CVS S1S2 regular Chest distant breath sounds consistent with emphysema, no rales or wheezing appreciated Abdomen soft, non tender Current Medications Albuterol Sulfate (Ventolin 0.083% Nebulizer Soln -) 1 amp NEB Q4H PRN PRN Reason: SHORT OF BREATH/WHEEZING Budesonide/Formoterol Fumarate (Symbicort 160/4.5mcg -) 1 puff IH BID [facility]S [facility] 234 BEDS AT [facility] Cyanocobalamin (Vitamin B12 -) 1,000 mcg PO DAILY [facility]S [facility]CLUDE 234 BEDS AT THE [facility] Last Admin: 06/29/17 11:14 Dose: 1,000 mcg Cyclobenzaprine HCl (Flexeril -) 5 mg PO DAILY [facility]CLUDE 234 BEDS AT [facility] Last Admin: 06/29/17 11:16 Dose: 5 mg Digoxin (Lanoxin -) 0.25 mg PO DAILY [facility] 234 BEDS AT [facility] Last Admin: 06/29/17 11:16 Dose: 0.25 mg Diltiazem HCl (Cardizem Cd -) 180 mg PO BID [facility]CLUDE 234 BEDS AT [facility] Last Admin: 06/29/17 11:17 Dose: 180 mg Furosemide (Lasix -) 80 mg PO BIDLASIX COUNTS INCLUDE 234 BEDS AT [facility] Last Admin: 06/29/17 13:42 Dose: 80 mg Gabapentin (Neurontin -) 200 mg PO BID [facility]CLUDE 234 BEDS AT [facility] Last Admin: 06/29/17 11:15 Dose: 200 mg Guaifenesin (Mucinex -) 1,200 mg PO DAILY [facility]CLUDE 234 BEDS AT [facility] Last Admin: 06/29/17 11:15 Dose: 1,200 mg Azithromycin (Zithromax 500mg Ivpb (Pre-Docked)) 250 mls @ 250 mls/hr IVPB DAILY [facility] 234 BEDS AT [facility] Last Admin: 06/29/17 11:17 Dose: 250 mls/hr Insulin Aspart (Novolog Vial Sliding Scale -) 1 vial SQ ACHS [facility]CLUDE 234 BEDS AT [facility] PRN Reason: Protocol Last Admin: 06/29/17 13:43 Dose: 2 units Levothyroxine Sodium (Synthroid -) 25 mcg PO AM [facility]CLUDE 234 BEDS AT [facility] Last Admin: 06/29/17 07:30 Dose: 25 mcg Methylprednisolone Sodium Succinate (Solu-Medrol -) 40 mg IVPUSH Q8H COUNTS INCLUDE 234 BEDS AT [facility] Potassium Chloride (Potassium Chloride Oral Liquid) 20 meq PO DAILY [facility] 234 BEDS AT [facility] Quetiapine Fumarate (Seroquel -) 50 mg PO HS [facility] 234 BEDS AT [facility] Tiotropium [place] (Spiriva -) 1 puff IH DAILY [facility] 234 BEDS AT [facility] Venlafaxine HCl (Effexor Xr -) 225 mg PO DAILY [facility] 234 BEDS AT [facility] Last Admin: 06/29/17 11:17 Dose: 225 mg Warfarin Sodium (Coumadin -) 5 mg PO DAILY@1800 [facility]S [facility]CLUDE 234 BEDS AT [facility] Laboratory Results - last 24 hr 06/29/17 06/29/17 06/29/17 00:17 00:17 00:20 WBC 8.9 D RBC 5.39 H Hgb 16.0 H D Hct 47.3 H MCV 87.7 MCH 29.7 MCHC 33.9 RDW 16.9 H D Plt Count 194 MPV 8.5 Neutrophils % 73.5 Lymphocytes % 13.2 D Monocytes % 12.5 H D Eosinophils % 0.2 D Basophils % 0.6 PT with INR INR Puncture Site ABG pH ABG pCO2 at Pt Temp ABG pO2 at Pt Temp ABG HCO3 ABG O2 Sat (Measured) ABG O2 Content ABG Base Excess Gian Test Carboxyhemoglobin Methemoglobin O2 Delivery Device Oxygen Flow Rate PEEP Sodium 138 Potassium 3.7 Chloride 96 L Carbon Dioxide 32 Anion Gap 10 BUN 13 D Creatinine 0.6 Creat Clearance w eGFR > 60 POC Glucometer Random Glucose 122 H D Lactic Acid 1.3 Calcium 7.8 L Phosphorus Magnesium 2.0 Total Bilirubin 0.6 D AST 16 ALT 20 Alkaline Phosphatase 128 H Creatine Kinase 31 Troponin I < 0.02 Total Protein 6.6 Albumin 3.4 06/29/17 06/29/17 06/29/17 05:00 08:00 08:00 WBC 7.9 RBC 5.25 H Hgb 15.5 H Hct 46.4 H MCV 88.3 MCH 29.6 MCHC 33.5 RDW 16.9 H Plt Count 209 MPV 8.9 Neutrophils % 87.7 H Lymphocytes % 9.3 D Monocytes % 2.5 L Eosinophils % 0.0 D Basophils % 0.5 PT with INR INR Puncture Site Right brachial ABG pH 7.33 L ABG pCO2 at Pt Temp 55.0 H ABG pO2 at Pt Temp 52.0 L ABG HCO3 28.0 H ABG O2 Sat (Measured) 85.7 L ABG O2 Content 17.9 ABG Base Excess 1.2 Gian Test Positive Carboxyhemoglobin 3.5 H Methemoglobin 0.5 O2 Delivery Device Nasal o2 Oxygen Flow Rate 2 lpm PEEP 0.0 Sodium 132 L Potassium 3.6 Chloride 93 L Carbon Dioxide 32 Anion Gap 7 L BUN 14 Creatinine 0.6 Creat Clearance w eGFR > 60 POC Glucometer Random Glucose 177 H D Lactic Acid Calcium 7.8 L Phosphorus 3.4 Magnesium 2.2 Total Bilirubin 0.9 D AST 19 ALT 22 Alkaline Phosphatase 133 H Creatine Kinase Troponin I Total Protein 6.6 Albumin 3.2 L 06/29/17 06/29/17 09:20 12:52 WBC RBC Hgb Hct MCV MCH MCHC RDW Plt Count MPV Neutrophils % Lymphocytes % Monocytes % Eosinophils % Basophils % PT with INR 24.20 H INR 2.14 H Puncture Site ABG pH ABG pCO2 at Pt Temp ABG pO2 at Pt Temp ABG HCO3 ABG O2 Sat (Measured) ABG O2 Content ABG Base Excess Gian Test Carboxyhemoglobin Methemoglobin O2 Delivery Device Oxygen Flow Rate PEEP Sodium Potassium Chloride Carbon Dioxide Anion Gap BUN Creatinine Creat Clearance w eGFR POC Glucometer 175 Random Glucose Lactic Acid Calcium Phosphorus Magnesium Total Bilirubin AST ALT Alkaline Phosphatase Creatine Kinase Troponin I Total Protein Albumin CXR reviewed EKG twi [id number] (present on prior records from 11/2016 and also in 2011 and 2013 per cardiology notes) ASSESSMENT AND PLAN: 67 yof with COPD intermittent home oxygen 2L (takes it post pneumonia), Afib on coumadin, admitted with COPD exaceration likely from URI illness. Acute hypoxic/hpyercarpneic respiratory failure Acute COPD exacerbation URI like illness vs atypical PNA Waldenstorm's syndrome HTN HLD ARNOLDO Plan: Solumedrol 40 mg IV q8h, standing nebs, taper oxygen as tolerated. No clinical or radiological concerns for pneumonia, d/c ceftriaxone. Azithromycin day 2, check procalcitonin. Pulmonary consult noted. Continue home lasix/diltiazem/coumadin, INR checks. Ambulatory oxygen saturations in 24 hours if continues to improve. Plan discussed with patient in detail, all questions answered.
[2017-06-29 15:25] VITALS: BMI 29.5
[2017-06-29] MEDS: POTASSIUM CHLORIDE ORAL LIQUID 20 MEQ/15 ML PO SCH (15:42)
[2017-06-29] MEDS: CHOLECALCIFEROL (VITAMIN D3) 400 UNIT TABLET (FP) PO SCH (16:45)
--- NOTE | 2017-06-29 17:36 | CONS ---
DATE OF CONSULTATION: 06/29/2017 REFERRING PHYSICIAN: The patient is a 67-year-old white female known to me from previous hospitalization as well as office followup. Past medical history of end COPD on home oxygen therapy 2 L; Waldenstrom's syndrome, non-Hodgkin's lymphoblastic lymphoma, asthma, COPD, atrial fibrillation on Coumadin, irritable bowel syndrome, diabetes, hyperlipidemia, hypertension, hypothyroidism, osteoarthritis, fibromyalgia, longstanding history of tobacco use, still smoking approximately 1 pack per day, admitted to [facility] on June 29 with fever at home, approximately 101.1, altered mental status, shortness of breath and cough productive of yellow sputum. Patient states for the past few days she has been very lethargic. Roommate noted she has been sleeping excessively. She started noticing increasing shortness of breath, cough, and fevers. Denied any chest pains or palpitations. She presented to the emergency room with the above. In the ER she was found to be in moderate respiratory distress. She was started on inhaled bronchodilators and steroids, antibiotics and transferred up to the medical floor for management. Patient was noted to be increasingly hypoxic on arrival, requiring 4-5 L nasal O2 which she usually requires 2 L. Of note, the patient is noncompliant. She does not take oxygen as directed, and she continues to smoke despite being advised on numerous occasions the severity of her pulmonary disease as well as increased risk of progressive respiratory failure. PAST MEDICAL HISTORY: Again includes Waldenstrom macroglobulinemia, non-Hodgkin 's lymphoblastic lymphoma, asthma, COPD, atrial fibrillation, irritable bowel syndrome, diabetes, fibromyalgia, osteoarthritis, hypothyroidism, hyperlipidemia, and hypertension. REVIEW OF SYSTEMS: Positive cough, positive shortness of breath, positive chest congestion, positive fever. No chills, no hemoptysis, no chest pain, no palpitations, no abdominal pain. CURRENT MEDICATIONS: Include Coumadin, Solu-Medrol, Cardizem, DuoNe, digoxin, Lasix, guaifenesin, gabapentin, insulin, Rocephin, budesonide, quetiapine fumarate, methylprednisolone, Synthroid, albuterol, cyanocobalamin, and Zithromax. PHYSICAL EXAMINATION: General: The patient is a well-developed, well-nourished female, awake, alert, mildly dyspneic but in no acute distress. Vital Signs: She is currently afebrile. Blood pressure is 111/68, respiratory rate is 18, O2 saturation is 94% on 4 L. HEENT: Head is normocephalic, atraumatic. Neck: Supple. Heart: Irregularly irregular, normal S1, S2. Lungs: Scattered bilateral wheezes, rhonchi. Abdomen: Soft. Bowel sounds are positive. Extremities: No cyanosis or edema. LABORATORY: Blood gas: pH 7.33, PCO2 of 55, a PO2 of 52, a bicarbonate of 28, and a saturation of 85.7, that was on 2 L. WBC 7.9, hemoglobin 15.5, hematocrit 46.4 , with a platelet count of 209,000. INR is 2.14. Chemistries: BUN 14, creatinine 0.6. Chest x-ray: Increased pulmonary markings. No acute infiltrates or effusions. IMPRESSION: 1. Acute on chronic hypoxemic hypercapnic respiratory failure secondary to decompensated chronic obstructive pulmonary disease. 2. End-stage chronic obstructive pulmonary disease on home oxygen therapy. 3. Likely upper respiratory infection, pneumonia. 4. History of non-Hodgkin lymphoblastic lymphoma. 5. History of Waldenstrom's. 6. Hypertension. 7. Hyperlipidemia. 8. Fibromyalgia. 9. Tobacco abuse. PLAN: IV steroids, inhaled bronchodilators, supplemental O2, antibiotic therapy. Obtain cultures, sputum for culture and sensitivity. Smoking cessation counseled. Obtain CT scan of chest. LETICIA MENDOZA M.D. GUNNAR/[id number] MTDD
[2017-06-29] MEDS ORDERED: FLU VACCINE QUAD 60 MCG/0.5 ML (MDV 17-18) IM ONE (18:00)
[2017-06-29] MEDS ORDERED: PT OWN MED DRAWER 7, Y5N ONE ×2 (18:49→19:56)
[2017-06-29] MEDS: BUDESONIDE/FORMETEROL FUMARATE 160/4.5 mcg INHALER IH SCH (22:04)
[2017-06-29] MEDS: WARFARIN NA 5 MG TABLET (UD) PO SCH (22:04)
[2017-06-29] MEDS: methylPREDNISolone NA SUCC 40 MG/1 ML VIAL IVPUSH SCH (22:05)
[2017-06-29] MEDS: ATORVASTATIN CA 20 MG TABLET (FP) PO SCH (22:06)
[2017-06-29] MEDS: QUEtiapine FUMARATE 50 MG TABLET PO SCH (22:08)
[2017-06-29] MEDS: MONTELUKAST NA 10 MG TABLET PO SCH (22:09)
[2017-06-30] MEDS: methylPREDNISolone NA SUCC 40 MG/1 ML VIAL IVPUSH SCH ×4 (02:42→22:03)
[2017-06-30] MEDS: FUROSEMIDE 40 MG TABLET (FP) PO SCH ×2 (06:36→15:33)
[2017-06-30] MEDS: INSULIN SLIDING SCALE (NOVOLOG) 1 VIAL SQ SCH ×4 (06:36→22:05)
[2017-06-30] MEDS: LEVOTHYROXINE NA 25 MCG TABLET (FP) PO SCH (06:38)
[2017-06-30 08:50] LABS: MCH 29.6 pg (25.7-33.7); MCHC 33.3 g/dl (32.0-36.0); MEAN CELL VOLUME 88.9 fl (80-96); MEAN PLT VOLUME 8.9 fl (7.5-11.1); PLATELET COUNT 219 K/MM3 (134-434); RDW 16.6 % (11.6-15.6); WHITE BLOOD COUNT 14.6 K/mm3 (4.0-10.0)
[2017-06-30 09:02] LABS: INR 2.37 (0.82-1.09); PROTHROMBIN TIME (PATIENT) 26.8 SEC (9.98-11.88)
[2017-06-30 09:22] LABS: ANION GAP 10 (8-16); CALCIUM 8.4 mg/dL (8.5-10.1); CO2 31 mmol/L (21-32); CREATININE 0.5 mg/dL (0.55-1.02); GLUCOSE,RANDOM 185 mg/dL (74-106)
[2017-06-30] MEDS ORDERED: PT OWN MED DRAWER 7, Y5N ONE ×2 (09:49→15:27)
[2017-06-30] MEDS: TIOTROPIUM BROMIDE 18 MCG/INH (DEVICE W/ 5 CAPSULES) IH SCH ×2 (09:59→10:00)
[2017-06-30] MEDS: BUDESONIDE/FORMETEROL FUMARATE 160/4.5 mcg INHALER IH SCH ×3 (09:59→22:03)
[2017-06-30] MEDS: CEFTRIAXONE 1 G/50 ML PREMIX 50 ML IVPB SCH (10:02)
[2017-06-30] MEDS: CYANOCOBALAMIN 1,000 MCG TABLET (FP) PO SCH (10:03)
[2017-06-30] MEDS: MULTIVITAMINS (DAILY MVI) TABLET (FP) PO SCH (10:03)
[2017-06-30] MEDS: POTASSIUM CHLORIDE ORAL LIQUID 20 MEQ/15 ML PO SCH (10:03)
[2017-06-30] MEDS: CYCLOBENZAPRINE HCL 10 MG TABLET (FP) PO SCH (10:04)
[2017-06-30] MEDS: GABAPENTIN 100 MG CAPSULE (FP) PO SCH ×2 (10:04→22:04)
[2017-06-30] MEDS: guaiFENesin 600 MG TABLET.ER (FP) PO SCH (10:05)
[2017-06-30] MEDS: DIGOXIN 0.25 MG TABLET (FP) PO SCH (10:05)
[2017-06-30] MEDS: VENLAFAXINE HCL 75 MG E.R. CAPSULES (FP) PO SCH (10:06)
[2017-06-30] MEDS ORDERED: INSULIN (NOVOLOG) ASPART 100 UNITS/ML 10ML VIAL ONE (11:42)
--- NOTE | 2017-06-30 11:54 | PN ---
Progress Note (short form) - Note Progress Note: Breathing feels better today, but at baseline. Still on 4 L NC (usually 2 L PRN at home according to patient) No CP. Intake & Output 06/27/17 06/28/17 06/29/17 06/30/17 23:59 23:59 23:59 23:59 Intake Total 1440 120 Balance 1440 120 Weight 170 lb 177 lb 3.2 oz Last Vital Signs Temp Pulse Resp BP Pulse Ox 98.5 F 80 20 107/75 95 06/30/17 10:00 06/30/17 10:05 06/30/17 10:00 06/30/17 10:00 06/29/17 20:48 Active Medications Albuterol Sulfate (Ventolin 0.083% Nebulizer Soln -) 1 amp NEB Q4H PRN PRN Reason: SHORT OF BREATH/WHEEZING Atorvastatin Calcium (Lipitor -) 20 mg PO HS [facility] Last Admin: 06/29/17 22:06 Dose: 20 mg Budesonide/Formoterol Fumarate (Symbicort 160/4.5mcg -) 2 puff IH BID [facility] Cholecalciferol (Vitamin D3 -) 2,000 unit PO DAILY [facility] Last Admin: 06/29/17 16:45 Dose: 2,000 unit Cyanocobalamin (Vitamin B12 -) 1,000 mcg PO DAILY [facility] Last Admin: 06/30/17 10:03 Dose: 1,000 mcg Cyclobenzaprine HCl (Flexeril -) 5 mg PO DAILY [facility] Last Admin: 06/30/17 10:04 Dose: 5 mg Digoxin (Lanoxin -) 0.25 mg PO DAILY [facility] Last Admin: 06/30/17 10:05 Dose: 0.25 mg Diltiazem HCl (Cardizem Cd -) 180 mg PO BID [facility] Last Admin: 06/30/17 10:03 Dose: 180 mg Furosemide (Lasix -) 80 mg PO BIDLASIX [facility] Last Admin: 06/30/17 06:36 Dose: 80 mg Gabapentin (Neurontin -) 200 mg PO BID [facility] Last Admin: 06/30/17 10:04 Dose: 200 mg Guaifenesin (Mucinex -) 1,200 mg PO DAILY [facility] Last Admin: 06/30/17 10:05 Dose: 1,200 mg Azithromycin (Zithromax 500mg Ivpb (Pre-Docked)) 250 mls @ 250 mls/hr IVPB DAILY [facility] Last Admin: 06/29/17 11:17 Dose: 250 mls/hr CEFTRIAXONE 1 G/50 ML PREMIX (Ceftriaxone 1 Gm-D5w Bag) 50 mls @ 100 mls/hr IVPB DAILY [facility] Last Admin: 06/30/17 10:02 Dose: 100 mls/hr Insulin Aspart (Novolog Vial Sliding Scale -) 1 vial SQ ACHS [facility] PRN Reason: Protocol Last Admin: 06/30/17 06:36 Dose: 2 units Levothyroxine Sodium (Synthroid -) 25 mcg PO AM [facility] Last Admin: 06/30/17 06:38 Dose: 25 mcg Methylprednisolone Sodium Succinate (Solu-Medrol -) 40 mg IVPUSH Q6H-IV [facility] Last Admin: 06/30/17 10:01 Dose: 40 mg Montelukast Sodium (Singulair -) 10 mg PO HS [facility] Last Admin: 06/29/17 22:09 Dose: 10 mg Multivitamins/Minerals/Vitamin C (Tab-A-Vit -) 1 tab PO DAILY [facility] Last Admin: 06/30/17 10:03 Dose: 1 tab Potassium Chloride (Potassium Chloride Oral Liquid) 20 meq PO DAILY [facility] Last Admin: 06/30/17 10:03 Dose: 20 meq Quetiapine Fumarate (Seroquel -) 50 mg PO HS [facility] Last Admin: 06/29/17 22:08 Dose: 50 mg Tiotropium [place] (Spiriva -) 1 puff IH DAILY [facility] Last Admin: 06/30/17 10:00 Dose: 1 puff Venlafaxine HCl (Effexor Xr -) 225 mg PO DAILY [facility] Last Admin: 06/30/17 10:06 Dose: 225 mg Warfarin Sodium (Coumadin -) 5 mg PO DAILY@1800 [facility] Last Admin: 06/29/17 22:04 Dose: 5 mg GENERAL: Awake, alert, and oriented, in no acute distress. HEAD: Normal with no signs of trauma. EYES: sclera anicteric, conjunctiva clear. EARS, NOSE, THROAT: Nasal cannular. Dry mucous membranes. NECK: supple LUNGS: Mild Scattered expiratory wheeze Left > right, rhonchi scattered bilaterally. HEART: Regular rate and rhythm, normal S1 and S2 without murmur, rub or gallop. ABDOMEN: Soft, nontender, not distended, normoactive bowel sounds,no palpable organs MUSCULOSKELETAL: Normal range of motion at all joints. No bony deformities or tenderness. No CVA tenderness. UPPER EXTREMITIES: 2+ pulses, warm, well-perfused. No cyanosis. No clubbing. No peripheral edema. LOWER EXTREMITIES: 2+ pulses, warm, well-perfused. No calf tenderness. No peripheral edema. NEUROLOGICAL: Symmetric face. Normal strength, tone and reflexes globally. Normal speech. PSYCHIATRIC: Cooperative. Good eye contact. SKIN: No peripheral cyanosis Laboratory Results - last 24 hr 06/29/17 06/29/17 06/29/17 12:52 16:46 22:03 WBC RBC Hgb Hct MCV MCH MCHC RDW Plt Count MPV PT with INR INR Sodium Potassium Chloride Carbon Dioxide Anion Gap BUN Creatinine POC Glucometer 175 298 238 Random Glucose Calcium 06/30/17 06/30/17 06/30/17 06:34 07:30 07:30 WBC 14.6 H D RBC 5.06 Hgb 15.0 Hct 45.0 MCV 88.9 MCH 29.6 MCHC 33.3 RDW 16.6 H Plt Count 219 MPV 8.9 PT with INR 26.80 H INR 2.37 H Sodium Potassium Chloride Carbon Dioxide Anion Gap BUN Creatinine POC Glucometer 190 Random Glucose Calcium 06/30/17 07:30 WBC RBC Hgb Hct MCV MCH MCHC RDW Plt Count MPV PT with INR INR Sodium 140 Potassium 4.0 Chloride 99 Carbon Dioxide 31 Anion Gap 10 BUN 23 H D Creatinine 0.5 L POC Glucometer Random Glucose 185 H Calcium 8.4 L Problem List - Problems (1) COPD exacerbation Code(s): J44.1 - CHRONIC OBSTRUCTIVE PULMONARY DISEASE W (ACUTE) EXACERBATION (2) Acute and chronic respiratory failure with hypoxia Code(s): J96.21 - ACUTE AND CHRONIC RESPIRATORY FAILURE WITH HYPOXIA (3) Atrial fibrillation Code(s): I48.91 - UNSPECIFIED ATRIAL FIBRILLATION (4) Hypoxia Code(s): R09.02 - HYPOXEMIA (5) Non Hodgkin's lymphoma Code(s): C85.90 - NON-HODGKIN LYMPHOMA, UNSPECIFIED, UNSPECIFIED SITE (6) Acute on chronic respiratory failure with hypoxia and hypercapnia Code(s): J96.21 - ACUTE AND CHRONIC RESPIRATORY FAILURE WITH HYPOXIA J96.22 - ACUTE AND CHRONIC RESPIRATORY FAILURE WITH HYPERCAPNIA IMP ACUTE ON CHRONIC HYPOXEMIC/HYPERCAPNEIC RESPIRATORY FAILURE COPD EXACERBATION LIKELY URI AFIB H/O NON-HODGKINS LYMPHOBLASTIC LYMPHOMA H/O WALDENSTROMS HTN HLD FIBROMYALGIA TOBACCO ABUSE MULTILOBAR PNA +/- COMPONENT OF CHRONIC CHANGE PLAN IV STEROIDS INHALED BRONCHODILATORS SUPPLEMENTAL O2 ANTIBIOTICS SPUTUM C+S DR SARABIA
--- NOTE | 2017-06-30 12:25 | PN ---
Teaching Attending Note Name of Resident: Arely Bolden SUBJECTIVE: Patient seen and examined, breathing improved, feels better, still on 4 L NC ( on home 2L prn) No new fevers/chills, cough or symptoms. OBJECTIVE: Vital Signs Period Temp Pulse Resp BP Sys/Card Pulse Ox Last 24 Hr 97.9 F-98.5 F 67-80 18-20 104-115/58-75 95-95 Intake & Output 06/27/17 06/28/17 06/29/17 06/30/17 23:59 23:59 23:59 23:59 Intake Total 1440 120 Balance 1440 120 Weight 170 lb 177 lb 3.2 oz General: sitting in bed in no acute distress CVS S1s2 regular Chest improved air entry, scattered rhonchi but improved Abdomen soft, non tender, ND, positive bowel sounds extre - no edema Current Medications Albuterol Sulfate (Ventolin 0.083% Nebulizer Soln -) 1 amp NEB Q4H PRN PRN Reason: SHORT OF BREATH/WHEEZING Atorvastatin Calcium (Lipitor -) 20 mg PO HS [facility] Last Admin: 06/29/17 22:06 Dose: 20 mg Budesonide/Formoterol Fumarate (Symbicort 160/4.5mcg -) 2 puff IH BID [facility] Cholecalciferol (Vitamin D3 -) 2,000 unit PO DAILY [facility] Last Admin: 06/29/17 16:45 Dose: 2,000 unit Cyanocobalamin (Vitamin B12 -) 1,000 mcg PO DAILY [facility] Last Admin: 06/30/17 10:03 Dose: 1,000 mcg Cyclobenzaprine HCl (Flexeril -) 5 mg PO DAILY [facility] Last Admin: 06/30/17 10:04 Dose: 5 mg Digoxin (Lanoxin -) 0.25 mg PO DAILY [facility] Last Admin: 06/30/17 10:05 Dose: 0.25 mg Diltiazem HCl (Cardizem Cd -) 180 mg PO BID [facility] Last Admin: 06/30/17 10:03 Dose: 180 mg Furosemide (Lasix -) 80 mg PO BIDLASIX [facility] Last Admin: 06/30/17 06:36 Dose: 80 mg Gabapentin (Neurontin -) 200 mg PO BID [facility] Last Admin: 06/30/17 10:04 Dose: 200 mg Guaifenesin (Mucinex -) 1,200 mg PO DAILY [facility] Last Admin: 06/30/17 10:05 Dose: 1,200 mg Azithromycin (Zithromax 500mg Ivpb (Pre-Docked)) 250 mls @ 250 mls/hr IVPB DAILY [facility] Last Admin: 06/29/17 11:17 Dose: 250 mls/hr CEFTRIAXONE 1 G/50 ML PREMIX (Ceftriaxone 1 Gm-D5w Bag) 50 mls @ 100 mls/hr IVPB DAILY [facility] Last Admin: 06/30/17 10:02 Dose: 100 mls/hr Insulin Aspart (Novolog Vial Sliding Scale -) 1 vial SQ ACHS [facility] PRN Reason: Protocol Last Admin: 06/30/17 11:58 Dose: 2 units Insulin Detemir (Levemir Vial) 5 units SQ HS [facility] Levothyroxine Sodium (Synthroid -) 25 mcg PO AM [facility] Last Admin: 06/30/17 06:38 Dose: 25 mcg Methylprednisolone Sodium Succinate (Solu-Medrol -) 40 mg IVPUSH Q8H [facility] Montelukast Sodium (Singulair -) 10 mg PO HS [facility] Last Admin: 06/29/17 22:09 Dose: 10 mg Multivitamins/Minerals/Vitamin C (Tab-A-Vit -) 1 tab PO DAILY [facility] Last Admin: 06/30/17 10:03 Dose: 1 tab Potassium Chloride (Potassium Chloride Oral Liquid) 20 meq PO DAILY [facility] Last Admin: 06/30/17 10:03 Dose: 20 meq Quetiapine Fumarate (Seroquel -) 50 mg PO HS [facility] Last Admin: 06/29/17 22:08 Dose: 50 mg Tiotropium [place] (Spiriva -) 1 puff IH DAILY [facility] Last Admin: 06/30/17 10:00 Dose: 1 puff Venlafaxine HCl (Effexor Xr -) 225 mg PO DAILY [facility] Last Admin: 06/30/17 10:06 Dose: 225 mg Warfarin Sodium (Coumadin -) 5 mg PO DAILY@1800 [facility] Last Admin: 06/29/17 22:04 Dose: 5 mg Laboratory Results - last 24 hr 06/29/17 06/29/17 06/29/17 12:52 16:46 22:03 WBC RBC Hgb Hct MCV MCH MCHC RDW Plt Count MPV PT with INR INR Sodium Potassium Chloride Carbon Dioxide Anion Gap BUN Creatinine POC Glucometer 175 298 238 Random Glucose Calcium 06/30/17 06/30/17 06/30/17 06:34 07:30 07:30 WBC 14.6 H D RBC 5.06 Hgb 15.0 Hct 45.0 MCV 88.9 MCH 29.6 MCHC 33.3 RDW 16.6 H Plt Count 219 MPV 8.9 PT with INR 26.80 H INR 2.37 H Sodium Potassium Chloride Carbon Dioxide Anion Gap BUN Creatinine POC Glucometer 190 Random Glucose Calcium 06/30/17 06/30/17 07:30 11:57 WBC RBC Hgb Hct MCV MCH MCHC RDW Plt Count MPV PT with INR INR Sodium 140 Potassium 4.0 Chloride 99 Carbon Dioxide 31 Anion Gap 10 BUN 23 H D Creatinine 0.5 L POC Glucometer 208 Random Glucose 185 H Calcium 8.4 L ASSESSMENT AND PLAN: 67 yof with COPD intermittent home oxygen 2L (takes it post pneumonia), Afib on coumadin, admitted with COPD exaceration likely from URI illness. Acute hypoxic/hpyercarpneic respiratory failure Acute COPD exacerbation URI like illness vs atypical PNA Waldenstorm's syndrome HTN HLD ARNOLDO DM, now with steroid induced hyperglycemia Plan: Pulmonary input appreciated, CT chest reviewed. Ceftriaxone/azithromycin day 2, sputum cultures. Check urine legionella antigen. Slow solumedrol taper, decrease to 40 mg IV q8h, nebs, oxygen supplementation. While holding metformin, add low dose levemir 5 units hs. ISS, diabetic diet. Continue home lasix/diltiazem/coumadin, INR checks. Ambulatory oxygen saturations in 24 hours if continues to improve. Plan discussed with patient in detail, all questions answered.
[2017-06-30] MEDS: AZITHROMYCIN IVPB 250 ML IVPB SCH (15:32)
[2017-06-30] MEDS: CHOLECALCIFEROL (VITAMIN D3) 400 UNIT TABLET (FP) PO SCH (15:32)
[2017-06-30] MEDS: AZITHROMYCIN IVPB 500 MG in DEXTROSE 5%-WATER - 250 ML IVPB SCH (15:33)
[2017-06-30] MEDS: WARFARIN NA 5 MG TABLET (UD) PO SCH (17:41)
[2017-06-30] MEDS: QUEtiapine FUMARATE 50 MG TABLET PO SCH (22:04)
[2017-06-30] MEDS: MONTELUKAST NA 10 MG TABLET PO SCH (22:04)
[2017-06-30] MEDS: ATORVASTATIN CA 20 MG TABLET (FP) PO SCH (22:04)
[2017-06-30] MEDS: INSULIN DETEMIR 100 UNITS/ML MDV SQ SCH (22:05)
[2017-07-01] MEDS: methylPREDNISolone NA SUCC 40 MG/1 ML VIAL IVPUSH SCH ×3 (06:37→23:21)
[2017-07-01] MEDS: INSULIN SLIDING SCALE (NOVOLOG) 1 VIAL SQ SCH ×4 (06:38→21:19)
[2017-07-01] MEDS: FUROSEMIDE 40 MG TABLET (FP) PO SCH ×2 (06:38→14:59)
[2017-07-01] MEDS: LEVOTHYROXINE NA 25 MCG TABLET (FP) PO SCH (06:38)
[2017-07-01] MEDS ORDERED: PT OWN MED DRAWER 7, Y5N ONE (11:00)
[2017-07-01] MEDS: BUDESONIDE/FORMETEROL FUMARATE 160/4.5 mcg INHALER IH SCH ×2 (11:03→21:19)
[2017-07-01] MEDS: POTASSIUM CHLORIDE ORAL LIQUID 20 MEQ/15 ML PO SCH (11:04)
[2017-07-01] MEDS: guaiFENesin 600 MG TABLET.ER (FP) PO SCH (11:04)
[2017-07-01] MEDS: GABAPENTIN 100 MG CAPSULE (FP) PO SCH ×2 (11:04→21:19)
[2017-07-01] MEDS: MULTIVITAMINS (DAILY MVI) TABLET (FP) PO SCH (11:04)
[2017-07-01] MEDS: CHOLECALCIFEROL (VITAMIN D3) 1,000 UNIT TABLET (FP) PO SCH (11:04)
[2017-07-01] MEDS: CYCLOBENZAPRINE HCL 10 MG TABLET (FP) PO SCH (11:05)
[2017-07-01] MEDS: CYANOCOBALAMIN 1,000 MCG TABLET (FP) PO SCH (11:05)
[2017-07-01] MEDS: CEFTRIAXONE 1 G/50 ML PREMIX 50 ML IVPB SCH (11:05)
[2017-07-01] MEDS: TIOTROPIUM BROMIDE 18 MCG/INH (DEVICE W/ 5 CAPSULES) IH SCH (11:05)
[2017-07-01] MEDS: VENLAFAXINE HCL 75 MG E.R. CAPSULES (FP) PO SCH (11:07)
[2017-07-01] MEDS: DIGOXIN 0.25 MG TABLET (FP) PO SCH (11:07)
--- NOTE | 2017-07-01 11:41 | PN ---
Progress Note (short form) - Note Progress Note: Breathing feels better today, O2 down to 2 L NC. No CP. Intake & Output 06/28/17 06/29/17 06/30/17 07/01/17 23:59 23:59 23:59 23:59 Intake Total 1440 1835 200 Balance 1440 1835 200 Weight 170 lb 177 lb 3.2 oz 181 lb 8 oz Last Vital Signs Temp Pulse Resp BP Pulse Ox 98.2 F 82 18 106/60 95 07/01/17 06:00 07/01/17 11:07 07/01/17 06:00 07/01/17 06:00 06/30/17 22:00 Active Medications Albuterol Sulfate (Ventolin 0.083% Nebulizer Soln -) 1 amp NEB Q4H PRN PRN Reason: SHORT OF BREATH/WHEEZING Atorvastatin Calcium (Lipitor -) 20 mg PO HS [facility] Last Admin: 06/30/17 22:04 Dose: 20 mg Budesonide/Formoterol Fumarate (Symbicort 160/4.5mcg -) 2 puff IH BID [facility] Last Admin: 07/01/17 11:03 Dose: 2 puff Cholecalciferol (Vitamin D3 -) 2,000 unit PO DAILY [facility] Last Admin: 07/01/17 11:04 Dose: 2,000 unit Cyanocobalamin (Vitamin B12 -) 1,000 mcg PO DAILY [facility] Last Admin: 07/01/17 11:05 Dose: 1,000 mcg Cyclobenzaprine HCl (Flexeril -) 5 mg PO DAILY [facility] Last Admin: 07/01/17 11:05 Dose: 5 mg Digoxin (Lanoxin -) 0.25 mg PO DAILY [facility] Last Admin: 07/01/17 11:07 Dose: 0.25 mg Diltiazem HCl (Cardizem Cd -) 180 mg PO BID [facility] Last Admin: 07/01/17 11:04 Dose: 180 mg Furosemide (Lasix -) 80 mg PO BIDLASIX [facility] Last Admin: 07/01/17 06:38 Dose: 80 mg Gabapentin (Neurontin -) 200 mg PO BID [facility] Last Admin: 07/01/17 11:04 Dose: 200 mg Guaifenesin (Mucinex -) 1,200 mg PO DAILY [facility] Last Admin: 07/01/17 11:04 Dose: 1,200 mg CEFTRIAXONE 1 G/50 ML PREMIX (Ceftriaxone 1 Gm-D5w Bag) 50 mls @ 100 mls/hr IVPB DAILY [facility] Last Admin: 07/01/17 11:05 Dose: 100 mls/hr Azithromycin 500 mg/ Dextrose 250 mls @ 250 mls/hr IVPB DAILY [facility] Last Admin: 06/30/17 15:33 Dose: 250 mls/hr Insulin Aspart (Novolog Vial Sliding Scale -) 1 vial SQ ACHS [facility] PRN Reason: Protocol Last Admin: 07/01/17 06:38 Dose: 4 units Insulin Detemir (Levemir Vial) 5 units SQ HS [facility] Last Admin: 06/30/17 22:05 Dose: 5 units Levothyroxine Sodium (Synthroid -) 25 mcg PO AM [facility] Last Admin: 07/01/17 06:38 Dose: 25 mcg Methylprednisolone Sodium Succinate (Solu-Medrol -) 40 mg IVPUSH TID [facility] Last Admin: 07/01/17 06:37 Dose: 40 mg Montelukast Sodium (Singulair -) 10 mg PO HS [facility] Last Admin: 06/30/17 22:04 Dose: 10 mg Multivitamins/Minerals/Vitamin C (Tab-A-Vit -) 1 tab PO DAILY [facility] Last Admin: 07/01/17 11:04 Dose: 1 tab Potassium Chloride (Potassium Chloride Oral Liquid) 20 meq PO DAILY [facility] Last Admin: 07/01/17 11:04 Dose: 20 meq Quetiapine Fumarate (Seroquel -) 50 mg PO HS [facility] Last Admin: 06/30/17 22:04 Dose: 50 mg Tiotropium [place] (Spiriva -) 1 puff IH DAILY [facility] Last Admin: 07/01/17 11:05 Dose: 1 puff Venlafaxine HCl (Effexor Xr -) 225 mg PO DAILY [facility] Last Admin: 07/01/17 11:07 Dose: 225 mg Warfarin Sodium (Coumadin -) 5 mg PO DAILY@1800 [facility] Last Admin: 06/30/17 17:41 Dose: 5 mg GENERAL: Awake, alert, and oriented, in no acute distress. HEAD: Normal with no signs of trauma. EYES: sclera anicteric, conjunctiva clear. EARS, NOSE, THROAT: Nasal cannular. Dry mucous membranes. NECK: supple LUNGS: Less mild Scattered expiratory wheeze Left > right, rhonchi scattered bilaterally. HEART: Regular rate and rhythm, normal S1 and S2 without murmur, rub or gallop. ABDOMEN: Soft, nontender, not distended, normoactive bowel sounds,no palpable organs MUSCULOSKELETAL: Normal range of motion at all joints. No bony deformities or tenderness. No CVA tenderness. UPPER EXTREMITIES: 2+ pulses, warm, well-perfused. No cyanosis. No clubbing. No peripheral edema. LOWER EXTREMITIES: 2+ pulses, warm, well-perfused. No calf tenderness. No peripheral edema. NEUROLOGICAL: Symmetric face. Normal strength, tone and reflexes globally. Normal speech. PSYCHIATRIC: Cooperative. Good eye contact. SKIN: No peripheral cyanosis Laboratory Results - last 24 hr 06/29/17 06/30/17 06/30/17 07:38 11:57 17:29 POC Glucometer [id number] 208 199 Hemoglobin A1c % 06/30/17 07/01/17 07/01/17 22:02 06:35 07:00 POC Glucometer 347 205 Hemoglobin A1c % 6.4 H D Problem List - Problems (1) COPD exacerbation Code(s): J44.1 - CHRONIC OBSTRUCTIVE PULMONARY DISEASE W (ACUTE) EXACERBATION (2) Acute and chronic respiratory failure with hypoxia Code(s): J96.21 - ACUTE AND CHRONIC RESPIRATORY FAILURE WITH HYPOXIA (3) Atrial fibrillation Code(s): I48.91 - UNSPECIFIED ATRIAL FIBRILLATION (4) Hypoxia Code(s): R09.02 - HYPOXEMIA (5) Non Hodgkin's lymphoma Code(s): C85.90 - NON-HODGKIN LYMPHOMA, UNSPECIFIED, UNSPECIFIED SITE (6) Acute on chronic respiratory failure with hypoxia and hypercapnia Code(s): J96.21 - ACUTE AND CHRONIC RESPIRATORY FAILURE WITH HYPOXIA J96.22 - ACUTE AND CHRONIC RESPIRATORY FAILURE WITH HYPERCAPNIA IMP ACUTE ON CHRONIC HYPOXEMIC/HYPERCAPNEIC RESPIRATORY FAILURE COPD EXACERBATION LIKELY URI AFIB H/O NON-HODGKINS LYMPHOBLASTIC LYMPHOMA H/O WALDENSTROMS HTN HLD FIBROMYALGIA TOBACCO ABUSE MULTILOBAR PNA +/- COMPONENT OF CHRONIC CHANGE PLAN IV STEROIDS INHALED BRONCHODILATORS SUPPLEMENTAL O2 ANTIBIOTICS DR SARABIA
[2017-07-01 13:03] LABS: MCH 28.9 pg (25.7-33.7); MCHC 32.7 g/dl (32.0-36.0); MEAN CELL VOLUME 88.2 fl (80-96); MEAN PLT VOLUME 8.8 fl (7.5-11.1); PLATELET COUNT 250 K/MM3 (134-434); WHITE BLOOD COUNT 20.3 K/mm3 (4.0-10.0)
[2017-07-01] MEDS: AZITHROMYCIN IVPB 500 MG in DEXTROSE 5%-WATER - 250 ML IVPB SCH (13:21)
[2017-07-01 13:34] LABS: ALBUMIN 3.5 g/dl (3.4-5.0); ANION GAP 8 (8-16); BILIRUBIN,TOTAL 0.6 mg/dL (0.2-1.0); CALCIUM 8.4 mg/dL (8.5-10.1); CO2 32 mmol/L (21-32); CREATININE 0.7 mg/dL (0.55-1.02); GLUCOSE,RANDOM 227 mg/dL (74-106); SGOT/AST 41 U/L (15-37); SGPT/ALT 63 U/L (12-78)
[2017-07-01 13:35] LABS: ALK PHOS 152 U/L (45-117)
--- NOTE | 2017-07-01 14:33 | PN ---
Teaching Attending Note Name of Resident: Arely Bolden ATTENDING PHYSICIAN STATEMENT SUBJECTIVE: Patient seen and examined. breathing improved, overall feels better, but unable to bring up cough. OBJECTIVE: Vital Signs Period Temp Pulse Resp BP Sys/Card Pulse Ox Last 24 Hr 97.9 F-98.5 F 65-82 18-22 106-123/60-73 95 Intake & Output 06/28/17 06/29/17 06/30/17 07/01/17 23:59 23:59 23:59 23:59 Intake Total 1440 1835 545 Balance 1440 1835 545 Weight 170 lb 177 lb 3.2 oz 181 lb 8 oz General: sitting in bed in no acute distress CVS S1S2 regular Chest markedly improved air entry bilaterally, occasional rhonchi Abdomen soft, NT, ND, positive bowel sounds extremities no edema Current Medications Albuterol Sulfate (Ventolin 0.083% Nebulizer Soln -) 1 amp NEB Q4H PRN PRN Reason: SHORT OF BREATH/WHEEZING Albuterol/Ipratropium (Duoneb -) 1 amp NEB QIDR [facility] Atorvastatin Calcium (Lipitor -) 20 mg PO HS [facility]S [facility] Last Admin: 06/30/17 22:04 Dose: 20 mg Budesonide/Formoterol Fumarate (Symbicort 160/4.5mcg -) 2 puff IH BID [facility] B[facility]S [facility] Last Admin: 07/01/17 11:03 Dose: 2 puff Cholecalciferol (Vitamin D3 -) 2,000 unit PO DAILY [facility] 234 B[facility]S [facility] Last Admin: 07/01/17 11:04 Dose: 2,000 unit Cyanocobalamin (Vitamin B12 -) 1,000 mcg PO DAILY [facility] 234 B[facility]S [facility] Last Admin: 07/01/17 11:05 Dose: 1,000 mcg Cyclobenzaprine HCl (Flexeril -) 5 mg PO DAILY [facility] 234 B[facility]S [facility] Last Admin: 07/01/17 11:05 Dose: 5 mg Digoxin (Lanoxin -) 0.25 mg PO DAILY [facility] B[facility]S [facility] Last Admin: 07/01/17 11:07 Dose: 0.25 mg Diltiazem HCl (Cardizem Cd -) 180 mg PO BID [facility] 234 B[facility]S [facility] Last Admin: 07/01/17 11:04 Dose: 180 mg Furosemide (Lasix -) 80 mg PO BIDLASIX [facility] 234 BEDS [facility] Last Admin: 07/01/17 06:38 Dose: 80 mg Gabapentin (Neurontin -) 200 mg PO BID [facility] 234 B[facility]S [facility] Last Admin: 07/01/17 11:04 Dose: 200 mg Guaifenesin (Mucinex -) 1,200 mg PO DAILY [facility] 234 B[facility]S [facility] Last Admin: 07/01/17 11:04 Dose: 1,200 mg CEFTRIAXONE 1 G/50 ML PREMIX (Ceftriaxone 1 Gm-D5w Bag) 50 mls @ 100 mls/hr IVPB DAILY [facility] 234 B[facility]S [facility] Last Admin: 07/01/17 11:05 Dose: 100 mls/hr Azithromycin 500 mg/ Dextrose 250 mls @ 250 mls/hr IVPB DAILY [facility] 234 B[facility]S [facility] Last Admin: 07/01/17 13:21 Dose: 250 mls/hr Insulin Aspart (Novolog Vial Sliding Scale -) 1 vial SQ ACHS [facility] 234 B[facility]S [facility] PRN Reason: Protocol Last Admin: 07/01/17 13:21 Dose: 4 units Insulin Detemir (Levemir Vial) 5 units SQ HS [facility] 234 BEDS [facility] Last Admin: 06/30/17 22:05 Dose: 5 units Levothyroxine Sodium (Synthroid -) 25 mcg PO AM [facility] 234 B[facility]S [facility] Last Admin: 07/01/17 06:38 Dose: 25 mcg Methylprednisolone Sodium Succinate (Solu-Medrol -) 40 mg IVPUSH TID [facility] 234 BEDS [facility] Last Admin: 07/01/17 06:37 Dose: 40 mg Montelukast Sodium (Singulair -) 10 mg PO HS [facility] 234 B[facility]S [facility] Last Admin: 06/30/17 22:04 Dose: 10 mg Multivitamins/Minerals/Vitamin C (Tab-A-Vit -) 1 tab PO DAILY [facility] 234 B[facility]S [facility] Last Admin: 07/01/17 11:04 Dose: 1 tab Potassium Chloride (Potassium Chloride Oral Liquid) 20 meq PO DAILY [facility] 234 B[facility]S [facility] Last Admin: 07/01/17 11:04 Dose: 20 meq Quetiapine Fumarate (Seroquel -) 50 mg PO HS [facility] 234 BEDS [facility] Last Admin: 06/30/17 22:04 Dose: 50 mg Tiotropium [place] (Spiriva -) 1 puff IH DAILY [facility] 234 BEDS [facility] Last Admin: 07/01/17 11:05 Dose: 1 puff Venlafaxine HCl (Effexor Xr -) 225 mg PO DAILY [facility] 234 BEDS [facility] Last Admin: 07/01/17 11:07 Dose: 225 mg Warfarin Sodium (Coumadin -) 5 mg PO DAILY@1800 [facility] 234 BEDS [facility] Last Admin: 06/30/17 17:41 Dose: 5 mg Laboratory Results - last 24 hr 06/29/17 06/30/1717 07:38 17:29 22:02 WBC RBC Hgb Hct MCV MCH MCHC RDW Plt Count MPV Total Counted Neutrophils % Neutrophils % (Manual) Band Neuts % (Manual) Lymphocytes % Lymphocytes % (Manual) Monocytes % (Manual) Platelet Estimate Sodium Potassium Chloride Carbon Dioxide Anion Gap BUN Creatinine Creat Clearance w eGFR POC Glucometer 251.09078 199 347 Random Glucose Hemoglobin A1c % Calcium Total Bilirubin AST ALT Alkaline Phosphatase Total Protein Albumin 07/01/17 07/01/17 07/01/17 06:35 07:00 12:19 WBC RBC Hgb Hct MCV MCH MCHC RDW Plt Count MPV Total Counted Neutrophils % Neutrophils % (Manual) Band Neuts % (Manual) Lymphocytes % Lymphocytes % (Manual) Monocytes % (Manual) Platelet Estimate Sodium Potassium Chloride Carbon Dioxide Anion Gap BUN Creatinine Creat Clearance w eGFR POC Glucometer 205 229 Random Glucose Hemoglobin A1c % 6.4 H D Calcium Total Bilirubin AST ALT Alkaline Phosphatase Total Protein Albumin 07/01/17 07/01/17 12:40 12:40 WBC 20.3 H D RBC 5.07 Hgb 14.6 Hct 44.7 MCV 88.2 MCH 28.9 MCHC 32.7 RDW 17.0 H Plt Count 250 MPV 8.8 Total Counted 100 Neutrophils % No Result Required. Neutrophils % (Manual) 79 Band Neuts % (Manual) 9 Lymphocytes % No Result Required. Lymphocytes % (Manual) 7 L Monocytes % (Manual) 5 Platelet Estimate Adequate Sodium 133 L Potassium 4.7 Chloride 93 L Carbon Dioxide 32 Anion Gap 8 BUN 25 H Creatinine 0.7 D Creat Clearance w eGFR > 60 POC Glucometer Random Glucose 227 H D Hemoglobin A1c % Calcium 8.4 L Total Bilirubin 0.6 D AST 41 H D ALT 63 D Alkaline Phosphatase 152 H Total Protein 7.0 Albumin 3.5 ASSESSMENT AND PLAN: 67 yof with COPD intermittent home oxygen 2L (takes it post pneumonia), Afib on coumadin, admitted with COPD exaceration likely from URI illness. Acute hypoxic/hpyercarpneic respiratory failure Acute COPD exacerbation RUL/RML community acquired PNA. URI like illness Waldenstorm's syndrome HTN HLD ARNOLDO DM, now with steroid induced hyperglycemia Leucocytosis, likely steroid induced margination Plan: Pulmonary input appreciated, CT chest reviewed. Ceftriaxone/azithromycin day 3, Follow up sputum cultures, urine legionella antigen. Slow solumedrol taper, continue 40 mg IV q8h, nebs, oxygen supplementation. Place standing duonebs. Currently 92% on 2L NC at rest. While holding metformin, increase levemir to 10 units hs. ISS, diabetic diet. Continue home lasix/diltiazem/coumadin, INR checks. Ambulatory oxygen saturations in 24 hours if continues to improve. Plan discussed with patient in detail, all questions answered.
[2017-07-01 14:42] LABS: PLATELET ESTIMATE ADEQUATE (NORMAL); TOTAL CELLS COUNTED 100
[2017-07-01 16:36] LABS: INR 3.36 (0.82-1.09)
[2017-07-01] MEDS: ALBUTEROL SO4 2.5/IPRATROPIUM 0.5 INH SOL 3 ML VIAL.NEB. NEB SCH ×2 (17:57→23:24)
[2017-07-01] MEDS: WARFARIN NA 5 MG TABLET (UD) PO SCH (18:23)
[2017-07-01] MEDS: INSULIN DETEMIR 100 UNITS/ML MDV SQ SCH (21:19)
[2017-07-01] MEDS: ATORVASTATIN CA 20 MG TABLET (FP) PO SCH (21:19)
[2017-07-01] MEDS: QUEtiapine FUMARATE 50 MG TABLET PO SCH (21:19)
[2017-07-01] MEDS: MONTELUKAST NA 10 MG TABLET PO SCH (21:20)
[2017-07-02] MEDS: methylPREDNISolone NA SUCC 40 MG/1 ML VIAL IVPUSH SCH ×2 (06:33→23:21)
[2017-07-02] MEDS: FUROSEMIDE 40 MG TABLET (FP) PO SCH ×2 (06:33→14:07)
[2017-07-02] MEDS: LEVOTHYROXINE NA 25 MCG TABLET (FP) PO SCH (06:33)
[2017-07-02] MEDS: INSULIN SLIDING SCALE (NOVOLOG) 1 VIAL SQ SCH ×4 (06:35→23:10)
[2017-07-02] MEDS: ALBUTEROL SO4 2.5/IPRATROPIUM 0.5 INH SOL 3 ML VIAL.NEB. NEB SCH ×5 (06:49→23:09)
--- NOTE | 2017-07-02 08:03 | PN ---
Physical Exam: SUBJECTIVE: Patient seen and examined. Feel her breathing is improved. Continues to have non-productive cough and wheezing. Denies fever, chills, n/v. No chest pain. OBJECTIVE: Vital Signs Period Temp Pulse Resp BP Sys/Card Pulse Ox Last 24 Hr 97.9 F-98.8 F 69-82 18-22 109-120/60-91 95-95 Intake & Output 06/29/17 06/30/17 07/01/17 07/02/17 23:59 23:59 23:59 23:59 Intake Total 1440 1835 1730 850 Balance 1440 1835 1730 850 Weight 80.377 kg 82.327 kg 80.966 kg GENERAL: sitting in bed, nad, speaking in full sentences w/o dyspnea EYES:sclera anicteric, conjunctiva clear LUNGS: b/l scattered rhonchi, b/l expiratory wheezing HEART: RRR, normal S1/S2, no murmur, rub or gallop appreciated ABDOMEN: Soft, ntnd LOWER EXTREMITIES: 2+ pulses, wwp, no edema CBC, BMP 07/02/17 13:00 07/02/17 12:45 INR, PTT INR 2.68 (0.82-1.09) H 07/02/17 08:20 Microbiology 06/30/17 16:25 Sputum - Expectorated Gram Stain - Final (rare GP cocci in clusters, no PMNs) 06/30/17 16:25 Sputum - Expectorated Sputum Culture - Preliminary NORMAL RESPIRATORY LORENZA 06/29/17 00:20 Blood - Peripheral Venous Blood Culture - Preliminary NO GROWTH OBTAINED AFTER 72 HOURS, INCUBATION TO CONTINUE FOR 2 DAYS. 06/30/17 22:22 Urine - Urine Clean Catch Legionella Antigen - Final - NEG 06/30/17 22:22 Urine - Urine Clean Catch Streptococcus pneumoniae Antigen ( M - Final NEG 06/29/17 06:30 Urine - Urine Clean Catch Urine Culture - Final NEG 06/29/17 00:05 Nasopharyngeal Washes Influenza Types A,B Antigen (WALDEMAR) - Final NEG Active Medications Albuterol Sulfate (Ventolin 0.083% Nebulizer Soln -) 1 amp NEB Q4H PRN PRN Reason: SHORT OF BREATH/WHEEZING Last Admin: 07/01/17 21:04 Dose: 1 amp Albuterol/Ipratropium (Duoneb -) 1 amp NEB QIDR [facility] Last Admin: 07/02/17 17:11 Dose: 1 amp Atorvastatin Calcium (Lipitor -) 20 mg PO HS [facility] Last Admin: 07/01/17 21:19 Dose: 20 mg Budesonide/Formoterol Fumarate (Symbicort 160/4.5mcg -) 2 puff IH BID [facility] Last Admin: 07/02/17 10:24 Dose: 2 puff Cholecalciferol (Vitamin D3 -) 2,000 unit PO DAILY [facility] Last Admin: 07/02/17 10:31 Dose: 2,000 unit Cyanocobalamin (Vitamin B12 -) 1,000 mcg PO DAILY [facility] Last Admin: 07/02/17 10:30 Dose: 1,000 mcg Cyclobenzaprine HCl (Flexeril -) 5 mg PO DAILY [facility] Last Admin: 07/02/17 10:30 Dose: 5 mg Digoxin (Lanoxin -) 0.25 mg PO DAILY [facility] Last Admin: 07/02/17 10:30 Dose: 0.25 mg Diltiazem HCl (Cardizem Cd -) 180 mg PO BID [facility] Last Admin: 07/02/17 10:31 Dose: 180 mg Furosemide (Lasix -) 80 mg PO BIDLASIX [facility] Last Admin: 07/02/17 14:07 Dose: 80 mg Gabapentin (Neurontin -) 200 mg PO BID [facility] Last Admin: 07/02/17 10:31 Dose: 200 mg Glimepiride (Amaryl -) 1 mg PO DAILY@0700 [facility] Last Admin: 07/02/17 14:07 Dose: 1 mg Guaifenesin (Mucinex -) 1,200 mg PO DAILY [facility] Last Admin: 07/02/17 10:30 Dose: 1,200 mg Azithromycin 500 mg/ Dextrose 250 mls @ 250 mls/hr IVPB DAILY [facility] Last Admin: 07/02/17 11:47 Dose: 250 mls/hr CEFTRIAXONE 1 G/50 ML PREMIX (Ceftriaxone 1 Gm-D5w Bag) 50 mls @ 100 mls/hr IVPB DAILY [facility] Last Admin: 07/02/17 10:32 Dose: 100 mls/hr Insulin Aspart (Novolog Vial Sliding Scale -) 1 vial SQ ACHS [facility] PRN Reason: Protocol Last Admin: 07/02/17 16:37 Dose: 6 units Levothyroxine Sodium (Synthroid -) 25 mcg PO AM [facility] Last Admin: 07/02/17 06:33 Dose: 25 mcg Methylprednisolone Sodium Succinate (Solu-Medrol -) 40 mg IVPUSH BID [facility] Montelukast Sodium (Singulair -) 10 mg PO HS [facility] Last Admin: 07/01/17 21:20 Dose: 10 mg Multivitamins/Minerals/Vitamin C (Tab-A-Vit -) 1 tab PO DAILY [facility] Last Admin: 07/02/17 10:31 Dose: 1 tab Pantoprazole Sodium (Protonix -) 40 mg PO DAILY [facility] Last Admin: 07/02/17 17:25 Dose: 40 mg Potassium Chloride (Potassium Chloride Oral Liquid) 20 meq PO DAILY [facility] Last Admin: 07/02/17 10:31 Dose: 20 meq Quetiapine Fumarate (Seroquel -) 50 mg PO HS [facility] Last Admin: 07/01/17 21:19 Dose: 50 mg Tiotropium [place] (Spiriva -) 1 puff IH DAILY [facility] Last Admin: 07/02/17 10:25 Dose: 1 puff Venlafaxine HCl (Effexor Xr -) 225 mg PO DAILY [facility] Last Admin: 07/02/17 10:31 Dose: 225 mg Warfarin Sodium (Coumadin -) 5 mg PO DAILY@1800 [facility] Last Admin: 07/02/17 17:24 Dose: 5 mg ASSESSMENT/PLAN: 67yo woman, active smoker, with PMH of COPD (on 2L home O2, non-compliant), afib (on Coumadin), NHL (Waldrenstrom's), HTN, HLD, and fibromyalgia presents presents with acute hypoxic hypercapneic respiratory failure likely from COPD exacerbation in setting of URI. #acute hypoxic/hypercapneic respiratory failure -Pulm consulted -O2 therapy as needed to maintain pSaO2 >90% -Steroid Taper, solumedrol 40mg IV q8h -> q12 -Continue bronchodilator therapy: Spiriva 1 puff daily, Symbicort 2 puff BID, Duo nebs q8H STD, Albuterol nebs q4h PRN -Continue Ceftriaxone 1gm IV daily and Azithromycin 500mg IV daily (Day 4) -f/u Sputum culture (infectious w/u Legionella Ag and Influenza neg) #Afib -Resume Coumadin 5mg PO daily (held yesterday, INR supratherapeutic) -continue dilt -Daily INR checks #HTN/CHF -continue lasix 80mg PO BID #DM -Resume home glimepiride 1mg PO daily; hold metformin -ISS and BGM ACHS #HLD -Cont home lipitor #hypothyroid -cont synthroid 25mcg daily #depression -cont seroquel and venlafaxine #fibromyalgia -cont gabapentin #FEN -no IVFs/lytes wnl/Diabetic/Na controlled diet #PPX -DVT - on coumadin -GI - protonix #dispo: continue monitoring on floors FULL code d/w Dr. Kimi Johnson MD PGY-1 Visit type - Emergency Visit Emergency Visit: No - New Patient This patient is new to me today: No - Critical Care Critical Care patient: No
[2017-07-02 08:54] LABS: INR 2.68 (0.82-1.09); PROTHROMBIN TIME (PATIENT) 30.3 SEC (9.98-11.88)
[2017-07-02] MEDS: BUDESONIDE/FORMETEROL FUMARATE 160/4.5 mcg INHALER IH SCH ×2 (10:24→23:07)
[2017-07-02] MEDS: TIOTROPIUM BROMIDE 18 MCG/INH (DEVICE W/ 5 CAPSULES) IH SCH (10:25)
[2017-07-02] MEDS: guaiFENesin 600 MG TABLET.ER (FP) PO SCH (10:30)
[2017-07-02] MEDS: CYCLOBENZAPRINE HCL 10 MG TABLET (FP) PO SCH (10:30)
[2017-07-02] MEDS: CYANOCOBALAMIN 1,000 MCG TABLET (FP) PO SCH (10:30)
[2017-07-02] MEDS: DIGOXIN 0.25 MG TABLET (FP) PO SCH (10:30)
[2017-07-02] MEDS: GABAPENTIN 100 MG CAPSULE (FP) PO SCH ×2 (10:31→23:06)
[2017-07-02] MEDS: POTASSIUM CHLORIDE ORAL LIQUID 20 MEQ/15 ML PO SCH (10:31)
[2017-07-02] MEDS: VENLAFAXINE HCL 75 MG E.R. CAPSULES (FP) PO SCH (10:31)
[2017-07-02] MEDS: CHOLECALCIFEROL (VITAMIN D3) 1,000 UNIT TABLET (FP) PO SCH (10:31)
[2017-07-02] MEDS: MULTIVITAMINS (DAILY MVI) TABLET (FP) PO SCH (10:31)
[2017-07-02] MEDS: CEFTRIAXONE 1 G/50 ML PREMIX 50 ML IVPB SCH (10:32)
[2017-07-02] MEDS: AZITHROMYCIN IVPB 500 MG in DEXTROSE 5%-WATER - 250 ML IVPB SCH (11:47)
--- NOTE | 2017-07-02 11:58 | PN ---
Progress Note (short form) - Note Progress Note: PULMONARY Breathing continues to improve. +nonproductive cough and wheezing. No fevers or chills. Last Vital Signs Temp Pulse Resp BP Pulse Ox 98.4 F 76 18 112/61 96 07/02/17 09:00 07/02/17 11:08 07/02/17 09:00 07/02/17 09:00 07/02/17 11:08 Gen: NAD at rest Heart: RRR Lung: basilar rales, wheezes Abd: soft, nontender Ext: no edema CBC, BMP 07/01/17 12:40 07/01/17 12:40 Active Medications Albuterol Sulfate (Ventolin 0.083% Nebulizer Soln -) 1 amp NEB Q4H PRN PRN Reason: SHORT OF BREATH/WHEEZING Last Admin: 07/01/17 21:04 Dose: 1 amp Albuterol/Ipratropium (Duoneb -) 1 amp NEB QIDR [facility] Last Admin: 07/02/17 11:08 Dose: 1 amp Atorvastatin Calcium (Lipitor -) 20 mg PO HS [facility] Last Admin: 07/01/17 21:19 Dose: 20 mg Budesonide/Formoterol Fumarate (Symbicort 160/4.5mcg -) 2 puff IH BID [facility] Last Admin: 07/02/17 10:24 Dose: 2 puff Cholecalciferol (Vitamin D3 -) 2,000 unit PO DAILY [facility] Last Admin: 07/02/17 10:31 Dose: 2,000 unit Cyanocobalamin (Vitamin B12 -) 1,000 mcg PO DAILY [facility] Last Admin: 07/02/17 10:30 Dose: 1,000 mcg Cyclobenzaprine HCl (Flexeril -) 5 mg PO DAILY [facility] Last Admin: 07/02/17 10:30 Dose: 5 mg Digoxin (Lanoxin -) 0.25 mg PO DAILY [facility] Last Admin: 07/02/17 10:30 Dose: 0.25 mg Diltiazem HCl (Cardizem Cd -) 180 mg PO BID [facility] Last Admin: 07/02/17 10:31 Dose: 180 mg Furosemide (Lasix -) 80 mg PO BIDLASIX [facility] Last Admin: 07/02/17 06:33 Dose: 80 mg Gabapentin (Neurontin -) 200 mg PO BID [facility] Last Admin: 07/02/17 10:31 Dose: 200 mg Guaifenesin (Mucinex -) 1,200 mg PO DAILY [facility] Last Admin: 07/02/17 10:30 Dose: 1,200 mg Azithromycin 500 mg/ Dextrose 250 mls @ 250 mls/hr IVPB DAILY [facility] Last Admin: 07/02/17 11:47 Dose: 250 mls/hr CEFTRIAXONE 1 G/50 ML PREMIX (Ceftriaxone 1 Gm-D5w Bag) 50 mls @ 100 mls/hr IVPB DAILY [facility] Last Admin: 07/02/17 10:32 Dose: 100 mls/hr Insulin Aspart (Novolog Vial Sliding Scale -) 1 vial SQ ACHS [facility] PRN Reason: Protocol Last Admin: 07/02/17 11:47 Dose: 8 units Insulin Detemir (Levemir Vial) 5 units SQ HS [facility] Last Admin: 07/01/17 21:19 Dose: 5 units Levothyroxine Sodium (Synthroid -) 25 mcg PO AM [facility] Last Admin: 07/02/17 06:33 Dose: 25 mcg Methylprednisolone Sodium Succinate (Solu-Medrol -) 40 mg IVPUSH BID [facility] Montelukast Sodium (Singulair -) 10 mg PO HS [facility] Last Admin: 07/01/17 21:20 Dose: 10 mg Multivitamins/Minerals/Vitamin C (Tab-A-Vit -) 1 tab PO DAILY [facility] Last Admin: 07/02/17 10:31 Dose: 1 tab Potassium Chloride (Potassium Chloride Oral Liquid) 20 meq PO DAILY [facility] Last Admin: 07/02/17 10:31 Dose: 20 meq Quetiapine Fumarate (Seroquel -) 50 mg PO HS [facility] Last Admin: 07/01/17 21:19 Dose: 50 mg Tiotropium [place] (Spiriva -) 1 puff IH DAILY [facility] Last Admin: 07/02/17 10:25 Dose: 1 puff Venlafaxine HCl (Effexor Xr -) 225 mg PO DAILY [facility] Last Admin: 07/02/17 10:31 Dose: 225 mg Warfarin Sodium (Coumadin -) 5 mg PO DAILY@1800 [facility] Last Admin: 07/01/17 18:23 Dose: Not Given A/P Acute on Chronic Hypoxic and Hypercapneic Respiratory Failure Pneumonia Acute COPD Exacerbation Atrial Fibrillation h/o Waldenstroms h/o NHL HTN Hyperlipidemia - agree with medrol taper - inhaled bronchodilators - continue antibiotics - O2 to keep SpO2 >90% - rehab/PT - rate controlled - continue anticoagulation
[2017-07-02 14:03] LABS: ALBUMIN 3.2 g/dl (3.4-5.0); ANION GAP 9 (8-16); BILIRUBIN,TOTAL 0.4 mg/dL (0.2-1.0); CALCIUM 8.1 mg/dL (8.5-10.1); CO2 31 mmol/L (21-32); CREATININE 0.8 mg/dL (0.55-1.02); SGOT/AST 33 U/L (15-37); SGPT/ALT 78 U/L (12-78); TOT PROT 6.6 g/dl (6.4-8.2)
[2017-07-02 14:04] LABS: ALK PHOS 141 U/L (45-117)
[2017-07-02 14:06] LABS: BASOPHIL 0.1 % (0-2.0); MCHC 32.7 g/dl (32.0-36.0); MEAN CELL VOLUME 88.6 fl (80-96); MEAN PLT VOLUME 8.8 fl (7.5-11.1); NEUTROPHILS 90.1 % (42.8-82.8); PLATELET COUNT 224 K/MM3 (134-434); RDW 16.9 % (11.6-15.6); WHITE BLOOD COUNT 16.9 K/mm3 (4.0-10.0)
[2017-07-02] MEDS: GLIMEPIRIDE 1 MG TABLET (FP) PO SCH (14:07)
[2017-07-02 14:11] LABS: GLUCOSE,RANDOM 415 mg/dL (74-106)
[2017-07-02] MEDS ORDERED: Insulin (LOG) Aspart 100 UNITS/ML VIAL SQ ONE (14:26)
--- NOTE | 2017-07-02 14:38 | PN ---
Teaching Attending Note Name of Resident: Michelle Johnson ATTENDING PHYSICIAN STATEMENT Time of evaluation: 10:30 AM I saw and evaluated the patient. I reviewed the resident's note and discussed the case with the resident. I agree with the resident's findings and plan as documented. SUBJECTIVE: patient seen and examined. Breathing contiues to improve, no new complaints. OBJECTIVE: Vital Signs Period Temp Pulse Resp BP Sys/Card Pulse Ox Last 24 Hr 97.9 F-98.4 F 69-79 18-18 112-120/61-91 88-96 Intake & Output 06/29/17 06/30/17 07/01/17 07/02/17 23:59 23:59 23:59 23:59 Intake Total 1440 1835 1730 450 Balance 1440 1835 1730 450 Weight 177 lb 3.2 oz 181 lb 8 oz 178 lb 8 oz General: sitting in bed in no acute distress CVS -S1S2 regular Chest improved air entry, occasional rhonchi Abdomen soft, NT, positive bowel sounds, ND Extremities no edema Current Medications Albuterol Sulfate (Ventolin 0.083% Nebulizer Soln -) 1 amp NEB Q4H PRN PRN Reason: SHORT OF BREATH/WHEEZING Last Admin: 07/01/17 21:04 Dose: 1 amp Albuterol/Ipratropium (Duoneb -) 1 amp NEB QIDR [facility] Last Admin: 07/02/17 11:08 Dose: 1 amp Atorvastatin Calcium (Lipitor -) 20 mg PO HS [facility] Last Admin: 07/01/17 21:19 Dose: 20 mg Budesonide/Formoterol Fumarate (Symbicort 160/4.5mcg -) 2 puff IH BID [facility] Last Admin: 07/02/17 10:24 Dose: 2 puff Cholecalciferol (Vitamin D3 -) 2,000 unit PO DAILY [facility] Last Admin: 07/02/17 10:31 Dose: 2,000 unit Cyanocobalamin (Vitamin B12 -) 1,000 mcg PO DAILY [facility] Last Admin: 07/02/17 10:30 Dose: 1,000 mcg Cyclobenzaprine HCl (Flexeril -) 5 mg PO DAILY [facility] Last Admin: 07/02/17 10:30 Dose: 5 mg Digoxin (Lanoxin -) 0.25 mg PO DAILY [facility] Last Admin: 07/02/17 10:30 Dose: 0.25 mg Diltiazem HCl (Cardizem Cd -) 180 mg PO BID [facility] Last Admin: 07/02/17 10:31 Dose: 180 mg Furosemide (Lasix -) 80 mg PO BIDLASIX [facility] Last Admin: 07/02/17 14:07 Dose: 80 mg Gabapentin (Neurontin -) 200 mg PO BID [facility] Last Admin: 07/02/17 10:31 Dose: 200 mg Glimepiride (Amaryl -) 1 mg PO DAILY@0700 [facility] Last Admin: 07/02/17 14:07 Dose: 1 mg Guaifenesin (Mucinex -) 1,200 mg PO DAILY [facility] Last Admin: 07/02/17 10:30 Dose: 1,200 mg Azithromycin 500 mg/ Dextrose 250 mls @ 250 mls/hr IVPB DAILY [facility] Last Admin: 07/02/17 11:47 Dose: 250 mls/hr CEFTRIAXONE 1 G/50 ML PREMIX (Ceftriaxone 1 Gm-D5w Bag) 50 mls @ 100 mls/hr IVPB DAILY [facility] Last Admin: 07/02/17 10:32 Dose: 100 mls/hr Insulin Aspart (Novolog Vial Sliding Scale -) 1 vial SQ ACHS [facility] PRN Reason: Protocol Last Admin: 07/02/17 11:47 Dose: 8 units Levothyroxine Sodium (Synthroid -) 25 mcg PO AM [facility] Last Admin: 07/02/17 06:33 Dose: 25 mcg Methylprednisolone Sodium Succinate (Solu-Medrol -) 40 mg IVPUSH BID [facility] Montelukast Sodium (Singulair -) 10 mg PO HS [facility] Last Admin: 07/01/17 21:20 Dose: 10 mg Multivitamins/Minerals/Vitamin C (Tab-A-Vit -) 1 tab PO DAILY [facility] Last Admin: 07/02/17 10:31 Dose: 1 tab Potassium Chloride (Potassium Chloride Oral Liquid) 20 meq PO DAILY [facility] Last Admin: 07/02/17 10:31 Dose: 20 meq Quetiapine Fumarate (Seroquel -) 50 mg PO HS [facility] Last Admin: 07/01/17 21:19 Dose: 50 mg Tiotropium [place] (Spiriva -) 1 puff IH DAILY [facility] Last Admin: 07/02/17 10:25 Dose: 1 puff Venlafaxine HCl (Effexor Xr -) 225 mg PO DAILY [facility] Last Admin: 07/02/17 10:31 Dose: 225 mg Warfarin Sodium (Coumadin -) 5 mg PO DAILY@1800 [facility] Last Admin: 07/01/17 18:23 Dose: Not Given Laboratory Results - last 24 hr 07/01/17 07/01/17 07/01/17 15:00 17:39 20:37 PT with INR 38.00 H INR 3.36 H D Sodium Potassium Chloride Carbon Dioxide Anion Gap BUN Creatinine Creat Clearance w eGFR POC Glucometer 303 389 Random Glucose Calcium Total Bilirubin AST ALT Alkaline Phosphatase Total Protein Albumin 07/02/17 07/02/17 07/02/17 06:35 08:20 11:21 PT with INR 30.30 H INR 2.68 H Sodium Potassium Chloride Carbon Dioxide Anion Gap BUN Creatinine Creat Clearance w eGFR POC Glucometer 242 340 Random Glucose Calcium Total Bilirubin AST ALT Alkaline Phosphatase Total Protein Albumin 07/02/17 12:45 PT with INR INR Sodium 134 L Potassium 4.5 Chloride 94 L Carbon Dioxide 31 Anion Gap 9 BUN 21 H Creatinine 0.8 Creat Clearance w eGFR > 60 POC Glucometer Random Glucose 415 H* D Calcium 8.1 L Total Bilirubin 0.4 D AST 33 ALT 78 D Alkaline Phosphatase 141 H Total Protein 6.6 Albumin 3.2 L ASSESSMENT AND PLAN: 67 yof with COPD intermittent home oxygen 2L (takes it post pneumonia), Afib on coumadin, admitted with COPD exaceration likely from URI illness. Acute hypoxic/hpyercarpneic respiratory failure Acute COPD exacerbation RUL/RML community acquired PNA. URI like illness Waldenstorm's syndrome HTN HLD ARNOLDO DM, now with steroid induced hyperglycemia Leucocytosis, likely steroid induced margination Plan: Pulmonary input appreciated, CT chest reviewed. Ceftriaxone/azithromycin day 4, sputum cultures neg so far. urine legionella antigen neg. Improved, on 2L, taper solumedrol to 40 m IV q12h, anticipate will likely be d/ c ed on 2L with gradual taper as improves. Nebs, oxygen supplementation. Suspect leucocytosis from steroid induced margination, clinically improved, trend for now. Patient on glimepiride at home, resume. Continue to hold metformin. Anticipate blood sugars to improve as steroids tapered. ISS, diabetic diet. Continue home lasix/diltiazem/coumadin, INR checks. Coumadin held yesterday, resume today. PT eval, d/c planning in 24 hours on oral steroids and 2L home oxygen if continues to improve. Plan discussed with patient in detail, all questions answered.
[2017-07-02] MEDS: WARFARIN NA 5 MG TABLET (UD) PO SCH (17:24)
[2017-07-02] MEDS: PANTOPRAZOLE 40 MG TABLET (FP) PO SCH (17:25)
[2017-07-02] MEDS ORDERED: PT OWN MED DRAWER 7, Y5N ONE (21:39)
[2017-07-02] MEDS: QUEtiapine FUMARATE 50 MG TABLET PO SCH (23:06)
[2017-07-02] MEDS: MONTELUKAST NA 10 MG TABLET PO SCH (23:06)
[2017-07-02] MEDS: ATORVASTATIN CA 20 MG TABLET (FP) PO SCH (23:06)
[2017-07-03] MEDS: ALBUTEROL SO4 2.5/IPRATROPIUM 0.5 INH SOL 3 ML VIAL.NEB. NEB SCH ×2 (05:43→11:56)
[2017-07-03] MEDS ORDERED: PT OWN MED DRAWER 7, Y5N ONE ×2 (06:05→10:21)
[2017-07-03] MEDS: LEVOTHYROXINE NA 25 MCG TABLET (FP) PO SCH (06:43)
[2017-07-03] MEDS: FUROSEMIDE 40 MG TABLET (FP) PO SCH ×2 (06:43→13:23)
[2017-07-03] MEDS: INSULIN SLIDING SCALE (NOVOLOG) 1 VIAL SQ SCH ×2 (06:44→11:45)
[2017-07-03] MEDS ORDERED: GLIMEPIRIDE 1 MG TABLET (FP) PO SCH (07:00)
[2017-07-03] MEDS: GLIMEPIRIDE 1 MG TABLET (FP) PO SCH (07:12)
[2017-07-03 08:21] LABS: MCH 28.8 pg (25.7-33.7); MCHC 32.5 g/dl (32.0-36.0); MEAN CELL VOLUME 88.7 fl (80-96); MEAN PLT VOLUME 8.2 fl (7.5-11.1); PLATELET COUNT 228 K/MM3 (134-434); RDW 17.2 % (11.6-15.6); WHITE BLOOD COUNT 11.1 K/mm3 (4.0-10.0)
[2017-07-03 08:46] LABS: ANION GAP 4 (8-16); CALCIUM 8.5 mg/dL (8.5-10.1); CO2 37 mmol/L (21-32); GLUCOSE,RANDOM 260 mg/dL (74-106)
[2017-07-03 08:49] LABS: ALK PHOS 135 U/L (45-117); BILIRUBIN,TOTAL 1.3 mg/dL (0.2-1.0); CREATININE 0.8 mg/dL (0.55-1.02); SGOT/AST 25 U/L (15-37); SGPT/ALT 79 U/L (12-78); TOT PROT 6.1 g/dl (6.4-8.2)
[2017-07-03 09:50] LABS: INR 2.34 (0.82-1.09); PROTHROMBIN TIME (PATIENT) 26.4 SEC (9.98-11.88)
[2017-07-03 10:01] VITALS: BP 126/69; TEMP 98
[2017-07-03] MEDS: CEFTRIAXONE 1 G/50 ML PREMIX 50 ML IVPB SCH (10:43)
[2017-07-03] MEDS: POTASSIUM CHLORIDE ORAL LIQUID 20 MEQ/15 ML PO SCH (10:44)
[2017-07-03] MEDS: MULTIVITAMINS (DAILY MVI) TABLET (FP) PO SCH (10:45)
[2017-07-03] MEDS: guaiFENesin 600 MG TABLET.ER (FP) PO SCH (10:45)
[2017-07-03] MEDS: CYCLOBENZAPRINE HCL 10 MG TABLET (FP) PO SCH (10:45)
[2017-07-03] MEDS: GABAPENTIN 100 MG CAPSULE (FP) PO SCH (10:45)
[2017-07-03] MEDS: CYANOCOBALAMIN 1,000 MCG TABLET (FP) PO SCH (10:45)
[2017-07-03] MEDS: TIOTROPIUM BROMIDE 18 MCG/INH (DEVICE W/ 5 CAPSULES) IH SCH (10:46)
[2017-07-03] MEDS: PANTOPRAZOLE 40 MG TABLET (FP) PO SCH (10:47)
[2017-07-03] MEDS: VENLAFAXINE HCL 75 MG E.R. CAPSULES (FP) PO SCH (10:47)
[2017-07-03] MEDS: DIGOXIN 0.25 MG TABLET (FP) PO SCH (10:47)
[2017-07-03] MEDS: methylPREDNISolone NA SUCC 40 MG/1 ML VIAL IVPUSH SCH (10:48)
[2017-07-03] MEDS: CHOLECALCIFEROL (VITAMIN D3) 1,000 UNIT TABLET (FP) PO SCH (10:48)
[2017-07-03] MEDS: BUDESONIDE/FORMETEROL FUMARATE 160/4.5 mcg INHALER IH SCH (10:48)
[2017-07-03] MEDS: AZITHROMYCIN IVPB 500 MG in DEXTROSE 5%-WATER - 250 ML IVPB SCH (11:39)
[2017-07-03] MEDS ORDERED: INSULIN (NOVOLOG) ASPART 100 UNITS/ML 10ML VIAL ONE (11:43)
[2017-07-03 11:57] VITALS: PULSE 77
--- NOTE | 2017-07-03 12:03 | PN ---
Progress Note (short form) - Note Progress Note: PULMONARY Continues to improve. +nonproductive cough and wheezing better. No fevers or chills. Ambulated in hallway without difficulty Last Vital Signs Temp Pulse Resp BP Pulse Ox 98.0 F 77 18 126/69 93 L 07/03/17 09:00 07/03/17 11:57 07/03/17 09:00 07/03/17 09:00 07/03/17 11:57 Gen: NAD at rest Heart: RRR Lung: basilar rales, wheezes Abd: soft, nontender Ext: no edema CBC, BMP 07/03/17 07:45 07/03/17 07:45 Active Medications Albuterol Sulfate (Ventolin 0.083% Nebulizer Soln -) 1 amp NEB Q4H PRN PRN Reason: SHORT OF BREATH/WHEEZING Last Admin: 07/01/17 21:04 Dose: 1 amp Albuterol/Ipratropium (Duoneb -) 1 amp NEB QIDR [facility] Last Admin: 07/03/17 11:56 Dose: 1 amp Atorvastatin Calcium (Lipitor -) 20 mg PO HS [facility] Last Admin: 07/02/17 23:06 Dose: 20 mg Budesonide/Formoterol Fumarate (Symbicort 160/4.5mcg -) 2 puff IH BID [facility] Last Admin: 07/03/17 10:48 Dose: 2 puff Cholecalciferol (Vitamin D3 -) 2,000 unit PO DAILY [facility] Last Admin: 07/03/17 10:48 Dose: 2,000 unit Cyanocobalamin (Vitamin B12 -) 1,000 mcg PO DAILY [facility] Last Admin: 07/03/17 10:45 Dose: 1,000 mcg Cyclobenzaprine HCl (Flexeril -) 5 mg PO DAILY [facility] Last Admin: 07/03/17 10:45 Dose: 5 mg Digoxin (Lanoxin -) 0.25 mg PO DAILY [facility] Last Admin: 07/03/17 10:47 Dose: 0.25 mg Diltiazem HCl (Cardizem Cd -) 180 mg PO BID [facility] Last Admin: 07/03/17 10:45 Dose: 180 mg Furosemide (Lasix -) 80 mg PO BIDLASIX [facility] Last Admin: 07/03/17 06:43 Dose: 80 mg Gabapentin (Neurontin -) 200 mg PO BID [facility] Last Admin: 07/03/17 10:45 Dose: 200 mg Glimepiride (Amaryl -) 1 mg PO DAILY@0700 [facility] Last Admin: 07/03/17 07:12 Dose: 1 mg Guaifenesin (Mucinex -) 1,200 mg PO DAILY [facility] Last Admin: 07/03/17 10:45 Dose: 1,200 mg Azithromycin 500 mg/ Dextrose 250 mls @ 250 mls/hr IVPB DAILY [facility] Last Admin: 07/03/17 11:39 Dose: 250 mls/hr CEFTRIAXONE 1 G/50 ML PREMIX (Ceftriaxone 1 Gm-D5w Bag) 50 mls @ 100 mls/hr IVPB DAILY [facility] Last Admin: 07/03/17 10:43 Dose: 100 mls/hr Insulin Aspart (Novolog Vial Sliding Scale -) 1 vial SQ ACHS [facility] PRN Reason: Protocol Last Admin: 07/03/17 11:45 Dose: 6 units Levothyroxine Sodium (Synthroid -) 25 mcg PO AM [facility] Last Admin: 07/03/17 06:43 Dose: 25 mcg Methylprednisolone Sodium Succinate (Solu-Medrol -) 40 mg IVPUSH BID [facility] Last Admin: 07/03/17 10:48 Dose: 40 mg Montelukast Sodium (Singulair -) 10 mg PO HS [facility] Last Admin: 07/02/17 23:06 Dose: 10 mg Multivitamins/Minerals/Vitamin C (Tab-A-Vit -) 1 tab PO DAILY [facility] Last Admin: 07/03/17 10:45 Dose: 1 tab Pantoprazole Sodium (Protonix -) 40 mg PO DAILY [facility] Last Admin: 07/03/17 10:47 Dose: 40 mg Potassium Chloride (Potassium Chloride Oral Liquid) 20 meq PO DAILY [facility] Last Admin: 07/03/17 10:44 Dose: 20 meq Quetiapine Fumarate (Seroquel -) 50 mg PO HS [facility] Last Admin: 07/02/17 23:06 Dose: 50 mg Tiotropium [place] (Spiriva -) 1 puff IH DAILY [facility] Last Admin: 07/03/17 10:46 Dose: 1 puff Venlafaxine HCl (Effexor Xr -) 225 mg PO DAILY [facility] Last Admin: 07/03/17 10:47 Dose: 225 mg Warfarin Sodium (Coumadin -) 5 mg PO DAILY@1800 [facility] Last Admin: 07/02/17 17:24 Dose: 5 mg A/P Acute on Chronic Hypoxic and Hypercapneic Respiratory Failure Pneumonia Acute COPD Exacerbation Atrial Fibrillation h/o Waldenstroms h/o NHL HTN Hyperlipidemia - can change steroids to PO - inhaled bronchodilators - complete antibiotics - O2 to keep SpO2 >90% - rehab/PT - rate controlled - continue anticoagulation - can discharge home from pulmonary standpoint
--- NOTE | 2017-07-03 12:52 | DS ---
Physical Exam: SUBJECTIVE: Patient seen and examined. Breathing improves. continues to have some non-productive cough. No fever, chills, n/v. Ambulating to bathroom and through hallway without becoming dyspneic. OBJECTIVE: Vital Signs Period Temp Pulse Resp BP Sys/Card Pulse Ox Last 24 Hr 97.2 F-98.2 F 68-86 18-22 98-126/50-71 88-98 PHYSICAL EXAM GENERAL: aaox3, nad, speaking in full sentences without becoming dyspneic EYES: sclera anicteric, conjunctiva clear ENT: moist mucous membranes LUNGS: scatter rhonchi bilaterally, no accessory muscle use HEART: rrr, normal S1/S2, no murmur, rub or gallop ABDOMEN: Soft, ntnd LOWER EXTREMITIES: 2+ pulses, wwp, no edema LABS Laboratory Results - last 24 hr 07/02/17 07/02/17 07/02/17 12:45 13:00 16:37 WBC 16.9 H RBC 4.86 Hgb 14.1 Hct 43.1 MCV 88.6 MCH 29.0 MCHC 32.7 RDW 16.9 H Plt Count 224 MPV 8.8 Neutrophils % 90.1 H Lymphocytes % 6.6 L D Monocytes % 3.2 L Eosinophils % 0.0 Basophils % 0.1 PT with INR INR Sodium 134 L Potassium 4.5 Chloride 94 L Carbon Dioxide 31 Anion Gap 9 BUN 21 H Creatinine 0.8 Creat Clearance w eGFR > 60 POC Glucometer 267 Random Glucose 415 H* D Calcium 8.1 L Total Bilirubin 0.4 D AST 33 ALT 78 D Alkaline Phosphatase 141 H Total Protein 6.6 Albumin 3.2 L 07/02/17 07/03/17 07/03/17 23:09 06:44 07:45 WBC 11.1 H D RBC 4.92 Hgb 14.2 Hct 43.6 MCV 88.7 MCH 28.8 MCHC 32.5 RDW 17.2 H Plt Count 228 MPV 8.2 Neutrophils % Lymphocytes % Monocytes % Eosinophils % Basophils % PT with INR INR Sodium Potassium Chloride Carbon Dioxide Anion Gap BUN Creatinine Creat Clearance w eGFR POC Glucometer 154 223 Random Glucose Calcium Total Bilirubin AST ALT Alkaline Phosphatase Total Protein Albumin 07/03/17 07/03/17 07/03/17 07:45 07:45 11:45 WBC RBC Hgb Hct MCV MCH MCHC RDW Plt Count MPV Neutrophils % Lymphocytes % Monocytes % Eosinophils % Basophils % PT with INR 26.40 H INR 2.34 H Sodium 138 Potassium 4.4 Chloride 97 L Carbon Dioxide 37 H Anion Gap 4 L BUN 23 H Creatinine 0.8 Creat Clearance w eGFR > 60 POC Glucometer 260 Random Glucose 260 H D Calcium 8.5 Total Bilirubin 1.3 H D AST 25 D ALT 79 H Alkaline Phosphatase 135 H Total Protein 6.1 L Albumin 3.0 L Microbiology 06/29/17 00:20 Blood - Peripheral Venous Blood Culture - Final NO GROWTH AFTER 5 DAYS INCUBATION 06/30/17 16:25 Sputum - Expectorated Sputum Culture - Final NORMAL RESPIRATORY LORENZA 06/30/17 22:22 Urine - Urine Clean Catch Legionella Antigen - Final -NEG 06/30/17 22:22 Urine - Urine Clean Catch Streptococcus pneumoniae Antigen ( M - Final -NEG 06/29/17 06:30 Urine - Urine Clean Catch Urine Culture - Final -NEG 06/29/17 00:05 Nasopharyngeal Washes Influenza Types A,B Antigen (WALDEMAR) - Final -NEG 06/29/17 00:05 Nasopharyngeal Washes - Final - NEG IMAGING: Chest CT w/o contrast (06/29/2017): Findings: There is been interval development of several geographic areas of groundglass attenuation with surrounding interlobular septal thickening in the nondependent portions of bilateral upper lobes. Similar appearing opacities are also present in the right lung base and right middle lobe. Some of the opacities in the right middle lobe and right lung base may be attributed to air trapping or chronic small vessel disease. There are tree-in-bud nodules in bilateral lower lobes, left more than right. There is subsegmental atelectasis in the left lung base. There is no pleural effusion or pneumothorax. The heart is not enlarged. No evidence of pericardial effusion. There is interatrial surgical material. There is a least mild coronary artery calcific atherosclerosis. Normal caliber thoracic aorta mild calcific atherosclerosis along the arch and takeoff of the left subclavian artery. Dilated right and left main pulmonary arteries are unchanged. Please correlate for pulmonary artery hypertension. The axillary regions are unremarkable. Nonspecific prominent pretracheal lymph nodes appear similar to the prior chest CT. There are also nonspecific subcentimeter mediastinal lymph nodes in the prevascular space and aortopulmonary window, also similar to the prior chest CT. There is no evidence of bulky hilar lymphadenopathy, within the limitations of no IV contrast. Limited evaluation of the upper abdomen is grossly unremarkable. There is osseous demineralization. Impression: 1. Groundglass opacities with interlobular septal thickening in the nondependent portions of bilateral upper lobes and also in the right middle lobe and right lower lobe. Primary differential considerations include bacterial pneumonia, pulmonary edema/ARDS in the appropriate clinical setting , pulmonary alveolar proteinosis, pulmonary hemorrhage, inflammatory pneumonitis and atypical infectious pneumonitis. 2. Tree-in-bud nodules in bilateral lower lobes reflecting nonspecific small airways disease, presumably infectious. 3. Enlargement of the right and left main pulmonary arteries may be attributed to pulmonary artery hypertension. Please correlate with echocardiogram. HOSPITAL COURSE: Date of Admission:06/29/17 Date of Discharge: 07/03/17 HPI: Patient is 67yo woman, current 1ppd smoker with PMH of COPD (on home 2L), Afib (on Coumadin), Waldenstrom's syndrome (nonHodkin's lymphoblastic lymphoma) , asthma, DM, HTN, HLD, hypothyroid, osteoarthritis, fibromyalgia, who presented due to worsening sob, increased green sputum production, rhinorrhea, and fever ( Tmax 101.1 at home)x4 days. She reports increased need for O2 and nebs. Patient states that at her best, she sats 96% on room air at rest but was satting 76% on RA in ED. She reports associated h/a, 2 episodes of watery diarrhea and 1 ep of NBNB vomiting. She was last admitted for copd exacerbation January 2017. She denies CP, palpitations, calf pain or edema, abd pain, dysuria, melena, hematochezia. She denies sick contacts. The patient was treated for acute on chronic hypoxic hypercapneic respiratory failure 2/2 COPD exacerbation in the setting of likely URI symptoms. Legionella and Strep pneumo urine Ag, Influenza, and blood/urine/sputum cultures were negative. She completed a 5 day course of Ceftriaxone and Azithromycin. She was started on Solumedrol and and sent home on a prednisone taper. Pre- and post- ambulatory oxygen saturation on day of discharge was 94% at rest, 88% after 5min of flat surfacing ambulating. Minutes to complete discharge: 45 Discharge Summary Reason For Visit: OBST CHRON BRONCHITIS W/EXACERBATION Condition: Stable - Instructions Diet, Activity, Other Instructions: You were admitted to the hospital for exacerbation of your chronic obstructive pulmonary disease (COPD). Please resume your home oxygen use as needed to maintain oxygen saturation over 88% at rest. Please continue your regular home medications, including your inhalers. You may resume your regular diet and activities. NEW MEDICATIONS: You are placed on a steroid taper. Please take prednisone as directed below: tonight - 4 each of 10mg Prednisone 10mg by mouth once Nov 1 & 2nd: 3 each of 10mg Prednisone by mouth once per day Jul 3 & : 2 each of 10mg Predisone by mouth once per day Nov 5 & 6th: 1 each of 10mg Prednisone by mouth once per day You have also been prescribed a glucometer with strips. Check your blood sugar 2 - 3 times per day, and keep a log of the values. Bring this log to your primary care physician to discuss them. If your blood glucose is over 350, please call your primary doctor or come to the ED. Return to the ED if you have fever, worsening shortness of breath, or consistently satting below 88% at rest on room air. Please follow with Dr. Prado within 1 week and your primary doctor within 1 week. Referrals: Kory Prado MD [Staff Physician] - Dusty Andrade [Primary Care Provider] - Disposition: HOME - Home Medications Comprehensive Discharge Medication List: Ambulatory Orders Biotin/Calcium Carbonate [Biotin 800 Mcg Tablet] 1 each PO DAILY 11/29/16 Cholecalciferol (Vitamin D3) [Vitamin D -] 2,000 unit PO DAILY 11/29/16 Cyanocobalamin [Vitamin B12 -] 1,000 mcg PO DAILY 11/29/16 Cyclobenzaprine HCl [Flexeril 10 mg] 5 mg PO DAILY 11/29/16 Digoxin [Lanoxin -] 0.25 mg PO DAILY 11/29/16 Diltiazem HCl [Cartia Xt] 180 mg PO BID 11/29/16 Furosemide [Lasix] 80 mg PO BID 11/29/16 Gabapentin 200 mg PO BID 11/29/16 Levothyroxine [Synthroid -] 25 mcg PO DAILY 11/29/16 Metformin HCl [Metformin HCl ER] 1,000 mg PO BID 11/29/16 Multivitamin [Poly-Vitamin] 1 each PO DAILY 11/29/16 Quetiapine Fumarate [Seroquel -] 50 mg PO HS 11/29/16 Venlafaxine HCl ER [Effexor Xr -] 225 mg PO DAILY 11/29/16 Warfarin Sodium [Coumadin] 5 mg PO ASDIR 11/29/16 Atorvastatin Calcium 20 mg PO HS 01/11/17 Fluticasone Prop 0.05% Nasal [Flonase -] 1 - 2 spray NS DAILY 01/11/17 Montelukast Na [Singulair -] 10 mg PO HS 01/11/17 Salmeterol/Fluticasone [Advair 500Mcg/50Mcg -] 1 inh PO DAILY 01/11/17 Albuterol Sulfate Inhaler - [Ventolin HFA Inhaler -] 1 - 2 inh PO Q4H PRN #1 inhaler 01/14/17 Budesonide/Formeterol Fumarate [SYMBICORT 160/4.5mcg -] 2 puff IH BID inhaler 07/03/17 Glimepiride [Glimepiride -] 1 mg PO DAILY@0700 tablet 07/03/17 Guaifenesin [Mucinex -] 1,200 mg PO DAILY tab 07/03/17 Miscellaneous Medical Supply [Glucometer Device] 1 each PO ASDIR #1 kit Miscellaneous Medical Supply [Glucometer Test Strips #50] 1 each PO ASDIR #1 box 07/03/17 Potassium Chloride [Potassium Chloride Oral Liquid] 20 meq PO DAILY pack Prednisone See Taper PO DAILY #20 tablet 07/03/17 Tiotropium [place] [Spiriva] 1 puff IH DAILY inh 07/03/17 This patient is new to me today: No Emergency Visit: No Critical Care patient: No - Discharge Referral Referred to [facility] No
--- NOTE | 2017-07-03 20:34 | PN ---
Teaching Attending Note Name of Resident: Michelle Johnson ATTENDING PHYSICIAN STATEMENT I saw and evaluated the patient. I reviewed the resident's note and discussed the case with the resident. I agree with the resident's findings and plan as documented. SUBJECTIVE: OBJECTIVE: Vital Signs Period Temp Pulse Resp BP Sys/Card Pulse Ox Last 24 Hr 97.2 F-98.0 F 68-86 18-22 108-126/67-71 88-98 ASSESSMENT AND PLAN:
== END 2017-07-03 14:40 | disposition home or self-care (01) | DRG 189 ==
LOC: JER 22:59 → JERBED 06-29 01:36 → UNDOADMIN 06-29 01:45 → JERBED 06-29 01:45 → J5S 06-29 12:36
PROVIDERS: ADMIT Internal Medicine; ATTEND Internal Medicine
DX: J96.21 Acute and chronic respiratory failure with hypoxia (principal); J18.9 Pneumonia, unspecified organism; J44.1 Chronic obstructive pulmonary disease with (acute) exacerbation; C85.90 Non-Hodgkin lymphoma, unspecified, unspecified site; E11.9 Type 2 diabetes mellitus without complications; E78.5 Hyperlipidemia, unspecified; I10 Essential (primary) hypertension; F17.210 Nicotine dependence, cigarettes, uncomplicated; I48.91 Unspecified atrial fibrillation; E03.9 Hypothyroidism, unspecified; F31.9 Bipolar disorder, unspecified; M19.90 Unspecified osteoarthritis, unspecified site; M79.7 Fibromyalgia; J20.9 Acute bronchitis, unspecified; J06.9 Acute upper respiratory infection, unspecified; G47.33 Obstructive sleep apnea (adult) (pediatric); D72.829 Elevated white blood cell count, unspecified; F32.9 Major depressive disorder, single episode, unspecified; E83.51 Hypocalcemia
CPT/HCPCS: 36415; 36600; 71020-TC; 71250-TC; 80048; 80053; 82375; 82550; 82803; 83036; 83050; 83605; 83735; 84100; 84484; 85025; 85027; 85610; 87040; 87070; 87086; 87205; 87804; 87899; 90688; 93005; 93010; 94640; 94761; 97116-GP; 97161-GP; 99282-25; G0008

== ENCOUNTER 2019-02-21 18:16 | Inpatient (IN) | payer OTHER, MEDICARE ==
--- NOTE | 2019-02-21 18:22 | PDOC ---
Rapid Medical Evaluation Time Seen by Provider: 02/21/19 18:20 Medical Evaluation: Allergies Allergy/AdvReac Type Severity Reaction Status Date / Time midazolam HCl [From Versed] Allergy Verified 06/29/17 00:01 fresh fruit Allergy Severe anaphlaxis Uncoded 06/29/17 00:01 02/21/19 18:20 I have performed a brief in-person evaluation of this patient. The patient presents with a chief complaint of: Worsening SOB. h/o COPD (on home 2L), continues to smoke, asthma, non-hodgekin's lymphoblastic lymphoma, HTN , HLD, hypothyroid, OA, fibromyalgia Pertinent physical exam findings: Ann uncomfortable w/ sating 85% on RA, pt put on 2L oxygen I have ordered the following:ekg/cxr/labs The patient will proceed to the ED for further evaluation. Discharge Disposition - Diagnosis SOB (shortness of breath) - Referrals - Patient Instructions - Post Discharge Activity
--- NOTE | 2019-02-21 18:52 | PDOC ---
Documentation entered by Chilango Auguste SCRIBE, acting as scribe for Toyin Rhodes MD. Toyin Rhodes MD: This documentation has been prepared by the Molina venegas Elijah, SCRIBE, under my direction and personally reviewed by me in its entirety. I confirm that the documentation accurately reflects all work, treatment, procedures, and medical decision making performed by me. History of Present Illness - General Chief Complaint: Shortness of Breath Stated Complaint: HEADACHE/FATIGUE Time Seen by Provider: 02/21/19 18:20 History Source: Patient Exam Limitations: No Limitations - History of Present Illness Initial Comments: 02/21/19 19:02 67yo female, current 1ppd smoker with PMH of COPD (on home 2L), Afib (on Coumadin), Waldenstrom's syndrome (non-Hodkin's lymphoblastic lymphoma), cardiac myxoma s/p resection, asthma, DM, HTN, HLD, hypothyroid, osteoarthritis , fibromyalgia, who presented due to worsening SOB. As per roommate at bedside, patient has had SOB since yesterday as well as being Not Coherent. The patient associates a productive cough with green sputum, generalized weakness, chest pains, head pains and some dizziness making it difficult to get up from bed. It has also been reported that the patient had slept for an abnormally long duration for the last two days. Denies fever, chills, dizziness, weakness, N, V, D, abdominal pain, bladder and bowel problems, leg swelling, rash. No sick contacts or travel. No new changes in medications. No suspicious food intake Allergies: Midazolam HCL, Fresh Fruit Past Medical History: as documented in EMR/HPI Social history: Lives with Roommate. Tobacco, Use (1 Pack a day). No ETOH or drug use. Surgical history: Cardiac myxoma s/p resection Meds: as documented in EMR PMD: Dr. Andrade 02/21/19 19:45 Past History - Past Medical History Allergies/Adverse Reactions: Allergies Allergy/AdvReac Type Severity Reaction Status Date / Time midazolam HCl [From Versed] Allergy Verified 02/21/19 18:21 fresh fruit Allergy Severe anaphlaxis Uncoded 02/21/19 18:21 Home Medications: Ambulatory Orders Biotin/Calcium Carbonate [Biotin 800 Mcg Tablet] 1 each PO DAILY 11/29/16 Cholecalciferol (Vitamin D3) [Vitamin D -] 2,000 unit PO DAILY 11/29/16 Cyanocobalamin [Vitamin B12 -] 1,000 mcg PO DAILY 11/29/16 Cyclobenzaprine HCl [Flexeril 10 mg] 5 mg PO DAILY 11/29/16 Digoxin [Lanoxin -] 0.25 mg PO DAILY 11/29/16 Diltiazem HCl [Cartia Xt] 180 mg PO BID 11/29/16 Furosemide [Lasix] 80 mg PO BID 11/29/16 Gabapentin 200 mg PO BID 11/29/16 Levothyroxine [Synthroid -] 25 mcg PO DAILY 11/29/16 Multivitamin [Poly-Vitamin] 1 each PO DAILY 11/29/16 Quetiapine Fumarate [Seroquel -] 50 mg PO HS 11/29/16 Venlafaxine HCl ER [Effexor Xr -] 225 mg PO DAILY 11/29/16 Warfarin Sodium [Coumadin] 5 mg PO ASDIR 11/29/16 metFORMIN HCL [Metformin ER Osmotic] 1,000 mg PO BID 11/29/16 Atorvastatin Calcium 20 mg PO HS 01/11/17 Fluticasone Prop 0.05% Nasal [Flonase -] 1 - 2 spray NS DAILY 01/11/17 Montelukast Na [Singulair -] 10 mg PO HS 01/11/17 Salmeterol/Fluticasone [Advair 500Mcg/50Mcg -] 1 inh PO DAILY 01/11/17 Albuterol Sulfate Inhaler - [Ventolin HFA Inhaler -] 1 - 2 inh PO Q4H PRN #1 inhaler 01/14/17 Budesonide/Formeterol Fumarate [SYMBICORT 160/4.5mcg -] 2 puff IH BID inhaler 07/03/17 Glimepiride [Glimepiride -] 1 mg PO DAILY@0700 tablet 07/03/17 Guaifenesin [Mucinex -] 1,200 mg PO DAILY tab 07/03/17 Miscellaneous Medical Supply [Glucometer Device] 1 each PO ASDIR #1 kit Miscellaneous Medical Supply [Glucometer Test Strips #50] 1 each PO ASDIR #1 box 07/03/17 Potassium Chloride [Potassium Chloride Oral Liquid] 20 meq PO DAILY pack Prednisone See Taper PO DAILY #20 tablet 07/03/17 Tiotropium [place] [Spiriva] 1 puff IH DAILY inh 07/03/17 Anemia: No Asthma: Yes Cancer: Yes (NON HODGKINS LYMP) Cardiac Disorders: Yes CVA: No COPD: Yes CHF: No Dementia: No Diabetes: No GI Disorders: Yes (IBS) Disorders: No HTN: No Hypercholesterolemia: Yes Liver Disease: No Seizures: No Thyroid Disease: Yes (HYPO) - Surgical History Abdominal Surgery: No Appendectomy: No Cardiac Surgery: Yes (MYXOMA RESECTION) Cholecystectomy: No Lung Surgery: No Neurologic Surgery: No Orthopedic Surgery: Yes (SPINAL FUSION OF L5, S1) - Immunization History Immunization Up to Date: No - Suicide/Smoking/Psychosocial Hx Smoking Status: Yes Smoking History: Current every day smoker Years of Tobacco Use: 12 Have you smoked in the past 12 months: Yes Number of Cigarettes Smoked Daily: 20 Information on smoking cessation initiated: No 'Breaking Loose' booklet given: 11/30/16 Hx Alcohol Use: No Drug/Substance Use Hx: No Substance Use Type: None Hx Substance Use Treatment: No Review of Systems - Review of Systems Comments:: 02/21/19 19:04 Constitutional: no fevers or chills. +generalized malaise/weakness. HEENT: +Dizziness. +Head Pain. No congestion. No visual/hearing disturbances. CVS: +Chest Pain . no syncope Resp: +sob with trouble breathing. +Productive Cough (Green Sputum). Gastrointestinal: no abdominal pain, nausea or vomiting. Genitourinary: no urinary sx, hematuria. MUSCULOSKELETAL: No joint pain and swelling. No neck or back pain SKIN: no redness or skin changes, no discharge, no rash. No wounds. Hematologic: no easy bruising/bleeding. NEUROLOGIC: No headache, dizziness, LOC or altered mental status. No weakness, numbness or tingling. Allergic/Immunologic: allergies Midazolam HCL, Fresh Fruit All other systems reviewed and negative, or as documented in HPI. 02/21/19 19:46 *Physical Exam - Vital Signs Last Vital Signs Temp Pulse Resp BP Pulse Ox 99.7 F H 95 H 18 118/61 85 L 02/21/19 18:25 02/21/19 18:25 02/21/19 18:25 02/21/19 18:25 02/21/19 18:25 - Physical Exam Comments: 02/21/19 19:05 General: +Malaised Appearing. +Active Coughing. HEENT: NCAT, PERRL, EOMI, clear conjunctiva, anicteric, dry mucus membranes, clear oropharynx, no oral lesions.. poor dentition, dark tongue discoloration Neck: No JVD. neck supple, FROM Resp: +Diminished Breath Sounds in Right Lower Base. +Poor Inspiratory Effort. +actively coughing and +nasal cannula for supplementation Chest: +Surgical Scar Anteriorly CVS: irreg irregular, no murmurs, 2+ peripheral pulses throughout, no peripheral edema Abdomen: soft, NTND, no peritoneal signs. Back: nontender, normal inspection and ROM MSK: no edema, GARCIA x4, ROM intact. No clubbing or cyanosis. normal bulk and tone. Extrem: no calf tenderness Neuro: alert, no focal neuro deficits. Skin: warm and well perfused, cap refill <2 sec, normal color 02/21/19 19:46 Heart Score/ECG Review #1 ECG reviewed & interpreted by me at: 18:50 General ECG Interpretation: Normal Rate, Normal Intervals Compared to previous ECG there are: No significant change 02/21/19 21:42 EKG Afib at 79 bpm, no interval abnormalities, right axis deviation, incomplete RBBB, narrow QRS, ST and T wave segments and morphology normal. Nonspecific T wave abnormalities - similar to prior ED Treatment Course - LABORATORY CBC & Chemistry Diagram: 02/21/19 18:45 02/21/19 18:45 Medical Decision Making - Medical Decision Making 02/21/19 18:49 I, Toyin Rhodes MD, attest that this document has been prepared under my direction and personally reviewed by me in its entirety. I further attest, that it accurately reflects all work, treatment, procedures and medical decision -making performed by me. See HPI for details. Prior notes reviewed, including admissions, discharges and consultations. last CT chest from 06/2017 with pneumonia and pulmonary hypertension DDx SOB: ACS, PE, PTX, CHF, COPD exac, pulmonary edema, pleurisy, pneumonia, viral syndrome. effusion. anemia, electrolyte/metabolic derangements. Vital signs reviewed, no fever, +SpO2 85%., on 2L O2. on internal review and audit compliance, sats improving on O2 titration laboratory results and imaging reviewed, basic labs and lytes wnl, VBG sent, not enough quantity. ABG unsuccessful with ultrasound and palpation. O2 sats improving, repeat VBG CXR_increased opacity in Right lower lung base, normal cardiac silhouette, no effusion/edema. Cardiac panel_elevated bnp, no prior, underlying cardiomyopathy? with right sided pulm hypertension trop neg, less likely cardiac EKG Afib at 79 bpm, no interval abnormalities, right axis deviation, incomplete RBBB, narrow QRS, ST and T wave segments and morphology normal. Nonspecific T wave abnormalities - similar to prior ED course -interventions: duonebs x3, solumedrol, supp O2. IV abx for pneumonia, IV ceftriaxone and azithromycin sputum culture. CT chest ordered VS improving. on 2L O2, sats >94% on appropriate o2 and all meds above. no documented fever here. admit tele for copd vs pna. admit to Dr Hernandez service. 02/21/19 18:52 02/21/19 19:47 02/21/19 19:56 02/21/19 21:42 02/21/19 22:29 02/21/19 22:30 *DC/Admit/Observation/Transfer Diagnosis at time of Disposition: SOB (shortness of breath), Acute and chronic respiratory failure with hypoxia, COPD exacerbation, Pneumonia - Discharge Dispostion Condition at time of disposition: Guarded Decision to Admit order: Yes Decision to Admit order Date/Time: 02/21/19 21:45 Decision to Admit Order Category Date Time Status Decision to Admit to Hospital Routine Admission 02/21/19 21:39 Active - Referrals - Patient Instructions - Post Discharge Activity
[2019-02-21] MEDS ORDERED: methylPREDNISolone NA SUCC 125 MG/2 ML VIAL IVPUSH ONE (18:53)
[2019-02-21] MEDS ORDERED: ALBUTEROL SO4 2.5/IPRATROPIUM 0.5 INH SOL 3 ML VIAL.NEB. NEB ONE ×2 (19:12→22:59)
[2019-02-21] MEDS ORDERED: methylPREDNISolone NA SUCC 125 MG/2 ML VIAL ONE (19:12)
[2019-02-21] MEDS: ALBUTEROL SO4 2.5/IPRATROPIUM 0.5 INH SOL 3 ML VIAL.NEB. NEB SCH ×2 (19:25→23:11)
[2019-02-21 19:44] LABS: ALBUMIN 3.2 g/dl (3.4-5.0); ALK PHOS 181 U/L (45-117); ANION GAP 6 MMOL/L (8-16); BILIRUBIN,TOTAL 0.6 mg/dL (0.2-1); BLOOD UREA NITROGEN 10.3 mg/dL (7-18); CALCIUM 8.7 mg/dL (8.5-10.1); CHLORIDE 97 mmol/L (98-107); CO2 34 mmol/L (21-32); GLUCOSE,RANDOM 82 mg/dL (74-106); POTASSIUM 3.5 mmol/L (3.5-5.1); SGOT/AST 20 U/L (15-37); SGPT/ALT 26 U/L (13-61); SODIUM 137 mmol/L (136-145); TOT PROT 6.5 g/dl (6.4-8.2)
[2019-02-21] MEDS ORDERED: AZITHROMYCIN IVPB 500 MG in DEXTROSE 5%-WATER - 250 ML IVPB ONE (19:44)
[2019-02-21] MEDS ORDERED: CEFTRIAXONE 1,000 MG in DEXTROSE 5%-WATER - 50 ML IVPB ONE (19:44)
[2019-02-21 19:45] LABS: CREATININE 0.6 mg/dL (0.55-1.3)
[2019-02-21 21:37] LABS: EOS % 0.1 % (0-4.5); HEMATOCRIT 44.9 % (32.4-45.2); HEMOGLOBIN 14.5 GM/dL (10.7-15.3); LYMPH % 7.2 % (8-40); MCH 28.3 pg (25.7-33.7); MCHC 32.4 g/dl (32.0-36.0); MEAN CELL VOLUME 87.2 fl (80-96); MEAN PLT VOLUME 8.4 fl (7.5-11.1); MONO % 17.1 % (3.8-10.2); NEUT % 74.6 % (42.8-82.8); PLATELET COUNT 282 K/MM3 (134-434); RBC 5.14 M/mm3 (3.60-5.2); RDW 16.5 % (11.6-15.6); WHITE BLOOD COUNT 9.6 K/mm3 (4.0-10.0)
--- NOTE | 2019-02-21 22:08 | PN ---
Teaching Attending Note Name of Resident: Rene Farmer ATTENDING PHYSICIAN STATEMENT I saw and evaluated the patient. I reviewed the resident's note and discussed the case with the resident. I agree with the resident's findings and plan as documented. SUBJECTIVE: Patient is a 67 year old woman with PMH of Tobacco use, COPD (on home oxygen 2L) , Afib (on Coumadin), Waldenstrom's syndrome (non-Hodgkin's lymphoblastic lymphoma), Cardiac myxoma s/p resection, Asthma, NIDDM, HTN, HLD, hypothyroid, osteoarthritis and fibromyalgia who presents with worsening SOB. As per roommate at bedside, patient has had SOB since yesterday as well as being Not Coherent. Of note is that most of the information was obtained from her roommate. Though she was alert, patient replies "i don't know" to almost all questions. Has never been intubated. Patient has associated productive cough with green sputum, generalized weakness , chest pains, head pains and some dizziness making it difficult to get up from bed. It has also been reported that the patient had slept for an abnormally long duration for the last two days. Denies fever, chills, dizziness, weakness, nausea, vomiting, diarrhea, abdominal pain, bladder and bowel problems, leg swelling, rash. No recent sick contacts or travel. No new changes in her medications and no unusual food intake. OBJECTIVE: Alert Vital Signs Period Temp Pulse Resp BP Sys/Card Pulse Ox Last 24 Hr 99.7 F 88-95 18-22 118-123/61-71 85-94 HEENT: No Jaundice, eye redness or discharge, PERRLA, EOMI. Normocephalic, atraumatic. External ears are normal and hearing is grossly intact. No nasal discharge. Neck: Supple, nontender. No palpable adenopathy or thyromegaly. No JVD Chest: Good effort. Good air entry. Prolonged expiration; no wheezing. Clear to percussion. Heart: Regular. No S3, rub or murmur Abdomen: Not distended, soft, nontender and no HSM. No rebound or guarding. Normal bowel sounds. Ext: Peripheral pulses intact. No leg edema. Skin: Warm and dry. No petechiae, rash or ecchymosis. Neuro: Alert. Oriented x3. Very poor memory. CN 2-12 grossly intact. Sensation grossly intact in all four extremities and DTR are symmetric. Psych: Appropriate mood and affect. Good insight. Home Medications Medication Instructions Recorded Biotin/Calcium Carbonate [Biotin 1 each PO DAILY 11/29/16 800 Mcg Tablet] Cholecalciferol (Vitamin D3) 2,000 unit PO DAILY 11/29/16 [Vitamin D -] Cyanocobalamin [Vitamin B12 -] 1,000 mcg PO DAILY 11/29/16 Cyclobenzaprine HCl [Flexeril 10 5 mg PO DAILY 11/29/16 mg] Digoxin [Lanoxin -] 0.25 mg PO DAILY 11/29/16 Diltiazem HCl [Cartia Xt] 180 mg PO BID 11/29/16 Furosemide [Lasix] 80 mg PO BID 11/29/16 Gabapentin 200 mg PO BID 11/29/16 Levothyroxine [Synthroid -] 25 mcg PO DAILY 11/29/16 Multivitamin [Poly-Vitamin] 1 each PO DAILY 11/29/16 Quetiapine Fumarate [Seroquel -] 50 mg PO HS 11/29/16 Venlafaxine HCl ER [Effexor Xr -] 225 mg PO DAILY 11/29/16 Warfarin Sodium [Coumadin] 5 mg PO ASDIR 11/29/16 metFORMIN HCL [Metformin ER 1,000 mg PO BID 11/29/16 Osmotic] Atorvastatin Calcium 20 mg PO HS 01/11/17 Fluticasone Prop 0.05% Nasal 1 - 2 spray NS DAILY 01/11/17 [Flonase -] Montelukast Na [Singulair -] 10 mg PO HS 01/11/17 Salmeterol/Fluticasone [Advair 1 inh PO DAILY 01/11/17 500Mcg/50Mcg -] Albuterol Sulfate Inhaler - 1 - 2 inh PO Q4H PRN #1 inhaler 01/14/17 [Ventolin HFA Inhaler -] Budesonide/Formeterol Fumarate 2 puff IH BID inhaler 07/03/17 [SYMBICORT 160/4.5mcg -] Glimepiride [Glimepiride -] 1 mg PO DAILY@0700 tablet 07/03/17 Guaifenesin [Mucinex -] 1,200 mg PO DAILY tab 07/03/17 Miscellaneous Medical Supply 1 each PO ASDIR #1 kit 07/03/17 [Glucometer Device] Miscellaneous Medical Supply 1 each PO ASDIR #1 box 07/03/17 [Glucometer Test Strips #50] Potassium Chloride [Potassium 20 meq PO DAILY pack 07/03/17 Chloride Oral Liquid] Prednisone See Taper PO DAILY #20 tablet 07/03/17 Tiotropium [place] [Spiriva] 1 puff IH DAILY inh 07/03/17 Abnormal Lab Results 02/21/19 02/21/19 02/21/19 18:45 18:45 18:45 RDW 16.5 H Lymphocytes % 7.2 L Monocytes % 17.1 H D PT with INR INR Chloride 97 L Carbon Dioxide 34 H Anion Gap 6 L Alkaline Phosphatase 181 H B-Natriuretic Peptide 2359.6 H Albumin 3.2 L 02/21/19 21:55 RDW Lymphocytes % Monocytes % PT with INR 17.60 H INR 1.49 H Chloride Carbon Dioxide Anion Gap Alkaline Phosphatase B-Natriuretic Peptide Albumin Abnormal Lab Results 02/21/19 02/21/19 02/21/19 18:45 18:45 18:45 RDW 16.5 H Lymphocytes % 7.2 L Monocytes % 17.1 H D ABG pH ABG pCO2 at Pt Temp ABG pO2 at Pt Temp ABG HCO3 ABG O2 Sat (Measured) ABG Base Excess Chloride 97 L Carbon Dioxide 34 H Anion Gap 6 L Alkaline Phosphatase 181 H B-Natriuretic Peptide 2359.6 H Albumin 3.2 L 02/21/19 02/22/19 22:30 01:10 RDW Lymphocytes % Monocytes % ABG pH 7.46 H ABG pCO2 at Pt Temp 46.6 H ABG pO2 at Pt Temp 58.7 L 58.1 L ABG HCO3 31.2 H 31.2 H ABG O2 Sat (Measured) 90.2 L 89.0 L ABG Base Excess 6.9 H 6.4 H Chloride Carbon Dioxide Anion Gap Alkaline Phosphatase B-Natriuretic Peptide Albumin ASSESSMENT AND PLAN: 1. Hypoxic respiratory failure/COPD exacerbation - Admits to nonadherence with Home O2 regimen, but no other obvious precipitating factor. No acute abnormality on CXR. Persistent hypoxia despite 5 liters [place] oxygen. She does not appear in distress. Getting Duoneb, solumedrol, rocephin and azithromycin. Will give IV MgSO4 and get CTA to rule out pulmonary embolism. Will switch to 50% Venti mask and monitor her closely and intubate if necessary. Get ECHO, urinalysis and consult Pulmonary. Last ECHO from 11/30/16 showed normal LVEF. No significant ST-T wave changes on EKG. Will continue comprehensive care of all her comorbid conditions including coumadin for Afib. Will bridge with heparin to attain therapeutic INR. 2. Polypharmacy - Will liaise with her PCP to reveiw and reduce the number of medications she is taking. 3. Hypoalbuminemia - Possibly due to combined effects of malnutrition and inflammation associated with comorbid chronic conditions. Will ensure adequate dietary protein intake and also consult gear cutting machine set up operator. 4. DM For now, we will hold the home diabetes drugs and implement sliding scale insulin regimen. Provide comprehensive diabetes care with patient teaching and counseling about the importance of adherence to prescribed diabetes regimen, euglycemia, eye care and foot care. 5. Hypertension - Restart suitable outpatient antihypertensive drugs when clinically appropriate. Revise regimen to ensure good BP control. Nonpharmacologic measures to control hypertension like weight loss, salt restriction and exercise discussed. 6. DVT prophylaxis - On coumadin. 7. Advance directives - Full code 8. Tobacco Use Counseled on risks associated with tobacco use. We will provide patient all the necessary assistance to facilitate smoking cessation and prescribe Nicotine patch.
--- NOTE | 2019-02-21 22:23 | HP ---
CHIEF COMPLAINT:sob , PCP: dr tarango HISTORY OF PRESENT ILLNESS: 67yo female, current 1ppd smoker with PMH of COPD (on home 2L), Afib (on Coumadin), Waldenstrom's syndrome (non-Hodkin's lymphoblastic lymphoma), cardiac myxoma s/p resection, asthma, DM, HTN, HLD, hypothyroid, osteoarthritis , fibromyalgia, who presented due to worsening SOB. As per roommate at bedside, patient has had SOB since yesterday as well as being Not Coherent. The patient associates a productive cough with green sputum, generalized weakness, chest pains, head pains and some dizziness making it difficult to get up from bed. It has also been reported that the patient had slept for an abnormally long duration for the last two days. Denies fever, chills, dizziness, weakness, N, V, D, abdominal pain, bladder and bowel problems, leg swelling, rash. No sick contacts or travel. No new changes in medications. No suspicious food intake Allergies: Midazolam HCL, Fresh Fruit Past Medical History: as documented in EMR/HPI Social history: Lives with Roommate. Tobacco, Use (1 Pack a day). No ETOH or drug use. Surgical history: Cardiac myxoma s/p resection Meds: as documented in EMR PMD: Dr. Andrade ER course was notable for: (1)cxr (2)chest ct (3)cbc, cmp (4) duoneb , solu-medrol Recent Travel: denies PAST MEDICAL HISTORY: as per HPI PAST SURGICAL HISTORY: Social History: Smokinppd Alcohol:denies Drugs: denies Family History: Allergies midazolam HCl [From [employer]] Allergy (Verified 02/21/19 18:21) fresh fruit Allergy (Severe, Uncoded 02/21/19 18:21) anaphlaxis HOME MEDICATIONS: Home Medications Medication Instructions Recorded Biotin/Calcium Carbonate [Biotin 1 each PO DAILY 11/29/16 800 Mcg Tablet] Cholecalciferol (Vitamin D3) 2,000 unit PO DAILY 11/29/16 [Vitamin D -] Cyanocobalamin [Vitamin B12 -] 1,000 mcg PO DAILY 11/29/16 Cyclobenzaprine HCl [Flexeril 10 5 mg PO DAILY 11/29/16 mg] Digoxin [Lanoxin -] 0.25 mg PO DAILY 11/29/16 Diltiazem HCl [Cartia Xt] 180 mg PO BID 11/29/16 Furosemide [Lasix] 80 mg PO BID 11/29/16 Gabapentin 200 mg PO BID 11/29/16 Levothyroxine [Synthroid -] 25 mcg PO DAILY 11/29/16 Multivitamin [Poly-Vitamin] 1 each PO DAILY 11/29/16 Quetiapine Fumarate [Seroquel -] 50 mg PO HS 11/29/16 Venlafaxine HCl ER [Effexor Xr -] 225 mg PO DAILY 11/29/16 Warfarin Sodium [Coumadin] 5 mg PO ASDIR 11/29/16 metFORMIN HCL [Metformin ER 1,000 mg PO BID 11/29/16 Osmotic] Atorvastatin Calcium 20 mg PO HS 01/11/17 Fluticasone Prop 0.05% Nasal 1 - 2 spray NS DAILY 01/11/17 [Flonase -] Montelukast Na [Singulair -] 10 mg PO HS 01/11/17 Salmeterol/Fluticasone [Advair 1 inh PO DAILY 01/11/17 500Mcg/50Mcg -] Albuterol Sulfate Inhaler - 1 - 2 inh PO Q4H PRN #1 inhaler 01/14/17 [Ventolin HFA Inhaler -] Budesonide/Formeterol Fumarate 2 puff IH BID inhaler 07/03/17 [SYMBICORT 160/4.5mcg -] Glimepiride [Glimepiride -] 1 mg PO DAILY@0700 tablet 07/03/17 Guaifenesin [Mucinex -] 1,200 mg PO DAILY tab 07/03/17 Miscellaneous Medical Supply 1 each PO ASDIR #1 kit 07/03/17 [Glucometer Device] Miscellaneous Medical Supply 1 each PO ASDIR #1 box 07/03/17 [Glucometer Test Strips #50] Potassium Chloride [Potassium 20 meq PO DAILY pack 07/03/17 Chloride Oral Liquid] Prednisone See Taper PO DAILY #20 tablet 07/03/17 Tiotropium [place] [Spiriva] 1 puff IH DAILY inh 07/03/17 REVIEW OF SYSTEMS CONSTITUTIONAL: Absent: fever, chills, diaphoresis, generalized weakness, malaise, loss of appetite, weight change HEENT: Absent: rhinorrhea, nasal congestion, throat pain, throat swelling, difficulty swallowing, mouth swelling, ear pain, eye pain, visual changes CARDIOVASCULAR: Absent: chest pain, syncope, palpitations, irregular heart rate, lightheadedness , peripheral edema RESPIRATORY: Absent: cough, shortness of breath, dyspnea with exertion, orthopnea, wheezing, stridor, hemoptysis GASTROINTESTINAL: Absent: abdominal pain, abdominal distension, nausea, vomiting, diarrhea, constipation, melena, hematochezia GENITOURINARY: Absent: dysuria, frequency, urgency, hesitancy, hematuria, flank pain, genital pain MUSCULOSKELETAL: Absent: myalgia, arthralgia, joint swelling, back pain, neck pain SKIN: Absent: rash, itching, pallor HEMATOLOGIC/IMMUNOLOGIC: Absent: easy bleeding, easy bruising, lymphadenopathy, frequent infections ENDOCRINE: Absent: unexplained weight gain, unexplained weight loss, heat intolerance, cold intolerance NEUROLOGIC: Absent: headache, focal weakness or paresthesias, dizziness, unsteady gait, seizure, mental status changes, bladder or bowel incontinence PSYCHIATRIC: Absent: anxiety, depression, suicidal or homicidal ideation, hallucinations. PHYSICAL EXAMINATION Vital Signs - 24 hr 02/21/19 02/21/19 18:25 19:52 Temperature 99.7 F H Pulse Rate 95 H 88 Pulse Rate [ 88 Right] Respiratory 18 22 H Rate Blood Pressure 118/61 Blood Pressure 123/71 [Right] O2 Sat by Pulse 85 L 94 L Oximetry (%) GENERAL: Awake, alert, and fully oriented, in no acute distress. HEAD: Normal with no signs of trauma. EYES: Pupils equal, round and reactive to light, extraocular movements intact, sclera anicteric, conjunctiva clear. No lid lag. EARS, NOSE, THROAT: Ears normal, nares patent, oropharynx clear without exudates. Moist mucous membranes. NECK: Normal range of motion, supple without lymphadenopathy, JVD, or masses. LUNGS: Breath sounds equal, clear to auscultation bilaterally. No wheezes, and no crackles. No accessory muscle use. HEART: Regular rate and rhythm, normal S1 and S2 without murmur, rub or gallop. ABDOMEN: Soft, nontender, not distended, normoactive bowel sounds, no guarding, no rebound, no masses. No hepatomegaly or splenomegaly. MUSCULOSKELETAL: Normal range of motion at all joints. No bony deformities or tenderness. No CVA tenderness. UPPER EXTREMITIES: 2+ pulses, warm, well-perfused. No cyanosis. No clubbing. No peripheral edema. LOWER EXTREMITIES: 2+ pulses, warm, well-perfused. No calf tenderness. No peripheral edema. NEUROLOGICAL: Cranial nerves II-XII intact. Normal speech. Normal gait. PSYCHIATRIC: Cooperative. Good eye contact. Appropriate mood and affect. SKIN: Warm, dry, normal turgor, no rashes or lesions noted, normal capillary refill. Laboratory Results - last 24 hr 02/21/19 02/21/19 02/21/19 18:45 18:45 18:45 WBC 9.6 RBC 5.14 Hgb 14.5 Hct 44.9 MCV 87.2 MCH 28.3 MCHC 32.4 RDW 16.5 H Plt Count 282 D MPV 8.4 Absolute Neuts (auto) 7.2 Neutrophils % 74.6 Lymphocytes % 7.2 L Monocytes % 17.1 H D Eosinophils % 0.1 D Basophils % 1.0 D Nucleated RBC % 0 VBG pH POC VBG pCO2 POC VBG pO2 VBG HCO3 VBG O2 Sat ([place]) VBG Base Excess Sodium 137 Potassium 3.5 Chloride 97 L Carbon Dioxide 34 H Anion Gap 6 L BUN 10.3 Creatinine 0.6 Est GFR (CKD-EPI)AfAm 109.31 Est GFR (CKD-EPI)NonAf 94.32 Random Glucose 82 Calcium 8.7 Total Bilirubin 0.6 AST 20 ALT 26 Alkaline Phosphatase 181 H Creatine Kinase 37 Troponin I < 0.02 B-Natriuretic Peptide 2359.6 H Total Protein 6.5 Albumin 3.2 L 02/21/19 21:55 WBC RBC Hgb Hct MCV MCH MCHC RDW Plt Count MPV Absolute Neuts (auto) Neutrophils % Lymphocytes % Monocytes % Eosinophils % Basophils % Nucleated RBC % VBG pH Cancelled POC VBG pCO2 Cancelled POC VBG pO2 Cancelled VBG HCO3 Cancelled VBG O2 Sat ([place]) Cancelled VBG Base Excess Cancelled Sodium Potassium Chloride Carbon Dioxide Anion Gap BUN Creatinine Est GFR (CKD-EPI)AfAm Est GFR (CKD-EPI)NonAf Random Glucose Calcium Total Bilirubin AST ALT Alkaline Phosphatase Creatine Kinase Troponin I B-Natriuretic Peptide Total Protein Albumin CBC, BMP 02/21/19 18:45 02/21/19 18:45 ASSESSMENT/PLAN: 67 year old female current smoker with a PMHx of Waldenstrom's syndrome ( nonHodkin's lymphoblastic lymphoma), asthma/COPD, atrial fibrillation on coumadin, IBS, DM, HTN, HLD, hypothyroid, osteoarthritis, fibromyalgia presented to the ED with hx of SOB, AMS, cough with increased sputum production admitted for copd exacerbation #Acute on chronic hypoxic respiratory failure 2/2 COPD exacerbation R.o PNA #Metabolic contraction alkalosis * iv azithromycin-500mg daily, ceftriaxone * spiriva- inh 1puff daily * symbicort inh 1puff bid * solumedrol- 125mg iv once, cont 40 q 8hr * ventolin-neb Q4H PRN * duoneb- neb 1amp * ceftriaxone -iv 2g daily * Supplemental oxygen-4L [place] * CBC, CMP, lactic acid, trops * ABGs- Hypercapnia and resp acidosis * CXR- pulm edema- not officially read * EKG * Respiratory-Dr Prado #Current smoker * Smoking cessation counseling * #Afib * Continue coumadin 5mg daily * Digoxin .025mg * K 200meq daily #DM * Hold Metformin * BGMs * ISS #HLD * Atorvastatin 20mg HS #Waldenstrom's syndrome (nonHodkin's lymphoblastic lymphoma) * Stable for now, * monitor #asthma * Supplemental oxygen * bronchodilators as needed #IBS * Monitor #HTN * Diltiazem 180mg daily #hypothyroid * Synthroid 25mcg daily #Bipolar disorder * Quetiapine 50mg PO HS, Venlafaxine 22mg PO daily #osteoarthritis, stable * Monitor #fibromyalgia * Gabapentin 200mg daily #Myxoma s/p surgery * Monitor #PX * SCDs both legs, Early ambulation, On coumadin #FEN * Oral fluids * Monitor electrolytes and replete as needed Sodium controlled diet * low sodium diabetic diet #Dispo * Med Surg Visit type - Emergency Visit Emergency Visit: Yes ED Registration Date: 02/21/19 Care time: The patient presented to the Emergency Department on the above date and was hospitalized for further evaluation of their emergent condition. - New Patient This patient is new to me today: Yes Date on this admission: 02/21/19 - Critical Care Critical Care patient: No
[2019-02-21 22:51] LABS: ARTERIAL BLD GAS O2 SATURATION 90.2 % (95-98); ARTERIAL BLOOD GAS BASE EXCESS 6.9 meq/l (-2-2); ARTERIAL BLOOD GAS PCO2 44.1 mmHg (35-45); ARTERIAL BLOOD GAS PO2 58.7 mmHg (80-105); ARTERIAL BLOOD GAS pH 7.46 (7.35-7.45)
[2019-02-21] MEDS ORDERED: AZITHROMYCIN IVPB 500 MG/250 ML BAG IVPB ONE (22:59)
[2019-02-21] MEDS ORDERED: CEFTRIAXONE 1 GM/50 ML BAG ONE (22:59)
[2019-02-21 23:01] LABS: ALLENS TEST POSITIVE
[2019-02-22] MEDS ORDERED: ALBUTEROL SO4 2.5/IPRATROPIUM 0.5 INH SOL 3 ML VIAL.NEB. NEB PRN (00:28)
[2019-02-22] MEDS ORDERED: ALBUTEROL SO4 0.083% IH SOL 2.5 MG/3 ML VIAL.NEB. NEB PRN (00:28)
[2019-02-22] MEDS: ALBUTEROL SO4 2.5/IPRATROPIUM 0.5 INH SOL 3 ML VIAL.NEB. NEB SCH (00:40)
[2019-02-22 01:36] LABS: ARTERIAL BLOOD GAS BASE EXCESS 6.4 meq/l (-2-2); ARTERIAL BLOOD GAS PCO2 46.6 mmHg (35-45); ARTERIAL BLOOD GAS PO2 58.1 mmHg (80-105); ARTERIAL BLOOD GAS pH 7.44 (7.35-7.45)
[2019-02-22 01:41] LABS: ALLENS TEST POSITIVE
[2019-02-22] MEDS ORDERED: ALBUTEROL SO4 8 GM HFA INHALER IH PRN (03:11)
[2019-02-22 04:11] LABS: ARTERIAL BLD GAS O2 SATURATION 91.9 % (95-98); ARTERIAL BLOOD GAS BASE EXCESS 6.7 meq/l (-2-2); ARTERIAL BLOOD GAS PCO2 47.9 mmHg (35-45); ARTERIAL BLOOD GAS PO2 65.4 mmHg (80-105); ARTERIAL BLOOD GAS pH 7.44 (7.35-7.45)
[2019-02-22 04:13] LABS: ALLENS TEST POSITIVE
[2019-02-22 05:48] VITALS: BMI 28.0
[2019-02-22] MEDS: INSULIN SLIDING SCALE (NOVOLOG) 1 VIAL SQ SCH ×4 (06:02→21:26)
[2019-02-22] MEDS: FUROSEMIDE 40 MG TABLET (FP) PO SCH ×2 (06:02→14:49)
--- NOTE | 2019-02-22 08:15 | PN ---
Progress Note (short form) - Note Progress Note: Patient is feeling better but continues to have shortness of breath. Vital Signs Temperature 98.3 F 02/22/19 06:00 Pulse Rate 84 02/22/19 06:00 Respiratory Rate 20 02/22/19 06:00 Blood Pressure 122/66 02/22/19 06:00 O2 Sat by Pulse Oximetry (%) 92 L 02/22/19 04:29 GENERAL: The patient is awake, alert, and fully oriented, on 50% VM. HEAD: Normal with no signs of trauma. EYES: PERRL, extraocular movements intact, sclera anicteric, conjunctiva clear. ENT: Ears normal, oropharynx clear without exudates, moist mucous membranes. NECK: Trachea midline, full range of motion, supple. LUNGS: Breath sounds equal, decreased BS at basis, no wheezes, no crackles, no accessory muscle use. HEART: Regular rate and rhythm, S1, S2 positive, without any murmur, no rub or gallop. ABDOMEN: Soft, NT, ND, normoactive bowel sounds, no guarding, no rebound, no hepatosplenomegaly, no masses. EXTREMITIES: 2+ pulses, warm, well-perfused, no edema. NEUROLOGICAL: Cranial nerves II through XII grossly intact. Normal speech, gait not observed. PSYCH: Normal mood, normal affect. SKIN: Warm, dry, normal turgor, no rashes or lesions noted CBCD WBC 9.6 K/mm3 (4.0-10.0) 02/21/19 18:45 RBC 5.14 M/mm3 (3.60-5.2) 02/21/19 18:45 Hgb 14.5 GM/dL (10.7-15.3) 02/21/19 18:45 Hct 44.9 % (32.4-45.2) 02/21/19 18:45 MCV 87.2 fl (80-96) 02/21/19 18:45 MCHC 32.4 g/dl (32.0-36.0) 02/21/19 18:45 RDW 16.5 % (11.6-15.6) H 02/21/19 18:45 Plt Count 282 K/MM3 (134-434) D 02/21/19 18:45 MPV 8.4 fl (7.5-11.1) 02/21/19 18:45 CMP Sodium 137 mmol/L (136-145) 02/21/19 18:45 Potassium 3.5 mmol/L (3.5-5.1) 02/21/19 18:45 Chloride 97 mmol/L (98-107) L 02/21/19 18:45 Carbon Dioxide 34 mmol/L (21-32) H 02/21/19 18:45 Anion Gap 6 MMOL/L (8-16) L 02/21/19 18:45 BUN 10.3 mg/dL (7-18) 02/21/19 18:45 Creatinine 0.6 mg/dL (0.55-1.3) 02/21/19 18:45 Random Glucose 82 mg/dL (74-106) 02/21/19 18:45 Calcium 8.7 mg/dL (8.5-10.1) 02/21/19 18:45 Total Bilirubin 0.6 mg/dL (0.2-1) 02/21/19 18:45 AST 20 U/L (15-37) 02/21/19 18:45 ALT 26 U/L (13-61) 02/21/19 18:45 Alkaline Phosphatase 181 U/L (45-117) H 02/21/19 18:45 Total Protein 6.5 g/dl (6.4-8.2) 02/21/19 18:45 Albumin 3.2 g/dl (3.4-5.0) L 02/21/19 18:45 CARDIAC ENZYMES Creatine Kinase 37 U/L (26-192) 02/21/19 18:45 Troponin I < 0.02 ng/ml (0.00-0.05) 02/21/19 18:45 Current Medications Generic Name Dose Route Start Last Admin Trade Name Freq PRN Reason Stop Dose Admin Albuterol Sulfate 1 amp 02/22/19 00:28 Ventolin 0.083% Nebulizer Soln - NEB Q6H PRN SHORT OF BREATH/WHEEZING Albuterol Sulfate 2 puff 02/22/19 03:11 Ventolin Hfa Inhaler - IH Q4H PRN SHORT OF BREATH/WHEEZING Albuterol/Ipratropium 1 amp 02/22/19 00:28 02/22/19 04:14 Duoneb - NEB 1 amp Q4H PRN Administration SHORTNESS OF BREATH Atorvastatin Calcium 20 mg 02/22/19 22:00 Lipitor - PO HS [facility] Azithromycin 500 mg 02/22/19 10:00 Zithromax - PO DAILY [facility] Budesonide/Formoterol Fumarate 2 puff 02/22/19 10:00 Symbicort 160/4.5mcg - IH BID [facility] Cholecalciferol 2,000 unit 02/22/19 10:00 Vitamin D3 - PO DAILY [facility] Cyanocobalamin 1,000 mcg 02/22/19 10:00 Vitamin B12 - PO DAILY [facility] Diltiazem HCl 180 mg 02/22/19 10:00 Cardizem Cd - PO BID [facility] Fluticasone Propionate 2 spray 02/22/19 10:00 Flonase - NS DAILY [facility] Furosemide 80 mg 02/22/19 06:00 02/22/19 06:02 Lasix - PO 80 mg BIDLASIX [facility]ARIO Administration Gabapentin 300 mg 02/22/19 10:00 Neurontin - PO BID [facility] Guaifenesin 1,200 mg 02/22/19 10:00 Mucinex - PO DAILY [facility] Ceftriaxone Sodium 1 gm/ 50 mls @ 100 mls/hr 02/22/19 10:00 Dextrose IVPB DAILY [facility] Protocol Insulin Aspart 1 vial 02/22/19 07:00 02/22/19 06:02 Novolog Vial Sliding Scale - SQ 2 units ACHS [facility] Administration Protocol Methylprednisolone Sodium Succinate 40 mg 02/22/19 02:00 Solu-Medrol - IVPB Q8H-IV [facility] Montelukast Sodium 10 mg 02/22/19 22:00 Singulair - PO HS [facility] Tiotropium [place] 2 puff 02/22/19 10:00 Spiriva Respimat IH DAILY [facility] Venlafaxine HCl 225 mg 02/22/19 10:00 Effexor Xr - PO DAILY [facility] Warfarin Sodium 5 mg 02/22/19 18:00 Coumadin - PO DAILY@1800 [facility] Home Medications Medication Instructions Recorded Biotin/Calcium Carbonate [Biotin 1 each PO DAILY 11/29/16 800 Mcg Tablet] Cholecalciferol (Vitamin D3) 2,000 unit PO DAILY 11/29/16 [Vitamin D -] Cyanocobalamin [Vitamin B12 -] 1,000 mcg PO DAILY 11/29/16 Cyclobenzaprine HCl [Flexeril 10 5 mg PO DAILY 03/29/17 mg] Digoxin [Lanoxin -] 0.25 mg PO DAILY 11/29/16 Diltiazem HCl [Cartia Xt] 180 mg PO BID 11/29/16 Furosemide [Lasix] 80 mg PO BID 11/29/16 Gabapentin 300 mg PO BID 11/29/16 Levothyroxine [Synthroid -] 25 mcg PO DAILY 11/29/16 Multivitamin [Poly-Vitamin] 1 each PO DAILY 11/29/16 Quetiapine Fumarate [Seroquel -] 50 mg PO HS 11/29/16 Venlafaxine HCl ER [Effexor Xr -] 225 mg PO DAILY 11/29/16 Warfarin Sodium [Coumadin] 5 mg PO ASDIR 11/29/16 metFORMIN HCL [Metformin ER 1,000 mg PO BID 11/29/16 Osmotic] Atorvastatin Calcium 20 mg PO HS 01/11/17 Fluticasone Prop 0.05% Nasal 1 - 2 spray NS DAILY 01/11/17 [Flonase -] Montelukast Na [Singulair -] 10 mg PO HS 01/11/17 Salmeterol/Fluticasone [Advair 1 inh PO DAILY 01/11/17 500Mcg/50Mcg -] Albuterol Sulfate Inhaler - 1 - 2 inh PO Q4H PRN #1 inhaler 01/14/17 [Ventolin HFA Inhaler -] Budesonide/Formeterol Fumarate 2 puff IH BID inhaler 07/03/17 [SYMBICORT 160/4.5mcg -] Glimepiride [Glimepiride -] 1 mg PO DAILY@0700 tablet 07/03/17 Guaifenesin [Mucinex -] 1,200 mg PO DAILY tab 07/03/17 Miscellaneous [employer] 1 each PO ASDIR #1 kit 07/03/17 [Glucometer Device] [employer]isc[employer] 1 each PO ASDIR #1 box 07/03/17 [Glucometer Test Strips #50] Potassium Chloride [Potassium 20 meq PO DAILY pack 07/03/17 Chloride Oral Liquid] Prednisone See Taper PO DAILY #20 tablet 07/03/17 Tiotropium [place] [Spiriva] 1 puff IH DAILY inh 07/03/17 Assessment and Plan: This is a 66 yo F with PMHx of asthma, COPD, Waldenstrom's macroglobulinemia, nonHodkin's lymphoma, atrial fibrillation (coumadin), IBS, DM, HTN, HLD, hypothyroid, arthritis, fibromyalgia presented to ED for SOB, cough. She is being admitted for COPD exac and pneumonia. # Acute hypoxemic , hypercapneic COPD exacerbation due to Pneumonia: On ceftriaxone, azithromycin continue, pulm consult nebulizer txs continue ,continue singulair, On IV solumedrol 40mg Q6H, ,BiPAP PRN # Acute Pneumonia on IV antibiotic: IV Rocephin/Zithromax continue day #1 #Atrial fibrillation rate controlled on coumadin continue PT/INR daily, subtherapeutic INR , will give a dose of lovenox INR 1.56 #HTN On lasix 80mg BID continue #Hyperlipidemia on lipitor continue # DM hold metformin, SS with coverage continue # hypothyroidism on synthroid continue # Waldenstrom's macroblobulinemia/NHL ;stable per patient ;f/u outpatient # arthritis/fibromyalgia on flexeril/gabapentin continue # Depression on effexor, seroquel continue # Smoking cesation : nicotine patch ordered DVT Px: Coumadin Visit type - Emergency Visit Emergency Visit: Yes ED Registration Date: 02/21/19 Care time: The patient presented to the Emergency Department on the above date and was hospitalized for further evaluation of their emergent condition. - New Patient This patient is new to me today: Yes Date on this admission: 02/22/19 - Critical Care Critical Care patient: No - Discharge Referral Referred to [facility] No
[2019-02-22 08:32] LABS: BASO % 0.3 % (0-2.0); HEMATOCRIT 40.2 % (32.4-45.2); HEMOGLOBIN 13.3 GM/dL (10.7-15.3); LYMPH % 7.4 % (8-40); MCH 28.3 pg (25.7-33.7); MCHC 33.2 g/dl (32.0-36.0); MEAN CELL VOLUME 85.1 fl (80-96); MEAN PLT VOLUME 7.9 fl (7.5-11.1); MONO % 6.6 % (3.8-10.2); NEUT % 85.7 % (42.8-82.8); PLATELET COUNT 282 K/MM3 (134-434); RBC 4.72 M/mm3 (3.60-5.2); RDW 16.1 % (11.6-15.6); WHITE BLOOD COUNT 7.2 K/mm3 (4.0-10.0)
[2019-02-22 08:56] LABS: ALBUMIN 2.8 g/dl (3.4-5.0); BILIRUBIN,TOTAL 0.5 mg/dL (0.2-1); CALCIUM 8.5 mg/dL (8.5-10.1); CREATININE 0.5 mg/dL (0.55-1.3); MAGNESIUM 2.3 mg/dL (1.8-2.4); PHOSPHOROUS 3.9 mg/dL (2.5-4.9); POTASSIUM 3.2 mmol/L (3.5-5.1); TOT PROT 5.9 g/dl (6.4-8.2)
[2019-02-22] MEDS ORDERED: cefTRIAXone SODIUM 1 GM VIAL ONE (08:57)
[2019-02-22] MEDS ORDERED: DEXTROSE 5%-WATER - 50 ML IVPB ONE (08:58)
[2019-02-22] MEDS ORDERED: PT OWN MED DRAWER 7, Y5N ONE ×2 (08:59→09:23)
[2019-02-22] MEDS: CYANOCOBALAMIN 1,000 MCG TABLET (FP) PO SCH (09:03)
[2019-02-22] MEDS: GABAPENTIN 300 MG CAPSULE (FP) PO SCH ×2 (09:03→21:23)
[2019-02-22] MEDS: AZITHROMYCIN 250 MG TABLET PO SCH (09:04)
[2019-02-22] MEDS: guaiFENesin 600 MG TABLET.ER (FP) PO SCH (09:04)
[2019-02-22] MEDS: FLUTICASONE PROP 0.05% 16 GM NASAL SPRAY NS SCH (09:04)
[2019-02-22] MEDS: CHOLECALCIFEROL (VIT D3) 400 UNIT (10 MCG) TABLET PO SCH (09:04)
[2019-02-22] MEDS: BUDESONIDE/FORMETEROL FUMARATE 160/4.5 mcg INHALER IH SCH ×2 (09:05→21:27)
[2019-02-22] MEDS: CEFTRIAXONE 1 GM in DEXTROSE 5%-WATER - 50 ML IVPB SCH (09:05)
[2019-02-22] MEDS: TIOTROPIUM BROMIDE 2.5 MCG (SPIRIVA) RESPIMAT INHALER IH SCH (09:05)
[2019-02-22] MEDS: methylPREDNISolone NA SUCC 40 MG/1 ML VIAL IVPB SCH ×3 (09:05→17:14)
[2019-02-22 09:07] LABS: INR 1.56 (0.83-1.09); PROTHROMBIN TIME (PATIENT) 18.5 SEC (9.7-13.0)
[2019-02-22] MEDS ORDERED: PATIENT'S OWN MEDICATION (NON-FORMULARY) (Salmeterol/Fluticasone [Advair 500mcg/50mcg -] 1 PO SCH (10:00)
--- NOTE | 2019-02-22 10:33 | EKG ---
Test Reason : Blood Pressure : / mmHG Vent. Rate : 075 BPM Atrial Rate : 080 BPM P-R Int : 000 ms QRS Dur : 106 ms QT Int : 382 ms P-R-T Axes : 000 119 -42 degrees QTc Int : 426 ms ATRIAL FIBRILLATION RIGHT AXIS DEVIATION INCOMPLETE RIGHT BUNDLE BRANCH BLOCK SEPTAL INFARCT (CITED ON OR BEFORE 29-JUN-2017) NONSPECIFIC ST ABNORMALITY Confirmed by RICHIE NIX MD ([id number]) on 02/22/2019 10:32:53 AM Referred By: Confirmed By:RICHIE NIX MD
--- NOTE | 2019-02-22 12:49 | EKG ---
Test Reason : Blood Pressure : / mmHG Vent. Rate : 079 BPM Atrial Rate : 220 BPM P-R Int : 000 ms QRS Dur : 108 ms QT Int : 378 ms P-R-T Axes : 000 115 -23 degrees QTc Int : 433 ms ATRIAL FIBRILLATION RIGHT AXIS DEVIATION SEPTAL INFARCT (CITED ON OR BEFORE 29-JUN-2017) NONSPECIFIC ST ABNORMALITY ABNORMAL ECG Confirmed by RICHIE NIX MD ([id number]) on 02/22/2019 12:49:23 PM Referred By: Confirmed By:RICHIE NIX MD
[2019-02-22] MEDS: NICOTINE 14 MG/24 HOURS TOPICAL PATCH TD SCH (14:49)
[2019-02-22] MEDS ORDERED: ENOXAPARIN NA (PORCINE) 30 MG/0.3 ML DISP.SYRIN SQ SCH (15:00)
--- NOTE | 2019-02-22 15:02 | CON.PULM ---
Consult Consult Specialty:: PULM/CCM Referred by:: DULCE Reason for Consultation:: SOB - History of Present Illness Chief Complaint: SOB History of Present Illness: 67 F, O2 dependent COPD (on 2 L NC), current 1ppd smoker, Afib on Coumadin, Waldenstrom's syndrome (non-Hodkin's lymphoblastic lymphoma), cardiac myxoma s/ p resection, DM, HTN, HLD, hypothyroid, osteoarthritis, and fibromyalgia. Admitted via the ER due to worsening SOB and confusion. The patient does not recall the events that brought her to the hospital. Now she is awake and alert on 50% VM. No apparent travel history or sick contacts. No hemoptysis or night sweats. CTA: no large / central clots noted. Non-specific bilateral infiltrates that were largely present on her CT from 2017. - History Source History Provided By: Patient Limitations to Obtaining History: Poor Historian - Past Medical History Cardio/Vascular: Yes: AFIB, HTN Pulmonary: Yes: Asthma, Bronchitis, COPD, O2 Dependent, Pneumonia, Other ( emphysema). No: Cancer, Previously Intubated, Pulmonary Embolus, Pulmonary Fibrosis, Sleep Apnea - Alcohol/Substance Use Hx Alcohol Use: No - Smoking History Smoking history: Current every day smoker Have you smoked in the past 12 months: Yes Aproximately how many cigarettes per day: 20 Home Medications - Allergies Allergies/Adverse Reactions: Allergies Allergy/AdvReac Type Severity Reaction Status Date / Time midazolam HCl [From Versed] Allergy Verified 02/21/19 18:21 fresh fruit Allergy Severe anaphlaxis Uncoded 02/21/19 18:21 - Home Medications Home Medications: Ambulatory Orders Biotin/Calcium Carbonate [Biotin 800 Mcg Tablet] 1 each PO DAILY 11/29/16 Cholecalciferol (Vitamin D3) [Vitamin D -] 2,000 unit PO DAILY 11/29/16 Cyanocobalamin [Vitamin B12 -] 1,000 mcg PO DAILY 11/29/16 Cyclobenzaprine HCl [Flexeril 10 mg] 5 mg PO DAILY 11/29/16 Digoxin [Lanoxin -] 0.25 mg PO DAILY 11/29/16 Diltiazem HCl [Cartia Xt] 180 mg PO BID 11/29/16 Furosemide [Lasix] 80 mg PO BID 11/29/16 Gabapentin 300 mg PO BID 11/29/16 Levothyroxine [Synthroid -] 25 mcg PO DAILY 11/29/16 Multivitamin [Poly-Vitamin] 1 each PO DAILY 11/29/16 Quetiapine Fumarate [Seroquel -] 50 mg PO HS 11/29/16 Venlafaxine HCl ER [Effexor Xr -] 225 mg PO DAILY 11/29/16 Warfarin Sodium [Coumadin] 5 mg PO ASDIR 11/29/16 metFORMIN HCL [Metformin ER Osmotic] 1,000 mg PO BID 11/29/16 Atorvastatin Calcium 20 mg PO HS 01/11/17 Fluticasone Prop 0.05% Nasal [Flonase -] 1 - 2 spray NS DAILY 01/11/17 Montelukast Na [Singulair -] 10 mg PO HS 01/11/17 Salmeterol/Fluticasone [Advair 500Mcg/50Mcg -] 1 inh PO DAILY 01/11/17 Albuterol Sulfate Inhaler - [Ventolin HFA Inhaler -] 1 - 2 inh PO Q4H PRN #1 inhaler 01/14/17 Budesonide/Formeterol Fumarate [SYMBICORT 160/4.5mcg -] 2 puff IH BID inhaler 07/03/17 Glimepiride [Glimepiride -] 1 mg PO DAILY@0700 tablet 07/03/17 Guaifenesin [Mucinex -] 1,200 mg PO DAILY tab 07/03/17 Miscellaneous Medical Supply [Glucometer Device] 1 each PO ASDIR #1 kit [employer] [Glucometer Test Strips #50] 1 each PO ASDIR #1 box 07/03/17 Potassium Chloride [Potassium Chloride Oral Liquid] 20 meq PO DAILY pack Prednisone See Taper PO DAILY #20 tablet 07/03/17 Tiotropium [place] [Spiriva] 1 puff IH DAILY inh 07/03/17 Review of Systems - Review of Systems Constitutional: reports: Malaise. denies: Chills, Diaphoresis, Night Sweats Eyes: reports: No Symptoms HENT: reports: No Symptoms Neck: reports: No Symptoms Cardiovascular: reports: No Symptoms Respiratory: reports: Cough, SOB, SOB on Exertion, Wheezing. denies: Hemoptysis , Snoring Gastrointestinal: reports: No Symptoms Genitourinary: reports: No Symptoms Breasts: reports: No Symptoms Reported Musculoskeletal: reports: No Symptoms Integumentary: reports: No Symptoms Neurological: reports: Confusion. denies: Seizure Endocrine: reports: No Symptoms Hematology/Lymphatic: reports: No Symptoms Psychiatric: reports: No Symptoms Physical Exam Vital Sings: Vital Signs Temperature 97.6 F 02/22/19 09:32 Pulse Rate 75 02/22/19 09:32 Respiratory Rate 19 02/22/19 09:32 Blood Pressure 110/58 L 02/22/19 09:32 O2 Sat by Pulse Oximetry (%) 95 02/22/19 12:00 Constitutional: Yes: Mild Distress Eyes: Yes: Conjunctiva Clear, EOM Intact HENT: Yes: Atraumatic, Normocephalic Neck: Yes: Supple, Trachea Midline Cardiovascular: Yes: Pulse Irregular ...Inspection: Yes: WNL ...Clubbing: No Gastrointestinal: Yes: Normal Bowel Sounds, Soft Renal/: Yes: WNL Musculoskeletal: Yes: WNL Extremities: Yes: WNL Edema: No Peripheral Pulses WNL: Yes Integumentary: Yes: WNL Neurological: Yes: Alert, Oriented, Confusion ...Motor Strength: WNL Psychiatric: Yes: Alert, Oriented Labs: CBC, BMP 02/22/19 06:19 02/22/19 06:19 ABG Results ABG pH 7.44 (7.35-7.45) 02/22/19 04:00 ABG pCO2 at Pt Temp 47.9 mmHg (35-45) H 02/22/19 04:00 ABG pO2 at Pt Temp 65.4 mmHg (80-105) L 02/22/19 04:00 ABG HCO3 31.6 mmol/L (22-27) H 02/22/19 04:00 ABG O2 Sat (Measured) 91.9 % (95-98) L 02/22/19 04:00 ABG O2 Content 16.9 % vol (15-22) 02/22/19 04:00 ABG Base Excess 6.7 meq/l (-2-2) H 02/22/19 04:00 Imaging - Results Chest X-ray: Image Reviewed X-ray: Image Reviewed Problem List - Problems (1) Confusion Code(s): R41.0 - DISORIENTATION, UNSPECIFIED (2) Acute and chronic respiratory failure with hypoxia Code(s): J96.21 - ACUTE AND CHRONIC RESPIRATORY FAILURE WITH HYPOXIA (3) COPD exacerbation Code(s): J44.1 - CHRONIC OBSTRUCTIVE PULMONARY DISEASE W (ACUTE) EXACERBATION (4) Pneumonia Code(s): J18.9 - PNEUMONIA, UNSPECIFIED ORGANISM (5) SOB (shortness of breath) Code(s): R06.02 - SHORTNESS OF BREATH (6) Atrial fibrillation Code(s): I48.91 - UNSPECIFIED ATRIAL FIBRILLATION (7) Cough Code(s): R05 - COUGH (8) Hypoxia Code(s): R09.02 - HYPOXEMIA (9) Non Hodgkin's lymphoma Code(s): C85.90 - NON-HODGKIN LYMPHOMA, UNSPECIFIED, UNSPECIFIED SITE Assessment/Plan Medrol BD TX Supplemental O2 to maintain saturation Check sputum NIPPV as needed for WOB Check offical read of CTA Cardiac Telemetry monitoring Will follow Thank you. Dr Zhu
[2019-02-22] MEDS: VENLAFAXINE HCL 75 MG E.R. CAPSULES (FP) PO SCH (15:32)
[2019-02-22] MEDS: ENOXAPARIN NA (PORCINE) 80 MG/0.8 ML DISP.SYRIN SQ SCH ×2 (15:32→21:22)
[2019-02-22] MEDS: WARFARIN NA 5 MG TABLET (UD) PO SCH (17:36)
[2019-02-22] MEDS: ACETAMINOPHEN 325 MG TABLET (FP) PO PRN (18:52)
[2019-02-22] MEDS: ATORVASTATIN CA 20 MG TABLET (FP) PO SCH (21:23)
[2019-02-22] MEDS: MONTELUKAST NA 10 MG TABLET PO SCH (21:23)
[2019-02-22] MEDS ORDERED: QUEtiapine FUMARATE 50 MG TABLET PO ONE (22:38)
[2019-02-23] MEDS: methylPREDNISolone NA SUCC 40 MG/1 ML VIAL IVPB SCH ×3 (01:02→17:18)
[2019-02-23] MEDS ORDERED: POTASSIUM CHLORIDE TABS 20 MEQ TABLET.ER (FP) PO ONE (04:00)
[2019-02-23] MEDS: INSULIN SLIDING SCALE (NOVOLOG) 1 VIAL SQ SCH ×4 (06:33→21:44)
[2019-02-23] MEDS: FUROSEMIDE 40 MG TABLET (FP) PO SCH ×2 (06:34→15:49)
[2019-02-23 07:24] LABS: BASO % 0.2 % (0-2.0); HEMATOCRIT 40.1 % (32.4-45.2); LYMPH % 7.7 % (8-40); MCHC 32.5 g/dl (32.0-36.0); MEAN PLT VOLUME 8.2 fl (7.5-11.1); MONO % 6.2 % (3.8-10.2); NEUT % 85.9 % (42.8-82.8); PLATELET COUNT 276 K/MM3 (134-434); RBC 4.67 M/mm3 (3.60-5.2); RDW 16.6 % (11.6-15.6); WHITE BLOOD COUNT 5.7 K/mm3 (4.0-10.0)
[2019-02-23 07:36] LABS: INR 1.45 (0.83-1.09); PROTHROMBIN TIME (PATIENT) 17.2 SEC (9.7-13.0)
[2019-02-23 08:02] LABS: ALBUMIN 2.9 g/dl (3.4-5.0); BILIRUBIN,TOTAL 0.6 mg/dL (0.2-1); BLOOD UREA NITROGEN 17.5 mg/dL (7-18); CALCIUM 8.3 mg/dL (8.5-10.1); CREATININE 0.5 mg/dL (0.55-1.3); MAGNESIUM 2.4 mg/dL (1.8-2.4); PHOSPHOROUS 4.6 mg/dL (2.5-4.9); POTASSIUM 3.8 mmol/L (3.5-5.1); TOT PROT 6.2 g/dl (6.4-8.2)
[2019-02-23] MEDS ORDERED: DEXTROSE 5%-WATER - 50 ML IVPB ONE (10:25)
[2019-02-23] MEDS ORDERED: PT OWN MED DRAWER 7, Y5N ONE ×2 (10:25→19:13)
[2019-02-23] MEDS ORDERED: cefTRIAXone SODIUM 1 GM VIAL ONE (10:25)
[2019-02-23] MEDS: CEFTRIAXONE 1 GM in DEXTROSE 5%-WATER - 50 ML IVPB SCH (10:39)
[2019-02-23] MEDS: VENLAFAXINE HCL 75 MG E.R. CAPSULES (FP) PO SCH (10:40)
[2019-02-23] MEDS: ENOXAPARIN NA (PORCINE) 80 MG/0.8 ML DISP.SYRIN SQ SCH ×2 (10:40→21:41)
[2019-02-23] MEDS: AZITHROMYCIN 250 MG TABLET PO SCH (10:40)
[2019-02-23] MEDS: CYANOCOBALAMIN 1,000 MCG TABLET (FP) PO SCH (10:40)
[2019-02-23] MEDS: GABAPENTIN 300 MG CAPSULE (FP) PO SCH ×2 (10:40→21:39)
[2019-02-23] MEDS: guaiFENesin 600 MG TABLET.ER (FP) PO SCH (10:40)
[2019-02-23] MEDS: ACETAMINOPHEN 325 MG TABLET (FP) PO PRN (10:41)
[2019-02-23] MEDS: CHOLECALCIFEROL (VIT D3) 400 UNIT (10 MCG) TABLET PO SCH (10:42)
[2019-02-23] MEDS: TIOTROPIUM BROMIDE 2.5 MCG (SPIRIVA) RESPIMAT INHALER IH SCH (10:43)
[2019-02-23] MEDS: FLUTICASONE PROP 0.05% 16 GM NASAL SPRAY NS SCH (10:43)
[2019-02-23] MEDS: BUDESONIDE/FORMETEROL FUMARATE 160/4.5 mcg INHALER IH SCH ×2 (10:43→21:39)
[2019-02-23] MEDS: NICOTINE 14 MG/24 HOURS TOPICAL PATCH TD SCH (10:57)
--- NOTE | 2019-02-23 11:07 | PN ---
Physical Exam: SUBJECTIVE: Patient seen and examined at bedside. breathing improved. denies fever, cp, n/v/d OBJECTIVE: Vital Signs Period Temp Pulse Resp BP Sys/Card Pulse Ox Last 24 Hr 97.6 F-98.4 F 70-87 20-20 97-111/56-67 90-95 GENERAL: The patient is awake, alert, and fully oriented, in no acute distress. HEAD: Normal with no signs of trauma. EYES: PERRL, extraocular movements intact, sclera anicteric, conjunctiva clear. No ptosis. ENT: Ears normal, nares patent, oropharynx clear without exudates, moist mucous membranes. NECK: Trachea midline, full range of motion, supple. LUNGS: crackles at bases HEART: Regular rate and rhythm, S1, S2 without murmur, rub or gallop. ABDOMEN: Soft, nontender, nondistended, normoactive bowel sounds, no guarding, no rebound, no hepatosplenomegaly, no masses. EXTREMITIES: 2+ pulses, warm, well-perfused, no edema. NEUROLOGICAL: Cranial nerves II through XII grossly intact. Normal speech, gait not observed. PSYCH: Normal mood, normal affect. SKIN: Warm, dry, normal turgor, no rashes or lesions noted Laboratory Results - last 24 hr 02/22/19 02/22/19 02/22/19 12:11 17:06 21:24 WBC RBC Hgb Hct MCV MCH MCHC RDW Plt Count MPV Absolute Neuts (auto) Neutrophils % Lymphocytes % Monocytes % Eosinophils % Basophils % Nucleated RBC % PT with INR INR Sodium Potassium Chloride Carbon Dioxide Anion Gap BUN Creatinine Est GFR (CKD-EPI)AfAm Est GFR (CKD-EPI)NonAf POC Glucometer 140 169 200 Random Glucose Calcium Phosphorus Magnesium Total Bilirubin AST ALT Alkaline Phosphatase Total Protein Albumin 02/23/19 02/23/19 02/23/19 05:52 05:59 05:59 WBC 5.7 RBC 4.67 Hgb 13.0 Hct 40.1 MCV 86.0 MCH 28.0 MCHC 32.5 RDW 16.6 H Plt Count 276 MPV 8.2 Absolute Neuts (auto) 4.9 Neutrophils % 85.9 H Lymphocytes % 7.7 L Monocytes % 6.2 Eosinophils % 0.0 Basophils % 0.2 Nucleated RBC % 0 PT with INR 17.20 H INR 1.45 H Sodium Potassium Chloride Carbon Dioxide Anion Gap BUN Creatinine Est GFR (CKD-EPI)AfAm Est GFR (CKD-EPI)NonAf POC Glucometer 161 Random Glucose Calcium Phosphorus Magnesium Total Bilirubin AST ALT Alkaline Phosphatase Total Protein Albumin 02/23/19 05:59 WBC RBC Hgb Hct MCV MCH MCHC RDW Plt Count MPV Absolute Neuts (auto) Neutrophils % Lymphocytes % Monocytes % Eosinophils % Basophils % Nucleated RBC % PT with INR INR Sodium 140 Potassium 3.8 Chloride 100 Carbon Dioxide 32 Anion Gap 8 BUN 17.5 Creatinine 0.5 L Est GFR (CKD-EPI)AfAm 116.07 Est GFR (CKD-EPI)NonAf 100.15 POC Glucometer Random Glucose 163 H Calcium 8.3 L Phosphorus 4.6 Magnesium 2.4 Total Bilirubin 0.6 AST 24 ALT 28 Alkaline Phosphatase 154 H Total Protein 6.2 L Albumin 2.9 L Active Medications Generic Name Dose Route Start Last Admin Trade Name Freq PRN Reason Stop Dose Admin Acetaminophen 650 mg 02/22/19 14:40 02/23/19 10:41 Tylenol - PO 650 mg Q6H PRN Administration PAIN 1-3 Albuterol Sulfate 1 amp 02/22/19 00:28 02/22/19 16:00 Ventolin 0.083% Nebulizer Soln - NEB 1 amp Q6H PRN Administration SHORT OF BREATH/WHEEZING Albuterol Sulfate 2 puff 02/22/19 03:11 Ventolin Hfa Inhaler - IH Q4H PRN SHORT OF BREATH/WHEEZING Atorvastatin Calcium 20 mg 02/22/19 22:00 02/22/19 21:23 Lipitor - PO 20 mg HS ROSARIO Administration Azithromycin 500 mg 02/22/19 10:00 02/23/19 10:40 Zithromax - PO 500 mg DAILY ROSARIO Administration Budesonide/Formoterol Fumarate 2 puff 02/22/19 10:00 02/23/19 10:43 Symbicort 160/4.5mcg - IH 2 puff BID ROSARIO Administration Cholecalciferol 2,000 unit 02/22/19 10:00 02/23/19 10:42 Vitamin D3 - PO 2,000 unit DAILY ROSARIO Administration Cyanocobalamin 1,000 mcg 02/22/19 10:00 02/23/19 10:40 Vitamin B12 - PO 1,000 mcg DAILY ROSARIO Administration Diltiazem HCl 180 mg 02/22/19 10:00 02/23/19 10:40 Cardizem Cd - PO Not Given BID ROSARIO Enoxaparin Sodium 70 mg 02/22/19 15:15 02/23/19 10:40 Lovenox - SQ 70 mg BID ROSARIO Administration Fluticasone Propionate 2 spray 02/22/19 10:00 02/23/19 10:43 Flonase - NS 2 sprays DAILY ROSARIO Administration Furosemide 80 mg 02/22/19 06:00 02/23/19 06:34 Lasix - PO 80 mg BIDLASIX ROSARIO Administration Gabapentin 300 mg 02/22/19 10:00 02/23/19 10:40 Neurontin - PO 300 mg BID ROSARIO Administration Guaifenesin 1,200 mg 02/22/19 10:00 02/23/19 10:40 Mucinex - PO 1,200 mg DAILY ROSARIO Administration Ceftriaxone Sodium 1 gm/ 50 mls @ 100 mls/hr 02/22/19 10:00 02/23/19 10:39 Dextrose IVPB 100 mls/hr DAILY [facility] Administration Protocol Insulin Aspart 1 vial 02/22/19 07:00 02/23/19 06:33 Novolog Vial Sliding Scale - SQ 2 units ACHS ROSARIO Administration Protocol Methylprednisolone Sodium Succinate 40 mg 02/22/19 02:00 02/23/19 10:43 Solu-Medrol - IVPB 40 mg Q8H-IV ROSARIO Administration Montelukast Sodium 10 mg 02/22/19 22:00 02/22/19 21:23 Singulair - PO 10 mg HS ROSARIO Administration Nicotine 14 mg 02/22/19 14:45 02/23/19 10:57 Nicoderm Patch - TD Not Given DAILY [facility] Tiotropium [place] 2 puff 02/22/19 10:00 02/23/19 10:43 Spiriva Respimat IH 2 puff DAILY [facility] Administration Venlafaxine HCl 225 mg 02/22/19 10:00 02/23/19 10:40 Effexor Xr - PO 225 mg DAILY ROSARIO Administration Warfarin Sodium 5 mg 02/22/19 18:00 02/22/19 17:36 Coumadin - PO 5 mg DAILY@1800 ROSARIO Administration ASSESSMENT/PLAN: 67 y/o F current smoker with a PMHx of Waldenstrom's syndrome (nonHodkin's lymphoblastic lymphoma), asthma/COPD, atrial fibrillation on coumadin, IBS, DM, HTN, HLD, hypothyroid, osteoarthritis, fibromyalgia presented to the ED with hx of SOB, AMS, cough with increased sputum production admitted for copd exacerbation #Acute on chronic hypoxic hypercapnic respiratory failure 2/2 COPD exacerbation 2/2 PNA #Metabolic contraction alkalosis c/w IV azithromycin, ceftriaxone d2, will dc azithro after 3rd dose spiriva- inh 1puff daily symbicort inh 1puff bid s/p solumedrol- 125mg iv x1, c/w 40 q 8hr ventolin-neb Q4H PRN singulair duoneb prn Supplemental oxygen-4L NC pulm consult, Dr Prado NIPPV as needed for WOB f/u [facility] CT small patchy RUL anterior seg infiltrate, increased main PA #Current smoker Smoking cessation counseling nicotine patch #Afib Continue coumadin 5mg daily, INR 1.45 hold Digoxin .025mg while taking azithro, will resume on 02/25 cardizem #DM Hold Metformin BGMs ISS #HLD Atorvastatin 20mg HS #Waldenstrom's syndrome (nonHodkin's lymphoblastic lymphoma) Stable for now, monitor #asthma Supplemental oxygen bronchodilators as needed singulair #IBS Monitor #HTN Diltiazem 180mg daily lasix 80 bid po #hypothyroid Synthroid 25mcg daily #Bipolar disorder Quetiapine 50mg PO HS, Venlafaxine 22mg PO daily #osteoarthritis, stable Monitor #fibromyalgia Gabapentin 200mg daily #Myxoma s/p surgery Monitor #PX SCDs both legs, Early ambulation, On coumadin #FEN Oral fluids Monitor electrolytes and replete as needed Sodium controlled diet low sodium diabetic diet #Dispo tele Visit type - Emergency Visit Emergency Visit: Yes ED Registration Date: 02/21/19 Care time: The patient presented to the Emergency Department on the above date and was hospitalized for further evaluation of their emergent condition. - New Patient This patient is new to me today: Yes Date on this admission: 02/23/19 - Critical Care Critical Care patient: No
[2019-02-23] MEDS ORDERED: DIGOXIN 0.25 MG TABLET (FP) PO SCH (11:30)
[2019-02-23] MEDS ORDERED: ALBUTEROL SO4 2.5/IPRATROPIUM 0.5 INH SOL 3 ML VIAL.NEB. NEB PRN (11:38)
[2019-02-23] MEDS: LEVOTHYROXINE NA 25 MCG TABLET (FP) PO SCH ×2 (12:01→12:03)
--- NOTE | 2019-02-23 14:08 | PN ---
Progress Note (short form) - Note Progress Note: Looks much better today. Reports using NIPPV overnight. No w comfortbale on NC O2. GI upset that she attributes to the ABX. Intake & Output 02/20/19 02/21/19 02/22/19 02/23/19 23:59 23:59 23:59 23:59 Intake Total 830 290 Balance 830 290 Weight 125 lb 168 lb 12.8 oz 168 lb 12.8 oz Last Vital Signs Temp Pulse Resp BP Pulse Ox 97.6 F 73 20 111/67 93 L 02/23/19 05:00 02/23/19 12:00 02/23/19 09:00 02/23/19 05:00 02/23/19 12:00 Active Medications Acetaminophen (Tylenol -) 650 mg PO Q6H PRN PRN Reason: PAIN 1-3 Last Admin: 02/23/19 10:41 Dose: 650 mg Albuterol Sulfate (Ventolin 0.083% Nebulizer Soln -) 1 amp NEB Q6H PRN PRN Reason: SHORT OF BREATH/WHEEZING Last Admin: 02/22/19 16:00 Dose: 1 amp Albuterol Sulfate (Ventolin Hfa Inhaler -) 2 puff IH Q4H PRN PRN Reason: SHORT OF BREATH/WHEEZING Albuterol/Ipratropium (Duoneb -) 1 amp NEB Q6H PRN PRN Reason: SHORTNESS OF BREATH Atorvastatin Calcium (Lipitor -) 20 mg PO [facility] Last Admin: 02/22/19 21:23 Dose: 20 mg Budesonide/Formoterol Fumarate (Symbicort 160/4.5mcg -) 2 puff IH BID [facility] Last Admin: 02/23/19 10:43 Dose: 2 puff Cholecalciferol (Vitamin D3 -) 2,000 unit PO DAILY [facility] Last Admin: 02/23/19 10:42 Dose: 2,000 unit Cyanocobalamin (Vitamin B12 -) 1,000 mcg PO DAILY [facility] Last Admin: 02/23/19 10:40 Dose: 1,000 mcg Digoxin (Lanoxin -) 0.25 mg PO DAILY [facility] Diltiazem HCl (Cardizem Cd -) 180 mg PO BID [facility] Last Admin: 02/23/19 10:40 Dose: Not Given Enoxaparin Sodium (Lovenox -) 70 mg SQ BID [facility] Last Admin: 02/23/19 10:40 Dose: 70 mg Fluticasone Propionate (Flonase -) 2 spray NS DAILY [facility] Last Admin: 02/23/19 10:43 Dose: 2 sprays Furosemide (Lasix -) 80 mg PO BIDLASIX [facility] Last Admin: 02/23/19 06:34 Dose: 80 mg Gabapentin (Neurontin -) 300 mg PO BID [facility] Last Admin: 02/23/19 10:40 Dose: 300 mg Guaifenesin (Mucinex -) 1,200 mg PO DAILY [facility] Last Admin: 02/23/19 10:40 Dose: 1,200 mg Ceftriaxone Sodium 1 gm/ (Dextrose) 50 mls @ 100 mls/hr IVPB DAILY [facility]; Protocol Last Admin: 02/23/19 10:39 Dose: 100 mls/hr Azithromycin (Zithromax 500mg Ivpb (Pre-Docked)) 500 mg in 250 mls @ 250 mls/ hr IVPB DAILY [facility] Stop: 02/24/19 10:01 Insulin Aspart (Novolog Vial Sliding Scale -) 1 vial SQ ACHS [facility]; Protocol Last Admin: 02/23/19 11:59 Dose: 2 units Methylprednisolone Sodium Succinate (Solu-Medrol -) 40 mg IVPB Q8H-IV [facility] Last Admin: 02/23/19 10:43 Dose: 40 mg Montelukast Sodium (Singulair -) 10 mg PO HS [facility] Last Admin: 02/22/19 21:23 Dose: 10 mg Nicotine (Nicoderm Patch -) 14 mg TD DAILY [facility] Last Admin: 02/23/19 10:57 Dose: Not Given Tiotropium [place] (Spiriva Respimat) 2 puff IH DAILY [facility] Last Admin: 02/23/19 10:43 Dose: 2 puff Venlafaxine HCl (Effexor Xr -) 225 mg PO DAILY [facility] Last Admin: 02/23/19 10:40 Dose: 225 mg Warfarin Sodium (Coumadin -) 5 mg PO DAILY@1800 [facility] Last Admin: 02/22/19 17:36 Dose: 5 mg Constitutional: Yes: Awake and alert, NAD Eyes: Yes: Conjunctiva Clear, EOM Intact HENT: Yes: Atraumatic, Normocephalic Neck: Yes: Supple, Trachea Midline Cardiovascular: Yes: Pulse Irregular ...Inspection: Yes: WNL ...Clubbing: No Gastrointestinal: Yes: Normal Bowel Sounds, Soft Renal/: Yes: WNL Musculoskeletal: Yes: WNL Extremities: Yes: WNL Edema: No Peripheral Pulses WNL: Yes Integumentary: Yes: WNL Neurological: Yes: Alert, Oriented ...Motor Strength: WNL Psychiatric: Yes: Alert, Oriented Labs: Laboratory Results - last 24 hr 02/22/19 02/22/19 02/23/19 17:06 21:24 05:52 WBC RBC Hgb Hct MCV MCH MCHC RDW Plt Count MPV Absolute Neuts (auto) Neutrophils % Lymphocytes % Monocytes % Eosinophils % Basophils % Nucleated RBC % PT with INR INR Sodium Potassium Chloride Carbon Dioxide Anion Gap BUN Creatinine Est GFR (CKD-EPI)AfAm Est GFR (CKD-EPI)NonAf POC Glucometer 169 200 161 Random Glucose Calcium Phosphorus Magnesium Total Bilirubin AST ALT Alkaline Phosphatase Total Protein Albumin 02/23/19 02/23/19 02/23/19 05:59 05:59 05:59 WBC 5.7 RBC 4.67 Hgb 13.0 Hct 40.1 MCV 86.0 MCH 28.0 MCHC 32.5 RDW 16.6 H Plt Count 276 MPV 8.2 Absolute Neuts (auto) 4.9 Neutrophils % 85.9 H Lymphocytes % 7.7 L Monocytes % 6.2 Eosinophils % 0.0 Basophils % 0.2 Nucleated RBC % 0 PT with INR 17.20 H INR 1.45 H Sodium 140 Potassium 3.8 Chloride 100 Carbon Dioxide 32 Anion Gap 8 BUN 17.5 Creatinine 0.5 L Est GFR (CKD-EPI)AfAm 116.07 Est GFR (CKD-EPI)NonAf 100.15 POC Glucometer Random Glucose 163 H Calcium 8.3 L Phosphorus 4.6 Magnesium 2.4 Total Bilirubin 0.6 AST 24 ALT 28 Alkaline Phosphatase 154 H Total Protein 6.2 L Albumin 2.9 L 02/23/19 11:57 WBC RBC Hgb Hct MCV MCH MCHC RDW Plt Count MPV Absolute Neuts (auto) Neutrophils % Lymphocytes % Monocytes % Eosinophils % Basophils % Nucleated RBC % PT with INR INR Sodium Potassium Chloride Carbon Dioxide Anion Gap BUN Creatinine Est GFR (CKD-EPI)AfAm Est GFR (CKD-EPI)NonAf POC Glucometer 190 Random Glucose Calcium Phosphorus Magnesium Total Bilirubin AST ALT Alkaline Phosphatase Total Protein Albumin - Problems (1) Confusion Code(s): R41.0 - DISORIENTATION, UNSPECIFIED (2) Acute and chronic respiratory failure with hypoxia Code(s): J96.21 - ACUTE AND CHRONIC RESPIRATORY FAILURE WITH HYPOXIA (3) COPD exacerbation Code(s): J44.1 - CHRONIC OBSTRUCTIVE PULMONARY DISEASE W (ACUTE) EXACERBATION (4) Pneumonia Code(s): J18.9 - PNEUMONIA, UNSPECIFIED ORGANISM (5) SOB (shortness of breath) Code(s): R06.02 - SHORTNESS OF BREATH (6) Atrial fibrillation Code(s): I48.91 - UNSPECIFIED ATRIAL FIBRILLATION (7) Cough Code(s): R05 - COUGH (8) Hypoxia Code(s): R09.02 - HYPOXEMIA (9) Non Hodgkin's lymphoma Code(s): C85.90 - NON-HODGKIN LYMPHOMA, UNSPECIFIED, UNSPECIFIED SITE Assessment/Plan Medrol BD TX Supplemental O2 to maintain saturation Follow sputum NIPPV as needed for WOB Probiotic Dr Zhu Problem List - Problems (1) Confusion Code(s): R41.0 - DISORIENTATION, UNSPECIFIED (2) Acute and chronic respiratory failure with hypoxia Code(s): J96.21 - ACUTE AND CHRONIC RESPIRATORY FAILURE WITH HYPOXIA (3) COPD exacerbation Code(s): J44.1 - CHRONIC OBSTRUCTIVE PULMONARY DISEASE W (ACUTE) EXACERBATION (4) Pneumonia Code(s): J18.9 - PNEUMONIA, UNSPECIFIED ORGANISM (5) SOB (shortness of breath) Code(s): R06.02 - SHORTNESS OF BREATH (6) Atrial fibrillation Code(s): I48.91 - UNSPECIFIED ATRIAL FIBRILLATION (7) Cough Code(s): R05 - COUGH (8) Hypoxia Code(s): R09.02 - HYPOXEMIA (9) Non Hodgkin's lymphoma Code(s): C85.90 - NON-HODGKIN LYMPHOMA, UNSPECIFIED, UNSPECIFIED SITE
[2019-02-23] MEDS: LACTOBACILLUS ACIDOPHILUS 1 TABLET PO SCH (14:25)
[2019-02-23] MEDS: WARFARIN NA 5 MG TABLET (UD) PO SCH (17:16)
--- NOTE | 2019-02-23 19:35 | PN ---
Teaching Attending Note Name of Resident: Jerald Paz ATTENDING PHYSICIAN STATEMENT I saw and evaluated the patient. I reviewed the resident's note and discussed the case with the resident. I agree with the resident's findings and plan as documented. SUBJECTIVE: Patient is feeling better, wants to go home. OBJECTIVE: Vital Signs Temperature 98.3 F 02/23/19 17:00 Pulse Rate 70 02/23/19 17:00 Respiratory Rate 20 02/23/19 17:00 Blood Pressure 97/73 02/23/19 17:00 O2 Sat by Pulse Oximetry (%) 94 L 02/23/19 16:00 GENERAL: The patient is awake, alert, and fully oriented, on NC NOW. HEAD: Normal with no signs of trauma. EYES: PERRL, extraocular movements intact, sclera anicteric, conjunctiva clear. ENT: Ears normal, oropharynx clear without exudates, moist mucous membranes. NECK: Trachea midline, full range of motion, supple. LUNGS: CTA BL , with decreased BS at basis, no wheezes, no crackles, no accessory muscle use. HEART: Regular rate and rhythm, S1, S2 positive, without any murmur, no rub or gallop. ABDOMEN: Soft, NT, ND, normoactive bowel sounds, no guarding, no rebound, no hepatosplenomegaly, no masses. EXTREMITIES: 2+ pulses, warm, well-perfused, no edema. NEUROLOGICAL: Cranial nerves II through XII grossly intact. Normal speech, gait not observed. PSYCH: Normal mood, normal affect. SKIN: Warm, dry, normal turgor, no rashes or lesions noted CBCD WBC 5.7 K/mm3 (4.0-10.0) 02/23/19 05:59 RBC 4.67 M/mm3 (3.60-5.2) 02/23/19 05:59 Hgb 13.0 GM/dL (10.7-15.3) 02/23/19 05:59 Hct 40.1 % (32.4-45.2) 02/23/19 05:59 MCV 86.0 fl (80-96) 02/23/19 05:59 MCHC 32.5 g/dl (32.0-36.0) 02/23/19 05:59 RDW 16.6 % (11.6-15.6) H 02/23/19 05:59 Plt Count 276 K/MM3 (134-434) 02/23/19 05:59 MPV 8.2 fl (7.5-11.1) 02/23/19 05:59 CMP Sodium 140 mmol/L (136-145) 02/23/19 05:59 Potassium 3.8 mmol/L (3.5-5.1) 02/23/19 05:59 Chloride 100 mmol/L (98-107) 02/23/19 05:59 Carbon Dioxide 32 mmol/L (21-32) 02/23/19 05:59 Anion Gap 8 MMOL/L (8-16) 02/23/19 05:59 BUN 17.5 mg/dL (7-18) 02/23/19 05:59 Creatinine 0.5 mg/dL (0.55-1.3) L 02/23/19 05:59 Random Glucose 163 mg/dL (74-106) H 02/23/19 05:59 Calcium 8.3 mg/dL (8.5-10.1) L 02/23/19 05:59 Total Bilirubin 0.6 mg/dL (0.2-1) 02/23/19 05:59 AST 24 U/L (15-37) 02/23/19 05:59 ALT 28 U/L (13-61) 02/23/19 05:59 Alkaline Phosphatase 154 U/L (45-117) H 02/23/19 05:59 Total Protein 6.2 g/dl (6.4-8.2) L 02/23/19 05:59 Albumin 2.9 g/dl (3.4-5.0) L 02/23/19 05:59 CARDIAC ENZYMES Creatine Kinase 38 U/L (26-192) 02/22/19 06:19 Troponin I < 0.02 ng/ml (0.00-0.05) 02/22/19 06:19 Current Medications Generic Name Dose Route Start Last Admin Trade Name Freq PRN Reason Stop Dose Admin Acetaminophen 650 mg 02/22/19 14:40 02/23/19 10:41 Tylenol - PO 650 mg Q6H PRN Administration PAIN 1-3 Albuterol Sulfate 1 amp 02/22/19 00:28 02/22/19 16:00 Ventolin 0.083% Nebulizer Soln - NEB 1 amp Q6H PRN Administration SHORT OF BREATH/WHEEZING Albuterol Sulfate 2 puff 02/22/19 03:11 Ventolin Hfa Inhaler - IH Q4H PRN SHORT OF BREATH/WHEEZING Albuterol/Ipratropium 1 amp 02/23/19 11:38 Duoneb - NEB Q6H PRN SHORTNESS OF BREATH Atorvastatin Calcium 20 mg 02/22/19 22:00 02/22/19 21:23 Lipitor - PO 20 mg HS [facility] Administration Budesonide/Formoterol Fumarate 2 puff 02/22/19 10:00 02/23/19 10:43 Symbicort 160/4.5mcg - IH 2 puff BID [facility] Administration Cholecalciferol 2,000 unit 02/22/19 10:00 02/23/19 10:42 Vitamin D3 - PO 2,000 unit DAILY [facility] Administration Cyanocobalamin 1,000 mcg 02/22/19 10:00 02/23/19 10:40 Vitamin B12 - PO 1,000 mcg DAILY [facility] Administration Digoxin 0.25 mg 02/23/19 11:30 02/23/19 16:01 Lanoxin - PO Not Given DAILY [facility] Diltiazem HCl 180 mg 02/22/19 10:00 02/23/19 10:40 Cardizem Cd - PO Not Given BID [facility] Enoxaparin Sodium 70 mg 02/22/19 15:15 02/23/19 10:40 Lovenox - SQ 70 mg BID [facility] Administration Fluticasone Propionate 2 spray 02/22/19 10:00 02/23/19 10:43 Flonase - NS 2 sprays DAILY [facility] Administration Furosemide 80 mg 02/22/19 06:00 02/23/19 15:49 Lasix - PO Not Given BIDLASIX [facility] Gabapentin 300 mg 02/22/19 10:00 02/23/19 10:40 Neurontin - PO 300 mg BID [facility] Administration Guaifenesin 1,200 mg 02/22/19 10:00 02/23/19 10:40 Mucinex - PO 1,200 mg DAILY [facility] Administration Ceftriaxone Sodium 1 gm/ 50 mls @ 100 mls/hr 02/22/19 10:00 02/23/19 10:39 Dextrose IVPB 100 mls/hr DAILY [facility] Administration Protocol Azithromycin 500 mg in 250 mls @ 250 mls/hr 02/24/19 10:00 Zithromax 500mg Ivpb (Pre-Docked) IVPB 02/24/19 10:01 DAILY [facility] Insulin Aspart 1 vial 02/22/19 07:00 02/23/19 17:17 Novolog Vial Sliding Scale - SQ 2 units ACHS [facility] Administration Protocol Lactobacillus Acidophilus 1 tab 02/23/19 14:15 02/23/19 14:25 Bacid - PO 1 tab DAILY [facility] Administration Methylprednisolone Sodium Succinate 40 mg 02/22/19 02:00 02/23/19 17:18 Solu-Medrol - IVPB 40 mg Q8H-IV [facility] Administration Montelukast Sodium 10 mg 02/22/19 22:00 02/22/19 21:23 Singulair - PO 10 mg HS [facility] Administration Nicotine 14 mg 02/22/19 14:45 02/23/19 10:57 Nicoderm Patch - TD Not Given DAILY [facility] Tiotropium [place] 2 puff 02/22/19 10:00 02/23/19 10:43 Spiriva Respimat IH 2 puff DAILY [facility] Administration Venlafaxine HCl 225 mg 02/22/19 10:00 02/23/19 10:40 Effexor Xr - PO 225 mg DAILY [facility] Administration Warfarin Sodium 5 mg 02/22/19 18:00 02/23/19 17:16 Coumadin - PO 5 mg DAILY@1800 [facility] Administration Home Medications Medication Instructions Recorded Biotin/Calcium Carbonate [Biotin 1 each PO DAILY 11/29/16 800 Mcg Tablet] Cholecalciferol (Vitamin D3) 2,000 unit PO DAILY 11/29/16 [Vitamin D -] Cyanocobalamin [Vitamin B12 -] 1,000 mcg PO DAILY 11/29/16 Cyclobenzaprine HCl [Flexeril 10 5 mg PO DAILY 11/29/16 mg] Digoxin [Lanoxin -] 0.25 mg PO DAILY 11/29/16 Diltiazem HCl [Cartia Xt] 180 mg PO BID 11/29/16 Furosemide [Lasix] 80 mg PO BID 11/29/16 Gabapentin 300 mg PO BID 11/29/16 Levothyroxine [Synthroid -] 25 mcg PO DAILY 11/29/16 Multivitamin [Poly-Vitamin] 1 each PO DAILY 11/29/16 Quetiapine Fumarate [Seroquel -] 50 mg PO HS 11/29/16 Venlafaxine HCl ER [Effexor Xr -] 225 mg PO DAILY 11/29/16 Warfarin Sodium [Coumadin] 5 mg PO ASDIR 11/29/16 metFORMIN HCL [Metformin ER 1,000 mg PO BID 11/29/16 Osmotic] Atorvastatin Calcium 20 mg PO HS 01/11/17 Fluticasone Prop 0.05% Nasal 1 - 2 spray NS DAILY 01/11/17 [Flonase -] Montelukast Na [Singulair -] 10 mg PO HS 01/11/17 Salmeterol/Fluticasone [Advair 1 inh PO DAILY 01/11/17 500Mcg/50Mcg -] Albuterol Sulfate Inhaler - 1 - 2 inh PO Q4H PRN #1 inhaler 01/14/17 [Ventolin HFA Inhaler -] Budesonide/Formeterol Fumarate 2 puff IH BID inhaler 07/03/17 [SYMBICORT 160/4.5mcg -] Glimepiride [Glimepiride -] 1 mg PO DAILY@0700 tablet 07/03/17 Guaifenesin [Mucinex -] 1,200 mg PO DAILY tab 07/03/17 Miscellaneous Medical Supply 1 each PO ASDIR #1 kit 07/03/17 [Glucometer Device] Miscellaneous Medical Supply 1 each PO ASDIR #1 box 07/03/17 [Glucometer Test Strips #50] Potassium Chloride [Potassium 20 meq PO DAILY pack 07/03/17 Chloride Oral Liquid] Prednisone See Taper PO DAILY #20 tablet 07/03/17 Tiotropium [place] [Spiriva] 1 puff IH DAILY inh 07/03/17 Assessment and Plan: This is a 66 yo F with PMHx of asthma, COPD, Waldenstrom's macroglobulinemia, nonHodkin's lymphoma, atrial fibrillation (coumadin), IBS, DM, HTN, HLD, hypothyroid, arthritis, fibromyalgia presented to ED for SOB, cough. She is being admitted for COPD exac and pneumonia. # Acute hypoxemic , hypercapneic COPD exacerbation due to Pneumonia: IMPROVing continue IV ceftriaxone, and azithromycin, pulm appreciated nebulizer txs continue ,continue singulair, On IV solumedrol 40mg Q6H, ,BiPAP PRN # Acute Pneumonia on IV antibiotic: IV Rocephin/Zithromax continue day #2 #Atrial fibrillation rate controlled on coumadin continue PT/INR daily, subtherapeutic INR , will continue Lovenox 70mg bid with coumadin 5mg at home , keep INR above 2.0 #HTN on lasix 80mg BID continue #Hyperlipidemia on lipitor continue # DM hold metformin, SS with coverage continue # hypothyroidism on synthroid continue # Waldenstrom's macroblobulinemia/NHL ;stable per patient ;f/u outpatient # arthritis/fibromyalgia on flexeril/gabapentin continue # Depression on effexor, seroquel continue # Smoking cesation : nicotine patch ordered DVT Px: Coumadin/lovenox
[2019-02-23] MEDS: MONTELUKAST NA 10 MG TABLET PO SCH (21:39)
[2019-02-23] MEDS: ATORVASTATIN CA 20 MG TABLET (FP) PO SCH (21:39)
[2019-02-23] MEDS ORDERED: QUEtiapine FUMARATE 50 MG TABLET PO ONE (22:09)
[2019-02-24] MEDS: methylPREDNISolone NA SUCC 40 MG/1 ML VIAL IVPB SCH ×2 (01:24→10:08)
[2019-02-24] MEDS: FUROSEMIDE 40 MG TABLET (FP) PO SCH (06:28)
[2019-02-24] MEDS: INSULIN SLIDING SCALE (NOVOLOG) 1 VIAL SQ SCH ×2 (06:28→11:35)
--- NOTE | 2019-02-24 07:05 | PN ---
Physical Exam: SUBJECTIVE: Patient seen and examined at bedside. breathing improved. denies fever, cp, n/v/d OBJECTIVE: Vital Signs Period Temp Pulse Resp BP Sys/Card Pulse Ox Last 24 Hr 97.4 F-98.8 F 67-82 19-20 92-119/56-73 93-99 GENERAL: The patient is awake, alert, and fully oriented, in no acute distress. HEAD: Normal with no signs of trauma. EYES: PERRL, extraocular movements intact, sclera anicteric, conjunctiva clear. No ptosis. ENT: Ears normal, nares patent, oropharynx clear without exudates, moist mucous membranes. NECK: Trachea midline, full range of motion, supple. LUNGS: crackles at bases HEART: Regular rate and rhythm, S1, S2 without murmur, rub or gallop. ABDOMEN: Soft, nontender, nondistended, normoactive bowel sounds, no guarding, no rebound, no hepatosplenomegaly, no masses. EXTREMITIES: 2+ pulses, warm, well-perfused, no edema. NEUROLOGICAL: Cranial nerves II through XII grossly intact. Normal speech, gait not observed. PSYCH: Normal mood, normal affect. SKIN: Warm, dry, normal turgor, no rashes or lesions noted Laboratory Results - last 24 hr 02/23/19 02/23/19 02/23/19 05:59 05:59 05:59 WBC 5.7 RBC 4.67 Hgb 13.0 Hct 40.1 MCV 86.0 MCH 28.0 MCHC 32.5 RDW 16.6 H Plt Count 276 MPV 8.2 Absolute Neuts (auto) 4.9 Neutrophils % 85.9 H Lymphocytes % 7.7 L Monocytes % 6.2 Eosinophils % 0.0 Basophils % 0.2 Nucleated RBC % 0 PT with INR 17.20 H INR 1.45 H Sodium 140 Potassium 3.8 Chloride 100 Carbon Dioxide 32 Anion Gap 8 BUN 17.5 Creatinine 0.5 L Est GFR (CKD-EPI)AfAm 116.07 Est GFR (CKD-EPI)NonAf 100.15 POC Glucometer Random Glucose 163 H Calcium 8.3 L Phosphorus 4.6 Magnesium 2.4 Total Bilirubin 0.6 AST 24 ALT 28 Alkaline Phosphatase 154 H Total Protein 6.2 L Albumin 2.9 L 02/23/19 02/23/19 02/23/19 11:57 17:15 21:44 WBC RBC Hgb Hct MCV MCH MCHC RDW Plt Count MPV Absolute Neuts (auto) Neutrophils % Lymphocytes % Monocytes % Eosinophils % Basophils % Nucleated RBC % PT with INR INR Sodium Potassium Chloride Carbon Dioxide Anion Gap BUN Creatinine Est GFR (CKD-EPI)AfAm Est GFR (CKD-EPI)NonAf POC Glucometer 190 175 207 Random Glucose Calcium Phosphorus Magnesium Total Bilirubin AST ALT Alkaline Phosphatase Total Protein Albumin 02/24/19 05:18 WBC RBC Hgb Hct MCV MCH MCHC RDW Plt Count MPV Absolute Neuts (auto) Neutrophils % Lymphocytes % Monocytes % Eosinophils % Basophils % Nucleated RBC % PT with INR INR Sodium Potassium Chloride Carbon Dioxide Anion Gap BUN Creatinine Est GFR (CKD-EPI)AfAm Est GFR (CKD-EPI)NonAf POC Glucometer 158 Random Glucose Calcium Phosphorus Magnesium Total Bilirubin AST ALT Alkaline Phosphatase Total Protein Albumin Active Medications Generic Name Dose Route Start Last Admin Trade Name Freq PRN Reason Stop Dose Admin Acetaminophen 650 mg 02/22/19 14:40 02/23/19 10:41 Tylenol - PO 650 mg Q6H PRN Administration PAIN 1-3 Albuterol Sulfate 1 amp 02/22/19 00:28 02/22/19 16:00 Ventolin 0.083% Nebulizer Soln - NEB 1 amp Q6H PRN Administration SHORT OF BREATH/WHEEZING Albuterol Sulfate 2 puff 02/22/19 03:11 Ventolin Hfa Inhaler - IH Q4H PRN SHORT OF BREATH/WHEEZING Albuterol/Ipratropium 1 amp 02/23/19 11:38 Duoneb - NEB Q6H PRN SHORTNESS OF BREATH Atorvastatin Calcium 20 mg 02/22/19 22:00 02/23/19 21:39 Lipitor - PO 20 mg HS [facility] Administration Budesonide/Formoterol Fumarate 2 puff 02/22/19 10:00 02/23/19 21:39 Symbicort 160/4.5mcg - IH 2 puff BID [facility] Administration Cholecalciferol 2,000 unit 02/22/19 10:00 02/23/19 10:42 Vitamin D3 - PO 2,000 unit DAILY [facility] Administration Cyanocobalamin 1,000 mcg 02/22/19 10:00 02/23/19 10:40 Vitamin B12 - PO 1,000 mcg DAILY [facility] Administration Digoxin 0.25 mg 02/23/19 11:30 02/23/19 16:01 Lanoxin - PO Not Given DAILY [facility] Diltiazem HCl 180 mg 02/22/19 10:00 02/23/19 21:39 Cardizem Cd - PO Not Given BID [facility] Enoxaparin Sodium 70 mg 02/22/19 15:15 02/23/19 21:41 Lovenox - SQ 70 mg BID [facility] Administration Fluticasone Propionate 2 spray 02/22/19 10:00 02/23/19 10:43 Flonase - NS 2 sprays DAILY [facility] Administration Furosemide 80 mg 02/22/19 06:00 02/24/19 06:28 Lasix - PO 80 mg BIDLASIX [facility] Administration Gabapentin 300 mg 02/22/19 10:00 02/23/19 21:39 Neurontin - PO 300 mg BID [facility] Administration Guaifenesin 1,200 mg 02/22/19 10:00 02/23/19 10:40 Mucinex - PO 1,200 mg DAILY [facility] Administration Ceftriaxone Sodium 1 gm/ 50 mls @ 100 mls/hr 02/22/19 10:00 02/23/19 10:39 Dextrose IVPB 100 mls/hr DAILY [facility] Administration Protocol Azithromycin 500 mg in 250 mls @ 250 mls/hr 02/24/19 10:00 Zithromax 500mg Ivpb (Pre-Docked) IVPB 02/24/19 10:01 DAILY [facility] Insulin Aspart 1 vial 02/22/19 07:00 02/24/19 06:28 Novolog Vial Sliding Scale - SQ 2 units ACHS [facility] Administration Protocol Lactobacillus Acidophilus 1 tab 02/23/19 14:15 02/23/19 14:25 Bacid - PO 1 tab DAILY [facility] Administration Methylprednisolone Sodium Succinate 40 mg 02/22/19 02:00 02/24/19 01:24 Solu-Medrol - IVPB 40 mg Q8H-IV [facility] Administration Montelukast Sodium 10 mg 02/22/19 22:00 02/23/19 21:39 Singulair - PO 10 mg HS [facility] Administration Nicotine 14 mg 02/22/19 14:45 02/23/19 10:57 Nicoderm Patch - TD Not Given DAILY [facility] Quetiapine Fumarate 50 mg 02/24/19 22:00 Seroquel - PO HS [facility] Tiotropium [place] 2 puff 02/22/19 10:00 02/23/19 10:43 Spiriva Respimat IH 2 puff DAILY [facility] Administration Venlafaxine HCl 225 mg 02/22/19 10:00 02/23/19 10:40 Effexor Xr - PO 225 mg DAILY [facility] Administration Warfarin Sodium 5 mg 02/22/19 18:00 02/23/19 17:16 Coumadin - PO 5 mg DAILY@1800 [facility] Administration ASSESSMENT/PLAN: 67 y/o F current smoker with a PMHx of Waldenstrom's syndrome (nonHodkin's lymphoblastic lymphoma), asthma/COPD, atrial fibrillation on coumadin, IBS, DM, HTN, HLD, hypothyroid, osteoarthritis, fibromyalgia presented to the ED with hx of SOB, AMS, cough with increased sputum production admitted for copd exacerbation #Acute on chronic hypoxic hypercapnic respiratory failure 2/2 COPD exacerbation 2/2 PNA #Metabolic contraction alkalosis c/w IV azithromycin, ceftriaxone d3, will dc azithro today after 3rd dose spiriva- inh 1puff daily symbicort inh 1puff bid s/p solumedrol- 125mg iv x1, c/w 40 q 8hr ventolin-neb Q4H PRN singulair duoneb prn Supplemental oxygen-4L [place] pulm consult, Dr Prado NIPPV as needed for WOB legionella neg CT small patchy RUL anterior seg infiltrate, increased main PA #Current smoker Smoking cessation counseling nicotine patch #Afib Continue coumadin 5mg daily, INR 1.45 hold Digoxin .025mg while taking azithro, will resume on 02/25 cardizem #DM Hold Metformin BGMs ISS #HLD Atorvastatin 20mg HS #Waldenstrom's syndrome (nonHodkin's lymphoblastic lymphoma) Stable for now, monitor #asthma Supplemental oxygen bronchodilators as needed singulair #IBS Monitor #HTN Diltiazem 180mg daily lasix 80 bid po #hypothyroid per pt has not taken synthroid in years #Bipolar disorder Quetiapine 50mg PO HS, Venlafaxine 22mg PO daily #osteoarthritis, stable Monitor #fibromyalgia Gabapentin 200mg daily #Myxoma s/p surgery Monitor #PX SCDs both legs, Early ambulation, On coumadin #FEN Oral fluids Monitor electrolytes and replete as needed Sodium controlled diet low sodium diabetic diet #Dispo tele
[2019-02-24 07:15] LABS: BASO % 0.1 % (0-2.0); HEMATOCRIT 38.9 % (32.4-45.2); HEMOGLOBIN 12.7 GM/dL (10.7-15.3); LYMPH % 10.4 % (8-40); MCH 27.6 pg (25.7-33.7); MCHC 32.5 g/dl (32.0-36.0); MEAN CELL VOLUME 84.9 fl (80-96); MEAN PLT VOLUME 8.2 fl (7.5-11.1); MONO % 9.5 % (3.8-10.2); PLATELET COUNT 264 K/MM3 (134-434); RBC 4.58 M/mm3 (3.60-5.2); RDW 16.4 % (11.6-15.6); WHITE BLOOD COUNT 5.7 K/mm3 (4.0-10.0)
[2019-02-24 07:20] LABS: INR 1.49 (0.83-1.09); PROTHROMBIN TIME (PATIENT) 17.6 SEC (9.7-13.0)
[2019-02-24 07:47] LABS: ALBUMIN 2.9 g/dl (3.4-5.0); BILIRUBIN,TOTAL 0.4 mg/dL (0.2-1); BLOOD UREA NITROGEN 22.9 mg/dL (7-18); CALCIUM 8.4 mg/dL (8.5-10.1); CREATININE 0.6 mg/dL (0.55-1.3); MAGNESIUM 2.5 mg/dL (1.8-2.4); POTASSIUM 4.2 mmol/L (3.5-5.1); TOT PROT 6.1 g/dl (6.4-8.2)
[2019-02-24] MEDS ORDERED: AZITHROMYCIN IVPB 500 MG/250 ML BAG IVPB SCH (10:00)
[2019-02-24] MEDS ORDERED: DEXTROSE 5%-WATER - 50 ML IVPB ONE (10:01)
[2019-02-24] MEDS ORDERED: PT OWN MED DRAWER 7, Y5N ONE (10:01)
[2019-02-24] MEDS ORDERED: cefTRIAXone SODIUM 1 GM VIAL ONE (10:01)
[2019-02-24] MEDS: CEFTRIAXONE 1 GM in DEXTROSE 5%-WATER - 50 ML IVPB SCH (10:07)
[2019-02-24] MEDS: VENLAFAXINE HCL 75 MG E.R. CAPSULES (FP) PO SCH (10:09)
[2019-02-24] MEDS: ENOXAPARIN NA (PORCINE) 80 MG/0.8 ML DISP.SYRIN SQ SCH (10:10)
[2019-02-24] MEDS: LACTOBACILLUS ACIDOPHILUS 1 TABLET PO SCH (10:10)
[2019-02-24] MEDS: CHOLECALCIFEROL (VIT D3) 400 UNIT (10 MCG) TABLET PO SCH (10:10)
[2019-02-24] MEDS: GABAPENTIN 300 MG CAPSULE (FP) PO SCH (10:10)
[2019-02-24] MEDS: CYANOCOBALAMIN 1,000 MCG TABLET (FP) PO SCH (10:10)
[2019-02-24] MEDS: guaiFENesin 600 MG TABLET.ER (FP) PO SCH (10:10)
[2019-02-24] MEDS: NICOTINE 14 MG/24 HOURS TOPICAL PATCH TD SCH (10:11)
[2019-02-24] MEDS: BUDESONIDE/FORMETEROL FUMARATE 160/4.5 mcg INHALER IH SCH (10:13)
[2019-02-24] MEDS: FLUTICASONE PROP 0.05% 16 GM NASAL SPRAY NS SCH (10:13)
[2019-02-24] MEDS: TIOTROPIUM BROMIDE 2.5 MCG (SPIRIVA) RESPIMAT INHALER IH SCH (10:13)
[2019-02-24 10:24] VITALS: BP 108/69; PULSE 73; TEMP 98.1
[2019-02-24] MEDS ORDERED: WARFARIN NA 5 MG TABLET (UD) PO SCH (10:38)
--- NOTE | 2019-02-24 10:50 | PN ---
Progress Note, Physician History of Present Illness: pulmonary alert,feeling better,comfortable,sob improving - Current Medication List Current Medications: Active Medications Acetaminophen (Tylenol -) 650 mg PO Q6H PRN PRN Reason: PAIN 1-3 Last Admin: 02/23/19 10:41 Dose: 650 mg Albuterol Sulfate (Ventolin 0.083% Nebulizer Soln -) 1 amp NEB Q6H PRN PRN Reason: SHORT OF BREATH/WHEEZING Last Admin: 02/22/19 16:00 Dose: 1 amp Albuterol Sulfate (Ventolin Hfa Inhaler -) 2 puff IH Q4H PRN PRN Reason: SHORT OF BREATH/WHEEZING Albuterol/Ipratropium (Duoneb -) 1 amp NEB Q6H PRN PRN Reason: SHORTNESS OF BREATH Atorvastatin Calcium (Lipitor -) 20 mg PO HS [facility] Last Admin: 02/23/19 21:39 Dose: 20 mg Budesonide/Formoterol Fumarate (Symbicort 160/4.5mcg -) 2 puff IH BID [facility] Last Admin: 02/24/19 10:13 Dose: 2 puff Cholecalciferol (Vitamin D3 -) 2,000 unit PO DAILY [facility] Last Admin: 02/24/19 10:10 Dose: 2,000 unit Cyanocobalamin (Vitamin B12 -) 1,000 mcg PO DAILY [facility] Last Admin: 02/24/19 10:10 Dose: 1,000 mcg Digoxin (Lanoxin -) 0.25 mg PO DAILY [facility] Last Admin: 02/23/19 16:01 Dose: Not Given Diltiazem HCl (Cardizem Cd -) 180 mg PO BID [facility] Last Admin: 02/24/19 10:10 Dose: 180 mg Enoxaparin Sodium (Lovenox -) 70 mg SQ BID [facility] Last Admin: 02/24/19 10:10 Dose: 70 mg Fluticasone Propionate (Flonase -) 2 spray NS DAILY [facility] Last Admin: 02/24/19 10:13 Dose: 2 sprays Furosemide (Lasix -) 80 mg PO BIDLASIX [facility] Last Admin: 02/24/19 06:28 Dose: 80 mg Gabapentin (Neurontin -) 300 mg PO BID [facility] Last Admin: 02/24/19 10:10 Dose: 300 mg Guaifenesin (Mucinex -) 1,200 mg PO DAILY [facility] Last Admin: 02/24/19 10:10 Dose: 1,200 mg Ceftriaxone Sodium 1 gm/ (Dextrose) 50 mls @ 100 mls/hr IVPB DAILY [facility]; Protocol Last Admin: 02/24/19 10:07 Dose: 100 mls/hr Insulin Aspart (Novolog Vial Sliding Scale -) 1 vial SQ ACHS [facility]; Protocol Last Admin: 02/24/19 06:28 Dose: 2 units Lactobacillus Acidophilus (Bacid -) 1 tab PO DAILY [facility] Last Admin: 02/24/19 10:10 Dose: 1 tab Methylprednisolone Sodium Succinate (Solu-Medrol -) 40 mg IVPB Q8H-IV [facility] Last Admin: 02/24/19 10:08 Dose: 40 mg Montelukast Sodium (Singulair -) 10 mg PO HS [facility] Last Admin: 02/23/19 21:39 Dose: 10 mg Nicotine (Nicoderm Patch -) 14 mg TD DAILY [facility] Last Admin: 02/24/19 10:11 Dose: Not Given Quetiapine Fumarate (Seroquel -) 50 mg PO [facility] Tiotropium [place] (Spiriva Respimat) 2 puff IH DAILY [facility] Last Admin: 02/24/19 10:13 Dose: 2 puff Venlafaxine HCl (Effexor Xr -) 225 mg PO DAILY [facility] Last Admin: 02/24/19 10:09 Dose: 225 mg Warfarin Sodium (Coumadin -) 7 mg PO DAILY@1800 [facility] Warfarin Sodium 5 mg/ Warfarin (Sodium 2 mg) 7 mg PO DAILY@1800 [facility] - Objective Vital Signs: Vital Signs Temperature 98.1 F 02/24/19 10:00 Pulse Rate 73 02/24/19 10:00 Respiratory Rate 20 02/24/19 10:00 Blood Pressure 108/69 02/24/19 10:00 O2 Sat by Pulse Oximetry (%) 96 02/24/19 04:00 Constitutional: Yes: Well Nourished, Calm Eyes: Yes: WNL HENT: Yes: WNL Neck: Yes: WNL Cardiovascular: Yes: Pulse Irregular, S1, S2 Respiratory: Yes: Wheezes (few scattered wheezes) Gastrointestinal: Yes: Normal Bowel Sounds, Soft Extremities: Yes: WNL Edema: No Labs: CBC, BMP 02/24/19 05:45 02/24/19 05:45 INR, PTT INR 1.49 (0.83-1.09) H 02/24/19 06:00 Assessment/Plan - Problems (1) Confusion Code(s): R41.0 - DISORIENTATION, UNSPECIFIED (2) Acute and chronic respiratory failure with hypoxia Code(s): J96.21 - ACUTE AND CHRONIC RESPIRATORY FAILURE WITH HYPOXIA (3) COPD exacerbation Code(s): J44.1 - CHRONIC OBSTRUCTIVE PULMONARY DISEASE W (ACUTE) EXACERBATION (4) Pneumonia Code(s): J18.9 - PNEUMONIA, UNSPECIFIED ORGANISM (5) SOB (shortness of breath) Code(s): R06.02 - SHORTNESS OF BREATH (6) Atrial fibrillation Code(s): I48.91 - UNSPECIFIED ATRIAL FIBRILLATION (7) Cough Code(s): R05 - COUGH (8) Hypoxia Code(s): R09.02 - HYPOXEMIA (9) Non Hodgkin's lymphoma Code(s): C85.90 - NON-HODGKIN LYMPHOMA, UNSPECIFIED, UNSPECIFIED SITE Assessment/Plan Medrol taper BD TX O2 to maintain saturation NIPPV as needed for WOB Probiotic DR MENDOZA Problem List - Problems (1) Confusion Code(s): R41.0 - DISORIENTATION, UNSPECIFIED (2) Acute and chronic respiratory failure with hypoxia Code(s): J96.21 - ACUTE AND CHRONIC RESPIRATORY FAILURE WITH HYPOXIA (3) COPD exacerbation Code(s): J44.1 - CHRONIC OBSTRUCTIVE PULMONARY DISEASE W (ACUTE) EXACERBATION (4) Pneumonia Code(s): J18.9 - PNEUMONIA, UNSPECIFIED ORGANISM (5) SOB (shortness of breath) Code(s): R06.02 - SHORTNESS OF BREATH (6) Atrial fibrillation Code(s): I48.91 - UNSPECIFIED ATRIAL FIBRILLATION (7) Cough Code(s): R05 - COUGH (8) Hypoxia Code(s): R09.02 - HYPOXEMIA (9) Non Hodgkin's lymphoma Code(s): C85.90 - NON-HODGKIN LYMPHOMA, UNSPECIFIED, UNSPECIFIED SITE
--- NOTE | 2019-02-24 11:49 | ECHO ---
Name: TOI MOORE Exam:Adult Echocardiogram Study Date: 02/24/2019 10:35 AM Age: 69 yrs Reason For Study: chf Height: 65 in Weight: 125 lb BSA: 1.6 m2 MMode/2D Measurements & Calculations IVSd: 0.90 cm Ao root diam: 3.2 cm LVIDd: 5.2 cm LA dimension: 5.2 cm LVIDs: 3.7 cm ACS: 2.1 cm LVPWd: 0.55 cm IVSs: 1.1 cm LVPWs: 0.94 cm EDV(Teich): 127.6 ml ESV(Teich): 58.1 ml Doppler Measurements & Calculations MR max roberto: 453.2 cm/sec TR max roberto: 227.0 cm/sec MR max P.2 mmHg TR max P.6 mmHg Med Peak E' Roberto: 13.9 cm/sec Procedure A complete two-dimensional transthoracic echocardiogram was performed (2D, M-mode, Doppler and color flow Doppler). Left Ventricle The left ventricle is normal in size. Left ventricular systolic function is normal. Ejection Fraction = 55- 60%. No regional wall motion abnormalities noted. Right Ventricle The right ventricle is normal size. The right ventricular systolic function is normal. Atria The left atrium is severely dilated. The right atrium is mildly dilated. Mitral Valve There is mild mitral annular calcification. There is moderate mitral regurgitation. Tricuspid Valve The tricuspid valve is normal in structure and function. There is moderate tricuspid regurgitation. P ulmonary artery systolic pressure is at least 40 mmHg assuming RA pressure of 15 mmHg (dilated IVC with <50% c ollapse). Aortic Valve The aortic valve is normal in structure and function. No aortic regurgitation is present. Pulmonic Valve The pulmonic valve is not well visualized. Great Vessels The aortic root is normal size. Pericardium/Pleura There is no pericardial effusion. Interpretation Summary The left ventricle is normal in size. Left ventricular systolic function is normal. No regional wall motion abnormalities noted. Ejection Fraction = 55-60%. The right ventricular systolic function is normal. The left atrium is severely dilated. The right atrium is mildly dilated. There is mild mitral annular calcification. There is moderate mitral regurgitation. There is moderate tricuspid regurgitation. Pulmonary artery systolic pressure is at least 40 mmHg assuming RA pressure of 15 mmHg (dilated IVC w ith <50% collapse) There is no pericardial effusion. Previous study is not available for comparison Bo Hannah MD 02/24/2019 11:48 AM
--- NOTE | 2019-02-24 12:04 | DS ---
Physical Exam: SUBJECTIVE: Patient seen and examined at bedside. breathing improved. denies fever, cp, n/v/d OBJECTIVE: Vital Signs Period Temp Pulse Resp BP Sys/Card Pulse Ox Last 24 Hr 97.4 F-98.8 F 67-82 20-20 92-119/61-73 94-99 PHYSICAL EXAM GENERAL: The patient is awake, alert, and fully oriented, in no acute distress. HEAD: Normal with no signs of trauma. EYES: PERRL, extraocular movements intact, sclera anicteric, conjunctiva clear. No ptosis. ENT: Ears normal, nares patent, oropharynx clear without exudates, moist mucous membranes. NECK: Trachea midline, full range of motion, supple. LUNGS: crackles at bases, improving HEART: Regular rate and rhythm, S1, S2 without murmur, rub or gallop. ABDOMEN: Soft, nontender, nondistended, normoactive bowel sounds, no guarding, no rebound, no hepatosplenomegaly, no masses. EXTREMITIES: 2+ pulses, warm, well-perfused, no edema. NEUROLOGICAL: Cranial nerves II through XII grossly intact. Normal speech, gait not observed. PSYCH: Normal mood, normal affect. SKIN: Warm, dry, normal turgor, no rashes or lesions noted LABS Laboratory Results - last 24 hr 02/23/19 02/23/19 02/24/19 17:15 21:44 05:18 WBC RBC Hgb Hct MCV MCH MCHC RDW Plt Count MPV Absolute Neuts (auto) Neutrophils % Lymphocytes % Monocytes % Eosinophils % Basophils % Nucleated RBC % PT with INR INR Sodium Potassium Chloride Carbon Dioxide Anion Gap BUN Creatinine Est GFR (CKD-EPI)AfAm Est GFR (CKD-EPI)NonAf POC Glucometer 175 207 158 Random Glucose Calcium Phosphorus Magnesium Total Bilirubin AST ALT Alkaline Phosphatase Total Protein Albumin 02/24/19 02/24/19 02/24/19 05:45 05:45 06:00 WBC 5.7 RBC 4.58 Hgb 12.7 Hct 38.9 MCV 84.9 MCH 27.6 MCHC 32.5 RDW 16.4 H Plt Count 264 MPV 8.2 Absolute Neuts (auto) 4.6 Neutrophils % 80.0 Lymphocytes % 10.4 D Monocytes % 9.5 Eosinophils % 0.0 Basophils % 0.1 Nucleated RBC % 0 PT with INR 17.60 H INR 1.49 H Sodium 140 Potassium 4.2 Chloride 101 Carbon Dioxide 33 H Anion Gap 6 L BUN 22.9 H Creatinine 0.6 Est GFR (CKD-EPI)AfAm 109.31 Est GFR (CKD-EPI)NonAf 94.32 POC Glucometer Random Glucose 149 H Calcium 8.4 L Phosphorus 4.0 Magnesium 2.5 H Total Bilirubin 0.4 AST 27 ALT 34 Alkaline Phosphatase 148 H Total Protein 6.1 L Albumin 2.9 L 02/24/19 11:35 WBC RBC Hgb Hct MCV MCH MCHC RDW Plt Count MPV Absolute Neuts (auto) Neutrophils % Lymphocytes % Monocytes % Eosinophils % Basophils % Nucleated RBC % PT with INR INR Sodium Potassium Chloride Carbon Dioxide Anion Gap BUN Creatinine Est GFR (CKD-EPI)AfAm Est GFR (CKD-EPI)NonAf POC Glucometer 149 Random Glucose Calcium Phosphorus Magnesium Total Bilirubin AST ALT Alkaline Phosphatase Total Protein Albumin ECHO Interpretation Summary The left ventricle is normal in size. Left ventricular systolic function is normal. No regional wall motion abnormalities noted. Ejection Fraction = 55-60%. The right ventricular systolic function is normal. The left atrium is severely dilated. The right atrium is mildly dilated. There is mild mitral annular calcification. There is moderate mitral regurgitation. There is moderate tricuspid regurgitation. Pulmonary artery systolic pressure is at least 40 mmHg assuming RA pressure of 15 mmHg (dilated IVC with <50% collapse) There is no pericardial effusion. Previous study is not available for comparison Bo Hannah MD 02/24/2019 11:48 AM Reported By: Bo Hannah MD 02/24/19 1148 HOSPITAL COURSE: Date of Admission:02/21/19 Date of Discharge: 02/24/19 67 y/o F current smoker with a PMHx of Waldenstrom's syndrome (nonHodkin's lymphoblastic lymphoma), asthma/COPD, atrial fibrillation on coumadin, IBS, DM, HTN, HLD, hypothyroid, osteoarthritis, fibromyalgia presented to the ED with hx of SOB, AMS, cough with increased sputum production admitted for copd exacerbation Admitted for Acute on chronic hypoxic hypercapnic respiratory failure 2/2 COPD exacerbation 2/2 PNA and active tobacco use - pt p/w tachypnea and desat to 85% . sats improved w/ supplemental O2 VM and NC. no fever or leukocytosis noted. pulm consulted, Brill legionella neg CT w/ small patchy RUL anterior seg infiltrate, increased main PA pt tx w/ duoneb, solumedrol and 3d of azithromycin, ceftriaxone. chronic home inhalers and singulair were resumed as well will be dcd w/ ceftin 500 bid for 5 days along w/ 8d prednisone taper. last dose 03/04/19 bacid while taking ceftin #Current smoker s/p Smoking cessation counseling s/p nicotine patch #Afib w/ subtherapeutic INR 1.49 pt placed on lovenox 70mg bid bridge while adjusting warfarin. home dose warfarin was continued however INR did not improve. given pt clinical improvement of admitting diagnosis, we will dc pt with lovenox 70mg bid and cont w/ home dose warfarin 5mg HS until pt can f/u w/ PCP for INR checks w/ adjustment of coumadin dose. pt informed and is agreeable and will f/u w/ PCP in 1 week Digoxin .025mg was held while taking azithro to avoid interaction. now ok to resume as pt has completed azithro echo reviewed above #hypothyroid per pt has not taken synthroid in years pt is stable and ready for dc w/ appropriate f/u Minutes to complete discharge: 38 Discharge Summary Reason For Visit: ACUTE ON CHRONIC RESPIRATORY FAILURE W/ HYPOXIA Current Active Problems Acute and chronic respiratory failure with hypoxia (Acute) COPD exacerbation (Acute) Confusion (Acute) Pneumonia (Acute) SOB (shortness of breath) (Acute) Condition: Improved - Instructions Diet, Activity, Other Instructions: you came in with copd exacerbation and pneumonia MEDS please resume your home meds antibiotic ceftin 500 twice a day for 5 more days please take probiotic bacid while taking ceftin prednisone daily taper for 8 days Dose Date 40mg 02/25-02/26 30 02/27-02/28 20 03/01-03/02 10 03/03-03/04 lovenox skin injections 70mg twice a day for 2 weeks until we properly adjust your warfarin dose for an INR of 2-3 please check INR after you finish your antibiotic and steroid course in 1 week, follow up with your primary afterward. Follow up: PCP in 1 week for INR checks and warfarin adjustment straightener and aligner Dr Prado within 1 week if you have shortness of breath, chest pain ,fever please call 911 or go to the ER Referrals: Dusty Andrade [Primary Care Provider] - 1 Week Kory Prado MD [Staff Physician] - 1 Week Disposition: HOME - Home Medications Comprehensive Discharge Medication List: Ambulatory Orders Biotin/Calcium Carbonate [Biotin 800 Mcg Tablet] 1 each PO DAILY 11/29/16 Cholecalciferol (Vitamin D3) [Vitamin D -] 2,000 unit PO DAILY 11/29/16 Cyanocobalamin [Vitamin B12 -] 1,000 mcg PO DAILY 11/29/16 Cyclobenzaprine HCl [Flexeril 10 mg] 5 mg PO DAILY 11/29/16 Digoxin [Lanoxin -] 0.25 mg PO DAILY 11/29/16 Diltiazem HCl [Cartia Xt] 180 mg PO BID 11/29/16 Furosemide [Lasix] 80 mg PO BID 11/29/16 Gabapentin 300 mg PO BID 11/29/16 Multivitamin [Poly-Vitamin] 1 each PO DAILY 11/29/16 Quetiapine Fumarate [Seroquel -] 50 mg PO HS 11/29/16 Venlafaxine HCl ER [Effexor Xr -] 225 mg PO DAILY 11/29/16 Warfarin Sodium [Coumadin] 5 mg PO ASDIR 11/29/16 metFORMIN HCL [Metformin ER Osmotic] 1,000 mg PO BID 11/29/16 Atorvastatin Calcium 20 mg PO HS 01/11/17 Fluticasone Prop 0.05% Nasal [Flonase -] 1 - 2 spray NS DAILY 01/11/17 Montelukast Na [Singulair -] 10 mg PO HS 01/11/17 Salmeterol/Fluticasone [Advair 500Mcg/50Mcg -] 1 inh PO DAILY 01/11/17 Albuterol Sulfate Inhaler - [Ventolin HFA Inhaler -] 1 - 2 inh PO Q4H PRN #1 inhaler 01/14/17 Budesonide/Formeterol Fumarate [SYMBICORT 160/4.5mcg -] 2 puff IH BID inhaler 07/03/17 Glimepiride [Glimepiride -] 1 mg PO DAILY@0700 tablet 07/03/17 Guaifenesin [Mucinex -] 1,200 mg PO DAILY tab 07/03/17 Miscellaneous Medical Supply [Glucometer Device] 1 each PO ASDIR #1 kit [employer] [Glucometer Test Strips #50] 1 each PO ASDIR #1 box 07/03/17 Potassium Chloride [Potassium Chloride Oral Liquid] 20 meq PO DAILY pack Tiotropium [place] [Spiriva] 1 puff IH DAILY inh 07/03/17 Cefuroxime Axetil [Ceftin -] 500 mg PO Q12H 5 Days #10 tablet 02/24/19 Enoxaparin [Lovenox -] 70 mg SQ BID 14 Days #1 disp.syrin 02/24/19 Lactobacillus Acidophilus [Bacid -] 1 each PO DAILY 5 Days #5 capsule 02/24/19 Prednisone See Taper PO DAILY 8 Days #20 tab.ds.pk 02/24/19 This patient is new to me today: Yes Date on this admission: 02/24/19 Emergency Visit: Yes ED Registration Date: 02/21/19 Care time: The patient presented to the Emergency Department on the above date and was hospitalized for further evaluation of their emergent condition. Critical Care patient: No - Discharge Referral Referred to [facility] Med P.C.: No
--- NOTE | 2019-02-24 15:46 | PN ---
Teaching Attending Note Name of Resident: Jerald Paz ATTENDING PHYSICIAN STATEMENT I saw and evaluated the patient. I reviewed the resident's note and discussed the case with the resident. I agree with the resident's findings and plan as documented. SUBJECTIVE: Patient is feeling better with no acute distress, no shortness of breath, no nausea or vomiting. OBJECTIVE: Vital Signs Temperature 98.1 F 02/24/19 10:00 Pulse Rate 73 02/24/19 11:45 Respiratory Rate 20 02/24/19 10:00 Blood Pressure 108/69 02/24/19 10:00 O2 Sat by Pulse Oximetry (%) 96 02/24/19 11:45 GENERAL: The patient is awake, alert, and fully oriented, on NC continue HEAD: Normal with no signs of trauma. EYES: PERRL, extraocular movements intact, sclera anicteric, conjunctiva clear. ENT: Ears normal, oropharynx clear without exudates, moist mucous membranes. NECK: Trachea midline, full range of motion, supple. LUNGS: CTA BL , with decreased BS at basis, no wheezes, no crackles, no accessory muscle use. HEART: Regular rate and rhythm, S1, S2 positive, without any murmur, no rub or gallop. ABDOMEN: Soft, NT, ND, normoactive bowel sounds, no guarding, no rebound, no hepatosplenomegaly, no masses. EXTREMITIES: 2+ pulses, warm, well-perfused, no edema. NEUROLOGICAL: Cranial nerves II through XII grossly intact. Normal speech, gait not observed. PSYCH: Normal mood, normal affect. SKIN: Warm, dry, normal turgor, no rashes or lesions noted CBCD WBC 5.7 K/mm3 (4.0-10.0) 02/24/19 05:45 RBC 4.58 M/mm3 (3.60-5.2) 02/24/19 05:45 Hgb 12.7 GM/dL (10.7-15.3) 02/24/19 05:45 Hct 38.9 % (32.4-45.2) 02/24/19 05:45 MCV 84.9 fl (80-96) 02/24/19 05:45 MCHC 32.5 g/dl (32.0-36.0) 02/24/19 05:45 RDW 16.4 % (11.6-15.6) H 02/24/19 05:45 Plt Count 264 K/MM3 (134-434) 02/24/19 05:45 MPV 8.2 fl (7.5-11.1) 02/24/19 05:45 CMP Sodium 140 mmol/L (136-145) 02/24/19 05:45 Potassium 4.2 mmol/L (3.5-5.1) 02/24/19 05:45 Chloride 101 mmol/L (98-107) 02/24/19 05:45 Carbon Dioxide 33 mmol/L (21-32) H 02/24/19 05:45 Anion Gap 6 MMOL/L (8-16) L 02/24/19 05:45 BUN 22.9 mg/dL (7-18) H 02/24/19 05:45 Creatinine 0.6 mg/dL (0.55-1.3) 02/24/19 05:45 Random Glucose 149 mg/dL (74-106) H 02/24/19 05:45 Calcium 8.4 mg/dL (8.5-10.1) L 02/24/19 05:45 Total Bilirubin 0.4 mg/dL (0.2-1) 02/24/19 05:45 AST 27 U/L (15-37) 02/24/19 05:45 ALT 34 U/L (13-61) 02/24/19 05:45 Alkaline Phosphatase 148 U/L (45-117) H 02/24/19 05:45 Total Protein 6.1 g/dl (6.4-8.2) L 02/24/19 05:45 Albumin 2.9 g/dl (3.4-5.0) L 02/24/19 05:45 CARDIAC ENZYMES Creatine Kinase 38 U/L (26-192) 02/22/19 06:19 Troponin I < 0.02 ng/ml (0.00-0.05) 02/22/19 06:19 Home Medications Medication Instructions Recorded Biotin/Calcium Carbonate [Biotin 1 each PO DAILY 11/29/16 800 Mcg Tablet] Cholecalciferol (Vitamin D3) 2,000 unit PO DAILY 11/29/16 [Vitamin D -] Cyanocobalamin [Vitamin B12 -] 1,000 mcg PO DAILY 11/29/16 Cyclobenzaprine HCl [Flexeril 10 5 mg PO DAILY 11/29/16 mg] Digoxin [Lanoxin -] 0.25 mg PO DAILY 11/29/16 Diltiazem HCl [Cartia Xt] 180 mg PO BID 11/29/16 Furosemide [Lasix] 80 mg PO BID 11/29/16 Gabapentin 300 mg PO BID 11/29/16 Multivitamin [Poly-Vitamin] 1 each PO DAILY 11/29/16 Quetiapine Fumarate [Seroquel -] 50 mg PO HS 11/29/16 Venlafaxine HCl ER [Effexor Xr -] 225 mg PO DAILY 11/29/16 Warfarin Sodium [Coumadin] 5 mg PO ASDIR 11/29/16 metFORMIN HCL [Metformin ER 1,000 mg PO BID 11/29/16 Osmotic] Atorvastatin Calcium 20 mg PO HS 01/11/17 Fluticasone Prop 0.05% Nasal 1 - 2 spray NS DAILY 01/11/17 [Flonase -] Montelukast Na [Singulair -] 10 mg PO HS 01/11/17 Salmeterol/Fluticasone [Advair 1 inh PO DAILY 01/11/17 500Mcg/50Mcg -] Albuterol Sulfate Inhaler - 1 - 2 inh PO Q4H PRN #1 inhaler 01/14/17 [Ventolin HFA Inhaler -] Budesonide/Formeterol Fumarate 2 puff IH BID inhaler 07/03/17 [SYMBICORT 160/4.5mcg -] Glimepiride [Glimepiride -] 1 mg PO DAILY@0700 tablet 07/03/17 Guaifenesin [Mucinex -] 1,200 mg PO DAILY tab 07/03/17 Miscellaneous Medical Supply 1 each PO ASDIR #1 kit 07/03/17 [Glucometer Device] Miscellaneous Medical Supply 1 each PO ASDIR #1 box 07/03/17 [Glucometer Test Strips #50] Potassium Chloride [Potassium 20 meq PO DAILY pack 07/03/17 Chloride Oral Liquid] Tiotropium [place] [Spiriva] 1 puff IH DAILY inh 07/03/17 Cefuroxime Axetil [Ceftin -] 500 mg PO Q12H 5 Days #10 tablet 02/24/19 Enoxaparin [Lovenox -] 70 mg SQ BID 14 Days #1 disp.syrin 02/24/19 Lactobacillus Acidophilus [Bacid -] 1 each PO DAILY 5 Days #5 capsule 02/24/19 Prednisone See Taper PO DAILY 8 Days #20 02/24/19 tab.ds.pk ASSESSMENT AND PLAN: Assessment and Plan: This is a 66 yo F with PMHx of asthma, COPD, Waldenstrom's macroglobulinemia, nonHodkin's lymphoma, atrial fibrillation (coumadin), IBS, DM, HTN, HLD, hypothyroid, arthritis, fibromyalgia presented to ED for SOB, cough. She is being admitted for COPD exac and pneumonia. # Acute hypoxemic , hypercapneic COPD exacerbation due to Pneumonia: improved, patient has oxygen at home as needed. s/p ceftriaxone, and azithromycin, will dischrage her home on oral ceftin for 5 more days, follow with pulm , continue with tapered dose of steroid 40mg . continue nebulizer txs, continue singulair, s/p IV solumedrol 40mg Q6H,and BiPAP PRN # Acute Pneumonia s/p IV antibiotic: IV Rocephin/Zithromax continue day #3 continue with oral antibiotic at , #Atrial fibrillation rate controlled on coumadin continue subtherapeutic INR around 1.4 today , will continue Lovenox 70mg bid with coumadin 5mg at home , keep INR above 2.0 , follow up with rn radiology post finishing the iv antibiotics to adjust coumadin. #HTN on lasix 80mg BID continue #Hyperlipidemia on lipitor continue # DM hold metformin, SS with coverage continue # hypothyroidism on synthroid continue # Waldenstrom's macroblobulinemia/NHL ;stable per patient ;f/u outpatient # arthritis/fibromyalgia on flexeril/gabapentin continue # Depression on effexor, seroquel continue # Smoking cesation : nicotine patch ordered DVT Px: Coumadin/lovenox dc patient home.
[2019-02-24] MEDS ORDERED: WARFARIN NA 5 MG, WARFARIN NA 2 MG PO SCH (18:00)
[2019-02-24] MEDS ORDERED: QUEtiapine FUMARATE 50 MG TABLET PO SCH (22:00)
[2019-02-24] MEDS ORDERED: methylPREDNISolone NA SUCC 40 MG/1 ML VIAL IVPUSH SCH (22:00)
== END 2019-02-24 13:38 | disposition home or self-care (01) | DRG 193 ==
LOC: JER 18:16 → JERBED 21:39 → J4W 02-22 03:47
PROVIDERS: ADMIT Internal Medicine; ATTEND Internal Medicine
PROC: 3E0F7GC Introduction of Other Therapeutic Substance into Respiratory Tract, Via Natural or Artificial Opening (ICD-10-PCS; principal; 2019-02-21)
DX: J18.9 Pneumonia, unspecified organism (principal); J96.21 Acute and chronic respiratory failure with hypoxia; J96.22 Acute and chronic respiratory failure with hypercapnia; C85.90 Non-Hodgkin lymphoma, unspecified, unspecified site; J43.9 Emphysema, unspecified; I10 Essential (primary) hypertension; E11.9 Type 2 diabetes mellitus without complications; J45.909 Unspecified asthma, uncomplicated; C88.0 Waldenstrom macroglobulinemia; E03.9 Hypothyroidism, unspecified; I48.91 Unspecified atrial fibrillation; Z79.01 Long term (current) use of anticoagulants; F31.9 Bipolar disorder, unspecified; K58.9 Irritable bowel syndrome, unspecified; E78.5 Hyperlipidemia, unspecified; M79.7 Fibromyalgia; F17.210 Nicotine dependence, cigarettes, uncomplicated; M19.90 Unspecified osteoarthritis, unspecified site; Z79.84 Long term (current) use of oral hypoglycemic drugs; Z91.14 Patient's other noncompliance with medication regimen
CPT/HCPCS: 36415; 36600; 71045-TC-FY; 71275-TC; 80053; 80061; 82550; 82803; 82962; 83036; 83721; 83735; 83880; 84100; 84443; 84484; 85025; 85610; 85730; 87899; 93005; 93010; 93306-TC; 94640; 94660; 99284-25

== ENCOUNTER 2019-03-23 05:46 | Inpatient (IN) | payer OTHER, MEDICARE | END 2019-03-29 20:00 | disposition short-term general hospital (02) | LOC: JER 05:46 → JERBED 09:37 → J4W 11:43 → JICU 15:56 ==

== ENCOUNTER 2019-09-02 11:45 | Observation (INO) | payer OTHER, MEDICARE ==
--- NOTE | 2019-09-02 12:09 | PDOC ---
History of Present Illness - General Chief Complaint: Chest Pain Stated Complaint: CHEST PAIN Time Seen by Provider: 09/02/19 12:02 History Source: Patient - History of Present Illness Initial Comments: 09/02/19 12:45 Ms. Muñoz is a 69 y/o woman w/hx COPD, HTN, HLD, afib on warfarin, cardiac myxoma s/p resection, presenting with one day of acute onset chest pain and shortness of breath. She reports feeling fatigued yesterday alongside chills. She reports today noticing central aching chest pain as well as discrete pain in her L shoulder blade and shortness of breath. She reports receiving her flu shot this year as well as a pneumovax booster. She reports generalized weakness and fatigue that also began last night. She denies any measured fevers, nausea, vomiting, dyspnea on exertion, or changes in vision. Past History - Past Medical History Allergies/Adverse Reactions: Allergies Allergy/AdvReac Type Severity Reaction Status Date / Time midazolam HCl [From Versed] Allergy Verified 09/02/19 16:06 fresh fruit Allergy Severe anaphlaxis Uncoded 09/02/19 16:06 Home Medications: Ambulatory Orders Atorvastatin Ca [Lipitor] 20 mg PO HS 09/02/19 Cyclobenzaprine HCl 5 mg PO DAILY 09/02/19 Digoxin [Lanoxin -] 0.25 mg PO DAILY 09/02/19 Diltiazem HCl [Diltiazem 24Hr ER] 120 mg PO DAILY 09/02/19 Furosemide [Lasix] 60 mg PO DAILY 09/02/19 Gabapentin 400 mg PO TID 09/02/19 Metformin HCl [Glucophage] 1,000 mg PO BID 09/02/19 Montelukast Na [Singulair -] 10 mg PO HS 09/02/19 Quetiapine Fumarate [Seroquel -] 50 mg PO HS 09/02/19 Venlafaxine HCl [Effexor -] 150 mg PO BID 09/02/19 Verapamil HCl 40 mg PO BID 09/02/19 Warfarin Na [Coumadin] 5 mg PO DAILY 09/02/19 Anemia: No Asthma: No Cancer: Yes (NON HODGKINS LYMP) Cardiac Disorders: Yes CVA: No COPD: Yes CHF: No Dementia: No Diabetes: No GI Disorders: Yes (IBS) Disorders: No HTN: No Hypercholesterolemia: No Liver Disease: No Seizures: No Thyroid Disease: Yes (HYPO) - Surgical History Abdominal Surgery: No Appendectomy: No Cardiac Surgery: Yes (MYXOMA RESECTION) Cholecystectomy: No Lung Surgery: No Neurologic Surgery: No Orthopedic Surgery: Yes (SPINAL FUSION OF L5, S1) - Immunization History Immunization Up to Date: No - Psycho Social/Smoking Cessation Hx Smoking Status: Yes Smoking History: Current every day smoker Years of Tobacco Use: 12 Have you smoked in the past 12 months: No Number of Cigarettes Smoked Daily: 20 'Breaking Loose' booklet given: 11/30/16 Hx Alcohol Use: No Drug/Substance Use Hx: No Substance Use Type: None Hx Substance Use Treatment: No Review of Systems - Review of Systems Able to Perform ROS?: Yes Comments:: 09/02/19 12:53 ROS: GENERAL/CONSTITUTIONAL: Chills, weakness. No fever HEAD, EYES, EARS, NOSE AND THROAT: No change in vision. No ear pain or discharge. No sore throat. CARDIOVASCULAR: Chest pain, shortness of breath RESPIRATORY: No cough, wheezing, or hemoptysis. GASTROINTESTINAL: No nausea, vomiting, or constipation. GENITOURINARY: No dysuria, frequency, or change in urination. MUSCULOSKELETAL: No joint or muscle swelling or pain. No neck or back pain. SKIN: No rash NEUROLOGIC: No headache, vertigo, loss of consciousness, or change in strength/ sensation. ENDOCRINE: No increased thirst. No abnormal weight change HEMATOLOGIC/LYMPHATIC: No anemia, easy bleeding, or history of blood clots. ALLERGIC/IMMUNOLOGIC: No hives or skin allergy. *Physical Exam - Physical Exam 09/02/19 12:54 PE: GENERAL: Awake, alert, and fully oriented, fatigued appearing. HEAD: No signs of trauma, normocephalic, atraumatic EYES: PERRLA, EOMI, sclera anicteric, conjunctiva clear ENT: Auricles normal inspection, hearing grossly normal, nares patent, oropharynx clear without exudates. Moist mucosa NECK: Normal ROM, supple, no lymphadenopathy, JVD, or masses LUNGS: No distress, speaks full sentences, clear to auscultation bilaterally HEART: Regular rate and rhythm, normal S1 and S2, no murmurs, rubs or gallops, peripheral pulses normal and equal bilaterally. ABDOMEN: Soft, nontender, normoactive bowel sounds. No guarding, no rebound. No masses EXTREMITIES : Normal inspection, Normal range of motion, no edema. No clubbing or cyanosis NEUROLOGICAL: Cranial nerves II through XII grossly intact. Normal speech, normal gait, no focal sensorimotor deficits SKIN: Warm, Dry, normal turgor, no rashes or lesions noted Heart Score/ECG Review - History History: Slightly suspicious - Electrocardiogram EKG: Normal - Age Age: >/= 65 - Risk Factors Risk Factors Heart Score: Yes Hx Hypercholesterolemia, Yes Hx Hypertension Based on the list above the patient has:: 1-2 risk factors ED Treatment Course - LABORATORY CBC & Chemistry Diagram: 09/02/19 13:00 09/02/19 13:00 Medical Decision Making - Medical Decision Making 09/02/19 12:56 69F w/hx HTN, HLD, COPD, afib on warfarin, atrial myxoma s/p resection p/w one day acute onset chest pain, sob, as well as generalized weakness and fatigue. Differential includes ACS given age, risk factors. Influenza also possible given generalized weakness and fatigue with sob. Plan: CBC CMP Cardiac profile PT/INR PTT UA Urine culture Influenza A/B rapid swab Acetaminophen 650mg for pain EKG CXR Dispo: Pending labs, reassessment 09/02/19 17:40 Troponin negative CBC, CMP - wnl CXR - no acute process EKG - no acute change Plan for admission to telemetry obs. --- Patient endorsed to inpatient team. Discharge - Discharge Information Problems reviewed: Yes Clinical Impression/Diagnosis: Chest pain Qualifiers: Chest pain type: unspecified Qualified Code(s): R07.9 - Chest pain, unspecified Condition: Stable - Admission Yes - Follow up/Referral - Patient Discharge Instructions - Post Discharge Activity
[2019-09-02] MEDS ORDERED: ACETAMINOPHEN 325 MG TABLET (FP) PO ONE (12:25)
[2019-09-02] MEDS ORDERED: ACETAMINOPHEN 325 MG TABLET (FP) ONE (12:49)
[2019-09-02 13:17] LABS: BASO % 0.3 % (0-2.0); EOS % 1.3 % (0-4.5); HEMOGLOBIN 13.6 GM/dL (10.7-15.3); LYMPH % 23.4 % (8-40); MCH 27.3 pg (25.7-33.7); MCHC 32.5 g/dl (32.0-36.0); MEAN PLT VOLUME 7.8 fl (7.5-11.1); MONO % 15.7 % (3.8-10.2); NEUT % 59.3 % (42.8-82.8); PLATELET COUNT 315 K/MM3 (134-434); RDW 19.7 % (11.6-15.6); WHITE BLOOD COUNT 9.1 K/mm3 (4.0-10.0)
--- NOTE | 2019-09-02 13:31 | PDOC ---
Documentation entered by Denise Panchal SCRIBE, acting as scribe for Oralia Mcnally DO. Oralia Mcnally DO: This documentation has been prepared by the Abdulkadir venegas Andrys, SCRIBE, under my direction and personally reviewed by me in its entirety. I confirm that the documentation accurately reflects all work, treatment, procedures, and medical decision making performed by me. Attending Attestation - Resident Resident Name: Jad Scott - ED Attending Attestation I have performed the following: I have examined & evaluated the patient, The case was reviewed & discussed with the resident, I agree w/resident's findings & plan, Exceptions are as noted - HPI HPI: 09/02/19 13:04 The patient is a 69 year old female with a significant past medical history of COPD (on home 2L), AFib (on Warfarin), Waldenstroms syndrome (non-Hodgkin's lymphoblastic lymphoma), atrial myxoma s/p resection, asthma, DM, HTN, HLD, hypothyroid, osteoarthritis, fibromyalgia who presents to the ED with flu like symptoms since last night and chest pain today. Patient reports cough, chills and generalized weakness since last night. She states the developed mid-sternal chest pain with shortness of breath earlier today which prompted her to come into the ED. Social hx: Patient smokes 1 pack per day. - Physicial Exam PE: 09/02/19 13:04 Constitutional: + appears generally weak all over. Awake, alert, oriented. No acute distress. Head: Normocephalic. Atraumatic Eyes: PERRL. EOMI. Conjunctivae are not pale. ENT: + congestion in the nares. Mucous membranes are moist and intact. Posterior pharynx without exudates or erythema. Uvula midline. Neck: Supple. Full ROM. No lymphadenopathy. Cardiovascular: Regular rate. Regular rhythm. S1, S2 regular. Distal pulses are 2+ and symmetric. Pulmonary/Chest: + coarse breath sounds at the bilateral bases. No wheezing, rales or rhonchi. Abdominal: Soft and non-distended. There is no tenderness. No rebound, guarding or rigidity. No organomegaly. No palpable masses. Good bowel sounds. Back: No CVA tenderness. Musculoskeletal: No edema. No cyanosis. No clubbing. Full range of motion in all extremities. Nocalf tenderness. Radial/pedal pulses are intact and 2+ bilaterally Skin: Skin is warm and dry. No petechiae. No purpura. Neurological: Alert and oriented to person, place, and time. Cranial nerves II -XII are grossly intact. Normal speech. Strength is grossly symmetric. No sensory deficits. Psychiatric: Good eye contact. Normal interaction, affect and behavior. - Medical Decision Making 09/02/19 13:28 I, Dr. Oralia Mcnally, DO, attest that this document has been prepared under my direction and personally reviewed by me in its entirety. I further attest, that it accurately reflects all work, treatment, procedures and medical decision -making performed by me. a/p: 69yo female with hx of atrial myxoma and afib on coumadin with cough, rhinorrhea, nasal congestion, cp, and generalized weakness -pt states she feels midsternal cp, L scapula pain -no change in cough production or change in cough -no fevers measured, but felt hcills -body aches -congesiton -concern for pna vs flu vs acs -will send labs, flu, cxr, ekg -will monitor and reassess -tylenol 09/02/19 13:31 cxr clear 09/02/19 13:44 no elevated wbc 09/02/19 14:02 flu neg 09/02/19 14:05 FLU neg per the lab 09/02/19 15:50 trop neg resident discussed the case with blue who accepts pt to service Heart Score/ECG Review - ECG Intrepretation Comment:: 09/02/19 14:06 afib at 79, R lay axis, no acute st/t wave findings, t wave inversions III wich are nonspecific
[2019-09-02 13:57] LABS: ALBUMIN 3.3 g/dl (3.4-5.0); ALK PHOS 182 U/L (45-117); ANION GAP 4 MMOL/L (8-16); BILIRUBIN,TOTAL 0.5 mg/dL (0.2-1); BLOOD UREA NITROGEN 8.7 mg/dL (7-18); CALCIUM 8.8 mg/dL (8.5-10.1); CHLORIDE 106 mmol/L (98-107); CO2 31 mmol/L (21-32); CREATININE 0.5 mg/dL (0.55-1.3); GLUCOSE,RANDOM 83 mg/dL (74-106); POTASSIUM 4.3 mmol/L (3.5-5.1); SGOT/AST 25 U/L (15-37); SGPT/ALT 37 U/L (13-61); SODIUM 141 mmol/L (136-145); TOT PROT 6.9 g/dl (6.4-8.2)
[2019-09-02] MEDS ORDERED: ASPIRIN 81 MG CHEWABLE TABLETS PO ONE (14:01)
[2019-09-02] MEDS ORDERED: ASPIRIN 81 MG CHEWABLE TABLETS ONE (14:03)
[2019-09-02 15:11] LABS: PH,URINE 6.5 (5.0-8.0); URINE APPEARANCE CLEAR; URINE BILIRUBIN NEGATIVE (NEGATIVE); URINE COLOR YELLOW; URINE GLUCOSE (UA) NEGATIVE (NEGATIVE); URINE KETONE NEGATIVE (NEGATIVE); URINE LEUK ESTERASE NEGATIVE (NEGATIVE); URINE NITRITE NEGATIVE (NEGATIVE); URINE PROTEIN NEGATIVE (NEGATIVE); URINE UROBILINOGEN 0.2 mg/dL (0.2-1.0)
--- NOTE | 2019-09-02 15:15 | EKG ---
Test Reason : Blood Pressure : / mmHG Vent. Rate : 077 BPM Atrial Rate : 111 BPM P-R Int : 000 ms QRS Dur : 104 ms QT Int : 346 ms P-R-T Axes : 000 102 012 degrees QTc Int : 391 ms POOR DATA QUALITY, INTERPRETATION MAY BE ADVERSELY AFFECTED UNDETERMINED RHYTHM but possibly atrial fibrillation RIGHTWARD AXIS INCOMPLETE RIGHT BUNDLE BRANCH BLOCK SEPTAL INFARCT , AGE UNDETERMINED ABNORMAL ECG Confirmed by MD Inga, Humberto ([id number]) on 09/02/2019 3:15:01 PM Referred By: Confirmed By:Humberto Xiong MD
[2019-09-02 15:16] LABS: INR 2.16 (0.83-1.09); PROTHROMBIN TIME (PATIENT) 25.7 SEC (9.7-13.0)
[2019-09-02 15:19] LABS: ACTIVATED PTT 45.5 SECONDS (25.2-36.5)
--- NOTE | 2019-09-02 16:45 | HP ---
CHIEF COMPLAINT: chest pain, congestion PCP: Dr. Andrade HISTORY OF PRESENT ILLNESS: 69 y/o/f with PMHx of COPD, HLD, afib on coumadin (last INR check last week 1.7) , non hodgkins lymphoma, DM, cardiac myxoma s/p resection in 1997 presented to the ED for chest pain that started this morning when she woke up around 0900. She states the chest pain is heavy in nature and does not radiate. She denies associated palpitations, dizziness. Complains of some SOB since waking up today as well, she has a symbicort inhaler at home which she did not use. Complains of a mild headache that has resolved since she arrived to the ED. For the last 2 days she has been feeling congested and has had a productive cough. She has been feeling hot/cold intermittently since yesterday. She took a temperature last night which was 97.5F. Reports diarrhea 4 out of the last 7 days, non bloody. She reports having left shoulder pain intermittently for the last 2 weeks. Denies abd pain, changes in vision, dysuria, constipation, N/V. Reports that her pressures run low, baseline is 100/60s. States that her lower extremities are swollen but this is her baseline. ER course was notable for: (1) CXR without acute pathology (2) trop negative Recent Travel: none PAST MEDICAL HISTORY: COPD, HLD, afib on coumadin (last INR check last week 1.7), non hodgkins lymphoma, DM, cardiac myxoma s/p resection in 1997 PAST SURGICAL HISTORY: Back surgery in 2003, Hip replacement in March of this year at [facility], orthoscopic knee surgery, ovaries removed Social History: Smoking: pack a day of cigarettes Alcohol: past use, denies current Drugs: past marijuana use, denies current use Family History non contributory Patient lives with a roommate Allergies midazolam HCl [From Versed] Allergy (Verified 09/02/19 16:06) fresh fruit Allergy (Severe, Uncoded 09/02/19 16:06) anaphlaxis HOME MEDICATIONS: Home Medications Medication Instructions Recorded Atorvastatin Ca [Lipitor] 20 mg PO HS 09/02/19 Cyclobenzaprine HCl 5 mg PO DAILY 09/02/19 Digoxin [Lanoxin -] 0.25 mg PO DAILY 09/02/19 Diltiazem HCl [Diltiazem 24Hr ER] 120 mg PO DAILY 09/02/19 Furosemide [Lasix] 60 mg PO DAILY 09/02/19 Gabapentin 400 mg PO TID 09/02/19 Metformin HCl [Glucophage] 1,000 mg PO BID 09/02/19 Montelukast Na [Singulair -] 10 mg PO HS 09/02/19 Quetiapine Fumarate [Seroquel -] 50 mg PO HS 09/02/19 Venlafaxine HCl [Effexor -] 150 mg PO BID 09/02/19 Verapamil HCl 40 mg PO BID 09/02/19 Warfarin Na [Coumadin] 5 mg PO DAILY 09/02/19 REVIEW OF SYSTEMS as per HPI PHYSICAL EXAMINATION Vital Signs - 24 hr 09/02/19 09/02/19 09/02/19 11:46 12:00 15:15 Temperature 98 F Pulse Rate 82 Pulse Rate [ 72 Apical] Respiratory 18 20 Rate Blood Pressure 108/64 Blood Pressure 112/78 [Left Arm] O2 Sat by Pulse 98 99 99 Oximetry (%) GENERAL: Awake, alert, and fully oriented, in no acute distress. HEAD: Normal with no signs of trauma. EYES: PERRL, EOMI EARS, NOSE, THROAT: mild erythema of posterior oropharynx, no exudates. MMM NECK: Normal range of motion, supple without lymphadenopathy, JVD, or masses. no cervical lymphadenopathy LUNGS: mild rales noted R>L, no accessory muscle use HEART: RRR, no murmur ABDOMEN: Soft, nontender, not distended, normoactive bowel sounds, no guarding, no rebound, no masses. MUSCULOSKELETAL: Normal range of motion at all joints. No sacral ulcer EXTREMITIES: 2+ pulses, warm, well-perfused. No calf tenderness. 1+ non pitting edema of bilateral lower extremities NEUROLOGICAL: Normal speech. Normal gait. sensation intact throughout PSYCHIATRIC: Cooperative. Good eye contact. Appropriate mood and affect. SKIN: Warm, dry, normal turgor, no rashes or lesions noted, normal capillary refill. Laboratory Results - last 24 hr 09/02/19 09/02/19 09/02/19 12:43 13:00 13:00 WBC 9.1 RBC 5.00 Hgb 13.6 Hct 42.0 D MCV 84.0 MCH 27.3 MCHC 32.5 RDW 19.7 H Plt Count 315 MPV 7.8 Absolute Neuts (auto) 5.4 Neutrophils % 59.3 D Lymphocytes % 23.4 D Monocytes % 15.7 H Eosinophils % 1.3 D Basophils % 0.3 Nucleated RBC % 0 PT with INR 25.70 H INR 2.16 H PTT (Actin FS) 45.5 H Sodium Potassium Chloride Carbon Dioxide Anion Gap BUN Creatinine Est GFR (CKD-EPI)AfAm Est GFR (CKD-EPI)NonAf Random Glucose Calcium Total Bilirubin AST ALT Alkaline Phosphatase Creatine Kinase Troponin I Total Protein Albumin Urine Color Urine Appearance Urine pH Ur Specific [place] Urine Protein Urine Glucose (UA) Urine Ketones Urine Blood Urine Nitrite Urine Bilirubin Urine Urobilinogen Ur Leukocyte Esterase Influenza A (Rapid) Cancelled Influenza B (Rapid) Cancelled 09/02/19 09/02/19 09/02/19 13:00 13:15 14:11 WBC RBC Hgb Hct MCV MCH MCHC RDW Plt Count MPV Absolute Neuts (auto) Neutrophils % Lymphocytes % Monocytes % Eosinophils % Basophils % Nucleated RBC % PT with INR INR PTT (Actin FS) Sodium 141 Potassium 4.3 Chloride 106 Carbon Dioxide 31 Anion Gap 4 L BUN 8.7 Creatinine 0.5 L Est GFR (CKD-EPI)AfAm 116.07 Est GFR (CKD-EPI)NonAf 100.15 Random Glucose 83 Calcium 8.8 Total Bilirubin 0.5 AST 25 ALT 37 Alkaline Phosphatase 182 H Creatine Kinase 32 Troponin I < 0.02 Total Protein 6.9 Albumin 3.3 L Urine Color Yellow Urine Appearance Clear Urine pH 6.5 Ur Specific [place] 1.006 L Urine Protein Negative Urine Glucose (UA) Negative Urine Ketones Negative Urine Blood Negative Urine Nitrite Negative Urine Bilirubin Negative Urine Urobilinogen 0.2 Ur Leukocyte Esterase Negative Influenza A (Rapid) Negative Influenza B (Rapid) Negative ASSESSMENT/PLAN: 69 y/o/f with PMHx of COPD, HLD, afib on coumadin (last INR check last week 1.7) , non hodgkins lymphoma, DM, cardiac myxoma s/p resection in 1997 presented to the ED for chest pain that started this morning when she woke up around 0900. Admitted for ACS rule out. #Chest pain - initial trop negative, continue to monitor trops - serial EKGs - ECHO for cardiac evaluation - Lower extremity U/S to r/o DVT - ASA given in ED x1, continue ASA - cardio consulted - check digoxin level in AM #HTN - continue home medications #HLD - continue home lipitor #Afib - continue coumadin - monitor daily INR daily #DM - BGM - ISS #FEN - sodium/diabetic diet - encourage PO intake - monitor and replete lytes as needed #Prophylaxis - Continue home Coumadin. INR therapeutic. #Disposition -admitted to tele obs Visit type - Emergency Visit Emergency Visit: Yes ED Registration Date: 09/02/19 Care time: The patient presented to the Emergency Department on the above date and was hospitalized for further evaluation of their emergent condition. - New Patient This patient is new to me today: No - Critical Care Critical Care patient: No ATTENDING PHYSICIAN STATEMENT I saw and evaluated the patient. I reviewed the resident's note and discussed the case with the resident. I agree with the resident's findings and plan as documented. SUBJECTIVE: OBJECTIVE: ASSESSMENT AND PLAN:
[2019-09-02 17:31] VITALS: BMI 27.8
--- NOTE | 2019-09-02 17:57 | PN ---
Teaching Attending Note Name of Resident: Patricia Gadnhi ATTENDING PHYSICIAN STATEMENT I saw and evaluated the patient. I reviewed the resident's note and discussed the case with the resident. I agree with the resident's findings and plan as documented. SUBJECTIVE: This is a 69 year old woman with a history of atrial fib, HTN, hyperlipidemia, COPD, type 2 DM, NHL, cardiac myxoma resection who comes to the ED complaining of chest pain. She describes the pain as a heaviness. She says it started when she awoke around 9am today. She felt SOB. She denies palpitations, dizziness, diaphoresis. She has had chest congestion and a productive cough x 2 days. She denies fevers. OBJECTIVE: Vital Signs Period Temp Pulse Resp BP Sys/Card Pulse Ox Last 24 Hr 98 F-98.1 F 72-82 18-24 108-113/64-78 98-99 HEART: Irregular LUNGS: Bibasilar crackles ABDOMEN: Soft, non-tender, non-distended, normal BS EXTREMITIES: Non-pitting edema of both legs Laboratory Tests 09/02/19 09/02/19 09/02/19 12:43 13:00 13:00 WBC 9.1 RBC 5.00 Hgb 13.6 Hct 42.0 D MCV 84.0 MCH 27.3 MCHC 32.5 RDW 19.7 H Plt Count 315 MPV 7.8 Absolute Neuts (auto) 5.4 Neutrophils % 59.3 D Lymphocytes % 23.4 D Monocytes % 15.7 H Eosinophils % 1.3 D Basophils % 0.3 Nucleated RBC % 0 PT with INR 25.70 H INR 2.16 H PTT (Actin FS) 45.5 H Sodium Potassium Chloride Carbon Dioxide Anion Gap BUN Creatinine Est GFR (CKD-EPI)AfAm Est GFR (CKD-EPI)NonAf POC Glucometer Random Glucose Calcium Total Bilirubin AST ALT Alkaline Phosphatase Creatine Kinase Troponin I Total Protein Albumin Urine Color Urine Appearance Urine pH Ur Specific [place] Urine Protein Urine Glucose (UA) Urine Ketones Urine Blood Urine Nitrite Urine Bilirubin Urine Urobilinogen Ur Leukocyte Esterase Influenza A (Rapid) Cancelled Influenza B (Rapid) Cancelled 09/02/19 09/02/19 09/02/19 13:00 13:15 14:11 WBC RBC Hgb Hct MCV MCH MCHC RDW Plt Count MPV Absolute Neuts (auto) Neutrophils % Lymphocytes % Monocytes % Eosinophils % Basophils % Nucleated RBC % PT with INR INR PTT (Actin FS) Sodium 141 Potassium 4.3 Chloride 106 Carbon Dioxide 31 Anion Gap 4 L BUN 8.7 Creatinine 0.5 L Est GFR (CKD-EPI)AfAm 116.07 Est GFR (CKD-EPI)NonAf 100.15 POC Glucometer Random Glucose 83 Calcium 8.8 Total Bilirubin 0.5 AST 25 ALT 37 Alkaline Phosphatase 182 H Creatine Kinase 32 Troponin I < 0.02 Total Protein 6.9 Albumin 3.3 L Urine Color Yellow Urine Appearance Clear Urine pH 6.5 Ur Specific [place] 1.006 L Urine Protein Negative Urine Glucose (UA) Negative Urine Ketones Negative Urine Blood Negative Urine Nitrite Negative Urine Bilirubin Negative Urine Urobilinogen 0.2 Ur Leukocyte Esterase Negative Influenza A (Rapid) Negative Influenza B (Rapid) Negative 09/02/19 17:34 WBC RBC Hgb Hct MCV MCH MCHC RDW Plt Count MPV Absolute Neuts (auto) Neutrophils % Lymphocytes % Monocytes % Eosinophils % Basophils % Nucleated RBC % PT with INR INR PTT (Actin FS) Sodium Potassium Chloride Carbon Dioxide Anion Gap BUN Creatinine Est GFR (CKD-EPI)AfAm Est GFR (CKD-EPI)NonAf POC Glucometer 83 Random Glucose Calcium Total Bilirubin AST ALT Alkaline Phosphatase Creatine Kinase Troponin I Total Protein Albumin Urine Color Urine Appearance Urine pH Ur Specific [place] Urine Protein Urine Glucose (UA) Urine Ketones Urine Blood Urine Nitrite Urine Bilirubin Urine Urobilinogen Ur Leukocyte Esterase Influenza A (Rapid) Influenza B (Rapid) Home Medications Medication Instructions Recorded Atorvastatin Ca [Lipitor] 20 mg PO HS 09/02/19 Cyclobenzaprine HCl 5 mg PO DAILY 09/02/19 Digoxin [Lanoxin -] 0.25 mg PO DAILY 09/02/19 Diltiazem HCl [Diltiazem 24Hr ER] 120 mg PO DAILY 09/02/19 Furosemide [Lasix] 60 mg PO DAILY 09/02/19 Gabapentin 400 mg PO TID 09/02/19 Metformin HCl [Glucophage] 1,000 mg PO BID 09/02/19 Montelukast Na [Singulair -] 10 mg PO HS 09/02/19 Quetiapine Fumarate [Seroquel -] 50 mg PO HS 09/02/19 Venlafaxine HCl [Effexor -] 150 mg PO BID 09/02/19 Verapamil HCl 40 mg PO BID 09/02/19 Warfarin Na [Coumadin] 5 mg PO DAILY 09/02/19 ASSESSMENT AND PLAN: This is a 69 year old woman with a history of atrial fib, HTN, hyperlipidemia, COPD, type 2 DM, NHL, cardiac myxoma resection who presented to the ED with chest pain. 1. Chest pain - Doubt cardiac, PE - Possible pleurisy secondary to URI - Observe on telemetry - Serial troponins - Echo - Venous dopplers of legs negative for DVT 2. Atrial fibrillation, permanent - Continue Cardizem, Digoxin, Coumadin 3. HTN - Continue Cardizem, Lasix 4. Hyperlipidemia - Continue Lipitor 5. Type 2 DM - Hold metfomin - Fingersticks with Novolog sliding scale 6. History of non Hodgkin lymphoma
[2019-09-02] MEDS: WARFARIN NA 5 MG TABLET (UD) PO SCH (19:37)
[2019-09-02] MEDS ORDERED: SODIUM CHLORIDE NASAL SPRAY 44 ML BOTTLE NS PRN (21:07)
[2019-09-02] MEDS ORDERED: MELATONIN 5 MG TABLETS PO PRN (21:08)
[2019-09-02] MEDS ORDERED: VERAPAMIL HCL 40 MG TABLET (FP) PO SCH (22:00)
[2019-09-02] MEDS: GABAPENTIN 400 MG CAPSULE (FP) PO SCH (22:37)
[2019-09-02] MEDS: ATORVASTATIN CA 20 MG TABLET (FP) PO SCH (22:37)
[2019-09-02] MEDS: VENLAFAXINE HCL 75 MG TABLET PO SCH (22:37)
[2019-09-02] MEDS: MONTELUKAST NA 10 MG TABLET PO SCH (22:38)
[2019-09-03] MEDS: GABAPENTIN 400 MG CAPSULE (FP) PO SCH ×3 (06:34→21:19)
[2019-09-03] MEDS: INSULIN SLIDING SCALE (NOVOLOG) 1 VIAL SQ SCH ×2 (06:48→16:56)
[2019-09-03 07:03] LABS: HEMATOCRIT 42.4 % (32.4-45.2); HEMOGLOBIN 13.7 GM/dL (10.7-15.3); MCH 27.1 pg (25.7-33.7); MCHC 32.4 g/dl (32.0-36.0); MEAN CELL VOLUME 83.7 fl (80-96); MEAN PLT VOLUME 8.1 fl (7.5-11.1); PLATELET COUNT 314 K/MM3 (134-434); RBC 5.06 M/mm3 (3.60-5.2); RDW 19.9 % (11.6-15.6); WHITE BLOOD COUNT 8.1 K/mm3 (4.0-10.0)
[2019-09-03 07:41] LABS: INR 2.34 (0.83-1.09); PROTHROMBIN TIME (PATIENT) 27.8 SEC (9.7-13.0)
[2019-09-03 08:10] LABS: ALBUMIN 3.1 g/dl (3.4-5.0); BILIRUBIN,TOTAL 0.5 mg/dL (0.2-1); BLOOD UREA NITROGEN 9.8 mg/dL (7-18); CALCIUM 8.8 mg/dL (8.5-10.1); CREATININE 0.5 mg/dL (0.55-1.3); MAGNESIUM 2.3 mg/dL (1.8-2.4); PHOSPHOROUS 4.5 mg/dL (2.5-4.9); POTASSIUM 4.4 mmol/L (3.5-5.1); TOT PROT 6.5 g/dl (6.4-8.2)
--- NOTE | 2019-09-03 08:51 | CON.CARD ---
Consult Consult Specialty:: cardio - History of Present Illness Chief Complaint: cp History of Present Illness: 69 F here with CP. noted mild "heaviness" in lower sternal region when awoke yesterday. non-radiating, no jaw/arm/throat sx's. has PERSISTED UNABATED SINCE, and she notes it is EXACERBATED WITH COUGH/DEEP BREATHING. coughing with phlegm, + head cold for few days. She has been feeling hot/cold intermittently, normal temp at home. + diarrhea for several days never felt this pain before. no gerd features L scapular pain, often severe, nonexertional and persistent for 2 wks or so. ER: BP and HR normal, normal temp, sat normal on RA normal WBC trop neg x 3 admitted here recently with fall, ? presyncope/syncope at home, history unclear at that time. hosp course notable for: right hip fracture tele no conduction system dz persistent atrial fibrillation, HR controlled, dig held for modestly elevated level abnormal ECG with NSST changes, prolonged QT in setting of severe hypokalemia--> QT improved; no signs ACS, echo unremarkable COPD with hypoxic resp failure requiring O2, tenuous status CTA neg PE, echo with bubbles no shunt seen other PMH: h/o cardiac myxoma resection DM NHL - Past Medical History Cardio/Vascular: Yes: AFIB, HTN Pulmonary: Yes: Asthma, Bronchitis, COPD, O2 Dependent, Pneumonia, Other ( emphysema). No: Cancer, Previously Intubated, Pulmonary Embolus, Pulmonary Fibrosis, Sleep Apnea ...: No - Alcohol/Substance Use Hx Alcohol Use: No - Smoking History Smoking history: Current every day smoker Have you smoked in the past 12 months: No Aproximately how many cigarettes per day: 20 - Social History Usual Living Arrangement: Other (with roommate) History of Recent Travel: No Home Medications - Allergies Allergies/Adverse Reactions: Allergies Allergy/AdvReac Type Severity Reaction Status Date / Time midazolam HCl [From Versed] Allergy Verified 09/02/19 16:06 fresh fruit Allergy Severe anaphlaxis Uncoded 09/02/19 16:06 - Home Medications Home Medications: Ambulatory Orders Atorvastatin Ca [Lipitor] 20 mg PO HS 09/02/19 Cyclobenzaprine HCl 5 mg PO DAILY 09/02/19 Digoxin [Lanoxin -] 0.25 mg PO DAILY 09/02/19 Diltiazem HCl [Diltiazem 24Hr ER] 120 mg PO DAILY 09/02/19 Furosemide [Lasix] 60 mg PO DAILY 09/02/19 Gabapentin 400 mg PO TID 09/02/19 Metformin HCl [Glucophage] 1,000 mg PO BID 09/02/19 Montelukast Na [Singulair -] 10 mg PO HS 09/02/19 Quetiapine Fumarate [Seroquel -] 50 mg PO HS 09/02/19 Venlafaxine HCl [Effexor -] 150 mg PO BID 09/02/19 Verapamil HCl 40 mg PO BID 09/02/19 Warfarin Na [Coumadin] 5 mg PO DAILY 09/02/19 Family Medical History Family History: Denies (no known cmp) Review of Systems - Review of Systems Constitutional: denies: Chills, Fever Eyes: denies: Eye Pain HENT: denies: Nasal Congestion Neck: denies: Stiffness Cardiovascular: denies: Palpitations Respiratory: denies: Orthopnea, PND Gastrointestinal: denies: Diarrhea, Rectal Bleeding Genitourinary: denies: Burning, Hematuria Musculoskeletal: denies: Muscle Pain Integumentary: denies: Rash Neurological: denies: Numbness, Seizure, Syncope Endocrine: denies: Excessive Sweating Hematology/Lymphatic: denies: Excessive Bleeding Vital Signs: Vital Signs Temperature 97.9 F 09/03/19 06:00 Pulse Rate 78 09/03/19 06:00 Respiratory Rate 16 09/03/19 06:00 Blood Pressure 119/67 09/03/19 06:00 O2 Sat by Pulse Oximetry (%) 96 09/02/19 21:00 Constitutional: Yes: Well Nourished, No Distress Eyes: No: Sclera Icterus HENT: No: Nasal Congestion Neck: No: Decreased ROM Respiratory: Yes: CTA Bilaterally. No: Accessory Muscle Use, Rales, Wheezes Gastrointestinal: Yes: Normal Bowel Sounds. No: Distention, Hepatomegaly, Palpable Mass, Tenderness Cardiovascular: Yes: Regular Rate and Rhythm, Other (no sternal tenderness) JVD: No Carotid Bruit: No PMI: Non-Displaced Heart Sounds: Yes: S1, S2. No: Gallop Murmur: No: Systolic Murmur, Diastolic Murmur Musculoskeletal: Yes: Other (No kyphosis) Extremities: No: Cool, Cyanosis Edema: No Peripheral Pulses: 2+ Left Carotid, 2+ Right Carotid, 2+ Left Doralis Pedis, 2+ Right Dorsalis Pedis Integumentary: No: Jaundice Neurological: Yes: Alert, Oriented (x3) Psychiatric: No: Agitated - Other Data Labs, Other Data: CBC, BMP 09/03/19 05:50 09/03/19 05:50 INR, PTT INR 2.34 (0.83-1.09) H 09/03/19 05:50 Troponin, BNP 09/02/19 09/02/19 09/03/19 13:00 20:20 05:50 Troponin I < 0.02 < 0.02 < 0.02 Troponin, BNP 09/02/19 09/02/19 09/03/19 13:00 20:20 05:50 Troponin I < 0.02 < 0.02 < 0.02 Assessment/Plan Echo 03/21: mild LVE, nl LVSF. nl RV. nl valve fxn. no RVSP ECG: AF, R axis, normal QT, nonsp ST-Ts much improved vs 03/21 CXR: clear lungs/pleura tele: AF, rate controlled chest pain: -atypical sx's, persisting x 24 hrs, pleuritic features--suspect mskel sx related to recent coughing from URI -ECG non-ischemic, trop neg x 3 -given mult CAD rf's, will plan pharm (ishmael) MPI tomorrow -cont tele today AFib, persistent: -HR controlled. apparently atenolol changed to diltiazem at [facility] last admit ( likely to try to improve pulm fxn)--cont same regimen. on hi dose dig, level borderline hi, will change to 0.125 and monitor HR -INR therapeutic--cont warfarin COPD: -no signs a.e. -per primary team h/o atrial myxoma resection: -normal echo here 03/21 HPL: -cont statin DM: -per primary team
[2019-09-03] MEDS ORDERED: PT OWN MED DRAWER 7, Y5N ONE ×3 (09:30→20:04)
[2019-09-03] MEDS: ASPIRIN COATED 81 MG TABLET.EC PO SCH (09:52)
[2019-09-03] MEDS: CYCLOBENZAPRINE HCL 5 MG TABLET PO SCH (09:52)
[2019-09-03] MEDS: FUROSEMIDE 20 MG TABLET (FP) PO SCH (09:53)
[2019-09-03] MEDS: VENLAFAXINE HCL 75 MG TABLET PO SCH ×2 (09:53→21:19)
[2019-09-03] MEDS ORDERED: ENOXAPARIN NA (PORCINE) 40 MG/0.4 ML DISP.SYRIN SQ SCH (10:00)
[2019-09-03] MEDS ORDERED: DIGOXIN 0.25 MG TABLET (FP) PO SCH (10:00)
[2019-09-03] MEDS ORDERED: DIGOXIN 0.125 MG TABLET (FP) PO SCH (10:34)
[2019-09-03] MEDS: WARFARIN NA 5 MG TABLET (UD) PO SCH (17:09)
--- NOTE | 2019-09-03 17:39 | EKG ---
Test Reason : Blood Pressure : / mmHG Vent. Rate : 074 BPM Atrial Rate : 093 BPM P-R Int : 000 ms QRS Dur : 106 ms QT Int : 388 ms P-R-T Axes : 000 111 -30 degrees QTc Int : 430 ms ATRIAL FIBRILLATION RIGHT AXIS DEVIATION POOR R WAVE PROGRESSION ABNORMAL ECG WHEN COMPARED WITH ECG OF 02-SEP-2019 11:55, NO SIGNIFICANT CHANGE WAS FOUND Confirmed by NINFA AGUIRRE, SASHA ([id number]) on 09/03/2019 5:39:10 PM Referred By: Confirmed By:SASHA OCASIO MD
--- NOTE | 2019-09-03 18:17 | PN ---
Physical Exam: SUBJECTIVE: Patient seen and examined. She reports continued chest pain. She is concerned that she has not received Seroquel since she has been here - she takes 50 mg at bedtime. OBJECTIVE: Vital Signs Period Temp Pulse Resp BP Sys/Card Pulse Ox Last 24 Hr 97.9 F-98 F 71-88 16-21 117-133/61-81 96-96 GENERAL: The patient is awake, alert, and fully oriented, in no acute distress. LUNGS: Breath sounds equal, clear to auscultation bilaterally, no wheezes, no crackles, no accessory muscle use. HEART: Irregularly irregular. ABDOMEN: Soft, nontender, nondistended, normoactive bowel sounds, no guarding, no rebound, no hepatosplenomegaly, no masses. EXTREMITIES: 2+ pulses, warm, well-perfused, no edema. Laboratory Results - last 24 hr 09/02/19 09/03/19 09/03/19 20:20 05:50 05:50 WBC 8.1 RBC 5.06 Hgb 13.7 Hct 42.4 MCV 83.7 MCH 27.1 MCHC 32.4 RDW 19.9 H Plt Count 314 MPV 8.1 PT with INR INR Sodium Potassium Chloride Carbon Dioxide Anion Gap BUN Creatinine Est GFR (CKD-EPI)AfAm Est GFR (CKD-EPI)NonAf POC Glucometer Random Glucose Calcium Phosphorus Magnesium Total Bilirubin AST ALT Alkaline Phosphatase Troponin I < 0.02 < 0.02 Total Protein Albumin Digoxin 09/03/19 09/03/19 09/03/19 05:50 05:50 06:39 WBC RBC Hgb Hct MCV MCH MCHC RDW Plt Count MPV PT with INR 27.80 H INR 2.34 H Sodium 143 Potassium 4.4 Chloride 107 Carbon Dioxide 29 Anion Gap 7 L BUN 9.8 Creatinine 0.5 L Est GFR (CKD-EPI)AfAm 116.07 Est GFR (CKD-EPI)NonAf 100.15 POC Glucometer 111 Random Glucose 93 Calcium 8.8 Phosphorus 4.5 Magnesium 2.3 Total Bilirubin 0.5 AST 42 H ALT 49 Alkaline Phosphatase 186 H Troponin I Total Protein 6.5 Albumin 3.1 L Digoxin 09/03/19 09/03/19 09:00 16:46 WBC RBC Hgb Hct MCV MCH MCHC RDW Plt Count MPV PT with INR INR Sodium Potassium Chloride Carbon Dioxide Anion Gap BUN Creatinine Est GFR (CKD-EPI)AfAm Est GFR (CKD-EPI)NonAf POC Glucometer 141 Random Glucose Calcium Phosphorus Magnesium Total Bilirubin AST ALT Alkaline Phosphatase Troponin I Total Protein Albumin Digoxin 0.98 Active Medications Generic Name Dose Route Start Last Admin Trade Name Freq PRN Reason Stop Dose Admin Aspirin 81 mg 09/03/19 10:00 09/03/19 09:52 Ecotrin - PO 81 mg DAILY ROSARIO Administration Atorvastatin Calcium 20 mg 09/02/19 22:00 09/02/19 22:37 Lipitor - PO 20 mg HS ROSARIO Administration Cyclobenzaprine HCl 5 mg 09/03/19 10:00 09/03/19 09:52 Cyclobenzaprine Hcl PO 5 mg DAILY ROSARIO Administration Digoxin 0.125 mg 09/03/19 10:34 Lanoxin - PO DAILY ROSARIO Diltiazem HCl 120 mg 09/03/19 10:00 09/03/19 09:51 Cardizem Cd - PO 120 mg DAILY ROSARIO Administration Furosemide 60 mg 09/03/19 10:00 09/03/19 09:53 Lasix - PO 60 mg DAILY ROSARIO Administration Gabapentin 400 mg 09/02/19 22:00 09/03/19 14:35 Neurontin - PO 400 mg TID ROSARIO Administration Insulin Aspart 1 vial 09/03/19 07:00 09/03/19 16:56 Novolog Vial Sliding Scale - SQ Not Given BIDAC [facility] Protocol Melatonin 5 mg 09/02/19 21:08 09/02/19 22:38 Melatonin PO 5 mg HS PRN Administration INSOMNIA Montelukast Sodium 10 mg 09/02/19 22:00 09/02/19 22:38 Singulair - PO 10 mg HS ROSARIO Administration Sodium Chloride 2 spray 09/02/19 21:07 [place] Nasal [place] - NS BID PRN NASAL CONGESTION Venlafaxine HCl 150 mg 09/02/19 22:00 09/03/19 09:53 Effexor - PO 150 mg BID ROSARIO Administration Warfarin Sodium 5 mg 09/02/19 18:00 09/03/19 17:09 Coumadin - PO 5 mg DAILY@1800 ROSARIO Administration ASSESSMENT/PLAN: This is a 69 year old woman with a history of atrial fib, HTN, hyperlipidemia, COPD, type 2 DM, NHL, cardiac myxoma resection, depression who presented to the ED with chest pain. 1. Chest pain - Doubt cardiac, PE - Likely pleurisy or musculoskeletal secondary to URI - Troponin negative x 3 - Echo ordered - Venous dopplers of legs negative for DVT - Plan for stress test tomorrow 2. Atrial fibrillation, permanent - Continue Cardizem CD - Continue Digoxin, Coumadin - Patient states she was taken of the "blue and norman capsule" (? Cardizem) because it made her dizzy and her doctor wants her to take the "orange capsule" (? Verapamil) but she does not know which meds they are 3. HTN - Continue Cardizem CD, Lasix 4. Hyperlipidemia - Continue Lipitor 5. Type 2 DM - Metfomin held - Continue Novolog sliding scale 6. COPD - Stable - Continue Singulair 7. History of non Hodgkin lymphoma 8. Depression - Continue Effexor - Restart Seroquel and monitor QT - had prolonged QTc in past Visit type - Emergency Visit Emergency Visit: Yes ED Registration Date: 09/02/19 Care time: The patient presented to the Emergency Department on the above date and was hospitalized for further evaluation of their emergent condition. - New Patient This patient is new to me today: No - Critical Care Critical Care patient: No - Discharge Referral Referred to [facility] Med [facility].C[facility] No
[2019-09-03] MEDS: MONTELUKAST NA 10 MG TABLET PO SCH (21:19)
[2019-09-03] MEDS: ATORVASTATIN CA 20 MG TABLET (FP) PO SCH (21:19)
[2019-09-03] MEDS ORDERED: diphenhydrAMINE HCL 25 MG CAPSULE (FP) PO ONE (21:28)
[2019-09-03] MEDS ORDERED: QUEtiapine FUMARATE 50 MG TABLET PO SCH (22:00)
[2019-09-04] MEDS: GABAPENTIN 400 MG CAPSULE (FP) PO SCH ×2 (05:40→13:16)
[2019-09-04] MEDS: INSULIN SLIDING SCALE (NOVOLOG) 1 VIAL SQ SCH ×2 (06:03→17:12)
[2019-09-04] MEDS: CYCLOBENZAPRINE HCL 5 MG TABLET PO SCH (09:02)
[2019-09-04] MEDS: ASPIRIN COATED 81 MG TABLET.EC PO SCH (09:02)
[2019-09-04] MEDS ORDERED: REGADENOSON 0.4 MG/5 ML PRE-FILLED SYRINGE IVPUSH ONE ×2 (10:00→10:15)
--- NOTE | 2019-09-04 11:29 | PN ---
Progress Note (short form) - Note Progress Note: s: same atypical cp present still; no palps dizzy; +sob Current Medications Generic Name Dose Route Start Last Admin Trade Name Freq PRN Reason Stop Dose Admin Aspirin 81 mg 09/03/19 10:00 09/04/19 09:02 Ecotrin - PO 81 mg DAILY ROSARIO Administration Atorvastatin Calcium 20 mg 09/02/19 22:00 09/03/19 21:19 Lipitor - PO 20 mg HS ROSARIO Administration Cyclobenzaprine HCl 5 mg 09/03/19 10:00 09/04/19 09:02 Cyclobenzaprine Hcl PO 5 mg DAILY ROSARIO Administration Digoxin 0.125 mg 09/03/19 10:34 09/04/19 09:01 Lanoxin - PO 0.125 mg DAILY ROSARIO Administration Diltiazem HCl 120 mg 09/03/19 10:00 09/04/19 09:01 Cardizem Cd - PO 120 mg DAILY ROSARIO Administration Furosemide 60 mg 09/03/19 10:00 09/03/19 09:53 Lasix - PO 60 mg DAILY ROSARIO Administration Gabapentin 400 mg 09/02/19 22:00 09/04/19 05:40 Neurontin - PO 400 mg TID ROSARIO Administration Insulin Aspart 1 vial 09/03/19 07:00 09/04/19 06:03 Novolog Vial Sliding Scale - SQ Not Given BIDAC [facility] Protocol Melatonin 5 mg 09/02/19 21:08 09/02/19 22:38 Melatonin PO 5 mg HS PRN Administration INSOMNIA Montelukast Sodium 10 mg 09/02/19 22:00 09/03/19 21:19 Singulair - PO 10 mg HS ROSARIO Administration Quetiapine Fumarate 50 mg 09/03/19 22:00 09/03/19 21:19 Seroquel - PO 50 mg HS ROSARIO Administration Sodium Chloride 2 spray 09/02/19 21:07 [place] Nasal [place] - NS BID PRN NASAL CONGESTION Venlafaxine HCl 150 mg 09/02/19 22:00 09/03/19 21:19 Effexor - PO 150 mg BID ROSARIO Administration Warfarin Sodium 5 mg 09/02/19 18:00 09/03/19 17:09 Coumadin - PO 5 mg DAILY@1800 ROSARIO Administration Vital Signs Period Temp Pulse Resp BP Sys/Card Pulse Ox Last 24 Hr 97.9 F-98.2 F 78-92 17-22 106-132/62-77 94 Constitutional: Yes: Well Nourished, No Distress Eyes: No: Sclera Icterus HENT: No: Nasal Congestion Neck: No: Decreased ROM Respiratory: Yes: CTA Bilaterally. No: Accessory Muscle Use, Rales, Wheezes Gastrointestinal: Yes: Normal Bowel Sounds. No: Distention, Hepatomegaly, Palpable Mass, Tenderness Cardiovascular: Yes: Regular Rate and Rhythm, Other (no sternal tenderness) JVD: No Heart Sounds: Yes: S1, S2. No: Gallop Murmur: No: Systolic Murmur, Diastolic Murmur Extremities: No: Cool, Cyanosis Edema: No Integumentary: No: Jaundice Neurological: Yes: Alert, Oriented (x3) Psychiatric: No: Agitated CBC, BMP 09/03/19 05:50 09/03/19 05:50 Assessment/Plan Echo 03/21: mild LVE, nl LVSF. nl RV. nl valve fxn. no RVSP ECG: AF, R axis, normal QT, nonsp ST-Ts much improved vs 03/21 CXR: clear lungs/pleura tele: AF, rate controlled chest pain: -atypical sx's, persisting x 24 hrs, pleuritic features--suspect mskel sx related to recent coughing from URI -ECG non-ischemic, trop neg x 3 -given mult CAD rf's, will plan pharm (ishmael) MPI today and echo, if both benign then no further cardiac testing needed at this time AFib, persistent: -HR controlled. apparently atenolol changed to diltiazem at [facility] last admit ( likely to try to improve pulm fxn)--cont same regimen. on hi dose dig, level borderline hi, changed to 0.125 and monitor HR -INR therapeutic--cont warfarin COPD: -no signs a.e. -per primary team h/o atrial myxoma resection: -normal echo here 03/21 HPL: -cont statin DM: -per primary team
--- NOTE | 2019-09-04 12:06 | ECHO ---
Name: TOI MOORE Exam:Adult Echocardiogram Study Date: 09/04/2019 07:10 AM Age: 69 yrs Height: 64 in Weight: 160 lb BSA: 1.8 m2 Procedure A complete two-dimensional transthoracic echocardiogram was performed (2D, M-mode, Doppler and color flow Doppler). Left Ventricle The left ventricular size, thickness and function are normal. The left ventricular ejection fraction is normal. Ejection Fraction = 60-65%. The left ventricular wall motion is normal. Right Ventricle The right ventricle is normal in size and function. Atria The left atrium is mildly dilated. The right atrium is mildly dilated. Mitral Valve There is mild mitral regurgitation. Tricuspid Valve There is moderate tricuspid regurgitation. Right ventricular systolic pressure is normal. Aortic Valve The aortic valve is trileaflet. No hemodynamically significant valvular aortic stenosis. No aortic regurgitation is present. Pulmonic Valve There is no pulmonic valvular regurgitation. Great Vessels The aortic root is normal size. Pericardium/Pleura There is no pericardial effusion. Interpretation Summary The left ventricular size, thickness and function are normal The right ventricle is normal in size and function. The left atrium is mildly dilated. The right atrium is mildly dilated. There is mild mitral regurgitation. There is moderate tricuspid regurgitation. MD Arturo Mary 09/04/2019 12:06 PM
[2019-09-04] MEDS: FUROSEMIDE 20 MG TABLET (FP) PO SCH (12:11)
[2019-09-04] MEDS: VENLAFAXINE HCL 75 MG TABLET PO SCH (12:51)
--- NOTE | 2019-09-04 14:36 | PN ---
Teaching Attending Note Name of Resident: Patricia Gandhi ATTENDING PHYSICIAN STATEMENT I saw and evaluated the patient. I reviewed the resident's note and discussed the case with the resident. I agree with the resident's findings and plan as documented. SUBJECTIVE: constant mid sternal chest discomfort. No radiation, unrelated to food or exertion. OBJECTIVE: Afebrile, Hemodynamically Stable. Last Vital Signs Temp Pulse Resp BP Pulse Ox 98.2 F 82 18 115/77 94 L 09/03/19 22:00 09/04/19 06:00 09/04/19 08:36 09/04/19 08:36 09/04/19 08:30 GENERAL: AAO x 3. Comfortable. LUNGS: Breath sounds equal, clear to auscultation bilaterally, no wheezes, no crackles, no accessory muscle use. HEART: Irregularly irregular. ABDOMEN: Soft, nontender, normal bowel sounds. EXTREMITIES: No edema, no calf tenderness. Laboratory Results - last 24 hr 09/03/19 09/04/19 16:46 05:37 POC Glucometer 141 119 Current Medications Generic Name Dose Route Start Last Admin Trade Name Freq PRN Reason Stop Dose Admin Aspirin 81 mg 09/03/19 10:00 09/04/19 09:02 Ecotrin - PO 81 mg DAILY ROSARIO Administration Atorvastatin Calcium 20 mg 09/02/19 22:00 09/03/19 21:19 Lipitor - PO 20 mg HS ROSARIO Administration Cyclobenzaprine HCl 5 mg 09/03/19 10:00 09/04/19 09:02 Cyclobenzaprine Hcl PO 5 mg DAILY ROSARIO Administration Digoxin 0.125 mg 09/03/19 10:34 09/04/19 09:01 Lanoxin - PO 0.125 mg DAILY ROSARIO Administration Furosemide 60 mg 09/03/19 10:00 09/04/19 12:11 Lasix - PO 60 mg DAILY ROSARIO Administration Gabapentin 400 mg 09/02/19 22:00 09/04/19 13:16 Neurontin - PO 400 mg TID ROSARIO Administration Insulin Aspart 1 vial 09/03/19 07:00 09/04/19 06:03 Novolog Vial Sliding Scale - SQ Not Given BIDAC ROSARIO Protocol Melatonin 5 mg 09/02/19 21:08 09/02/19 22:38 Melatonin PO 5 mg HS PRN Administration INSOMNIA Montelukast Sodium 10 mg 09/02/19 22:00 09/03/19 21:19 Singulair - PO 10 mg HS ROSARIO Administration Quetiapine Fumarate 50 mg 09/03/19 22:00 09/03/19 21:19 Seroquel - PO 50 mg HS ROSARIO Administration Sodium Chloride 2 spray 09/02/19 21:07 [place] Nasal [place] - NS BID PRN NASAL CONGESTION Venlafaxine HCl 150 mg 09/02/19 22:00 09/04/19 12:51 Effexor - PO 150 mg BID ROSARIO Administration Verapamil HCl 40 mg 09/04/19 22:00 [place] - PO BID ROSARIO Warfarin Sodium 5 mg 09/02/19 18:00 09/03/19 17:09 Coumadin - PO 5 mg DAILY@1800 [facility] Administration Home Medications Medication Instructions Recorded Atorvastatin Ca [Lipitor] 20 mg PO HS 09/02/19 Cyclobenzaprine HCl 5 mg PO DAILY 09/02/19 Digoxin [Lanoxin -] 0.25 mg PO DAILY 09/02/19 Furosemide [Lasix] 60 mg PO DAILY 09/02/19 Gabapentin 400 mg PO TID 09/02/19 Metformin HCl [Glucophage] 1,000 mg PO BID 09/02/19 Montelukast Na [Singulair -] 10 mg PO HS 09/02/19 Quetiapine Fumarate [Seroquel -] 50 mg PO HS 09/02/19 Venlafaxine HCl [Effexor -] 150 mg PO BID 09/02/19 Verapamil HCl 40 mg PO BID 09/02/19 Warfarin Na [Coumadin] 5 mg PO DAILY 09/02/19 ASSESSMENT/PLAN: 69 year old woman with a history of Atrial fib, HTN, hyperlipidemia, COPD, DM 2 , NHL, cardiac myxoma resection, depression, presented to the ED with chest pain. 1. Chest pain, likely musculoskeletal. Troponin neg x 3. ECG neg. Echo essentially normal. Stress Test negative. Medically optimized for discharge. 2. Atrial fibrillation, permanent - will continue Verapamil started as out- patient along with Digoxin and Coumadin. INR therapeutic. INR check in AM. 3. HTN - Continue Verapamil, Lasix. 4. Hyperlipidemia - Continue Lipitor 5. DM 2 - Metfomin to resume on discharge. 6. COPD - Stable - Continue Singulair 7. History of non Hodgkin's lymphoma - treated. 8. Depression - Continue Effexor and Seroquel. QTc wnl. Medically optimized for discharge with Cardiology follow up as out-patient.
[2019-09-04 14:57] VITALS: PULSE 88
--- NOTE | 2019-09-04 16:58 | DS ---
Physical Exam: SUBJECTIVE: Patient seen and examined. No acute events overnight. Patient seen after ECHO. States she still has some mild chest pain. Denies SOB, palpitations , abd pain, dysuria, or other concerns. OBJECTIVE: Vital Signs Period Temp Pulse Resp BP Sys/Card Pulse Ox Last 24 Hr 97.9 F-99.5 F 78-92 16-22 106-121/67-77 94 PHYSICAL EXAM GENERAL: Awake, alert, and fully oriented, in no acute distress. HEAD: Normal with no signs of trauma. EYES: EOMI EARS, NOSE, THROAT: MMM NECK: Normal range of motion, supple without lymphadenopathy, JVD, or masses. no cervical lymphadenopathy LUNGS: clear to auscultation bilaterally, no wheezing, no accessory muscle use HEART: RRR, no murmur ABDOMEN: Soft, nontender, not distended, normoactive bowel sounds, no guarding, no rebound, no masses. MUSCULOSKELETAL: Normal range of motion at all joints. EXTREMITIES: 2+ pulses, warm, well-perfused. No calf tenderness. 1+ non pitting edema of bilateral lower extremities NEUROLOGICAL: Normal speech. Normal gait. sensation intact throughout PSYCHIATRIC: Cooperative. Good eye contact. Appropriate mood and affect. SKIN: Warm, dry, normal turgor, no rashes or lesions noted, normal capillary refill. LABS Laboratory Results - last 24 hr 09/04/19 05:37 POC Glucometer 119 HOSPITAL COURSE: Date of Admission:09/02/19 Date of Discharge: 09/04/19 69 y/o/f with PMHx of COPD, HLD, afib on coumadin (last INR check last week 1.7) , non hodgkins lymphoma, DM, cardiac myxoma s/p resection in 1997 presented to the ED for chest pain that started this morning when she woke up around 0900. Admitted for ACS rule out. Trops negative x3, ECHO completed with normal EF, no significant abnormalities and negative stress test. Lower extremity U/S was completed and was negative for DVT. Patient is on warfarin and INR was therapeutic. Digoxin level was borderline elevated as per cardio so her digoxin dose was decreased from 0.25mg to 0.125mg. ACS ruled out. Patient's home medications were continued appropriately. Patient discharged home with recommendation to follow up with her PCP, cardiology, to check INR in the AM, and have Digoxin level checked in one week. Minutes to complete discharge: 36 Discharge Summary Problems reviewed: Yes Reason For Visit: CHEST PAIN Current Active Problems Chest pain (Acute) Condition: Stable - Instructions Diet, Activity, Other Instructions: You presented to the hospital after experiencing new onset chest pain and were admitted to rule out acute coronary syndrome. Further testing was done, your cardiac enzymes were normal, you cardiac ECHO was negative for significant abnormalities, and your stress test was negative. Medication Changes: 1. Your Digoxin dose has been changed from 0.25mg o 0.125mg daily as your Digoxin level was borderline elevated during this admission. Follow up labs: 1. Please have your INR levels checked tomorrow (09/05/19) morning. Your last INR level was 2.34 on 09/03/19 2. Your Digoxin medication dose was changed while in the hospital, please have your Digoxin level checked on 09/08/19. Follow up with the following physicians: 1. Please follow up with your primary care provider within one week of discharge for further management of your medical conditions. 2. 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 Activity and Diet 1. You are being discharged home. Recommend daily exercise to strengthen your muscles. 2. Please monitor your diet as you need to consume a diet low in salt, fats, and sugar. 3. You have been counseled on smoking cessation and the risks of continuing to smoke. Please follow up with your primary care provider on further help on quitting smoking. Continue all your other medications as prescribed Please return to the ER if you have any signs or symptoms of chest pain, shortness of breath, uncontrollable fever, chills, nausea, vomiting, numbness, tingling, or weakness in any part of your body, changes in vision, or slurred speech. Please return to the ER if symptoms persist, worsen, or new symptoms arise. Referrals: Dusty Andrade [Primary Care Provider] - Disposition: HOME - Home Medications Comprehensive Discharge Medication List: Ambulatory Orders Atorvastatin Ca [Lipitor] 20 mg PO HS 09/02/19 Cyclobenzaprine HCl 5 mg PO DAILY 09/02/19 Furosemide [Lasix] 60 mg PO DAILY 09/02/19 Gabapentin 400 mg PO TID 09/02/19 Metformin HCl [Glucophage] 1,000 mg PO BID 09/02/19 Montelukast Na [Singulair -] 10 mg PO HS 09/02/19 Quetiapine Fumarate [Seroquel -] 50 mg PO HS 09/02/19 Venlafaxine HCl [Effexor -] 150 mg PO BID 09/02/19 Verapamil HCl 40 mg PO BID 09/02/19 Warfarin Na [Coumadin -] 5 mg PO DAILY 09/02/19 Digoxin [Lanoxin -] 0.125 mg PO DAILY #30 tablet 09/04/19 This patient is new to me today: No Emergency Visit: Yes ED Registration Date: 09/02/19 Care time: The patient presented to the Emergency Department on the above date and was hospitalized for further evaluation of their emergent condition. Critical Care patient: No - Discharge Referral Referred to [facility] Med [facility].C.: No ATTENDING PHYSICIAN STATEMENT I saw and evaluated the patient. I reviewed the resident's note and discussed the case with the resident. I agree with the resident's findings and plan as documented. SUBJECTIVE: OBJECTIVE: ASSESSMENT AND PLAN:
[2019-09-04] MEDS: WARFARIN NA 5 MG TABLET (UD) PO SCH (17:16)
[2019-09-04 17:38] VITALS: BP 120/66; TEMP 98.9
[2019-09-04] MEDS ORDERED: VERAPAMIL HCL 40 MG TABLET (FP) PO SCH (22:00)
== END 2019-09-04 19:06 | disposition home or self-care (01) ==
LOC: JER 11:45 → JERBED 14:18 → J2W 17:08
PROVIDERS: ADMIT Internal Medicine
PROC: 3E033GC Introduction of Other Therapeutic Substance into Peripheral Vein, Percutaneous Approach (ICD-10-PCS; principal; 2019-09-02)
DX: R07.89 Other chest pain (principal); I10 Essential (primary) hypertension; E78.5 Hyperlipidemia, unspecified; J44.9 Chronic obstructive pulmonary disease, unspecified; I48.19 Other persistent atrial fibrillation; Z85.72 Personal history of non-Hodgkin lymphomas; K58.9 Irritable bowel syndrome, unspecified; E03.9 Hypothyroidism, unspecified; F17.210 Nicotine dependence, cigarettes, uncomplicated; F32.9 Major depressive disorder, single episode, unspecified; E11.9 Type 2 diabetes mellitus without complications; Z86.79 Personal history of other diseases of the circulatory system; Z88.8 Allergy status to other drugs, medicaments and biological substances; Z91.018 Allergy to other foods; Z79.01 Long term (current) use of anticoagulants; Z79.84 Long term (current) use of oral hypoglycemic drugs
CPT/HCPCS: 36415; 71045-TC-FY; 78452-TC; 80053; 80162; 81003; 82550; 82962; 83735; 84100; 84484; 85025; 85027; 85610; 85730; 87086; 87804; 93005; 93010; 93017; 93306-TC; 93970-TC; 96372; 97116-GP; 97162-GP; 99283-25; A9502; G0378; J2785